=== PATIENT | female | born 1990 | race Caucasian/White ===

== ENCOUNTER 2019-09-25 16:02 | Outpatient (REF) | payer BC, SELFPAY ==
--- NOTE | 2019-09-25 15:30 | PAPFT_PTH ---
PATIENT: Lina Segura LOC: [facility]#:[id number] AGE/SX: 29/F ROOM: RE09/25/[address]: Ofelia Renner : 1990 BED: DIS: 09/25/2019 SPEC #: [id number] RECD: 09/26/19 12:54 STATUS: KATIE DOVE #: [id number] CHELSIE: 09/25/19 15:[address]: Ofelia Pierce DEPT: [facility] Cytology RECD BY: Rosalba Millan Tissues: 1 - CX/ENDOCX FOR PAP SMEARS Procedures: PAP THIN PREP/[facility] Screening Comments: [id number]
== END 2019-09-25 16:22 ==
LOC: NCHCN 16:02
PROVIDERS: PCP Nurse Practitioner Family; Visit Provider Nurse Practitioner Family
DX: Z12.4 Encounter for screening for malignant neoplasm of cervix (principal)
CPT/HCPCS: 88142

== ENCOUNTER 2021-12-29 15:25 | Outpatient (REF) | payer BC, SELFPAY ==
--- OUTSIDE RECORDS SUMMARY | 2021-12-29 15:28 | XMS_ITS | Encounter Summary ---
:1990 Author Organization [facility] Address [address] [place] [address] Care Team Providers Name Role Phone Ofelia Pierce GERM DRIER Primary Care Provider Desiree Park MD Unavailable Encounter Details Date Type Department Care Team Description 05/31/2021 Lab Requisition [facility] Outr Resulting Lab, Pathology & Laboratory Provider [facility] [address] [place] [address] Social History Tobacco Use Types Packs/Day Years Used Date Never Smoker Alcohol Use Standard Drinks/Week Comments Not Currently 0 (1 standard drink = 0.6 oz pure alcoho l) Sex Assigned at Date Recorded Female 08/28/2021 10:44 EDT documented as of this encounter Plan of Treatment Not on filedocumented as of this encounter Procedures Procedure Name Priority Date/Time Associated Diagnosis Comme nts SUSCEPTIBILITY Routine 05/29/2021 16:43 EST Resul ts for this procedure are i n the results section . documented in this encounter Results (ABNORMAL) SUSCEPTIBILITY (05/29/2021 16:43 EST) Organism ID Streptococcus [facility] agalactiae (Group B) LABORATORY SERVICES (A) Specimen Organism - Douche with rectal and vagina l fittings (physical object) Organism Antibiotic Method Susceptibility Streptococcus agalactiae (Group B) Clindamycin <=0.12 ug/mL: Susceptible Performing Organization Address City/State/[facility] Code Phon e Number [facility] [address] [place] [address] SERVICES documented in this encounter Visit Diagnoses Not on filedocumented in this encounter Care Teams Auto Polisher Relationship Specialty Start Date End Date Ofelia Pierce, GERM DRIER PCP - General 03/31/21 [address] [place] [id number] Desiree Park MD 03/23/21 [address] [place] [id number] documented as of this encounter
--- OUTSIDE RECORDS SUMMARY | 2021-12-29 15:28 | XMS_ITS | Encounter Summary ---
:1990 Author Organization [facility] Address [address] [place] [address] Care Team Providers Name Role Phone Ofelia Pierce NP Primary Care Provider Desiree Park MD Unavailable Reason for Visit Reason Comments Suture / Staple Removal s/p lap curly 08/19/21 Consult (See Order Priority) - Receiving Office to Obtain Authorization Specialty Diagnoses / Procedures Referred By Contact Refer red To Contact General Surgery Diagnoses Gallbladder polyp Irene Bowden MD Abuja[place], Wase[place], MD [address] [place] [address], [address] [place] [place] [address] Phone: Fax: Referral ID Status Reason Start Expiration Visits Visits Date Date Requested Authorized [id number] Receiving Office Specialty 1 1 to Obtain Services 2 Authorization Required Encounter Details Date Type Department Care Team Description 08/28/2021 Nurse Only [facility] Nurse, Smith Cm allbladder polyp (Primary Dx); General Surgery - Surg S/P laparo scopic cholecystectomy; Smith Removal of diaz [address] [place], [place] [id number] Social History Tobacco Use Types Packs/Day Years Used Date Never Smoker Smokeless Tobacco: Never Used Alcohol Use Standard Drinks/Week Comments Not Currently 0 (1 standard drink = 0.6 oz pure alcoho l) none since 01/2020 Alcohol Habits Answer Date Recorded How often do you have a drink containing alcohol? Not asked How many drinks containing alcohol do you have on a Not aske d typical day when you are drinking? How often do you have six or more drinks on one Not asked occasion? Comment: none since 01/202008/18/2021 Sex Assigned at Date Recorded Female 08/28/2021 10:44 EDT documented as of this encounter Functional Status Functional Status Response Date of Assessment Because of a physical, mental, or emotional condition, No 06/09/2021 does this person have difficulty doing errands alone such as visiting a doctor's office or shopping? Cognitive Status Response Date of Assessment Because of a physical, mental, or emotional condition, No 06/09/2021 does this person have serious difficulty concentrating, remembering, or making decisions? documented as of this encounter Progress Notes Zenaida Byers RN - 08/28/2021 1100 EDT Incision well approximated with diaz. No drainage. Surrounding skin C/D/I. Staple removal performed per provider instruction. Patient tolerated well. Steri strips placed. Patient Education Topic: Post op steri strip care Method: Verbal Taught to: Patient Barriers: None Outcomes: verbalized understanding Signature: Electronically signed by ZENAIDA BYERS RN I was supervised by Brannon Roman PA-C who was present and immediately available in the office suite. ZENAIDA BYERS RN 08/28/2021 11:09 documented in this encounter Plan of Treatment Not on filedocumented as of this encounter Visit Diagnoses Diagnosis Gallbladder polyp - Primary Cholesterolosis of gallbladder S/P laparoscopic cholecystectomy Other postprocedural status Removal of diaz Encounter for removal of sutures documented in this encounter Discontinued Medications Medication Sig Discontinue Reason Start Date End Date HYDROmorphone (DILAUDID) 2 Take 1 Tablet by Therapy completed 08/1908/28/2021 mg tablet mouth every 4 hours as needed for Pain. Daily Max: 12 mg documented as of this encounter Care Teams [employer] Clerk Relationship Specialty Start Date End Date Ofelia Pierce NP PCP - General 03/31/21 [address], [place] [phone] Desiree Park MD 03/23/[address] [phone] documented as of this encounter
--- OUTSIDE RECORDS SUMMARY | 2021-12-29 15:28 | XMS_ITS | Encounter Summary ---
:1990 Author Organization [facility] Address [address] [place] [address] Care Team Providers Name Role Phone Ofelia Pierce NP Primary Care Provider Desiree Park MD Unavailable Encounter Details Date Type Department Care Team Description 05/12/2021 Lab Requisition [facility] Chikis Meade N eoplasm of Pathology & PA uncertain behavior Laboratory Medicine [address] [place] [address] [address] [place] [id number] Social History Tobacco Use Types Packs/Day Years Used Date Never Smoker Alcohol Use Standard Drinks/Week Comments Not Currently 0 (1 standard drink = 0.6 oz pure alcoho l) Sex Assigned at Date Recorded Female 08/28/2021 10:44 EDT documented as of this encounter Discharge Disposition Disposition Code Departure Means Destination Home or Self Care documented in this encounter Plan of Treatment Not on filedocumented as of this encounter Procedures Procedure Name Priority Date/Time Associated Diagnosis Comme nts SURGICAL PATHOLOGY Today 05/11/2021 11:24 Neoplasm of Resul ts for this EST uncertain behavior procedure are in of skin the results section. documented in this encounter Results SURGICAL PATHOLOGY (05/11/2021 11:24 EST) Note to Patient The following [facility] pathology results CENTER have been interpreted LABORATORY by your pathologist SERVICES and may be available to you before your health provider has had the opportunity to review them. Please allow time for your provider to receive these results and explore management options, if applicable. Final Diagnosis A. SKIN OF NIPPLE, LEFT, SHAVE BIOPSY: [facility] - Fibroepithelial skin tag. CENTER LABORATORY B. SKIN OF CHEEK, RIGHT INFERIOR MEDIAL MALAR, SHAVE B IOPSY: SERVICES - Pyogenic granuloma. Attestation By the signature [facility] Electronica lly below, the attending CENTER signed by Gildardo physician certifies LABORATORY Jenifer Navarrete MD on that they have 1) SERVICES 05/12/2021 at 1612 personally conducted a gross and/or microscopic examination of the described specimen(s), and/or personally interpreted the results of laboratory testing of the described specimen(s), and 2) personally rendered or confirmed the above diagnosis. Microscopic A. There is a polypoid papul e with a papillated epidermal surface. The stratum corneum is composed of a relatively normal layer of orthokeratin. The dermis is composed of loose fibrous connective tissue and dilated vessels. [facility] Description CENTER B. There is a papule formed by a dermal proliferation of vascular channels associated with an edematous and inflamed stroma. The vessels are lined by hypertrophic endothelial cells and there is mural sw LABORAT ORY elling. The overlying epider mis is centrally ulcerated but forms a collarette at the periphery of the papule. SERVICES Clinical History A. 4 mm pedunculated papule; DDx: skin tag vs other; B. 6 mm erythematous papule; DDx: pyogenic granuloma vs hemangioma vs other; clinical diagnosis code: D48.5 [facility] LABORATORY SERVICES Gross Description A. [facility] Received in formalin sasha d with proper patient identification (initials C, A) and left nipple is a shave biopsy of a dusky rod wrinkled papule (0.7 x 0.5 x 0.5 cm). The margin is inked blue. Bisected and submitted in A1. CENTER LABORATORY B. SERVICES Received in formalin sasha d with proper patient identification (initials C, A) and right inferior medial malar insert shave biopsy of pale rod-white skin (0.7 x 0.6 by of less than 0.1 cm). There is an off center a rod-white f riable focally brown hemorrhagic area (0.3 x 0.3 cm). The margin is inked blue. Bisected and submitted in B1-B2. Les Ewing 05/12/2021 8:18 Performing Lab [facility] HOSPITAL LAB [facility] LABORATORY SERVICES Scanned Images [facility] LABORATORY SERVICES Specimen Tissue - Skin (tissue) specimen (specime n) Tissue specimen (specimen) - Skin (tissu e) specimen (specimen) Performing Organization Address City/State/ZIP Code Phon e Number [facility] [address] [place] [address] SERVICES documented in this encounter Visit Diagnoses Diagnosis Neoplasm of uncertain behavior of skin documented in this encounter Care Teams Otr Van Cdl Truck Driver Relationship Specialty Start Date End Date Ofelia Pierce NP PCP - General 03/31/21 [address] [place], [place] [phone] Desiree Park MD 03/23/[address] [place], [place] [phone] documented as of this encounter
--- OUTSIDE RECORDS SUMMARY | 2021-12-29 15:28 | XMS_ITS | Encounter Summary ---
:1990 Author Organization [facility] Address [address] [place] [address] Care Team Providers Name Role Phone Ofelia Pierce NP Primary Care Provider Desiree Park MD Unavailable Reason for Visit Auth/Cert Specialty Diagnoses / Procedures Referred By Contact Refer red To Contact Diagnoses Biliary colic Procedures MA LAP,CHOLECYSTECTOMY laparoscopic and possible open cholecystectomy and possible intraoperative cholangiography (XRY). Referral ID Status Reason Start Date Expiration Date Visits Requ ested Visits Authorized [id number] 05/01/2022 1 1 Encounter Details Date Type Department Care Team Description 08/19/2021 Anesthesia Event [facility] OR Marely Angela MD [address] [place] [id number] [place] [address] Ge Matias AA [address] [phone] [place] [address] Anesthesia Record Procedure Summary Procedure Name Responsible Anesthesia Start Anesthesia Stop Anesthesiologist Time Time laparoscopic and Marely Angela MD 08/19/21 0725 08/19/21 0915 possible open cholecystectomy and possible intraoperative cholangiography (XRY). (N/A Abdomen) Events Date Time Event Comment 08/19/2021 0725 An Start The patient was re-evaluated immediately before moderate or deep sedation use, before anesthesia induction, or be fore the anesthesia procedure. 0725 An Start Data 0737 An Induction The patient was reevaluated immediately before moderate or deep sedation use and before anesthesia induction. 0742 An Intubation 0748 Anesthesia Ready 0903 An Extubation Neuromuscular bl ockade reversed with full TOF and sustained tetanu s. Patient spontaneously breathing. Oropharynx sucti oned and patient extubated awake. Airway patent po st-extubation. To PACU with 3 L supplemental oxy gen via nasal cannula. VSS 0909 an stop data 0913 Handoff to RN I completed my h andoff to the receiving nurse during which we: 1. Jeevan ntified the patient 2. Identified the responsible provider 3. Reviewed the pertinent medical history 4. Discussed the surgical course 5. Reviewed intra-o p anesthesia management and issues during anesthesi a 6. Set expectations for post-procedure p eriod 7. Allowed opportunity for questions and ac knowledgement of understanding. 0915 An Stop Name Total dexaMETHasone (DECADRON) injection 4 mg/mL (for IV dos es up to 10mg) 8 mg fentanyl citrate (PF) injection 200 mcg glycopyrrolate pre-filled syringe 0.2 mg HYDROmorphone vial 2 mg/mL 0.8 mg ketAMINE 5 mL prefilled syringe 20 mg ondansetron (PF) (ZOFRAN) injection 4 mg lidocaine 2% (PF) injection glass vial 60 mg propOFol (DIPRIVAN) injection 150 mg propOFol injection 770,588 mcg rocuronium 10 mg/mL vial 70 mg sugammadex 100 mg/mL 2 mL vial 200 mg dexmedetomidine injection - vial 45.49 mcg ceFAZolin (ANCEF) syringe 2 g 2 g labetalol 5 mg/mL 20 mL vial 50 mg ketOROLAC injection 30 mg lactated ringers (LR) infusion 1,000 mL Agents Name O2 N2O Air Blood No blood administrations on file. Lines, Drains, and Airways Type Details Placement Removal Wound 08/19/21; 0807; Anterior; 08/19/21 0807 by Abdomen; Trocar Sites x4 Shital Palomino RN for Laparoscopic Cholecystectomy; N; Full thickness Peripheral IV 08/19/21; 0647; 20; 1.25; 08/19/21 0647 by 08/19 1116 by B Peters Introcan; Left, Amalia Terrazas RN Miner, Loretta, RN Posterior; Hand; Inserted by RN (Ross Terrazas); 1; None; 3.15% Chlorhexidine with IPA; 08/19/21; 1116; Per protocol, Therapy completed; No complications, Dressing applied Non-Surgical Airway 08/19/21; 0754 (created 08/19/21 0754 by 0903 by via procedure Ge Tucker, Ge Tucker, documentation); 08/19/21; AA AA 0903 documented in this encounter Social History Tobacco Use Types Packs/Day Years [...] making decisions? documented as of this encounter OR Notes Anesthesia Postprocedure Evaluation - Ge Tucker, CAROL - 08/19/2021 0916 EDT Patient: Lina Segura Vital signs were reviewed with the recovery nurse. Complete vitals history is available in the Epic flowsheets. Vitals Value Taken Time BP 124/76 08/19/21 0913 Temp 08/19/21 0916 Resp 16 08/19/21 0915 Pulse From Oximetry 91 BPM 08/19/21 0915 SpO2 99 % 08/19/21 0915 Vitals shown include unvalidated device data. Last Pain Score - Numeric Pain Level (Scale 1-10): 0 Type of Anesthesia - general Anesthesia Post Evaluation Post-procedure vitals reviewed and are stable. Level of consciousness: awake and alert and oriented Temperature status: normothermia Respiratory status: airway patent and nasal cannula Cardiovascular status: appropriate for condition Hydration status: adequate Nausea/Vomiting: none Pain management: adequate Post-Op Assessment: patient tolerated procedure well with no complications and patient satisfied with anesthesia care Patient participation: able to participate Disposition: outpatient/home Anesthesia Complications: No apparent anesthesia complications Comments: nesthesia Procedure Notes - Ge Tucker AA - 08/19/2021 0753 EDTAssociated Order(s): Airway Airway Date/Time: 08/19/2021 7:42 Urgency: elective Airway not difficult General Information and Staff Patient location during procedure: OR Resident/PALEOLOGY TEACHER: Ge Tucker AA Performed: resident/PALEOLOGY TEACHER/AA Indications and Patient Condition Indications for airway management: anesthesia Sedation level: GA Preoxygenated: yes Patient position: sniffing Ventilation assessment: 1 - Easy Final Airway Details Final airway type: endotracheal airway Successful airway: ETT Cuffed: yes Successful intubation technique: video laryngoscopy Choe Facilitating devices/methods: intubating stylet Endotracheal tube insertion site: oral Blade: Katherine Blade size: #3 ETT size (mm): 7.5 Cormack-Lehane Classification: grade I - full view of glottis Placement verified by: chest auscultation, capnometry and palpation of cuff Measured from: lips ETT to lips (cm): 21 Number of attempts at approach: 1 nesthesia Preprocedure Evaluation - Marely Angela MD - 08/19/2021 0652 EDT Anesthesia Preprocedure Evaluation Patient Medical History, including Anesthesia History reviewed. Chart and Nursing Notes reviewed, including NPO status and Medication History. Additional ROS/History Findings: 30 year old female scheduled for laparoscopic and possible open cholecystectomy and possible intraoperative cholangiography PMH significant for: 7 weeks s/p uncomplicated wToby TATE @ [facility]: - c/b urticaria - controlled with PPI and Claritin - denies GERD/nausea/vomiting Allergies Allergen Reactions ??? Amoxicillin Hives Shortness of Breath ??? Pcn [Penicillins] ??? 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 Activity, other involving cardiorespiratory exercise 08/18/21; has a 7 week old, walking 1 mile per day ??? Astigmatism 08/17/21 myopia ??? Capillary hemangioma of right orbital region ??? 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 Eczema, developed hives post , ? hormonal : being treated with clariten and pepcid: somewhat helpful ??? Eczema eczema hands , wrist . per pt, surgical site clear at this time from eczema ??? GERD (gastroesophageal reflux disease) 08/18/21: during , now resolved. Now on pepcid for anti histamine benefit r/t hives ??? Hemangioma 08/17/21 capillary-right orbital region ??? History of general anesthesia tolerated well, had epidural with her son, tolerated well ??? History of kidney stones 08/18/21: ? stone during , right hydronephrosis has resolved. At this time no stone visualized ??? Migraines 08/18/21: on occassion, no specific med plan Relevant Problems Anesthesia (-) PONV (postoperative nausea and vomiting) CARDIOVASCULAR (+) Port-wine stain of skin (+) Telangiectasia Past Surgical History: Procedure Laterality Date ??? OTHER SURGICAL HISTORY laser annually from age 3 to 14 for port wine stain ??? WISDOM TOOTH EXTRACTION Social History Tobacco Use ??? Smoking status: Never Smoker ??? Smokeless tobacco: Never Used Substance Use Topics ??? Alcohol use: Not Currently Comment: none since 01/2020 ??? Drug use: Never Clinical information reviewed: Physical Exam Airway Mallampati: I TM distance: >3 FB Neck ROM: full Cardiovascular - normal exam Dental Pulmonary - normal exam Abdominal Anesthesia Plan ASA 2 Anesthesia Type - general Anesthesia plan and risks discussed. Informed consent obtained from patient. Specific risks discussed were bleeding, dental injury, stroke, vomiting, nerve damage, nausea, headache, infection, ICU placement, , myocardial infarction, post-op intubation and other. Counseled re: ability to continue after GA Obstetrics patient pre-procedure anesthesia evaluation included a discussion of epidural, spinal, general, and TAP block mode(s) of anesthesia. Risks discussed included: Bleeding, infection, nerve injury, spinal headaches, high spinals, hematomas, and low blood pressures with under-perfusion. The possibilities of inadequate epidural/block, block failure, and possible block replacement were also discussed. All patient's questions were answered to their satisfaction. PAT Note Notes from 07/20/21 through 08/19/21 No notes of this type exist for this encounter. documented in this encounter Plan of Treatment Not on filedocumented as of this encounter Procedures Procedure Name Priority Date/Time Associated Comments Diagnosis ANESTHESIA Routine 08/19/2021 7:42 EDT Results for this INTUBATION procedure are i n the results section. documented in this encounter Results MA AN ELECTIVE ENDOTRACHEAL AIRWAY (08/19/2021 7:42 EDT) Narrative Ge Tucker AA - 08/19/2021 7:42 EDT Ge Tucker AA ? 08/19/2021 ??7:54 Airway Date/Time: 08/19/2021 7:42 Urgency: elective Airway not difficult General Information and Staff Patient location during procedure: OR Resident/PALEOLOGY TEACHER: Ge Tucker AA Performed: resident/PALEOLOGY TEACHER/CAROL Indications and Patient Condition Indications for airway management: anest hesia Sedation level: GA Preoxygenated: yes Patient position: sniffing Ventilation assessment: 1 - Easy Final Airway Details Final airway type: endotracheal airway Successful airway: ETT Cuffed: yes Successful intubation technique: video l aryngoscopy Choe Facilitating devices/methods: intubating stylet Endotracheal tube insertion site: oral Blade: Katherine Blade size: #3 ETT size (mm): 7.5 Cormack-Lehane Classification: grade I - full view of glottis Placement verified by: chest auscultatio n, capnometry and palpation of cuff Measured from: lips ETT to lips (cm): 21 Number of attempts at approach: 1 documented in this encounter Visit Diagnoses Not on filedocumented in this encounter Administered Medications Inactive Administered Medications - up to 3 most recent administrations Medication Order MAR Action Action Date Dose Rate Site ceFAZolin (ANCEF) syringe 2 g Given 08/19/2021 7:42 EDT 2 g 2 g, intravenous, Administer over 5 Minutes, PRE-OP ONCE, 1 dose, On Tue08/19/21 at 0630, Routine, Preprocedure dexAMETHasone (DECADRON) injection Given 08/19/2021 7:39 EDT 8 mg intravenous, PRN, Starting on Tue08/19/21 at 0739, Until Tue08/19/21 at 0915, Routine, Anesthesia Intraprocedure dexmedeTOMIDine (PRECEDEX) Rate Change 08/19/2021 8:32 0.2 mcg/kg/ hr 0.151 mL/hr injection EDT intravenous, FA IP EQF CONTINUOUS PRN FOR ONE STEP MEDS, Starting on Tue08/19/21 at 0731, Until Tue08/19/21 at 0915, Routine, Anesthesia Intraprocedure Rate Change 08/19/2021 8:13 EDT 0.4 mcg/kg/hr 0.302 mL/hr New Bag 08/19/2021 7:31 EDT 0.6 mcg/kg/hr 0.452 mL/hr fentaNYL citrate (PF) injection Given 08/19/2021 8:07 EDT 50 mcg intravenous, PRN, Starting on Tue08/19/21 at 0737, Until Tue08/19/21 at 0915, Routine, Anesthesia Intraprocedure Given 08/19/2021 8:06 EDT 50 mcg Given 08/19/2021 7:59 EDT 50 mcg glycopyrrolate (PF) (ROBINUL) 0.4 mg/2 mL (0.2 Given 022 7:57 EDT 0.2 mg mg/mL) injection intravenous, PRN, Starting on Tue08/19/21 at 0757, Until Tue08/19/21 at 0915, Routine, Anesthesia Intraprocedure HYDROmorphone (DILAUDUD) 2 mg/mL injecti on Given 08/19/2021 7:50 EDT 0.8 mg intravenous, PRN, Starting on Tue08/19/21 at 0750, Until Tue08/19/21 at 0915, Routine, Anesthesia Intraprocedure ketAMINE in NaCl, iso-osmotic (KETALAR) 50 mg/5 Given 2021 7:37 EDT 20 mg mL (10 mg/mL) IV injection intravenous, PRN, Starting on Tue08/19/21 at 0737, Until Tue08/19/21 at 0915, Routine, Anesthesia Intraprocedure ketOROLAC (TORADOL) injection Given 08/19/2021 8:49 EDT 30 mg intravenous, PRN, Starting on Tue08/19/21 at 0849, Until Tue08/19/21 at 0915, Routine, Anesthesia Intraprocedure labetalol (TRANDATE) injection Given 08/19/2021 8:21 EDT 10 mg intravenous, PRN, Starting on Tue08/19/21 at 0803, Until Tue08/19/21 at 0915, Routine, Anesthesia Intraprocedure Given 08/19/2021 8:08 EDT 20 mg Given 08/19/2021 8:05 EDT 10 mg lactated ringers (LR) infusion New Bag 08/19/2021 9:09 EDT at 25 mL/hr, intravenous, CONTINUOUS, Starting on Tue08/19/21 at 0630, Until Tue08/19/21 at 1347, Routine, Preprocedure Restarted 08/19/2021 7:25 EDT New Bag 08/19/2021 6:56 EDT 25 mL/hr lidocaine (PF) 20 mg/mL (2 %) injection Given 08/19/2021 7:37 EDT 60 mg intravenous, PRN, Starting on Tue08/19/21 at 0737, Until Tue08/19/21 at 0915, Routine, Anesthesia Intraprocedure ondansetron (PF) (ZOFRAN) injection Given 08/19/2021 8:46 EDT 4 mg intravenous, PRN, Starting on Tue08/19/21 at 0846, Until Tue08/19/21 at 0915, Routine, Anesthesia Intraprocedure propOFol (DIPRIVAN) injection Given 08/19/2021 7:38 EDT 150 mg intravenous, PRN, Starting on Tue08/19/21 at 0738, Until Tue08/19/21 at 0915, Routine, Anesthesia Intraprocedure propOFol (DIPRIVAN) injection Rate Change 08/19/2021 8:03 140 mcg/kg/min 63.336 intravenous, FA IP EQF EDT mL/hr CONTINUOUS PRN FOR ONE STEP MEDS, Starting on Tue08/19/21 at 0742, Until Tue08/19/21 at 0915, Routine, Anesthesia Intraprocedure Rate Change 08/19/2021 7:49 EDT 160 mcg/kg/min 72.384 mL/hr New Bag 08/19/2021 7:42 EDT 140 mcg/kg/min 63.336 mL/hr rocuronium (ZEMURON) injection Given 08/19/2021 7:39 EDT 70 mg intravenous, PRN, Starting on Tue08/19/21 at 0739, Until Tue08/19/21 at 0915, Routine, Anesthesia Intraprocedure sugammadex (BRIDION) injection Given 08/19/2021 8:52 EDT 200 mg intravenous, PRN, Starting on Tue08/19/21 at 0852, Until Tue08/19/21 at 0915, Routine, Anesthesia Intraprocedure documented in this encounter Care Teams Joggle Press Operator Relationship Specialty Start Date End Date Ofelia Pierce NP PCP - General 03/31/21 4 [address] [id number] Desiree Park MD 03/23/[address] [place] [id number] documented as of this encounter
--- OUTSIDE RECORDS SUMMARY | 2021-12-29 15:28 | XMS_ITS | Encounter Summary ---
:1990 Author Organization [facility] Address [address] [place] [address] Care Team Providers Name Role Phone Ofelia Pierce NP Primary Care Provider Desiree Park MD Unavailable Reason for Visit Reason Comments New Patient Visit gallbladder disease affectin g in third trimester Consult (Routine/Next Available) - Specialty Report Received Specialty Diagnoses / Procedures Referred By Contact Refer red To Contact General Surgery Diagnoses Gallbladder polyp Right upper quadrant abdominal pain affecting in third trimester Gallbladder disease affecting in third trimester Nika Holman, Mp5 Gen Surgery MD [address] [place] [address], Main Phone: [place], [address] [place] [address] Referral ID Status Reason Start Expiration Visits Visits Date Date Requested Authorized [id number] Specialty Specialty 1 1 Report Services 1 Received Required Encounter Details Date Type Department Care Team Description 08/06/2021 Office Visit [facility] Maria Eugenia Ivan, Gall bladder polyp General Surgery - Lucian CORNELL (Primary Dx) [address] [phone] Social History Tobacco Use Types Packs/Day Years Used Date Never Smoker Smokeless Tobacco: Never Used Alcohol Use Standard Drinks/Week Comments Not Currently 0 (1 standard drink = 0.6 oz pure alcoho l) Sex Assigned at Date Recorded Female 08/28/2021 10:44 EDT documented as of this encounter Last Filed Vital Signs Vital Sign Reading Time Taken Comments Blood Pressure 140/98 08/06/2021 1243 EDT Pulse 78 08/06/2021 1243 EDT Temperature - - Respiratory Rate - - Oxygen Saturation - - Inhaled Oxygen Concentration - - Weight 72.6 kg (160 lb) 08/06/2021 1243 EDT Height 165.1 cm (5' 5) 08/06/2021 1243 EDT Body Mass Index 26.63 08/06/2021 1243 EDT documented in this encounter Functional Status Functional Status Response [...] documented as of this encounter Progress Notes Maria Eugenia Ivan MD - 08/06/2021 1300 EDT [facility] General Surgery Consultation Note - Initial Visit Note Date: 08/06/2021 Patient: Lina Segura Subjective: Lina Segura is a 30 y.o. female who presents today for New Patient Visit (gallbladder diseaseaffecting in third trimester) I am seeing Lina Segura in consultation, at the request of Ofelia Pierce NP, for RUQ pain. Patient History of Present Illness: Abdominal Pain Pain location: RUQ, dull with episodes of sharp Pain radiates to: None Pain severity: Moderate 7/10 to severe Duration: 6 months during Timing: intermittent, Relieved by: Nothing Worsened by: Fatty food Associated symptoms: Nausea but no vomiting Associated symptoms: no dysuria . No fever, Jaundice or chills. No weight gain or loss and FH of GBD. The patient's problem list, allergies, immunizations, and medications were documented, reviewed, andupdated as follows: Patient Active Problem List Diagnosis ??? Telangiectasia ??? [place] stain of skin ??? Myopia ??? Astigmatism ??? Gallbladder polyp ??? Right upper quadrant abdominal pain affecting in third trimester ??? Gallbladder disease affecting in third trimester Allergies: Amoxicillin, Pcn [penicillins], and Penicillins Immunizations: Immunization History Administered Date(s) Administered ??? Covid-19 mRNA Vaccine ([employer] COVID-19) PF 0.3 ml IM (12 yrs+) 04/21/2020, 05/12/2020, 02/04/2021 Medications: Current Outpatient Medications Medication ??? acetaminophen (TYLENOL) 500 mg tablet ??? calcium carbonate (TUMS) 200 mg calcium (500 mg) tablet,chewable ??? norgestimate-ethinyl estradiol (ORTHO TRI-CYCLEN LO) 0.18/0.215/0.25 mg-25 mcg tablet ??? vit no.124/iron/folic ( VITAMIN ORAL) ??? Triamcinolone Acetonide 0.05 % ointment No current facility-administered medications for this visit. History was documented as follows: Past Medical History: Diagnosis Date ??? Capillary hemangioma of right orbital region ??? Eczema Past Surgical History: Procedure Laterality Date ??? WISDOM TOOTH EXTRACTION Social History Socioeconomic History ??? Marital status: Spouse name: Not on file ??? Number of children: Not on file ??? Years of education: Not on file ??? Highest education level: Not on file Occupational History Employer: [employer] Tobacco Use ??? Smoking status: Never Smoker ??? Smokeless tobacco: Never Used Substance and Sexual Activity ??? Alcohol use: Not Currently ??? Drug use: Never ??? Sexual activity: Not on file Other Topics Concern ??? 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 Her is a diesel engineer. Social Determinants of Health Financial Resource Strain: Not on file Food Insecurity: Not on file Transportation Needs: Not on file Physical Activity: Not on file Stress: Not on file Social Connections: Not on file Family History Problem Relation Age of Onset ??? Glaucoma Paternal Grandfather Review of Systems: A 11-point review of systems was completed. Pertinent items are noted in Subjective/HPI. Constitutional: Negative for fever. HENT: Negative for neck pain. Eyes: Negative for blurred vision. Respiratory: Negative for shortness of breath. Cardiovascular: Negative for chest pain, palpitations and orthopnea. Gastrointestinal: (+ ) for abdominal pain. Genitourinary: Negative for dysuria. Skin: Negative for rash. Neurological: Negative for dizziness. Endo/Heme/Allergies: Negative. Psychiatric/Behavioral: Normal. Objective: Physical Examination: Vitals: BP (!) 140/98 Pulse 78 Ht 165.1 cm (65) Wt 72.6 kg (160 lb) LMP 09/12/2020 BMI 26.63 kg/m?? Ms. Segura is a pleasant female who is awake, alert, oriented x3. She did not show any signs of acute distress. She is not in pain. Her vitals were stable. Nursing note and vitals reviewed. The patient was examined & the plan was discussed in the presence of our RN [place] & the medical student , Genesis Strauss MS III. Constitutional: She appears well-nourished. No distress. HENT: Normal Head: Atraumatic. Right Ear: External ear normal. Left Ear: External ear normal. Mouth/Throat: Oropharynx is clear and moist. Eyes: Conjunctivae are normal. No scleral icterus. Neck: Neck supple. Cardiovascular: Normal rate, regular rhythm and normal heart sounds. Pulmonary/Chest: Effort normal and breath sounds normal. No respiratory distress. Abdominal: No obvious abdominal scar. Abdomen soft, small divarication of recti muscles. lax, no distention, mild RUQ & epigastric tenderness. Bowel sounds are normal . Musculoskeletal: She exhibits no edema. Neurological: She is alert. Skin: Skin is warm. Psychiatric: She has a normal mood and affect. Her behavior is normal. Judgment and thought content normal. Laboratory: Office Visit on 06/09/2021 Component Date Value Ref Range Status ??? Color, UA 06/09/2021 Yellow Yellow Final ??? Clarity, UA 06/09/2021 Slightly Cloudy (A) Clear Final ??? Glucose, UA 06/09/2021 Negative Negative mg/dL Final ??? Bilirubin, UA 06/09/2021 Negative Negative Final ??? Ketones, UA 06/09/2021 Negative Negative mg/dL Final ??? Specific [place], Urine 06/09/2021 1.020 1.001 - 1.035 Final ??? Blood, UA 06/09/2021 Trace (A) Negative Final ? ? pH, UA 06/09/2021 7.0 <=8 Final ??? Protein, UA 06/09/2021 Negative Negative mg/dL Final ??? Urobilinogen, UA 06/09/2021 0.2 0.2 - 1.0 EU/dL Final ??? Nitrite, UA 06/09/2021 Negative Negative Final ??? Leuk Esterase 06/09/2021 Negative Negative Final ??? HN LAB COMMENT (CLINITEK, UR) 06/09/2021 Test performed at [facility] Final Assessment: Biliary colic / GB polyp which may or may not play a part in her upper abdominal symptoms. The above-mentioned findings were discussed with her in detail. PLAN: We discussed surgical and non-surgical options. If she does not want a cholecystectomy, she understands that she needs to get an abdominal US every6 months to assess for changes in the GB polyp. If she wants surgery, she was informed about laparoscopic, possible open cholecystectomy, possible intraoperative cholangiography, and possible ERCP. The risks, benefits and alternatives were explained. The operative procedure was discussed including the risks of the potential complications. The risksinclude but are not limited to, infection with abscess formation, bleeding due to injury of the nearby structures, liver, stomach, small, large bowel, common bile duct injury and bile leak. There couldalso be the need for re-operation. Post-operative recovery was discussed, as well as the need for post surgery follow-up.She understands very well that her GB may or may not play a part in her upper abdominal symptoms & these symptoms may persist after surgery. The patient understand the risks; any and all questions were answered to the patient's satisfaction.She was advised to come to our emergency room if symptoms worsen. She will decide if she wants surgery and if so, will be scheduled for elective procedure, and she needs a test on day of surgery. If she does not want surgery, she will proceed with abdominal US every 6 months. At this time it was determine that she is suffering from simple biliary colic from GB polyp. Until removal, she was counseled on avoidance of large, fatty meals. We also discussed the Covid virus risk and the need for test 48-72 hours prior to surgery. I would like to thank Ofelia Pierce NP for providing me the opportunity to participate in the management of this patient. Submitted by: Maria Eugenia Ivan MD documented in this encounter Plan of Treatment Not on filedocumented as of this encounter Visit Diagnoses Diagnosis Gall bladder polyp - Primary Cholesterolosis of gallbladder documented in this encounter Care Teams Taxonomy Teacher Relationship Specialty Start Date End Date Ofelia Pierce NP PCP - General 03/31/21 [address] [place] [id number] Desiree Park MD 03/23/21 [address] [place] [id number] documented as of this encounter
--- OUTSIDE RECORDS SUMMARY | 2021-12-29 15:28 | XMS_ITS | Encounter Summary ---
:1990 Author Organization [facility] Address [address] [place] [address] Care Team Providers Name Role Phone Ofelia Pierce NP Primary Care Provider Desiree Park MD Unavailable Encounter Details Date Type Department Care Team Description 08/17/2021 Hospital Encounter [facility] - [facility], [facility] Labor & Deliver y [facility] [address] [place], [place] [id number] Social History Tobacco Use Types Packs/Day Years [...] making decisions? documented as of this encounter Medications at Time of Discharge Medication Sig Dispensed Refills Start Date End Date acetaminophen (TYLENOL) Take 2 Tablets by 0 08/19 500 mg tablet mouth every 6 hours as needed for Pain. vit Take 1 Tablet by 0 no.124/iron/folic mouth daily. ( VITAMIN ORAL) Triamcinolone Acetonide Apply 0.1 % 0 0.05 % ointment topically 2 times daily. acetaminophen (TYLENOL) Take 500 mg by mouth 0 08/19/2021 500 mg tablet every 6 hours as needed for Pain. calcium carbonate (TUMS) Take 1 Tablet by 0 08/19/2021 200 mg calcium (500 mg) mouth 4 times daily tablet,chewable as needed. HYDROmorphone (DILAUDID) Take 1 Tablet by 8 Tablet 0 08/1908/28/2021 2 mg tablet mouth every 4 hours as needed for Pain. Daily Max: 12 mg norgestimate-ethinyl Take 1 Tab by mouth 0 08/18/2021 estradiol (ORTHO daily. TRI-CYCLEN LO) 0.18/0.215/0.25 mg-25 mcg tablet documented as of this encounter Discharge Disposition Disposition Code Departure Means Destination Home or Self Group Home documented in this encounter Miscellaneous Notes Note - Sridevi Boyer RN - 08/17/2021 1400 EDT Telephone visit with Lina to answer questions about pumping. Received following email from Lina dated 08/14/21 at 0639am [facility]! Thank you for being willing to answer some of my /pumping questions. I really appreciate it! I guess for starters, I feel like I was never really taught how to properly pump. So anyinformation you can give me on that would be helpful please. I???ve been pumping occasionally when my breasts still feel too full after a session, but only for 5 minutes each side. The pump I have is the OSSIANIX S1 double electric breast pump. The questions I have are listed below: 1. Is there anything I need to do before pumping to help prepare my breasts? 2. What is the difference between the let down and expression phases? I???ve been using just the expression phase when I???ve been using it, but I think that works ok, since let down has already happened prior to the session. 3. Should I only pump on the side he hasn???t eaten on? Or should I pump on both sides? He tends to only need to eat on one side with each session. 4. How often should I pump? 5. How long should I pump for (10 min. / 15 min. / etc.)? 6. You may answer this with your answer to question 4, but, how often should I pump overnight? Rightmissy, he sleeps 4-5 hours the first part of the night, we feed, then he sleeps 3-4 hours the second part of the night. Sometimes he wakes up more often than that, but not usually. But that means that when he does wake up and even throughout the night some nights, I feel incredibly full, and waiting until the next feed to have him eat on whichever side he didn???t eat on overnight, is almost painful. 7. How many oz/bag when I store my breast milk? So far I???ve only been storing 2-3oz/bag when I???mpumping and storing. 8. How do I go about cleaning my pump parts when I go back to work? I???m guessing most pumping rooms have a sink to be able to wash the pump parts? Or should I just use wipes and then wash the pump parts when I get home? The next few questions are more just general questions: 1. My left breast always feel more full than my right breast and he seems to have an easier time eating off of my left side. Is there anything I can do about that? Or is it normal for one side to be more full than the other? 2. I had a clogged milk duct the other evening that was incredibly painful and difficult to resolve.I was actually in tears trying to deal with it. Do you have any tips and tricks for how to resolve them if I get another one? 3. I???ve noticed that my breasts sometimes feel itchy. I feel like I notice it more when I???m full. Is it just related to my breasts stretching (I do have some stretch galvez on my breasts)? 4. I???m having a difficult time finding a nursing/pumping bra that I like that is comfortable and functional. Any suggestions on a brand(s)? Also, sizing of a nursing/pumping bra? Spoke with her by phone to day to answer the above questions. Answered all questions and provided opportunity for follow up questions. Discussed back to work, pumping, plugged duct etc. Encouraged Lina to call as needed for future questions or concerns. documented in this encounter Plan of Treatment Not on filedocumented as of this encounter Visit Diagnoses Not on filedocumented in this encounter Care Teams Repairer And Checker Relationship Specialty Start Date End Date Ofelia Pierce NP PCP - General 03/31/21 [address] [id number] Desiree Park MD 03/23/[address] [place] [place] [id number] documented as of this encounter
--- OUTSIDE RECORDS SUMMARY | 2021-12-29 15:28 | XMS_ITS | Encounter Summary ---
:1990 Author Organization [facility] Address [address] [place] [address] Care Team Providers Name Role Phone Ofelia Pierce NP Primary Care Provider Desiree Park MD Unavailable Encounter Details Date Type Department Care Team Description 08/18/[address] [facility] Pre-Surgical Testing [address] [place], [place] [id number] Social History Tobacco Use Types Packs/Day Years [...] Sign Reading Time Taken Comments Blood Pressure - - Pulse - - Temperature - - Respiratory Rate - - Oxygen Saturation - - Inhaled Oxygen Concentration - - Weight 72.6 kg (160 lb) 08/18/2021 0826 EDT Height 165.1 cm (5' 5) 08/18/2021 0826 EDT Body Mass Index 26.63 08/18/2021 0826 EDT documented in this encounter Functional Status [...] every 6 hours as needed for Pain. famotidine (PEPCID) 20 mg Take 20 mg by mouth 0 tablet 2 times daily. ibuprofen (MOTRIN) 400 mg Take 400 mg by mouth 0 tablet every 6 hours as needed for Pain. loratadine (CLARITIN Take 10 mg by mouth 0 ORAL) every morning. vit Take 1 Tablet by 0 no.124/iron/folic [...] 12 mg documented as of this encounter Discharge Disposition Disposition Code Departure Means Destination Home or Self Care documented in this encounter OR Notes Preprocedure Instructions - Landy Taylor RN - 08/18/2021 0030 EDT Lina Segura has been instructed as follows regarding medication administration for the day ofthe scheduled procedure. Date of Surgery: 08/19/21 Instructions for Taking Medications Day of Surgery Medication Sig Last Dose Hold DOS Take DOS acetaminophen (TYLENOL) 500 mg tablet Take 500 mg by mouth every 6 hours as needed for Pain. X prn calcium carbonate (TUMS) 200 mg calcium (500 mg) tablet,chewable Take 1 Tablet by mouth 4 times daily as needed. X famotidine (PEPCID) 20 mg tablet Take 20 mg by mouth 2 times daily. Yes ibuprofen (MOTRIN) 400 mg tablet Take 400 mg by mouth every 6 hours as needed for Pain. 08/16/21 X loratadine (CLARITIN ORAL) Take 10 mg by mouth every morning. Yes vit no.124/iron/folic ( VITAMIN ORAL) Take 1 Tablet by mouth daily. 08/17/21 X Triamcinolone Acetonide 0.05 % ointment Apply 0.1 % topically 2 times daily. X Began clariten and pepcid to treat hives that had developed post . Pepcid is taken for anti histamine. R PreOp - Landy Taylor RN - 08/18/2021 0030 EDT COVID 19 Screening Perioperative at time of PAT Please document by exception (only check those that apply). Have you had any of the following symptoms recently?no Yes Chronic ? Cough Shortness of breath or difficulty breathing Fever Chills Fatigue Muscle or body aches Severe Headache New loss of taste or smell Sore throat Congestion or runny nose Rash Nausea, vomiting, or diarrhea (rare in adults. More common in children) Please elaborate if yes: If a chronic symptom is reported use your judgement if an anesthesia review is needed. Have you been in close contact with someone who has been diagnosed with Covid 19 (within past 2 weeks)?no If yes, and is a member of your household, what was the date of their onset of symptoms/positive test? If above date is within 15 days of dos, place for anesthesia review. Have you tested positive in the last 90 days for COVID by PCR and or home test?no Vaccination Status: X _X__ Pt states fully vaccinated, ___ Verified in chart ___ Pt states unvaccinated -Do not instruct patient regarding COVID testing, let [facility] coordinate this -Communicate status on yellow form for DOS REMIND PATIENT/parents of pediatric patients: Patients with a pending COVID-19 test are expected to remain masked and socially distanced at all times while at work or school, and refrain from going inside restaurants, bars, or other public areas where people are likely to be unmasked, or crowded public places. If patient develops any of these symptoms between now and their surgery date instruct them to call us back at [phone] to report symptoms Visitor Policy: Surgical & Procedural -Adult: 2 support people -Pediatrics: 2 support people - Inpatients are now permitted 2 support people at a time. One person is permitted to remain overnight (must be masked). - Pediatric Inpatients may 2 support people at a time. - Inpatient Psychiatry patients may have 2 (vaccinated) support people at a time - Outpatient visits: 2 support people for adults and pedi. (Exception: Cancer Center and [facility] Infusion- 1 support person) As a reminder, all support people are will be required to wear a mask that covers their nose and mouth for the entire time they are in the building. Anyone who cannot or will not wear a mask will be asked to leave. documented in this encounter Plan of Treatment Not on filedocumented as of this encounter Visit Diagnoses Not on filedocumented in this encounter Discontinued Medications Medication Sig Discontinue Reason Start Date End Date norgestimate-ethinyl Take 1 Tab by mouth Therapy completed 08/18/2021 estradiol (ORTHO daily. TRI-CYCLEN LO) 0.18/0.215/0.25 mg-25 mcg tablet documented as of this encounter Historical Medications This list may reflect changes made after this encounter. Medication Sig Dispensed Refills Start Date End Date famotidine (PEPCID) 20 mg Take 20 mg by mouth 2 0 tablet times daily. loratadine (CLARITIN ORAL) Take 10 mg by mouth 0 every morning. ibuprofen (MOTRIN) 400 mg Take 400 mg by mouth 0 tablet every 6 hours as needed for Pain. added in this encounter Care Teams Roll Forger Relationship Specialty Start Date End Date Ofelia Pierce NP PCP - General 03/31/21 [address] [place] [place] [id number] Desiree Park MD 03/23/21 [address] [place] [id number] documented as of this encounter
--- OUTSIDE RECORDS SUMMARY | 2021-12-29 15:28 | XMS_ITS | Encounter Summary ---
:1990 Author Organization [facility] Address [address] [place] [address] Care Team Providers Name Role Phone Ofelia Pierce NP Primary Care Provider Desiree Park MD Unavailable Reason for Visit Auth/Cert Specialty Diagnoses / Procedures Referred By Contact Refer red To Contact Diagnoses Biliary colic Procedures SC LAP,CHOLECYSTECTOMY laparoscopic and possible open cholecystectomy and possible intraoperative cholangiography (XRY). Referral ID Status Reason Start Date Expiration Date Visits Requ ested Visits Authorized [id number] 05/01/2022 1 1 Encounter Details Date Type Department Care Team Description 08/19/2021 Surgery [facility] Main [place] OR Maria Eugenia Ivan, laparoscopic and possible [address] crowe [place] [address] [address] possible intraoperative [phone] cholangiography (XRY). [place], [place] [[id number] (CPT??) ] [id number] Surgery Details Date/Time Status Location OR Service Patient Class Case Class Case Trauma Type Case? 08/19/21 0725 Posted [facility] OR [address] - Outpatient Elective Surgery Panel 1 Procedure LRB Anes Op Region Wound Class Commen ts laparoscopic and possible N/A General Abdomen Class II/ Clean open cholecystectomy and Contaminate d possible intraoperative cholangiography (XRY). Surgeon Surgeon Role Service Panel Maria Eugenia Ivan MD Primary General 1 Irene Bowden MD Resident - Assisting General 1 Social History Tobacco Use Types Packs/Day Years [...] Sign Reading Time Taken Comments Blood Pressure 128/85 08/19/2021 0915 EDT Pulse - - Temperature 36.4 ??C (97.5 ??F) 08/19/2021 0913 EDT Respiratory Rate 17 08/19/2021 0915 EDT Oxygen Saturation 98% 08/19/2021 0915 EDT Inhaled Oxygen Concentration - - Weight 75.4 kg (166 lb 3.6 oz) 08/19/2021 0626 EDT Height 165.1 cm (5' 5) 08/19/2021 0626 EDT Body Mass Index 27.66 08/19/2021 0626 EDT documented in this encounter Functional Status [...] 0.05 % ointment topically 2 times daily. HYDROmorphone (DILAUDID) Take 1 Tablet by 8 Tablet 0 08/1908/28/2021 2 mg tablet mouth every 4 hours as needed for Pain. Daily Max: 12 mg documented as of this encounter Ordered Prescriptions Prescription Sig Dispensed Refills Start Date End Date acetaminophen (TYLENOL) Take 2 Tablets by 0 08/19 500 mg tablet mouth every 6 hours as needed for Pain. HYDROmorphone (DILAUDID) 2 Take 1 Tablet by 8 Tablet 0 08/28/2021 mg tablet mouth every 4 hours as needed for Pain. Daily Max: 12 mg documented in this encounter Discharge Disposition Disposition Code Departure Means Destination Home or Self Skilled Nursing documented in this encounter H&P Notes Irene Bowden MD - 08/19/2021 0700 EDT The preoperative history and physical which was performed within 30 days of this procedure has been reviewed and the clinically appropriate elements of the physical examination havebeen repeated. There are no changes to the documented history and physical or if so such changes aredocumented below. Irene Bowden MD 08/19/2021 7:00 Maria Eugenia Owens MD - 08/06/2021 1300 EDT [facility] General Surgery Consultation Note - Initial Visit Note Date: 08/06/2021 Patient: Lina Segura Subjective: Lina Segura is a 30 y.o. female who presents today for New Patient Visit (gallbladder diseaseaffecting in third trimester) I am seeing Lina Rae Octavianojacques in consultation, at the request of Ofelia [...] Administered Date(s) Administered ??? Covid-19 mRNA Vaccine ([employer] COVID-19) PF 0.3 ml IM (12 yrs+) [...] level: Not on file Occupational History Employer: [employer] Tobacco Use ??? Smoking status: Never Smoker ??? Smokeless tobacco: Never Used Substance and Sexual Activity ??? Alcohol use: Not Currently ??? Drug use: Never ??? Sexual activity: Not on file Other Topics Concern ??? 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 Social Determinants of Health Financial Resource Strain: [...] 06/09/2021 Negative Negative mg/dL Final ??? Specific [place], Urine 06/09/2021 1.020 1.001 - 1.035 Final [...] Eugenia Ivan MD documented in this encounter Nursing Notes Amalia Terrazas RN - 08/19/2021 0636 EDT Preop Covid DOS screening questionnaire Please document by exception (only check those that apply). Have you had any of the following symptoms recently? No Yes Chronic ? Cough Shortness of breath or difficulty breathing Fever Chills Fatigue Muscle or body aches Severe Headache New loss of taste or smell Sore throat Congestion or runny nose Rash Nausea, vomiting, or diarrhea (rare in adults. More common in children) Have you had any exposure to a COVID + person since your covid test (in the last 5 days)? no Have you tested positive in the last 90 days for COVID by PCR and or home test? No Were you covid tested? yes When: 08/15/21 Results: neg Vaccinated: YES See admission vital signs documentation for admission temperature. documented in this encounter OR Notes OR Surgeon - Maria Eugenia Ivan MD - 08/19/2021 0551 EDT OPERATIVE REPORT SERVICE DATE: 08/19/2021 SURGEON: Maria Eugenia Hernandez MD, [facility], [facility] CONSULTANT: Irene Bowden MD PREOPERATIVE DIAGNOSIS: Biliary colic with gallbladder polyp. POSTOPERATIVE DIAGNOSIS: Biliary colic with gallbladder polyp. PROCEDURE: Laparoscopic cholecystectomy. ANESTHESIA: General with endotracheal intubation. INDICATIONS: This lady was referred by her primary care physician for recurrent right upper quadrantpain. Ultrasound showed gallbladder polyp. Liver function test and white blood count within normal limits. 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 PAST SURGICAL HISTORY: [place] tooth extraction. ALLERGIES: PENICILLIN DERIVATIVES. FINDINGS: Adhesions between the gallbladder and omentum with chronic cholecystitis. NARRATIVE: The diagnosis, the planned procedure, the risks, benefits and alternatives were explainedto the patient and her father.The operative procedure was discussed including the risks of general anesthesia and medication and the potential risk of complications. The risks include but not limited to infection with abscess formation, bleeding due to injury of the nearby structures, the liver, stomach, small and large bowel, common bile duct injury and bile leak. There could be also the need for reoperation. Postoperative recovery was discussed, as well as the need for post-surgery follow up. The patient understood the risks and any and all questions were answered to the patient's satisfaction. Consent form was obtained. NARRATIVE: The patient was brought to the operating room on a stretcher, and then moved to the operating table in the supine position. She was strapped to the table. After the induction of anesthesia, one dose of antibiotic prophylaxis was given. For DVT prophylaxis, sequential compression devices were applied to both lower extremities. For hypothermia prophylaxis, upper body Freda Hugger. An orogastric tube was passed by anesthesia into the stomach and placed to suction. The patient's abdomen was prepped and draped in the usual sterile surgical fashion. WHO comprehensive safety checklist was completed with the participation of the patient.Everybody in the room introduced him/herself. Time-out was completed. The patient was identified by the name, medical record number and date of . Plan for procedure was confirmed. Consent form was checked. Instruments and equipment were checked and everything we needed was available in the room. Access to peritoneal cavity was gained through a small transverse incision off midline periumbilically on the Left side with an Optiview trocar of 11 mm diameter after the abdomen was insufflated usingVerse???s needle at the Taveras???s point. CO2 was insufflated and maintained to achieve an intraabdom inal pressure of 15 mmHg. The patient was then placed in slight reverse Trendelenburg, in left side up position to facilitate for further trocar placement and exposure. We used a 10 mm 30-degree scope. To facilitate exposure and additional trocar placement, the patientwas placed in slight reverse Trendelenburg in the right side head up and the right side up position.The trocars were bladeless and were inserted under direct vision in the epigastric 11 mm, right subcostal 5 mm and periumbilical 5 mm. Intra-abdominal exploration was performed. The gallbladder was mildly distended with no pericholecystic fluid. The fundus of the gallbladder was grasped and pushed toward the patient's right shoulder. The Radha pouch was grasped after taking down the adhesions between the omentum as well as the first part of the duodenum. Traction was applied inferolaterally. The peritoneum over the cystic duct and cystic artery was teased by using blunt dissection and suction. The 2 structures were dissected separately and after obtaining the critical view of safety, 3 clips were applied proximally and 1 distally on the cystic artery. On the cystic duct, 1 Hem-o-lock was placed proximally and 2 regular 10 mm clips were applied proximally and 2 Hem-o-locks were applied distally. These structures were divided with EndoShears. Another 2 structures coming toward the gallbladder were doubly clipped. By using the hook cautery, the gallbladder was removed from its bed and placed in the Endo Catch. Two drops of bile were spilled on the Ray-Onelia gauze that was previously placed. The area was irrigated with warm normal saline and suction. A final check was performed and the clips were in place. Two pieces of Surgicel were placed in the gallbladder fossa. The specimen was retrieved through the epigastric trocar site. Trocar sites were closed using a skinstapler. Telfa and Tegaderm were applied. A total of 10 mL of mixed local anesthesia, Marcaine 0.5% and lidocaine 1% were infiltrated in the wound.At the end of the procedure, the final count was correct. The instruments and all sponges, needles count was correct. During the whole procedure, the patient remained stable. She was extubated in the operating She was extubated in the operating and transferred to recovery room instable condition. ESTIMATED BLOOD LOSS: Nil. URINE OUTPUT: Not recorded. FLUIDS: 800. SPECIMENS: Gallbladder and contents. COMPLICATIONS: None. CULTURE: None. DRAINS: None. POSTOPERATIVE RECOMMENDATION: To keep the patient n.p.o. for 2 hours, IV fluid, then to advance dietas tolerated. Anticipate discharge this afternoon. I discussed the procedure immediately thereafter with her father and subsequently with her. We will see her next week to remove the diaz. Unless otherwise noted, there were no complications, no blood loss, no cultures obtained, no specimens removed, and no drains retained. Maria Eugenia Hernandez MD, FACS, FASMBS / Confirmation: [id number] Dictation ID: [id number] cc: documented in this encounter Miscellaneous Notes Brief Op Note - Irene Bowden MD - 08/19/2021 0857 EDT Date: 08/19/2021 Location: [facility] OR Name: Lina Segura, : 1990, Diagnosis Pre-Op Diagnosis Codes: * Biliary colic [K80.50] Post-op Diagnosis * Biliary colic [K80.50] Procedures * laparoscopic and possible open cholecystectomy and possible intraoperative cholangiography (XRY). Surgeons * Maria Eugenia Ivan MD - Primary * Irene Bowden MD - Resident - Assisting Procedure Summary Anesthesia: General ASA: ASA status not filed in the log. Estimated Blood Loss: 5ml Total IV Fluids: 900 mL LDAs: Peripheral IV 08/19/21 0647 Left;Posterior Hand (Active) Non-Surgical Airway (Active) Wound 08/19/21 Anterior Abdomen Full thickness (Active) Staff: Fish Packer: Shital Palomino RN Scrub Person: Priscilla Royal RN Patient Glass Technician: Reva Villa Indications: Lina Segura is an 30 y.o. female who is having surgery for gallbladder polyp. Findings: Dissection performed to identify critical view. Cystic duct and artery clipped and transected. Gallbladder removed from gallbladder fossa. Surgicel placed in gallbladder fossa. Hemostasis achieved. Gallbladder and contents sent for specimen. Incisions closed with diaz. Complications: None; patient tolerated the procedure well. Disposition: PACU - hemodynamically stable. Condition: stable Specimens Collected: Gallbladder and contents. Attending Attestation: Dr. Hernandez was present and scrubbed for the entire procedure. Irene Bowden MD 08/19/2021 8:59 #[id number] documented in this encounter Plan of Treatment Scheduled Referrals Name Type Priority Associated Order Schedule Diagnoses PROVIDER FOLLOW-UP Outpatient Routine/Next Ordered: INSTRUCTIONS Referral Available 08/19/2021 PROVIDER FOLLOW-UP Outpatient Routine/Next Ordered: INSTRUCTIONS Referral Available 08/19/2021 AMB CONS/FOLLOW UP Outpatient Routine/Next Gallbladder polyp Expe cted: GENERAL Referral Available 08/26/2021 SURGERY/COLORECTAL (Approxim ate), SURGERY Expires: 08/19/2022 documented as of this encounter Procedures Procedure Name Priority Date/Time Associated Comments Diagnosis SURGICAL PATHOLOGY Routine 08/19/2021 8:22 Result s for this EDT procedure are i n the results section. CHOLECYSTECTOMY, 08/19/2021 7:15 Biliary colic LAPAROSCOPIC EDT TEST, URINE STAT 08/19/2021 6:11 Res ults for this EDT procedure are i n the results section. documented in this encounter Results SURGICAL PATHOLOGY (08/19/2021 8:22 EDT) Note to Patient The following [facility] pathology results CENTER have been interpreted LABORATORY by your pathologist SERVICES and may be available to you before your health provider has had the opportunity to review them. Please allow time for your provider to receive these results and explore management options, if applicable. Final Diagnosis A. GALLBLADDER, CHOLECYSTECTOMY: UV Dang EDICAL - Cholesterol polyp. CENTER - Gallbladder with otherwise no significant diag nostic abnormalities. LABORATORY SERVICES Attestation There was significant [facility] Electr onically resident/fellow CENTER signed by keyur San in the LABORATORY Dang Lewis on diagnostic evaluation SERVICES 022 at 1344 of this case. By the signature below, the attending physician certifies that they have personally conducted a gross and/or microscopic examination of the described specimens and rendered or confirmed the above diagnosis. Clinical History Biliary colic [facility] SERVICES Gross Description A. [facility] Received fresh labelled with proper patient identification (initials C, A) and gallbladder and contents is an intact gallbladder and attached portion of cystic duct, 8.5 x 3.0 x 2.9 cm. The serosa is CENTER dull lee-brown. An attached periductal lymph node is not identified. The cystic duct lumen is patent. The gallbladder lumen contains a moderate amount of bile. Admixed calculi are not identified within LABORATORY the gallbladder lumen or sp ecimen container. The mucosa is velvety brown and shows a 0.4 cm cholesterol polyp. The wall is without areas of induration. Site Technician sections are submitted in A1 to in SERVICES clude the cystic duct margin , en face and 2 sales representative supervisor sections from the gallbladder wall to include the polyp. ANA OSMAN(ASC) 08/19/2021 13:59 Resident/Fellow: Maureen Wolf MD [facility] SERVICES Performing Lab [facility] HOSPITAL LAB [facility] SERVICES Scanned Images [facility] SERVICES Specimen Tissue - Entire gallbladder (body struct ure) Performing Organization Address City/[facility]/ZIP Code Phon e Number [facility] [address] [place] [address] SERVICES TEST, URINE (08/19/2021 6:11 EDT) Test, NegativeComment: Negative [facility] Urine False negative LABORATORY results may occur in SERVICES women who are beyond 5-8 weeks gestation. Diagnosis of should be based on a correlation of test results with typical clinical signs and symptoms. Specimen Urine - Urine (substance) Performing Organization Address [facility]/ZIP [facility] [place] Number [facility] [address] [place] [address] SERVICES documented in this encounter Visit Diagnoses Diagnosis Gallbladder polyp - Primary Cholesterolosis of gallbladder Biliary colic Calculus of gallbladder without mention of cholecystitis or obstruction documented in this encounter Administered Medications Inactive Administered Medications - up to 3 most recent administrations Medication Order MAR Action Action Date Dose Rate Site acetaminophen (TYLENOL) solution unit do se cup 995 mg 995 mg (rounded from 1,000 mg), oral, SC N, 1 dose, Starting on Tue08/19/21 at 0859, Until Tue08/19/21 at 1347, Pain, Routine, Recovery (on ly) acetaminophen (TYLENOL) tablet 1,000 mg 1,000 mg, oral, PRN, 1 dose, Starting on Tue08/19/21 at 0859, Until Tue08/19/21 at 1347, Pain, Routine, Recovery (only) atropine 0.1 mg/mL syringe 0.5 mg 0.5 mg, intravenous, PRN, Starting on Tue08/19/21 at 0 859, Until Tue08/19/21 at 1347, Symptomatic HR < 50, Routine, Recovery (only) cellulose, oxidized 2 x 14 (SURGICEL) pad pad Given 08/19/2021 8:32 EDT 2 Each PRN, Starting on Tue08/19/21 at 0832, Until Tue08/19/21 at 0908, Intraprocedure diphenhydrAMINE (BENADRYL) injection 12. 5 mg Given 08/19/2021 10:48 EDT 12.5 mg 12.5 mg, intravenous, PRN, 1 dose, Starting on Tue08/19/21 at 0859, Until Tue08/19/21 at 1048, nausea, Routine, Recovery (only) fentaNYL citrate (PF) injection 25-50 mc g 25-50 mcg, intravenous, EVERY 5 MIN PRN, Starting on Tue08/19/21 at 0859, Until Tue08/19/21 at 1347, Pain, Routine, Recovery (only) HYDROmorphone (DILAUDID) tablet 2-4 mg 2-4 mg, oral, EVERY 30 MINUTES PRN, 2 do ses, Starting on Tue08/19/21 at 0859, Until Tue08/19/21 at 1347, Pain, Routine, Recovery (only) HYDROmorphone (PF) (DILAUDID) 0.5 mg/0.5 mL syringe 0.3-0.5 mg 0.3-0.5 mg, intravenous, EVERY 10 MINUTES PRN, Startin g on Tue08/19/21 at 0859, Until Tue08/19/21 at 1347, Pain, Routine, Recovery (on ly) lactated ringers (LR) infusion at 25 mL/hr, intravenous, CONTINUOUS, St arting on Tue08/19/21 at 0630, Until Tue08/19/21 at 1347, Routine, Preprocedure lactated ringers (LR) infusion New Bag 08/19/2021 9:09 EDT at 25 mL/hr, intravenous, CONTINUOUS, Starting on Tue08/19/21 at 0630, Until Tue08/19/21 at 1347, Routine, Preprocedure Restarted 08/19/2021 7:25 EDT New Bag 08/19/2021 6:56 EDT 25 mL/hr lactated ringers (LR) infusion Rate Documented 08/19/2021 9:13 EDT 75 mL/hr at 75 mL/hr, intravenous, PACU CONTINUOUS, Starting on Tue08/19/21 at 0915, Until Tue08/19/21 at 1347, Routine, Recovery (only) lidocaine 1 % 30 mL, bupivacaine (PF) (MARCAINE) Given 08/19/2021 8:47 EDT 10 mL 0.5% 30 mL PRN, Starting on Tue08/19/21 at 0847, Until Tue08/19/21 at 0908, Routine, Intraprocedure naloxone (NARCAN) injection 0.2 mg 0.2 mg, intravenous, PRN, Starting on Tue08/19/21 at 0 859, Until Tue08/19/21 at 1347, Opioid Reversal, Routine, Recovery (only) ondansetron (PF) (ZOFRAN) injection 4 mg 4 mg, intravenous, PRN, 1 dose, Starting on Tue08/19/21 at 0859, Until Tue08/19/21 at 1347, Nausea, Vomiting, Routine, Recovery (only) sodium chloride 0.9 % irrigation Given 08/19/2021 8:11 EDT 1,000 mL PRN, Starting on Tue08/19/21 at 0811, Until Tue08/19/21 at 0908, Routine, Intraprocedure documented in this encounter Discontinued Medications Medication Sig Discontinue Reason Start Date End Date calcium carbonate (TUMS) Take 1 Tablet by 08/19/2021 200 mg calcium (500 mg) mouth 4 times tablet,chewable daily as needed. acetaminophen (TYLENOL) Take 500 mg by 500 mg tablet mouth every 6 hours as needed for Pain. documented as of this encounter Active and Recently Administered Medications Times are shown in EDT. Scheduled Medication Order 08/17/2021 08/18/2021 08/19/2021 ceFAZolin (ANCEF) syringe 2 g (COMPLETED) 0742 (Given - Provider: CAROL Duron)0913 (Anesthesia Volume Adjustment - Provider: CAROL Duron) 2 g, intravenous, Administer over 5 Pamela steph, PRE-OP ONCE, 1 dose, On Tue08/19/21 at 0630, Routine, Preprocedure Continuous Medication Order 08/17/2021 08/18/2021 08/19/2021 lactated ringers (LR) infusion 0 913 (Canceled Entry - Provider: Julia Downing RN - Comment: duplicate order) at 25 mL/hr, intravenous, CONTINUOUS, St arting on Tue08/19/21 at 0630, Until Tue08/19/21 at 1347, Routine, Preprocedure lactated ringers (LR) infusion 0 656 (New Bag - Provider: Amalia Terrazas RN)0724 (Paused - Provider: CAROL Duron - Comment: Switch to gravity)0725 (Restarted - Provider: CAROL Duron)0909 (New Bag - Provider: CAROL Duron) at 25 mL/hr, intravenous, CONTINUOUS, St arting on Tue08/19/21 at 0630, Until Tue08/19/21 at 1347, Routine, Preprocedure 0913 (Completed - Provider: CAROL Duron) lactated ringers (LR) infusion 0 913 (Rate Documented - Provider: Julia Downing RN) at 75 mL/hr, intravenous, PACU CONTINUOU S, Starting on Tue08/19/21 at 0915, Until Tue08/19/21 at 1347, Routine, Recovery (only) PRN Medication Order 08/17/2021 08/18/2021 08/19/2021 acetaminophen (TYLENOL) solution unit dose cup 995 mg(Linked Eryn up 1) 995 mg (rounded from 1,000 mg), oral, SC N, 1 dose, Starting on Tue08/19/21 at 0859, Until Tue08/19/21 at 1347, Pain, Routine, Recovery (only) acetaminophen (TYLENOL) tablet 1,000 mg(Linked Group 1) 1,000 mg, oral, PRN, 1 dose, Starting on Tue08/19/21 at 0859, Until Tue08/19/21 at 1347, Pain, Routine, Recovery (only) atropine 0.1 mg/mL syringe 0.5 mg 0.5 mg, intravenous, PRN, Starting on 08/19/21 at 0859, Until Tue08/19/21 at 1347, Symptomatic HR < 50, Routine, Recovery (only) cellulose, oxidized 2 x 14 (SURGICEL) pad pad (CANCELED) 0832 (Given - Provider: Maria Eugenia Ivan MD) PRN, Starting on Tue08/19/21 at 0832, Until Tue 2 at 0908, Intraprocedure diphenhydrAMINE (BENADRYL) injection 12.5 mg (COMPLETED) 1048 (Given - Provider: Julia Downing RN - Comment: felt nausea after taking crackers,I thought it was just hunger but I guess not per pt. Medicated.) 12.5 mg, intravenous, PRN, 1 dose, Start ing on Tue08/19/21 at 0859, Until Discontinued, nausea, Routine, Recovery (only) fentaNYL citrate (PF) injection 25-50 mcg 25-50 mcg, intravenous, EVERY 5 MIN PRN, Starting on Tue08/19/21 at 0859, Until Tue08/19/21 at 1347, Pain, Routine, Recovery (only) HYDROmorphone (DILAUDID) tablet 2-4 mg 2-4 mg, oral, EVERY 30 MINUTES PRN, 2 do ses, Starting on Tue08/19/21 at 0859, Until Tue08/19/21 at 1347, Pain, Routine, Recovery (only) HYDROmorphone (PF) (DILAUDID) 0.5 mg/0.5 mL syringe 0.3-0.5 mg 0.3-0.5 mg, intravenous, EVERY 10 MINUTE S PRN, Starting on Tue08/19/21 at 0859, Until Tue08/19/21 at 1347, Pain, Routine, Recovery (only) lidocaine 1 % 30 mL, bupivacaine (PF) (MARCAINE) 0.5% 30 mL (CAN CELED) 0847 (Given - Provider: Maria Eugenia Ivan MD) PRN, Starting on Tue08/19/21 at 0847, Un til Tue08/19/21 at 0908, Routine, Intraprocedure naloxone (NARCAN) injection 0.2 mg 0.2 mg, intravenous, PRN, Starting on 08/19/21 at 0859, Until Tue08/19/21 at 1347, Opioid Reversal, Routine, Recovery (only) ondansetron (PF) (ZOFRAN) injection 4 mg 4 mg, intravenous, PRN, 1 dose, Starting on Tue08/19/21 at 0859, Until Tue08/19/21 at 1347, Nausea, Vomiting, Routine, Recovery (only) sodium chloride 0.9 % irrigation (CANCELED) 0811 (Given - Provider: Maria Eugenia Ivan MD) PRN, Starting on Tue08/19/21 at 0811, Un til Tue08/19/21 at 0908, Routine, Intraprocedure Linked Groups Order Group 1: acetaminophen (TYLENOL) solution unit dose cup 995 mgJump to med 995 mg (rounded from 1,000 mg), oral, SC N, 1 dose, Starting on Tue08/19/21 at 0859, Until Tue08/19/21 at 1347, Pain, Routine, Recovery (only) Or acetaminophen (TYLENOL) tablet 1,000 mgJump to med 1,000 mg, oral, PRN, 1 dose, Starting on Tue08/19/21 at 0859, Until Tue08/19/21 at 1347, Pain, Routine, Recovery (only) documented in this encounter Orders Medications Ordered That Might Not Have Count Last Ord ered Date First Ordered Date Been Administered acetaminophen (TYLENOL) solution unit dose 1 08/19 cup 995 mg acetaminophen (TYLENOL) tablet 1,000 mg 1 08/20/19 atropine 0.1 mg/mL syringe 0.5 mg 08/19/2021 ceFAZolin (ANCEF) syringe 2 g 2 08/19/2021 fentaNYL citrate (PF) injection 25-50 mcg 1 2021 HYDROmorphone (DILAUDID) tablet 2-4 mg 1 HYDROmorphone (PF) (DILAUDID) 0.5 mg/0.5 1 022 mL syringe 0.3-0.5 mg lactated ringers (LR) infusion 1 08/19/2021 lidocaine (PF) 10 mg/mL (1 %) injection 2 2 2021 mg naloxone (NARCAN) injection 0.2 mg 1 08/19/2021 ondansetron (PF) (ZOFRAN) injection 4 mg 1 022 Diet Count Last Ordered Date First Ordered Date DISCHARGE DIET 1 08/19/2021 Nursing Count Last Ordered Date First Ordered Date ACTIVITY INSTRUCTIONS 1 08/19/2021 WOUND CARE INSTRUCTIONS 1 08/19/2021 Discharge Count Last Ordered Date First Ordered Date DISCHARGE PATIENT 1 08/19/2021 Legal Count Last Ordered Date First Ordered Date MISCELLANEOUS DISCHARGE INSTRUCTIONS 1 08/19/2021 documented in this encounter Care Teams Manufacturing Mechanic Relationship Specialty Start Date End Date Ofelia Pierce NP PCP - General 03/31/21 [address] [place] [id number] Desiree Park MD 03/23/21 [address] [id number] documented as of this encounter
--- OUTSIDE RECORDS SUMMARY | 2021-12-29 15:28 | XMS_ITS | Encounter Summary ---
:1990 Author Organization [facility] Address [address] [place] [address] Care Team Providers Name Role Phone Ofelia Pierce NP Primary Care Provider Desiree Park MD Unavailable Encounter Details Date Type Department Care Team Description 05/13/2021 Lab Requisition [facility] Outr Resulting Lab, Pathology & Laboratory Provider [facility] [address] [place] [address] Social History Tobacco Use Types Packs/Day Years Used Date Never Smoker Alcohol Use Standard Drinks/Week Comments Not Currently 0 (1 standard drink = 0.6 oz pure alcoho l) Sex Assigned at Date Recorded Female 08/28/2021 10:44 EDT documented as of this encounter Plan of Treatment Not on filedocumented as of this encounter Procedures Procedure Name Priority Date/Time Associated Diagnosis Comme nts COVID-19 TEST [facility] Today 05/13/2021 11:20 LAB PCR EST COVID-19 TESTING Routine 05/13/2021 11:20 Results for this EST procedure are i n the results section. documented in this encounter Results COVID-19 TEST [facility] PCR (05/13/2021 11:20 EST) Specimen Swab Performing Organization Address City/State/ZIP Code Phon e Number [facility] [address] [place] [address] SERVICES COVID-19 TESTING (05/13/2021 11:20 EST) COVID-19 rt-PCR Negative Negative [facility] Result Comment: [facility] This test has not been FDA c leared or approved. This test has been authorized by FDA under an EUA for use by authorized laboratories. This test has been authorized only for detection of nucleic acid fro SERVICES m 2019-nCoV, not for any oth er viruses or pathogens. This test is only authorized for the duration of the declaration that circumstances exist justifying the authorization of emergency use of in vitro d iagnostic tests for detectio n and/or diagnosis of 2019-nCoV under section 564(b)(1) of Act, 21 U.S.C ?? 360bbb-3(b) (1), unless the authorization is terminated or revoked sooner. Negative results do not prec lude 2019-nCoV infection and should not be used as the sole basis for treatment or other patient management decisions. Negative results must be combined with clinical observa tions, patient history, and epidemiological informatio n. This test was developed and its performance characteristics determined by [facility]. It has not been cleared or approved by the US Food and Drug Administration. FDA does not require this test to go through premarket FDA review. This t est is used for clinical purposes. It should not be regarded as investigational or for research. This laboratory is certified under the Clinical Laboratory Improvement Amendm ents (CLIA) as qualified to perform high complexity clinical laboratory testing. This test is based on the CD C COVID-19 Emergency Use Authorization (EUA) assay, with minor modification as defined by the FDA Performed on the Bubblio 7 Flex RT-PCR System. Performing Lab [facility] Lab [facility] SERVICES Specimen Swab Performing Organization Address City/State/ZIP Code Phon e Number [facility] [address] [place] [address] SERVICES documented in this encounter Visit Diagnoses Not on filedocumented in this encounter Care Teams Power Cleaner Operator Relationship Specialty Start Date End Date Ofelia Pierce NP PCP - General 03/31/21 [address] [place] [address] Desiree Park MD 03/23/21 [address] [place] [address] documented as of this encounter
--- OUTSIDE RECORDS SUMMARY | 2021-12-29 15:28 | XMS_ITS | Encounter Summary ---
:[address] [facility] Address [address] [place] [address] Care Team Providers Name Role Phone Ofelia Pierce NP Primary Care Provider Desiree Park MD Unavailable Reason for Visit Reason Onset Date Comments COVID-19 08/10/2021 Encounter Details Date Type Department Care Team Description 08/10/2021 Telephone [facility] - Maria Eugenia Cornejo MD COVID-19 [facility] [address] [phone] (Wo rk) Social History Tobacco Use Types Packs/Day Years [...] making decisions? documented as of this encounter Miscellaneous Notes Telephone Encounter - Zenaida Byers RN - 08/11/2021 1139 EDT COVID testing order placed and faxed to [facility]. elephone Encounter - Shamika Landrum - 08/10/2021 1709 EDT Patient called to advise she would like covid testing done at [facility]. There is no covid order for her surgery. Please place order and then fax the order to [facility] so they can schedule the patient for testing on 08/15/21 (they do not test on Sundays). Pt will call [facility] for appt time on 08/15/21. documented in this encounter Plan of Treatment Scheduled Orders Name Type Priority Associated Diagnoses Order S chedule COVID-19 TESTING Microbiology Routine Encounter For Expected: 08/11/2021 Preoperative Screening (Appr oximate), Laboratory Testing For Expir es: 08/11/2022 Covid-19 Virus documented as of this encounter Visit Diagnoses Diagnosis Encounter for preoperative screening lab oratory testing for COVID-19 virus - Primary documented in this encounter Care Teams Soap Drier Operator Relationship Specialty Start Date End Date Ofelia Pierce NP PCP - General 03/31/21 [address] [place], [place] [phone] Desiree Park MD 03/23/[address] [place] [id number] documented as of this encounter
--- OUTSIDE RECORDS SUMMARY | 2021-12-29 15:28 | XMS_ITS | Encounter Summary ---
:1990 Author Organization [facility] Address [address] [place] [address] Care Team Providers Name Role Phone Ofelia Pierce NP Primary Care Provider Desiree Park MD Unavailable Reason for Referral Consult (See Order Priority) - Receiving Office to Obtain Authorization Specialty Diagnoses / Procedures Referred By Contact Refer red To Contact General Surgery Diagnoses Gallbladder polyp Irene Bowden MD Abujaish, Wase[place], MD [address] [place] [address], Main [place], [address] [place] [address] Phone: Fax: Referral ID Status Reason Start Expiration Visits Visits Date Date Requested Authorized [id number] Receiving Office Specialty 1 1 to Obtain Services 2 Authorization Required Question Answer Scheduling Comments (optional ? 7-10 days describe specific scheduling needs if applicable): Reason for Request: staple removal s/p lap curly Specialty Diagnoses / Procedures Referred By Contact Refer red To Contact Irene Bowden MD [address] [place] [address] Referral ID Status Reason Start Date Expiration Date Visits Requ ested Visits Authorized Comments Please make an appointment with your paul sician in 4 week(s). Call your physician immediately if you have any fevers great er than 100, drainage from your wound that is not clear or looks infected, persistent bleeding, increasing abdominal pain, problems urinating, or persistent nausea/vomiting . You should be aware that you may have right shoulder pain after surgery and that thi s will progressively go away. This is called 'referred pain' and is from the area of the gallbladder. It can also be caused by gas that may be trapped under the diaphragm from the surgery, especially if it was performed laparoscopically through mini- incisions. This gas will progressively get reabsorbed by your body. Specialty Diagnoses / Procedures Referred By Contact Refer red To Contact Irene Bowden MD [address] [place] [address] Referral ID Status Reason Start Date Expiration Date Visits Requ ested Visits Authorized Comments We are currently collecting quality data on patients having surgery. You may receive a phone call, email, and/or letter about your surgery asking you a series of follow up questions to evaluate specifics aspec ts of your care. Thank you for your participation. Reason for Visit Auth/Cert Specialty Diagnoses / Procedures Referred By Contact Refer red To Contact Diagnoses Biliary colic Procedures CO LAP,CHOLECYSTECTOMY laparoscopic and possible open cholecystectomy and possible intraoperative cholangiography (XRY). Referral ID Status Reason Start Date Expiration Date Visits Requ ested Visits Authorized [id number] 05/01/2022 1 1 Encounter Details Date Type Department Care Team Description 08/19/2021 Hospital Encounter [facility] Main [place], Gallbladder polyp [address] MD (Primary Dx) [address] [place] [address] [address] [phone] [place] [address] Social History Tobacco Use Types Packs/Day [...] Sign Reading Time Taken Comments Blood Pressure 137/92 08/19/2021 1122 EDT Pulse - - Temperature 36.5 ??C (97.7 ??F) 08/19/2021 1122 EDT Respiratory Rate 15 08/19/2021 1122 EDT Oxygen Saturation 100% 08/19/2021 1122 EDT Inhaled Oxygen Concentration - - Weight [...] Self Group Home documented in this encounter H&P Notes Irene [...] Eugenia Owens MD - 08/06/2021 1300 EDT [facility] General Surgery Consultation Note - [...] Administered Date(s) Administered ??? Covid-19 mRNA Vaccine ([employer] COVID-19) PF 0.3 ml IM (12 yrs+) [...] level: Not on file Occupational History Employer: [employer] Tobacco Use ??? Smoking status: Never Smoker ??? Smokeless tobacco: Never Used Substance and Sexual Activity ??? Alcohol use: Not Currently ??? Drug use: Never ??? Sexual activity: Not on file Other Topics Concern ??? 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 Social Determinants of Health Financial Resource Strain: [...] 06/09/2021 Negative Negative mg/dL Final ??? Specific [place], Urine 06/09/2021 1.020 1.001 - 1.035 Final [...] DATE: 08/19/2021 SURGEON: Maria Eugenia Hernandez MD, FACS, [facility] TIPPLE OILER: Irene Bowden MD PREOPERATIVE DIAGNOSIS: Biliary colic [...] the right orbital region. PAST SURGICAL HISTORY: [place] tooth extraction. ALLERGIES: PENICILLIN DERIVATIVES. FINDINGS: Adhesions [...] no drains retained. Maria Eugenia Hernandez MD, [facility] [place] [facility] [place] Confirmation: [id number] Dictation ID: [id number] cc: documented in this encounter Miscellaneous Notes Brief Op Note - Irene Bowden MD - 08/19/2021 0857 EDT Date: 08/19/2021 Location: [facility] OR Name: Lina Segura, : 1990, Diagnosis [...] 08/19/21 Anterior Abdomen Full thickness (Active) Staff: Rickshaw Driver: Shitla Palomino RN Scrub Person: Priscilla Royal RN Patient Principal Network Architect: Reva Villa Indications: Lina Segura is an [...] 8:22 EDT) Note to Patient The following [facility] pathology results CENTER have been interpreted LABORATORY by your pathologist SERVICES and may be available to you before your health provider has had the opportunity to review them. Please allow time for your provider to receive these results and explore management options, if applicable. Final Diagnosis A. GALLBLADDER, CHOLECYSTECTOMY: [facility] EDICAL - Cholesterol polyp. CENTER - Gallbladder with otherwise no significant diag nostic abnormalities. LABORATORY SERVICES Attestation There was significant [facility] Electr onically resident/fellow CENTER signed by keyur San in the LABORATORY Dang Lewis on diagnostic evaluation SERVICES 022 at 1344 of this case. By the signature below, the attending physician certifies that they have personally conducted a gross and/or microscopic examination of the described specimens and rendered or confirmed the above diagnosis. Clinical History Biliary colic [facility] Gross Description A. [facility] Received fresh labelled with proper patient identification [...] The wall is without areas of induration. Technical Intern sections are submitted in A1 to in SERVICES clude the cystic duct margin , en face and 2 hospital sales representative sections from the gallbladder wall to include the polyp. ANA OSMAN[facility] 08/19/2021 13:59 Resident/Fellow: Maureen Wolf MD [facility] Performing Lab [facility] HOSPITAL LAB [facility] Scanned Images [facility] Specimen Tissue - Entire gallbladder (body struct ure) Performing Organization Address City/[facility]/ZIP Code Phon e Number [facility] [address] [place] [address] SERVICES TEST, URINE (08/19/2021 6:11 EDT) Test, NegativeComment: Negative [facility] Urine False negative LABORATORY results may occur in SERVICES women who are beyond 5-8 weeks gestation. Diagnosis of should be based on a correlation of test results with typical clinical signs and symptoms. Specimen Urine - Urine (substance) Performing Organization Address [facility]/ZIP Code Phon e Number [facility] [address] [place] [address] SERVICES documented in this encounter Visit Diagnoses Diagnosis Gallbladder polyp - Primary Cholesterolosis of gallbladder documented in this encounter Administered Medications Inactive Administered Medications - up to 3 most recent administrations Medication Order MAR Action Action Date Dose Rate Site acetaminophen (TYLENOL) solution unit do se cup 995 mg 995 mg (rounded from 1,000 mg), oral, CO N, 1 dose, Starting on Tue08/19/21 at [...] Symptomatic HR < 50, Routine, Recovery (only) diphenhydrAMINE (BENADRYL) injection 12. 5 mg Given [...] Until Tue08/19/21 at 1347, Routine, Recovery (only) naloxone (NARCAN) injection 0.2 mg 0.2 mg, intravenous, PRN, Starting on Tue08/19/21 at 0 859, Until Tue08/19/21 at 1347, Opioid Reversal, Routine, Recovery (only) ondansetron (PF) (ZOFRAN) injection 4 mg 4 mg, intravenous, PRN, 1 dose, Starting on Tue08/19/21 at 0859, Until Tue08/19/21 at 1347, Nausea, Vomiting, Routine, Recovery (only) documented in this encounter Discontinued Medications Medication [...] 995 mg (rounded from 1,000 mg), oral, CO N, 1 dose, Starting on Tue08/19/21 at [...] 995 mg (rounded from 1,000 mg), oral, CO N, 1 dose, Starting on Tue08/19/21 at [...] 08/20/19 atropine 0.1 mg/mL syringe 0.5 mg 1 08/19/2021 ceFAZolin (ANCEF) syringe 2 g 2 08/19/2021 cellulose, oxidized 2 x 14 (SURGICEL) 1 08/20/19 pad pad fentaNYL citrate (PF) injection 25-50 mcg 1 2021 HYDROmorphone (DILAUDID) tablet 2-4 mg 1 HYDROmorphone (PF) (DILAUDID) 0.5 mg/0.5 1 022 mL syringe 0.3-0.5 mg lactated ringers (LR) infusion 1 08/19/2021 lidocaine (PF) 10 mg/mL (1 %) injection 2 2 2021 mg lidocaine 1 % 30 mL, bupivacaine (PF) 1 08/19/2021 (MARCAINE) 0.5% 30 mL naloxone (NARCAN) injection 0.2 mg 1 08/19/2021 ondansetron (PF) (ZOFRAN) injection 4 mg 1 022 sodium chloride 0.9 % irrigation 1 08/19/2021 Diet Count Last Ordered Date First Ordered Date DISCHARGE DIET 1 08/19/2021 Nursing Count Last Ordered Date First Ordered Date ACTIVITY INSTRUCTIONS 1 08/19/2021 WOUND CARE INSTRUCTIONS 1 08/19/2021 Discharge Count Last Ordered Date First Ordered Date DISCHARGE PATIENT 1 08/19/2021 Legal Count Last Ordered Date First Ordered Date MISCELLANEOUS DISCHARGE INSTRUCTIONS 08/19/2021 documented in this encounter Care Teams Vision Therapist Relationship Specialty Start Date End Date Ofelia Pierce NP PCP - General 03/31/21 [address] [place] [address] Desiree Park MD 03/23/21 [address] [place], [place] [address] documented as of this encounter
--- OUTSIDE RECORDS SUMMARY | 2021-12-29 15:28 | XMS_ITS | Encounter Summary ---
:1990 Author Organization [facility] Address [address] [place] [address] Care Team Providers Name Role Phone Ofelia Pierce NP Primary Care Provider Desiree Park MD Unavailable Reason for Referral Radiology Services (Routine/Next Available) - Authorization Not Required Specialty Diagnoses / Procedures Referred By Contact Refer red To Contact Diagnoses Nephrolithiasis Willam Jacinto, [facility] Procedures CT RENAL STONE [address] [place] [address] 5 [place] [address] Referral ID Status Reason Start Expiration Visits Visits Date Date Requested Authorized [id number] Authorization Not 06/09/2021 1 1 Required Reason for Visit Reason Comments New Patient Visit Kidney Stone - 3 to 10 Day R efrob from pt states she has not passed stone Consult (3 - 10 Business Days) - Receiving Office to Obtain Authorization Specialty Diagnoses / Procedures Referred By Contact Refer red To Contact Urology Diagnoses Unspecified hydronephrosis Mark Teague MD [place], [place] [address] [place], [place] [address]SHAD MD 0928 [address] [place], [place] [address] [place] [address] [place] [address] [place] [address] Phone: Fax: Referral ID Status Reason Start Expiration Visits Visits Date Date Requested Authorized [id number] Receiving Office 1 1 to Obtain Authorization Encounter Details Date Type Department Care Team Description 06/09/[address] [facility] Willam Jacinto Nephr olithiasis Urology - Lucian Contreras MD (Primary Dx) [place] [address] [address], [place] [address] (Wo rk) Social History Tobacco Use Types [...] documented as of this encounter Progress Notes Willam Jacinto MD - 06/09/2021 1500 EST New patient visit on [facility]. This is a 30-year-old female who is at 38 weeks of her first pregnancywho is here for evaluation of possible nephrolithiasis. Earlier in her she had been havingright upper abdominal discomfort for which she points to beneath her rib cage. She was not having any flank pain or radiating pain to her lower abdomen. She denies any dysuria or gross hematuria. She has no other urologic history. She had an ultrasound done which showed a polyp in her gallbladder for which she has an appointment with general surgery. It also showed a possible 3 mm nonobstructing stone in the right kidney with mild right-sided hydronephrosis. Currently she is feeling well with no significant discomfort or other complaints. A comprehensive review of systems was performed, pertinent positives as per the HPI, all others are negative. Past Medical History: Diagnosis Date ??? Capillary hemangioma of right orbital region ??? Eczema Allergies Allergen Reactions ??? Amoxicillin Rash ??? Penicillins Shortness Of Breath Current Outpatient Medications Medication ??? acetaminophen (TYLENOL) 500 mg tablet ??? calcium carbonate (TUMS) 200 mg calcium (500 mg) tablet,chewable ??? vit no.124/iron/folic ( VITAMIN ORAL) ??? Triamcinolone Acetonide 0.05 % ointment No current facility-administered medications for this visit. She is a non-smoker and denies a family history of nephrolithiasis. On physical exam she is comfortable appearing, alert and oriented x3, not in acute distress. Her head is normocephalic, eyes are anicteric, normal respiratory effort. Her abdomen is gravid. She has no lower extremity edema. Urinalysis today has trace intact blood only. I reviewed the ultrasound and discussed with her that small stones are often difficult to diagnose via that modality. 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 Ultimately she is feeling well and will hopefully deliver in the near future. I did suggest some follow-up imaging for which we discussed either an ultrasound or a CT scan. We ultimately decided upon anoncontrast CT at to see if in fact she actually does have any stones in her kidneys and we will also hopefully show a resolution of her hydronephrosis. I will see her back in a couple months to review. documented in this encounter Plan of Treatment Not on filedocumented as of this encounter Procedures Procedure Name Priority Date/Time Associated Diagnosis Comme nts CT RENAL STONE Routine 08/11/2021 11:42 Nephrolithiasis Result s for this EDT procedure are i n the results section. POCT URINE Routine 06/09/2021 14:59 Nephrolithiasis Results for this DIPSTICK, CLINITEK EST procedure are in the results section. POCT CSN BARCODE Routine 06/09/2021 14:46 Nephrolithiasis URINE DIPSTICK EST POCT URINE CLINITEK Routine 06/09/2021 14:46 Nephrolithiasis R esults for this (DIPSTICK) - DOES EST procedure are in NOT REFLEX the results section. documented in this encounter Results CT RENAL STONE (08/11/2021 11:42 EDT) Anatomical Region Laterality Modality Body, Abdomen Computed Tomography Specimen Impressions [facility] [place] - 08/11/2021 13:13 EDT No urinary tract calculi or obstruction.. I have personally reviewed the images an d the above interpretation and agree with the findings. Narrative [facility] - 08/11/2021 13:[address] RENAL STONE ??08/11/2021 12:00 PM Signs and Symptoms/Comments: ?? Urinary tract stone, uncomplicated Technique: Axial CT images obtained from abdomen im mediately superior to level of kidneys through the pelvis without administration of contrast of any kind. Sagittal and coronal reformats generated. Comparison: Outside right upper quadrant ultrasound. No prior CTs. Findings: Kidneys and ureters: No hydronephrosis o r urolithiasis. No contour deforming renal lesion. No hydronephrosis. Ureters of normal caliber. No calculi along the course of ureter, small calcifications in de ep pelvis are likely phleboliths and are external to course of ureter. Bladder: Unremarkable. No stones. Uterus, adnexa: Unremarkable for age. No adnexal mass. Included lung bases: Clear. Unenhanced liver and gallbladder, as far as included: No contour deforming hepatic lesions or biliary ductal dilatation. The gallbladder is normal. Unenhanced spleen, pancreas, adrenal gla nds: No pancreatic ductal dilatation or peripancreatic fat stranding.. The spleen and adrenals are normal. Bowel: No obstruction or acute inflammat ory changes. Normal appendix. Peritoneal cavity: No free air or fluid. Abdominal wall: No bowel-containing abram ias. Lymphovascular: The aorta is nonaneurysm al. No lymphadenopathy. Musculoskeletal: No concerning osseous l esions. Floral Associate: No additional findings. Procedure Note Low Eaton MD - 08/11/2021 CT RENAL STONE 08/11/2021 12:00 PM Signs and Symptoms/Comments: Urinary tract stone, uncomplicated Technique: Axial CT images obtained from abdomen im mediately superior to level of kidneys through the pelvis without administration of contrast of any kind. Sagittal and coronal reformats generated. Comparison: Outside right upper quadrant ultrasound. No prior CTs. Findings: Kidneys and ureters: No hydronephrosis o r urolithiasis. No contour deforming renal lesion. No hydronephrosis. Ureters of normal caliber. No calculi along the course of ureter, small calcifications in deep pelvis are likely phleboliths and are external to course of ureter. Bladder: Unremarkable. No stones. Uterus, adnexa: Unremarkable for age. No adnexal mass. Included lung bases: Clear. Unenhanced liver and gallbladder, as far as included: No contour deforming hepatic lesions or biliary ductal dilatation. The gallbladder is normal. Unenhanced spleen, pancreas, adrenal gla nds: No pancreatic ductal dilatation or peripancreatic fat stranding.. The spleen and adrenals are normal. Bowel: No obstruction or acute inflammat ory changes. Normal appendix. Peritoneal cavity: No free air or fluid. Abdominal wall: No bowel-containing abram ias. Lymphovascular: The aorta is nonaneurysm al. No lymphadenopathy. Musculoskeletal: No concerning osseous l esions. Floral Associate: No additional findings. IMPRESSION No urinary tract calculi or obstruction. . I have personally reviewed the images an d the above interpretation and agree with the findings. Performing Organization Address City/State/ZIP Code Phon e Number [facility] (ABNORMAL) POCT URINE DIPSTICK, CLINITEK (06/09/2021 14:59 EST) Color, UA Yellow Yellow [facility] Clarity, UA Slightly Cloudy Clear [facility] (A) [place] Glucose, UA Negative Negative mg/dL [facility] Bilirubin, UA Negative Negative [facility] Ketones, UA Negative Negative mg/dL [facility] Specific [employer], 1.020 1.001 - 1.035 [facility] Urine [facility] Blood, UA Trace (A) Negative [facility] pH, UA 7.0 <=8 [facility] Protein, UA Negative Negative mg/dL [facility] Urobilinogen, UA 0.2 0.2 - 1.0 EU/dL [facility] Nitrite, UA Negative Negative [facility] Leuk Esterase Negative Negative [facility] HN LAB COMMENT Test performed at [facility] (CLINITEK, UR) [facility] Specimen Urine - Urine specimen collection, clean catch (procedure) Performing Organization Address City/[facility] Code Phon e Number [facility] [address] [place] [address] SERVICES POCT CSN BARCODE URINE DIPSTICK (06/09/2021 14:46 EST) Specimen Urine - Urine specimen collection, clean catch (procedure) Performing Organization Address City/[facility] Phon e Number [facility] [address] [place] [address] SERVICES documented in this encounter Visit Diagnoses Diagnosis Nephrolithiasis - Primary Calculus of kidney documented in this encounter Historical Medications This list may reflect changes made after this encounter. Medication Sig Dispensed Refills Start Date End Date Triamcinolone Acetonide Apply 0.1 % topically 0 0.05 % ointment 2 times daily. added in this encounter Care Teams Digital Librarian Relationship Specialty Start Date End Date Ofelia Pierce, CONGRESSIONAL REPRESENTATIVE PCP - General 03/31/21 [address] [place] [id number] Desiree Park MD 03/23/[address] [id number] documented as of this encounter
--- OUTSIDE RECORDS SUMMARY | 2021-12-29 15:28 | XMS_ITS | Encounter Summary ---
:1990 Author Organization [facility] Address [address] [place] [address] Care Team Providers Name Role Phone Ofelia Piecre NP Primary Care Provider Desiree Park MD Unavailable Reason for Visit Reason Onset Date Comments Other 08/18/2021 Encounter Details Date Type Department Care Team Description 08/18/2021 Telephone [facility] Maria Eugenia Espinosa MD Other Surgery - [facility] [place] [facility] [address] [place] [address] [place] [address] [phone] (Wo rk) Social History Tobacco Use [...] this encounter Miscellaneous Notes Telephone Encounter - Shantel Garcia - 08/18/2021 1148 EDT Spoke with Lina Segura at [phone] to confirm arrival time for surgery with Dr. Hernandez on Tuesday08/19/2021. Check in by 5:45 am at Level 3 Registration at the [facility] [place] [facility]. NPO after midnight. Adobe Ball Mixer required for D/C. Lina advises her father will be driving her home after D/C & her will be staying with her at their residence after surgery and duringher recovery. documented in this encounter Plan of Treatment Not on filedocumented as of this encounter Visit Diagnoses Not on filedocumented in this encounter Care Teams Basket Hand Braider Relationship Specialty Start Date End Date Ofelia Pierce NP PCP - General 03/31/21 [address] [id number] Desiree Park MD 03/23/[address] [place] [address] documented as of this encounter
--- OUTSIDE RECORDS SUMMARY | 2021-12-29 15:28 | XMS_ITS | Encounter Summary ---
:1990 Author Organization [facility] Address [address] [place] [address] Care Team Providers Name Role Phone Ofelia Pierce NP Primary Care Provider Desiree Park MD Unavailable Encounter Details Date Type Department Care Team Description 08/11/2021 Orders Only [facility] Maria Eugenia Ivan Bilia ry colic (Primary Bariatric Surgery - MD Dx) [address] [address] [place], [place] [phone] Social History Tobacco Use Types Packs/Day [...] making decisions? documented as of this encounter Plan of Treatment Scheduled Orders Name Type Priority Associated Diagnoses Order S chedule COMPLETE BLOOD COUNT Lab Routine Biliary colic Expect ed: 08/12/2021 (Approximate), Expires: 08/11/2022 documented as of this encounter Visit Diagnoses Diagnosis Biliary colic - Primary Calculus of gallbladder without mention of cholecystitis or obstruction documented in this encounter Care Teams Inside Outside Sales Representative Relationship Specialty Start Date End Date Ofelia Pierce, WASTEWATER SUPERVISOR PCP - General 03/31/21 [address] [id number] Desiree Park MD 03/23/[address] [id number] documented as of this encounter
--- OUTSIDE RECORDS SUMMARY | 2021-12-29 15:28 | XMS_ITS | Encounter Summary ---
:1990 Author Organization [facility] Address [address] [place] [address] Care Team Providers Name Role Phone Ofelia Pierce NP Primary Care Provider Desiree Park MD Unavailable Reason for Visit Reason Comments Follow-up 2 M F/U CT 4.12.22 Encounter Details Date Type Department Care Team Description 08/11/2021 Office Visit [facility] Willam Jacinto [place] nephrosis, Urology - Lucian Contreras MD unspecified [place] [address] [place] [address] hydronephrosis type 111 [facility] (Primary Dx) [address], [place] [phone] (Wo rk) Social History Tobacco Use Types [...] encounter Progress Notes Willam Jacinto MD - 08/11/2021 1400 EDT Follow-up visit on Lina. This is a 30-year-old female who I saw at 38weeks for mild right-sided hydronephrosis and a possible kidney stone seen on ultrasonography. She was having right upper quadrant discomfort at the time and overall we decided to watch her and image her with a CT after delivery. She is now 6 weeks since that time and is doing well. She is not had any recurrent abdominal or flank pain. I reviewed her CT scan with her. The kidneys are nonobstructed bilaterally. There is resolution of the right- sided hydronephrosis. There were no stones in either kidney or ureter. I explained that the stone or possible stone seen on ultrasound is not present is likely due to the limitations of identifying small stones on ultrasound. Any hydronephrosis that was present has resolved. I do not think she has any urologic concerns at this time. We will have her follow-up on an as-needed basis. documented in this encounter Plan of Treatment Not on filedocumented as of this encounter Visit Diagnoses Diagnosis Hydronephrosis, unspecified hydronephros is type - Primary documented in this encounter Care Teams Stone Setter Apprentice Relationship Specialty Start Date End Date Ofelia Pierce NP PCP - General 03/31/21 [address] [id number] Desiree Park MD 03/23/[address] [id number] documented as of this encounter
--- OUTSIDE RECORDS SUMMARY | 2021-12-29 15:28 | XMS_ITS | Clinical Summary ---
:1990 Author Organization [facility] Address [address] [place] [address] Care Team Providers Name Role Phone Ofelia Pierce NP Primary Care Provider Desiree Park MD Unavailable Allergies Active Allergy Reactions Severity Noted Date Comments Amoxicillin Hives 03/31/2021 Shortness of Br eath Penicillins 03/22/2011 Penicillins Hives, Shortness Of Breath 03/31/2021 Medications Medication Sig Dispensed Refills Start Date End Date Status ibuprofen (MOTRIN) 400 Take 400 mg by 0 Active mg tablet mouth every 6 hours as needed for Pain. vit Take 1 Tablet by 0 Active no.124/iron/folic mouth daily. ( VITAMIN ORAL) Triamcinolone Apply 0.1 % 0 Acti ve Acetonide 0.05 % topically 2 times ointment daily. loratadine (CLARITIN Take 10 mg by 0 Active ORAL) mouth every morning. famotidine (PEPCID) 20 Take 20 mg by 0 Active mg tablet mouth 2 times daily. acetaminophen Take 2 Tablets by 0 08/19/2021 Active (TYLENOL) 500 mg mouth every 6 tablet hours as needed for Pain. Active Problems Patient Care Coordination Note Formatting of this note might be differe nt from the original. 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 Myopia 03/22/2011 Astigmatism 03/22/2011 Immunizations Name Administration Dates Next Due Covid-19 mRNA Vaccine ([employer] COVID-19) 02/04/2021, 05/12/19, 04/21/2020 PF 0.3 ml IM (12 yrs+) Surgical History Surgery Date Site/Laterality Comments WISDOM TOOTH EXTRACTION OTHER SURGICAL HISTORY laser sandy isreal from age 3 to 14 for port wine stain Medical History Medical History Date Comments Capillary hemangioma of right orbital region Hemangioma 08/17/21 capillary-ri ght orbital region Astigmatism 08/17/21 myopia History of general anesthesia tolerated well, had epidural with her son, tolerated well Activity, other involving 08/18/21; has a 7 week old, walking 1 cardiorespiratory exercise mile per day History of kidney stones 08/18/21: ? ston e during , right hydronephrosis has resolved. At this time no stone v isualized GERD (gastroesophageal reflux disease) : during , now resolved. Now on pep joeslito for anti histamine benefit r/ t hives Migraines 08/18/21: on occassio n, no specific med plan Eczema 08/17/21 telangiectas ia, port-wine stain of skin. Eczem a, developed hives post , ? hormo nal : being treated with clarite n and pepcid: somewhat helpful Eczema eczema hands , wrist . per pt, surgical site clear at this time from eczema Family History Medical History Relation Name Comments Diabetes Maternal Grandfather Heart Disease Maternal Grandfather High Blood Pressure Maternal Grandfather High Blood Pressure Mother Glaucoma Paternal Grandfather Diabetes Paternal Grandmother Relation Name Status Comments Maternal Grandfather Other cabg Mother Paternal Grandfather Paternal Grandmother Social History Tobacco Use Types Packs/Day Years [...] at Date Recorded Female 08/28/2021 10:44 EDT Obstetrics History Grav Para Term Pre Abrt (TAB) (SAB) (Ect) Mult Lvng Comments 2 0 0 0 1 0 0 0 Date Outcome GA Total Labor/2nd/3rd Weight Sex Delivery Anes PTL Ana Paula A 1 A5 Name Clin Labor AB Last Filed Vital Signs Vital Sign Reading Time Taken Comments Blood Pressure 137/92 08/19/2021 1122 EDT Pulse 78 08/06/2021 1243 EDT Temperature 36.5 ??C (97.7 ??F) 08/19/2021 1122 EDT Respiratory Rate 15 08/19/2021 1122 EDT Oxygen Saturation 100% 08/19/2021 1122 EDT Inhaled Oxygen Concentration - - Weight 75.4 kg (166 lb 3.6 oz) 08/19/2021 0626 EDT Height 165.1 cm (5' 5) 08/19/2021 0626 EDT Body Mass Index 27.66 08/19/2021 0626 EDT Plan of Treatment Health Maintenance Due Date Last Done Comments Hepatitis C Screen Completed 11/14/2020 COVID-19 Vaccine Completed 02/04/2021, 05/12/2020, 020 Insurance Payer Benefit Plan / Subscriber ID Effective Phone Address T ype Group Dates [facility] [id number] 2019-Pres [phone] [address] [facility] [employer] ent [address] [place] [address] Care Teams Asp Net C Developer Relationship Specialty Start Date End Date Ofelia Pierce NP PCP - General 03/31/21 [address] [place], [place] [id number] Desiree Park MD 03/23/21 [address] [place] [address]
--- OUTSIDE RECORDS SUMMARY | 2021-12-29 15:28 | XMS_ITS | Encounter Summary ---
:[address] [facility] Address [address] [place] [address] Care Team Providers Name Role Phone Ofelia Pierce NP Primary Care Provider Desiree Park MD Unavailable Reason for Visit Radiology Services (Routine/Next Available) - Authorization Not Required Specialty Diagnoses / Procedures Referred By Contact Refer red To Contact Diagnoses Nephrolithiasis Willam Jacinto, [facility] Procedures CT RENAL STONE [address] [place] [address], [address] [place] [address] Referral ID Status Reason Start Expiration Visits Visits Date Date Requested Authorized [id number] Authorization Not 06/09/2021 1 1 Required Encounter Details Date Type Department Care Team Description 08/11/2021 Hospital Encounter [facility] Radiology CT - [place] [id number] Social History Tobacco Use Types Packs/Day Years [...] nts CT RENAL STONE Routine 08/11/2021 11:42 EDT Nephrolithiasis Re sults for this procedure are i n the results section . documented in this encounter Results CT RENAL STONE (08/11/2021 11:42 EDT) Anatomical Region Laterality Modality Body, Abdomen Computed Tomography Specimen Impressions [facility] - 08/11/2021 13:13 EDT No urinary tract calculi or obstruction.. I have personally reviewed the images an d the above interpretation and agree with the findings. Narrative [facility] - 08/11/2021 13:[address] RENAL STONE [...] lymphadenopathy. Musculoskeletal: No concerning osseous l esions. Corporation Secretary: No additional findings. Procedure Note Low Eaton [...] lymphadenopathy. Musculoskeletal: No concerning osseous l esions. Corporation Secretary: No additional findings. IMPRESSION No urinary tract calculi or obstruction. . I have personally reviewed the images an d the above interpretation and agree with the findings. Performing Organization Address City/State/ZIP Code Phon e Number [facility] documented in this encounter Visit Diagnoses Not on filedocumented in this encounter Care Teams Game Developer Relationship Specialty Start Date End Date Ofelia Pierce NP PCP - General 03/31/21 [address] [place] [id number] Desiree Park MD 03/23/21 [address] [place] [id number] documented as of this encounter
--- OUTSIDE RECORDS SUMMARY | 2021-12-29 15:28 | XMS_ITS | Encounter Summary ---
:1990 Author Organization [facility] Address [address] [place] [address] Care Team Providers Name Role Phone Ofelia Pierce NP Primary Care Provider Desiree Park MD Unavailable Reason for Visit Reason Comments Post-OP Follow Up s/p lap curly 08/19/21 Encounter Details Date Type Department Care Team Description 09/17/2021 Nurse Only [facility] Nurse, Smith munoz polyp (Primary Dx); General Surgery - Gen Surg S/P laparo scopic cholecystectomy [address] [address] Social History Tobacco Use Types Packs/Day Years [...] documented as of this encounter Progress Notes Bernardo Byers RN - 09/17/2021 0930 EDT Telephone call from RN This patient did not meet with Dr. Hernandez during the visit. PREOPERATIVE DIAGNOSIS:?? Biliary colic with gallbladder polyp. ?? POSTOPERATIVE DIAGNOSIS:?? Biliary colic with gallbladder polyp. ?? PROCEDURE:?? Laparoscopic cholecystectomy. Patient stated condition: Doing really well. Bowel movement: normal Urination: normal Other complaints: none RN advised patient to ease back into activity slowly and to listen to their body. If a movement or activity causes pain or pressure patient should stop. RN reviewed signs of infection (redness, swelling, warmth, drainage, fever) and encouraged patient to call right away with any symptoms or other concerns. Patient verbalized understanding. All questions answered. I spent a total of 3 minutes with Lina Segura today and 3 minutes of that time was spent in counseling and coordination of care as described in the progress note. documented in this encounter Plan of Treatment Not on filedocumented as of this encounter Visit Diagnoses Diagnosis Gallbladder polyp - Primary Cholesterolosis of gallbladder S/P laparoscopic cholecystectomy Other postprocedural status documented in this encounter Care Teams Tipple Operator Relationship Specialty Start Date End Date Ofelia Pierce NP PCP - General 03/31/21 [address] [id number] Desiree Park MD 03/23/[address] [place] [id number] documented as of this encounter
--- OUTSIDE RECORDS SUMMARY | 2021-12-29 15:29 | XMS_ITS | CCD ---
:1990 Author Care Team Providers Name Role Phone VIGNESH BLANKENSHIP Attending Physician Unavailable VIGNESH BLANKENSHIP Rounding (Secondary) Physician Unavailab le Vital Signs Unknown or Not Available. Allergies Unknown or Not Available. Procedures Unknown or Not Available. History of Immunizations Unknown or Not Available. Problems Problem Code Start Date Resolved Date Status Urticaria [id number] 07/14/2021 Active Gastritis [id number] 07/14/2021 Active Results Unknown or Not Available. Active Medications Medication Code Dose Units Frequency Route Modification Start Date/Time Pepcid 20MG 395805 1 TABLET TWICE A DAY ORAL 07/15/19 22 Oral Tablet 00:30 Prescription Detail TAKE 1 TABLET ORAL TWICE A D AY Claritin 10MG Oral Tablet 336521 1 TABLET DAILY ORAL 07/14/2021 00:29 Prescription Detail TAKE 1 TABLET ORAL DAILY for 1-2 weeks Medications Administered During Visit Unknown or Not Available. Encounters Encounter Diagnosis Diagnosis Code Start Date Liver and biliary tract disorders in , third [id number] 04/10/2021 trimester Social History Smoking Status Code Start Date End Date Never smoker [id number] Patient Decision Aids Unknown or Not Available. Discharge Instructions You were admitted to [facility] on 04/10/2021 10:26 with a principal diagnosis of Liver and biliary tract disorders in , third trimester You were discharged from [facility] on 04/10/2021 10:46 Should you have any questions prior to d ischarge, please contact a member of your healthcare team. If you have left the spital and have any questions, please contact your primary care physician. Chief Complaint and Reason For Visit Unknown or Not Available. Function Status Unknown or Not Available. Plan of Care Unknown or Not Available. Referral/Transition of Care Unknown or Not Available.
--- OUTSIDE RECORDS SUMMARY | 2021-12-29 15:29 | XMS_ITS | Encounter Summary ---
:1990 Author Organization [facility] Address [address] [place] [address] Care Team Providers Name Role Phone Desiree Park MD Primary Care Provider None, Provider Primary Care Provider Unavailable Ofelia Pierce NP Primary Care Provider Desiree Park MD Unavailable Encounter Details Date Type Department Care Team Description 09/14/2019 Lab Requisition [facility] Outr Resulting Lab, Pathology & Laboratory Provider [facility] [address], [place] [id number] Social History Tobacco Use Types Packs/Day Years Used Date Never Assessed Sex Assigned at Date Recorded Female 08/28/2021 10:44 EDT documented as of this encounter Plan of Treatment Not on filedocumented as of this encounter Procedures Procedure Name Priority Date/Time Associated Comments Diagnosis QUANTIFERON TB GOLD Routine 09/13/2019 14:02 Resu lts for this PLUS EDT procedure are i n the results section. documented in this encounter Results QUANTIFERON TB GOLD PLUS (09/13/2019 14:02 EDT) Quantiferon Negative Negative [facility] Interpretation Comment: [facility] No interferon-gamma response to M. tuberculosis antigens was detected. ??Infection with M. tuberculosis is unlikely. A single negative result does not exclude infection with M. tuberculosis. ??In patien SERVICES ts at high risk for M. tuber culosis infection, a second test should be considered in accordance with the 2017 ATS/IDSA/CDC Clinical Practice Guidelines for Diagnosis of Tuberculosis in Adults and Childr en. [Parish DIAZ et. al. Clin. Infect. Dis. 2017:64 ( 2) ??: 111-115]. Results were obtained with the Qiagen QuantiFERON TB G old Plus PAPI. TB1 Ag minus Nil 0.03 IU/ml [facility] TB2 Ag minus Nil 0.01 IU/mL [facility] Specimen Blood - Venous blood (substance) Narrative [facility] - 09/17/2019 13:49 EDT Results were obtained with the Qiagen Qu antiFERON-TB Gold Plus PAPI. Performing Organization Address City/State/ZIP Code Phon e Number [facility] [address] [place] [address] SERVICES documented in this encounter Visit Diagnoses Not on filedocumented in this encounter Care Teams Cane Loader Relationship Specialty Start Date End Date Desiree Park MD PCP - General 08/20/08 03/22/21 [address] [place] [id number] None, Provider PCP - General 03/23/21 03/30/21 Ofelia Pierce NP PCP - General 03/31/21 [address] [place] [place], [place] [id number] Desiree Park MD 03/23/21 [address] [place] [place] [id number] documented as of this encounter
--- OUTSIDE RECORDS SUMMARY | 2021-12-29 15:29 | XMS_ITS | Encounter Summary ---
:1990 Author Organization [facility] Address [address] [place] [address] Care Team Providers Name Role Phone Desiree Park MD Primary Care Provider Reason for Visit (Routine/Next Available) - Receiving Office to Obtain Authorization Specialty Diagnoses / Procedures Referred By Contact Refer red To Contact Procedures Unknown, ProviderMD US OUTSIDE IMAGES BODY Phone: Referral ID Status Reason Start Expiration Visits Visits Date Date Requested Authorized [id number] Receiving Office 03/10/2021 1 1 to Obtain Authorization Encounter Details Date Type Department Care Team Description 02/27/2021 Hospital Encounter [facility] Secondary Reads [place] Social History Tobacco Use Types Packs/Day Years Used Date Never Assessed Sex Assigned at Date Recorded Female 08/28/2021 10:44 EDT documented as of this encounter Medications at Time of Discharge Medication Sig Dispensed Refills Start Date End Date norgestimate-ethinyl Take 1 Tab by mouth 0 08/18/2021 estradiol (ORTHO daily. TRI-CYCLEN LO) 0.18/0.215/0.25 mg-25 mcg tablet documented as of this encounter Discharge Disposition Disposition Code Departure Means Destination Home or Self Care documented in this encounter Plan of Treatment Not on filedocumented as of this encounter Procedures Procedure Name Priority Date/Time Associated Diagnosis Comme nts US OUTSIDE IMAGES Routine 03/10/2021 15:48 Result s for this BODY EST procedure are i n the results section. documented in this encounter Results US OUTSIDE IMAGES BODY (03/10/2021 15:48 EST) Specimen Narrative 03/10/2021 15:48 EST This is a non-reportable exam. documented in this encounter Visit Diagnoses Not on filedocumented in this encounter Care Teams Department Operations Manager Relationship Specialty Start Date End Date Desiree Park MD PCP - General 08/20/08 03/22/21 [address] [place] [address] documented as of this encounter
--- OUTSIDE RECORDS SUMMARY | 2021-12-29 15:29 | XMS_ITS | Encounter Summary ---
:1990 Author Organization [facility] Address [address] [place] [address] Care Team Providers Name Role Phone Desiree Park MD Primary Care Provider Encounter Details Date Type Department Care Team Description 06/28/2011 Hospital Encounter [facility] [place] [address] [facility] [place] [address] [place] [address] [place], [place] [phone] (Wo rk) Social History Tobacco Use Types Packs/Day Years Used Date Never Smoker Smokeless Tobacco: Never Used Alcohol Use Standard Drinks/Week Comments Not Asked 0 (1 standard drink = 0.6 oz [...] Code Departure Means Destination Home or Self Detention documented in this encounter Plan of Treatment Not on filedocumented as of this encounter Procedures Procedure Name Priority Date/Time Associated Diagnosis Comme nts HAND 3 OR MORE 06/28/2011 12:05 Results f or this VIEWS EST procedure are i n the results section. documented in this encounter Results HAND 3 OR MORE VIEWS (06/28/2011 12:05 EST) Anatomical Region Laterality Modality Other Specimen Narrative [facility] - 06/28/2011 12:40 EST Left hand June 28, 2011 History: Fell on outstretched hand, pain , mainly in the thumb, rule out fracture Three views were obtained. Findings: The soft tissues and bony stru ctures are normal. Specifically, no fracture is seen. The j oint spaces are normal. Impression: Normal exam. Procedure Note 06/28/2011 Left hand June 28, 2011 History: Fell on outstretched hand, pain , mainly in the thumb, rule out fracture Three views were obtained. Findings: The soft tissues and bony stru ctures are normal. Specifically, no fracture is seen. The j oint spaces are normal. Impression: Normal exam. Performing Organization Address City/State/ZIP Code Phon e Number [facility] documented in this encounter Visit Diagnoses Not on filedocumented in this encounter Care Teams Foreclosure Specialist Relationship Specialty Start Date End Date Desiree Park MD PCP - General 08/20/08 03/22/21 [address] [place] [id number] documented as of this encounter
--- OUTSIDE RECORDS SUMMARY | 2021-12-29 15:29 | XMS_ITS | Encounter Summary ---
:1990 Author Organization [facility] Address [address] [place] [address] Care Team Providers Name Role Phone Desiree Park MD Primary Care Provider None, Provider Primary Care Provider Unavailable Ofelia Pierce NP Primary Care Provider Desiree Park MD Unavailable Encounter Details Date Type Department Care Team Description 11/14/2020 Lab Requisition [facility] Outr Resulting Lab, Pathology & Laboratory Provider [facility] [address] [place] [id number] Social History Tobacco Use Types Packs/Day Years Used Date Never Assessed Sex Assigned at Date Recorded Female 08/28/2021 10:44 EDT documented as of this encounter Plan of Treatment Not on filedocumented as of this encounter Procedures Procedure Name Priority Date/Time Associated Diagnosis Comme nts HEPATITIS C AB W Routine 11/14/2020 10:56 Results for this REFLEX TO HCV RNA EDT procedure are in BY PCR the results section. documented in this encounter Results HEPATITIS C AB W REFLEX TO HCV RNA BY PCR (11/14/2020 10:56 EDT) Pathologist Sig nature Hep C Antibody Negative Negative [facility] Specimen Blood - Venous blood (substance) Performing Organization Address City/State/ZIP Code Phon e Number [facility] [address] [place] [address] SERVICES documented in this encounter Visit Diagnoses Not on filedocumented in this encounter Care Teams Vice President Of Consulting Services Relationship Specialty Start Date End Date Desiree Park MD PCP - General 08/20/08 03/22/[address] [id number] None, Provider PCP - General 03/23/21 03/30/21 Ofelia Pierce NP PCP - General 03/31/21 [address] [place] [id number] Desiree Park MD 03/23/[address] [id number] documented as of this encounter
--- OUTSIDE RECORDS SUMMARY | 2021-12-29 15:29 | XMS_ITS | Encounter Summary ---
:1990 Author Organization [facility] Address [address] [place] [address] Care Team Providers Name Role Phone Desiree Park MD Primary Care Provider None, Provider Primary Care Provider Unavailable Ofelia Pierce NP Primary Care Provider Desiree Park MD Unavailable Encounter Details Date Type Department Care Team Description 09/13/2019 Lab Requisition [facility] Outr Resulting Lab, Pathology & Laboratory Provider [facility] [address] [place] [address] Social History Tobacco Use Types Packs/Day Years Used Date Never Assessed Sex Assigned at Date Recorded Female 08/28/2021 10:44 EDT documented as of this encounter Plan of Treatment Not on filedocumented as of this encounter Procedures Procedure Name Priority Date/Time Associated Diagnosis Comme nts HEPATITIS B SURFACE Routine 09/13/2019 14:02 Resu lts for this ANTIBODY EDT procedure are i n the results section. documented in this encounter Results HEPATITIS B SURFACE ANTIBODY (09/13/2019 14:02 EDT) Hep B Surface Ab, 918.2 See Note [facility] Quantitative Comment: mIU/mL [facility] Reference Range for Hep B Surface Ab, Quant: SERVICES Positive: >= 10.0 mIU/mL Negative: ??< 10.0 mIU/mL Patient is presumed to be immune to infection with Hep atitis B Virus. Hep B Surface Ab, Positive See Note [facility] Qualitative Comment: [facility] Reference Range for Hep B Surface Ab, Qual: Unvaccinated: ??Negative Vaccinated: ??Positive Specimen Blood - Venous blood (substance) Performing Organization Address City/State/ZIP Code Phon e Number [facility] [address] [place] [address] SERVICES documented in this encounter Visit Diagnoses Not on filedocumented in this encounter Care Teams Composition Tile Layer Relationship Specialty Start Date End Date Desiree Park MD PCP - General 08/20/08 03/22/21 [address] [place] [id number] None, Provider PCP - General 03/23/21 03/30/21 Ofelia Pierce, ZHANG PCP - General 03/31/21 [address] [id number] eDsiree Park MD 03/23/[address] [id number] documented as of this encounter
--- OUTSIDE RECORDS SUMMARY | 2021-12-29 15:29 | XMS_ITS | Encounter Summary ---
:1990 Author Organization [facility] Address [address] [place] [address] Care Team Providers Name Role Phone Ofelia Pierce NP Primary Care Provider Desiree Park MD Unavailable Reason for Referral Consult (Routine/Next Available) - Specialty Report Received Specialty Diagnoses / Procedures Referred By Contact Refer red To Contact General Surgery Diagnoses Gallbladder polyp Right upper quadrant abdominal pain affecting in third trimester Gallbladder disease affecting in third trimester Nika Holman, Mp5 Gen Surgery MD [id number] [place] [address], [facility] Phone: [place], [address] [place] [address] Referral ID Status Reason Start Expiration Visits Visits Date Date Requested Authorized [id number] Specialty Specialty 1 1 Report Services 1 Received Required Question Answer Reason for Request: Currently 28 weeks pregnanct . 2 months persistent RUQ pain, found to have gallbladder polyp on US. Reason for Visit Reason Comments Advice Only Consult Consult (Routine) - Authorization Not Required Specialty Diagnoses / Procedures Referred By Contact Refer red To Contact Obstetrics Diagnoses Abdominal pain Gallbladder polyp Mark Teague MD Ep4 Ob/[address],[facility] 111 [facility] [address] [place] [address] [place], [place] [address] 1 Referral ID Status Reason Start Expiration Visits Visits Date Date Requested Authorized [id number] Authorization Not 1 1 Required Encounter Details Date Type Department Care Team Description 03/31/2021 Initial consult [facility] Low Granger polyp (Primary Dx); Obstetrics & MD Mitzy Right upper quadrant abdominal pain affe cting in third trimester; Midwifery - [address] er disease affecting in third trimester [address] [place], [place] [facility], [id number] [place] [address] [phone] (Wo rk) Social History Tobacco Use Types Packs/Day Years Used Date Never Smoker Alcohol Use Standard Drinks/Week Comments Not Currently 0 (1 standard drink = 0.6 oz pure alcoho l) Sex Assigned at Date Recorded Female 08/28/2021 10:44 EDT documented as of this encounter Last Filed Vital Signs Vital Sign Reading Time Taken Comments Blood Pressure 130/73 03/31/2021 0818 EST Pulse - - Temperature - - Respiratory Rate - - Oxygen Saturation - - Inhaled Oxygen Concentration - - Weight 76.4 kg (168 lb 6.4 oz) 03/31/2021 0818 EST Height 165.1 cm (5' 5) 03/31/2021 0818 EST Body Mass Index 28.02 03/31/2021 0818 EST documented in this encounter Progress Notes Nika Holman MD - 03/31/2021 0830 EST Dear Mark Teague MD, Thank you for referring your patient, Lina Segura, to be seen in the [facility] clinic. As you know, she is a 30 y.o. at 28w4d. Lina is here for consultation regarding gallbladder polyp and RUQ pain. Lina reports an uncomplicated until the beginning of January. On 02/07, overnight she noticed RUQ pain just under her rib cage, which was worsened when rolling over and lying on her right side. After speaking with her CNM, she tried hydration and a low fat diet for a few days without improvement, and ultimately presented to the ED for further evaluation 02/11. During this ED visit, she had a normal EKG and normal exam documented, although no imaging was performed. Serum labs were notablefor normal LFTs and lipase, mild leukocytosis of 15. She was referred back to her PCP, and after a week for ongoing symptoms, she underwent a RUQ US on 02/27. This demonstrated a 3mm right renal calculi with mild right hydronephrosis, as well as a gallbladder polyp, described as solitary, non-mobile. There were no mobile gallstones, gallbladder wall edema, or dilation of the common hepatic duct. Since that ultrasound, she has been dealing with RUQ pain that typically at a dull ache 3-4/10, but becomes sharper and more acute after eating (although she has not been able to identify consistent patterns in dietary triggers), position changes and exertion. She tries not to take any medication per her personal preference. She is taking tylenol 500 mg once at night about 2-3 days per week. Rarely, she has taken 1000 mg of tylenol. She denies associated symptoms including nausea, vomiting, diarrhea, constipation, dysuria. She has not had fevers. She has infrequent mild heartburn, which resolves with Tums. She reports good FM and denies obstetric complaints including contractions, loss of fluids. OB History Para Term AB Living 2 0 0 0 1 0 SAB TAB Ectopic Multiple Live Births 0 0 0 0 0 # Outcome Date GA Lbr Stu/2nd Weight Sex Delivery Anes PTL Lv 2 Current 1 AB Past medical history: Lina has a past medical history of Capillary hemangioma of right orbital region and Eczema. Current medications: Current Outpatient Medications: ??? acetaminophen (TYLENOL) 500 mg tablet, Take 500 mg by mouth every 6 hours as needed for Pain., Disp: , Rfl: ??? calcium carbonate (TUMS) 200 mg calcium (500 mg) tablet,chewable, Take 1 Tablet by mouth 4 timesdaily as needed., Disp: , Rfl: ??? vit no.124/iron/folic ( VITAMIN ORAL), Take 1 Tablet by mouth daily., Disp: , Rfl: Past surgical history: Lina has a past surgical history that includes [place] tooth extraction. Family history: Neither Lina nor her partner are aware of any family history of defect, chromosomal anomalyor syndromic disorder. Lina denies family history of renal or gallbladder problems. Her maternal grandfather has diabetes and heart disease s/p quadruple bypass. Her paternal grandmother has had an ND. Several family members have hypertension. Her maternal grandmother and maternal great aunt had breast cancer later in life, per records. Social history: Lina lives with her . 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 She reports that she has never smoked. She does not have any smokeless tobacco history on file. She reports previous alcohol use. She reports that she does not use drugs. Allergies: Allergies Allergen Reactions ??? Amoxicillin Rash ??? Penicillins Shortness Of Breath Objective: Blood pressure 130/73, height 165.1 cm (65), weight 76.4 kg (168 lb 6.4 oz), last menstrual period 09/12/2020. Pregravid BMI 24.96 General: Comfortable young woman, NAD and non-toxic in appearance, no jaundice Abd: Soft, gravid, nondistended. The RUQ just inferior to the rib cage is mildly tender to palpation, and the lowest rib itself is moderately tender to palpation as well. The liver edge is not palpable. The remainder of the abdomen is entirely non-tender to palpation. FHR: 150 bpm The remainder of physical exam was deferred as primary purpose of today's visit was for discussion. Assessment & Recommendations: Lina Segura is a 30 y.o. at 28w4d with a complicated by persistent RUQ. We first discussed her ultrasound findings, which showed a 3 mm non-obstructing renal calculus without hydronephrosis. In the absence of urinary symptoms or flank pain, we agree with prior assessments that this is not likely to be the cause of her pain at this time. Additionally noted was a solitary, non-mobile polyp within the gallbladder, without evidence of cholelithiasis or cholecystitis. Serum labs performed during ED evaluation demonstrated normal LFTs and lipase, which does lower suspicion for an obstructive process such as choledocholithiasis. She has no clinical or lab findings suggestive of preeclampsia, and has been normotensive. It is quite likely that her pain, which is to some degreecolicky and post-prandial and is reproducible upon palpation, is secondary to the gallbladder polyp.It should be noted, however, that some tenderness is also elicited with palpation of the lowest rib.This may indicate an alternative or concurrent etiology such as costochondritis. While uncommon, gallbladder polyps are likely to be benign. Definitive management of persistent symptoms is generally cholecystectomy, which additionally allows for biopsy and further characterization of polyp tissue, given the exceedingly rare but present risk of malignancy. Her ultrasound imaging does not expand upon the size or morphology of the polyp, therefore it is difficult to further comment on this. We first discussed conservative medical management in , consisting of heating pads as optimization of her tylenol regimen (daily maximum 4000 mg). In , NSAIDs are typically dis couraged due to the risk of premature closure of the ductus arteriosus and subsequent sequelae; however, this is seen is with persistent and long- term use. Additionally, when ultrasound evidence of narrowing ductus arteriosus is identified, discontinuation of the trigger in question will typically resolve this back to normal. Therefore, we discussed optimizing use of tylenol, with the option toinfrequently use a single dose of Motrin 400 mg for pain that does not respond to tylenol; this use should be sparing in and should not be her first line of analgesia. We encouraged her to continue a low-fat diet to reduce colicky exacerbation of pain. Of note, a similar approach would be used for symptomatic relief of costochondritis. Evaluation by GI surgeons would provide the ultimate guidance on whether or not cholecystectomy should be performed in the short term prior to delivery. We discussed that if surgery is not indicated imminently, it may make sense to await delivery and perform postnatally. If symptoms become unmanageable and refractory to conservative measures, and cholecystectomy would be the recommended management, this is reasonable to perform in . Ideally, abdominal surgeries are performed in the second trimester due to the lower risk, lower risk of labor, and logistically more operative space for a minimally invasive approach. Third trimester surgery is reasonable when that is the recommended standard of care for the patient, but the increasingly gravid uterus may require an open approach, and there is a slightly higher risk of labor. heart monitoring pre-operatively and post-operatively is recommended, and while intermittent intraoperative heart monitoring, continuous monitoring is of limited utility. With all of this information in mind, we developed the following approach with Lina: 1. Optimization of conservative management with analgesia, heat 2. Consultation with GI surgeons regarding recommendation for further management of symptoms 3. If recommended, we would support performing cholecystectomy in 4. If surgery is performed < 37 weeks gestation, we would recommend administration of a course ofbetamethasone in the preceding days for lung maturity, given a risk for labor. 5. If additional imaging including X-Ray or CT scan is indicated for complete evaluation, this can and should be performed in ; respectively, these approaches are a low dose of radiation with minimal anticipated effect on the fetus, and no risk of teratogenicity in the third trimester. 6. This diagnosis and its management does not alter planned mode, location, or timing of delivery unless additional maternal or indications arise. 7. If pain is manageable until delivery, follow-up imaging and GI evaluation should be pursued to determine the need for definitive surgical management. I have taken the liberty of placing a referral to our GI surgeons here at [facility]; however, have also encouraged Lina to pursue this locally with your office,as well, as she might be able to have a consultation sooner. She and her partner asked appropriate questions, and voiced good understanding of and agreement with our plan. Thank you for the opportunity to participate in the care of Lina. Please let us know of any questions or concerns going forward. Ms. Segura was seen in conjunction with Dr. Granger. Sincerely, Nika Holman MD PhD MFM Fellow, PGY7 Pager #[phone] MFM Attending I have seen and examined Ms. Lina Segura. I have read and agree with Dr. Holman' notes and plan documented above. My main concerns are the potential difficulty getting her seen by GI surgery intime for them to consider a laparoscopic procedure (if removal of the gall bladder is indicated). I am fine with imaging studies, if needed, and I also offered ibuprofen for rare use (eg, no more than 1 or 2 days in a week) to help with pain if acetaminophen is insufficient. Obviously, this can be dealt with , but it would be preferable to get her comfortable as soon as possible, and surgery should pose minimal risk, particularly if done in the near future. I spent a total of 30 minutes on the date of this encounter meeting with the patient and reviewing documentation/coordinating care as described in the above note. No procedures were performed at the time of the visit. Low Granger MD 04/01/2021 9:24 documented in this encounter Plan of Treatment Scheduled Referrals Name Type Priority Associated Order Schedule Diagnoses AMB CONS/FOLLOW Outpatient Routine/Next Gallbladder poly p Expected: UP GENERAL Referral Available Right upper 04/07/2021 SURGERY/COLOREC quadrant abdominal (Appro ximate), JERRY SURGERY pain affecting Expires: in third 2 trimester Gallbladder disease affecting in third trimester documented as of this encounter Visit Diagnoses Diagnosis Gallbladder polyp - Primary Cholesterolosis of gallbladder Right upper quadrant abdominal pain affe cting in third trimester Gallbladder disease affecting in third trimester documented in this encounter Historical Medications This list may reflect changes made after this encounter. Medication Sig Dispensed Refills Start Date End Date vit Take 1 Tablet by 0 no.124/iron/folic mouth daily. ( VITAMIN ORAL) acetaminophen (TYLENOL) Take 500 mg by 0 08/19/2021 500 mg tablet mouth every 6 hours as needed for Pain. calcium carbonate (TUMS) Take 1 Tablet by 0 08/19/2021 200 mg calcium (500 mg) mouth 4 times daily tablet,chewable as needed. added in this encounter Care Teams Bid Manager Relationship Specialty Start Date End Date Ofelia Pierce NP PCP - General 03/31/21 [address] [place] [phone] Desiree Park MD 03/23/[address] [id number] documented as of this encounter
--- OUTSIDE RECORDS SUMMARY | 2021-12-29 15:29 | XMS_ITS | Encounter Summary ---
:1990 Author Organization [facility] Address [address] [place] [address] Care Team Providers Name Role Phone Desiree Park MD Primary Care Provider None, Provider Primary Care Provider Unavailable Ofelia Pierce BARREL MARKER Primary Care Provider Desiree Park MD Unavailable Encounter Details Date Type Department Care Team Description 09/27/2019 Lab Requisition [facility] Ofelia Pierce for screening for malignant neoplasm of cervix; Pathology & B, BARREL MARKER Encounter for general adult medical exam ination without abnormal findings Laboratory Medicine - [address] [place], [place] 111 [facility] [address] [place], [place] [id number] Social History Tobacco Use Types Packs/Day Years Used Date Never Assessed Sex Assigned at Date Recorded Female 08/28/2021 10:44 EDT documented as of this encounter Plan of Treatment Not on filedocumented as of this encounter Procedures Procedure Name Priority Date/Time Associated Diagnosis Comme nts PAP TEST Today 09/25/2019 15:30 EDT Encounter for Result s for this screening for procedure are in malignant neoplasm of the re sults cervix section. Encounter for general adult medical examination without abnormal findings documented in this encounter Results PAP TEST (09/25/2019 15:30 EDT) Specimens A. Cervix and/or [facility] Endocervix , Th[facility] CENTER Imaging System with LABORATORY Manual Evaluation SERVICES Specimen Adequacy Satisfactory for [facility] Evaluation - CENTER transformation zone LABORATORY component present SERVICES General Negative for [facility] intraepithelial [place] lesion or malignancy LABORATORY SERVICES Attestation . [facility] signed by Luann grossman LABORATORY JORGE Ewing(ASCP ) on SERVICES 10/03/2019 at 085 4 Clinical History NONE [facility] Scanned Images [facility] Specimen Pap Test - Cervix and/or Endocervix Performing Organization Address City/State/ZIP Code Phon e Number [facility] [address] [place] [address] SERVICES documented in this encounter Visit Diagnoses Diagnosis Encounter for screening for malignant ne oplasm of cervix Screening for malignant neoplasm of the cervix Encounter for general adult medical exam ination without abnormal findings Unspecified general medical examination documented in this encounter Care Teams Embalmer/Funeral Director Relationship Specialty Start Date End Date Desiere Park MD PCP - General 08/20/08 03/22/21 [address] [place] [phone] None, Provider PCP - General 03/23/21 03/30/21 Ofelia Pierce, BARREL MARKER PCP - General 03/31/21 [address] [place] [phone] Desiree Park MD 03/23/[address] [id number] documented as of this encounter
--- OUTSIDE RECORDS SUMMARY | 2021-12-29 15:29 | XMS_ITS | Encounter Summary ---
:1990 Author Organization [facility] Address [address] [place] [address] Care Team Providers Name Role Phone Desiree Park MD Primary Care Provider None, Provider Primary Care Provider Unavailable Ofelia Pierce NP Primary Care Provider Desiree Park MD Unavailable Encounter Details Date Type Department Care Team Description 11/14/2020 Lab Requisition [facility] Outr Resulting Lab, Pathology & Laboratory Provider [facility] [address] [place] [address] [id number] Social History Tobacco Use Types Packs/Day Years Used Date Never Assessed Sex Assigned at Date Recorded Female 08/28/2021 10:44 EDT documented as of this encounter Plan of Treatment Not on filedocumented as of this encounter Procedures Procedure Name Priority Date/Time Associated Diagnosis Comme nts SYPHILIS SEROLOGY Routine 11/14/2020 10:56 Result s for this EDT procedure are i n the results section. documented in this encounter Results SYPHILIS SEROLOGY (11/14/2020 10:56 EDT) Pathologist Sig nature Syphilis Serology Negative Negative [facility] Specimen Blood - Venous blood (substance) Performing Organization Address City/State/ZIP Code Phon e Number [facility] [address] [place] [address] SERVICES documented in this encounter Visit Diagnoses Not on filedocumented in this encounter Care Teams Buttonhole Maker Relationship Specialty Start Date End Date Desiree Park MD PCP - General 08/20/08 03/22/[address] [id number] None, Provider PCP - General 03/23/21 03/30/21 Ofelia Pierce NP PCP - General 03/31/21 [address] [id number] Desiree Park MD 03/23/[address] [phone] documented as of this encounter
--- OUTSIDE RECORDS SUMMARY | 2021-12-29 15:29 | XMS_ITS | CCD ---
:1990 Author Care Team Providers Name Role Phone VIGNESH BLANKENSHIP Attending Physician Unavailable Vital Signs Unknown or Not Available. Allergies Unknown or Not Available. Procedures Unknown or Not Available. History of Immunizations Unknown or Not Available. Problems Problem Code Start Date Resolved Date Status Urticaria 044604491 07/14/2021 Active Gastritis [id number] 07/14/2021 Active Results Unknown or Not Available. Active Medications Medication Code Dose Units Frequency Route Modification Start Date/Time Pepcid 20MG 638779 1 TABLET TWICE A DAY ORAL 07/15/19 22 Oral Tablet 00:30 Prescription Detail TAKE 1 TABLET ORAL TWICE A D AY Claritin 10MG Oral Tablet 355741 1 TABLET DAILY ORAL 07/14/2021 00:29 Prescription Detail TAKE 1 TABLET ORAL DAILY for 1-2 weeks Medications Administered During Visit Unknown or Not Available. Encounters Encounter Diagnosis Diagnosis Code Start Date Liver and biliary tract disorders in , third [id number] 04/23/2021 trimester Social History Smoking Status Code Start Date End Date Never smoker [id number] Patient Decision Aids Unknown or Not Available. Discharge Instructions You were admitted to [facility] on 04/23/2021 13:41 with a principal diagnosis of Liver and biliary tract disorders in , third trimester You were discharged from [facility] on 04/23/2021 13:41 Should you have any questions prior to d ischarge, please contact a member of your healthcare team. If you have left the ho spital and have any questions, please contact your primary care physician. Chief Complaint and Reason For Visit Chief Complaint Date of Onset 3RD TRIMESTER SUPERVISION Function Status Unknown or Not Available. Plan of Care Unknown or Not Available. Referral/Transition of Care Unknown or Not Available.
--- OUTSIDE RECORDS SUMMARY | 2021-12-29 15:29 | XMS_ITS | Encounter Summary ---
:1990 Author Organization [facility] Address [address] [place] [address] Care Team Providers Name Role Phone Desiree Park MD Primary Care Provider None, Provider Primary Care Provider Unavailable Ofelia Pierce NP Primary Care Provider Desiree Park MD Unavailable Encounter Details Date Type Department Care Team Description 11/14/2020 Lab Requisition [facility] Outr Resulting Lab, Pathology & Laboratory Provider [facility] [address], [place] [address] Social History Tobacco Use Types Packs/Day Years Used Date Never Assessed Sex Assigned at Date Recorded Female 08/28/2021 10:44 EDT documented as of this encounter Plan of Treatment Not on filedocumented as of this encounter Procedures Procedure Name Priority Date/Time Associated Diagnosis Comme nts RUBELLA IGG Routine 11/14/2020 10:56 Results for this ANTIBODY EDT procedure are i n the results section. documented in this encounter Results RUBELLA IGG ANTIBODY (11/14/2020 10:56 EDT) Rubella IgG Ab PositiveComment: See Note [facility] Positive for IgG LABORATORY SERVICES antibodies to Rubella virus. Specimen Blood - Venous blood (substance) Performing Organization Address City/State/ZIP Code Phon e Number [facility] [address] [place] [address] SERVICES documented in this encounter Visit Diagnoses Not on filedocumented in this encounter Care Teams Garment Inspector Relationship Specialty Start Date End Date Desiree Park MD PCP - General 08/20/08 03/22/[address] [id number] None, Provider PCP - General 03/23/21 03/30/21 Ofelia Pierce NP PCP - General 03/31/21 [address] [id number] Desiree Park MD 03/23/[address] [id number] documented as of this encounter
--- OUTSIDE RECORDS SUMMARY | 2021-12-29 15:29 | XMS_ITS | Encounter Summary ---
:1990 Author Organization [facility] Address [address] [place] [address] Care Team Providers Name Role Phone Desiree Park MD Primary Care Provider None, Provider Primary Care Provider Unavailable Oeflia Pierce NP Primary Care Provider Desiree Park MD Unavailable Encounter Details Date Type Department Care Team Description 11/14/2020 Lab Requisition [facility] Outr Resulting Lab, Pathology & Laboratory Provider [facility] [address] [place] [id number] Social History Tobacco Use Types Packs/Day Years Used Date Never Assessed Sex Assigned at Date Recorded Female 08/28/2021 10:44 EDT documented as of this encounter Plan of Treatment Not on filedocumented as of this encounter Procedures Procedure Name Priority Date/Time Associated Diagnosis Comme nts HEPATITIS B SURFACE Routine 11/14/2020 10:56 Resu lts for this ANTIGEN EDT procedure are i n the results section. documented in this encounter Results HEPATITIS B SURFACE ANTIGEN (11/14/2020 10:56 EDT) Pathologist Sig nature Hep B Surface Ag Negative Negative [facility] Specimen Blood - Venous blood (substance) Performing Organization Address City/State/ZIP Code Phon e Number [facility] [address] [place] [address] SERVICES documented in this encounter Visit Diagnoses Not on filedocumented in this encounter Care Teams Developmental Electronics Assembler Relationship Specialty Start Date End Date Desiree Park MD PCP - General 08/20/08 03/22/[address] [phone] None, Provider PCP - General 03/23/21 03/30/21 Ofelia Pierce NP PCP - General 03/31/21 [address] [phone] Desiree Park MD 03/23/[address] [phone] documented as of this encounter
--- OUTSIDE RECORDS SUMMARY | 2021-12-29 15:29 | XMS_ITS | Encounter Summary ---
:1990 Author Organization [facility] Address [address] [place] [address] Care Team Providers Name Role Phone Desiree Park MD Primary Care Provider None, Provider Primary Care Provider Unavailable Ofelia Pierce NP Primary Care Provider Desiree Park MD Unavailable Encounter Details Date Type Department Care Team Description 11/14/2020 Lab Requisition [facility] Outr Resulting Lab, Pathology & Laboratory Provider [facility] [address] [place], [place] [id number] Social History Tobacco Use Types Packs/Day Years Used Date Never Assessed Sex Assigned at Date Recorded Female 08/28/2021 10:44 EDT documented as of this encounter Plan of Treatment Not on filedocumented as of this encounter Procedures Procedure Name Priority Date/Time Associated Comments Diagnosis HIV 1/2 ANTIGEN AND Routine 11/14/2020 10:56 Resu lts for this ANTIBODY, 4TH EDT procedure are in GENERATION the results section. documented in this encounter Results HIV 1/2 ANTIGEN AND ANTIBODY, 4TH GENERATION (11/14/2020 10:56 EDT) HIV 1 and 2 Negative Negative [facility] Antibody/p24 Comment: LABORATORY Antigen, 4th If acute HIV-1 infection is suspected in a high risk ??patient, submit plasma specimen for HIV-1 RNA quantitation test. SERV ICES Generation Fourth Generation assay performed on the Siemens Open Wagera ur. Specimen Blood - Venous blood (substance) Performing Organization Address City/State/ZIP Code Phon e Number [facility] [address] [place] [address] SERVICES documented in this encounter Visit Diagnoses Not on filedocumented in this encounter Care Teams Environmental Health And Safety Intern Relationship Specialty Start Date End Date Desiree Park MD PCP - General 08/20/08 03/22/21 [address] [place] [phone] None, Provider PCP - General 03/23/21 03/30/21 Ofelia Pierce NP PCP - General 03/31/21 [address] [id number] Desiree Park MD 03/23/[address] [phone] documented as of this encounter
--- OUTSIDE RECORDS SUMMARY | 2021-12-29 15:29 | XMS_ITS | Encounter Summary ---
:1990 Author Organization [facility] Address [address] [place] [address] Care Team Providers Name Role Phone Desiree Park MD Primary Care Provider Encounter Details Date Type Department Care Team Description 12/04/2013 Results Only [facility] Reymundo Dixon i, NP Laboratory Services - [address] [address] [address] [facility] [place] [address] [phone] Social History Tobacco Use Types Packs/Day Years [...] Priority Date/Time Associated Diagnosis Comme nts PAP TEST- RESULT Routine 12/04/2013 0:00 EDT Resu lts for this ONLY procedure are i n the results section. documented in this encounter Results PAP TEST- RESULT ONLY (12/04/2013 0:00 EDT) Pathology Report: CYTOPATHOLOGY REPORT [facility] Reports generated via electronic interface contain arlet ginal data; however they are lacking the format of the original re port. Caution should be taken when reading/interpreting unfo rmatted reports. Name: ? CAITLIN JARAMILLO ? Accession #: ? [id number] : ? 1990 (Age: 23) ??F ?Collect Date: ? 08/2013 Location: ? [facility] ? Receive Date : ? 12/06/2013 Provider: ?ZAKIYA DIXON FOOD AND BEVERAGE ORDER CLERK Copy to: ? Specimen/Source: ? Pap Test, Cervix/Endocervix, ThinPrep Imaging System with manual evaluation Last Menstrual Period: ? 10/31/13 Hormonal/Contraceptive Status: ? Intrauterine device: Placed 10/31/13 ? SPECIMEN ADEQUACY ? Satisfactory for Evaluation - transformation zone component present GENERAL CATEGORIZATION ? Negative for Intraepithelial Lesion or Malignan cy ? Document reviewed and electronically signed by: ? JORGE Mattson(ASCP) ? Report Date: ??12/11/2013 15:28 End of Report Specimen Performing Organization Address City/State/ZIP Code Phon e Number [facility] [address] [place] [address] SERVICES [facility] [address] [place] [address] documented in this encounter Visit Diagnoses Not on filedocumented in this encounter Care Teams Candy Spreader Helper Relationship Specialty Start Date End Date Desiree Park MD PCP - General 08/20/08 03/22/21 [address] [place] [id number] documented as of this encounter
--- OUTSIDE RECORDS SUMMARY | 2021-12-29 15:29 | XMS_ITS | Encounter Summary ---
:1990 Author Organization [facility] Address [address] [place] [address] Care Team Providers Name Role Phone Desiree Park MD Primary Care Provider None, Provider Primary Care Provider Unavailable Ofelia Pierce NP Primary Care Provider Desiree Park MD Unavailable Encounter Details Date Type Department Care Team Description 11/14/2020 Lab Requisition [facility] Outr Resulting Lab, Pathology & Laboratory Provider [facility] [address] [place], [place] [phone] Social History Tobacco Use Types Packs/Day Years Used Date Never Assessed Sex Assigned at Date Recorded Female 08/28/2021 10:44 EDT documented as of this encounter Plan of Treatment Not on filedocumented as of this encounter Procedures Procedure Name Priority Date/Time Associated Comments Diagnosis CHLAMYDIA/N. Routine 11/14/2020 10:56 Results for this GONORRHOEAE AMPLIFIED EDT proced ure are in RNA the results section. documented in this encounter Results CHLAMYDIA/N. GONORRHOEAE AMPLIFIED RNA (11/14/2020 10:56 EDT) Pathologist Sig nature Gonococcus Result Negative Negative [facility] Chlamydia Result Negative Negative [facility] Specimen Urine - Urine, Initial Void Narrative [facility] - 11/17/2020 13:59 EDT A first catch urine specimen is acceptab le for detection of Gonorrhea and Chlamydia, but might detect up to 10% fewer infecti ons when compared with vaginal and endocervical swab samples. Performing Organization Address City/State/ZIP Code Phon e Number [facility] [address] [place] [address] SERVICES documented in this encounter Visit Diagnoses Not on filedocumented in this encounter Care Teams Stone Spreader Operator Relationship Specialty Start Date End Date Desiree Park MD PCP - General 08/20/08 03/22/21 [address] [place] [phone] None, Provider PCP - General 03/23/21 03/30/21 Ofelia Pierce NP PCP - General 03/31/21 [address] [place] [phone] Desiree Park MD 03/23/21 [address] [place] [id number] documented as of this encounter
--- OUTSIDE RECORDS SUMMARY | 2021-12-29 15:29 | XMS_ITS | CCD ---
:1990 Author Care Team Providers Name Role Phone VIGNESH BLANKENSHIP Attending Physician Unavailable VIGNESH BLANKENSHIP Rounding (Secondary) Physician Unavailab le Vital Signs Unknown or Not Available. Allergies Unknown or Not Available. Procedures Unknown or Not Available. History of Immunizations Unknown or Not Available. Problems Problem Code Start Date Resolved Date Status Urticaria 166776611 07/14/2021 Active Gastritis [id number] 07/14/2021 Active Results GLUCOSE - 1 HOUR AFTER 50GM GLUCOLA - Co llect Date/Time: 03/05/2021 16:59 Test Name Code Test Result Test Units Test Ref Range GLUCOSE 1 HOUR 1504-0 65 mg/dL L=0 H=135 HEMOGRAM + PLATELET WO DIFF - Collect Da te/Time: 03/05/2021 16:59 Test Name Code Test Result Test Units Test Ref Range WBC 6690-2 14.33 th/cmm L=5.00 H=10.00 NRBC % 71651-8 0.0 % L=0.0 H=0.0 NRBC abs count 49239-6 0.0 mil/cmm L=0.0 H=0.0 RBC 789-8 3.86 mil/cmm L=3.90 H=5.40 HEMOGLOBIN 718-7 11.7 gm/dL L=12.0 H=16.0 HEMATOCRIT 4544-3 36 % L=37 H=47 MCV 787-2 93 fL L=82 H=92 MCH 785-6 30.3 pg L=27.0 H=31.0 MCHC 786-4 32.5 % L=32.0 H=36.0 RDW-SD 788-0 42.2 fL L=39.0 H=49.0 PLATELET COUNT 777-3 286 th/cmm L=150 H=450 Active Medications Medication Code Dose Units Frequency Route Modification Start Date/Time Pepcid 20MG 812313 1 TABLET TWICE A DAY ORAL 07/15/19 22 Oral Tablet 00:30 Prescription Detail TAKE 1 TABLET ORAL TWICE A D AY Claritin 10MG Oral Tablet 736033 1 TABLET DAILY ORAL 07/14/2021 00:29 Prescription Detail TAKE 1 TABLET ORAL DAILY for 1-2 weeks Medications Administered During Visit Unknown or Not Available. Encounters Encounter Diagnosis Diagnosis Code Start Date Encounter for supervision of other normal , [id number] 03/05/2021 second trimester Social History Smoking Status Code Start Date End Date Never smoker [id number] Patient Decision Aids Unknown or Not Available. Discharge Instructions You were admitted to [facility] on 03/05/2021 15:36 with a principal diagnosis of Encounter for supervision of other no rmal , second trimester You had the following tests done: GLUCO SE - 1 HOUR AFTER 50GM GLUCOLA HEMOGRAM + PLATELET WO DIFF You were discharged from [facility] on 03/05/2021 15:37 Should you have any questions prior to [...]
--- OUTSIDE RECORDS SUMMARY | 2021-12-29 15:29 | XMS_ITS | CCD ---
:1990 Author Care Team Providers Name Role Phone July Attending Physician Unavailable July Rounding (Secondary) Physician Unavailab le Vital Signs Unknown or Not Available. Allergies Unknown or Not Available. Procedures Unknown or Not Available. History of Immunizations Unknown or Not Available. Problems Problem Code Start Date Resolved Date Status Urticaria 318815113 07/14/2021 Active Gastritis 2808935 07/14/2021 Active Results Unknown or Not Available. Active Medications Medication Code Dose Units Frequency Route Modification Start Date/Time Pepcid 20MG 804044 1 TABLET TWICE A DAY ORAL 07/15/19 22 Oral Tablet 00:30 Prescription Detail TAKE 1 TABLET ORAL TWICE A D AY Claritin 10MG Oral Tablet 689553 1 TABLET DAILY ORAL 07/14/2021 00:29 Prescription Detail TAKE 1 TABLET ORAL DAILY for 1-2 weeks Medications Administered During Visit Unknown or Not Available. Encounters Encounter Diagnosis Diagnosis Code Start Date Encounter for supervision of other normal , Z3483 05/07/2021 third trimester Social History Smoking Status Code Start Date End Date Never smoker [id number] Patient Decision Aids Unknown or Not Available. Discharge Instructions You were admitted to [facility] on 05/07/2021 16:28 with a principal diagnosis of Encounter for supervision of other no rmal , third trimester You were discharged from [facility] on 05/07/2021 16:28 Should you have any questions prior to [...]
--- OUTSIDE RECORDS SUMMARY | 2021-12-29 15:29 | XMS_ITS | Encounter Summary ---
:1990 Author Organization [facility] Address [address] [place] [address] Care Team Providers Name Role Phone Desiree Park MD Primary Care Provider Reason for Visit Reason Comments Annual Exam Patient has noticed on occas ion in school, when looking at the front white board, she has fuzzy v ision for a few seconds then her eyes focus to clear vision. Also she irby s noticed occasional difficulty reading road signs in the distance. Encounter Details Date Type Department Care Team Description 03/22/2011 Office Visit [facility] Vivienne Duarte MD Ophthalmology - [place] [address] [place] [address] [address] [id number] [place] [address] Social History Tobacco Use Types Packs/Day Years Used Date Never Smoker Smokeless Tobacco: Never Used Alcohol Use Standard Drinks/Week Comments Not Asked 0 (1 standard drink = 0.6 oz pure alcoho l) Sex Assigned at Date Recorded Female 08/28/2021 10:44 EDT documented as of this encounter Progress Notes Vivienne Duarte MD - 03/22/2011 1621 EST Chief Complaint Patient presents with ??? Annual Exam Patient has noticed on occasion in school, when looking at the front white board, she has fuzzy vision for a few seconds then her eyes focus to clear vision. Also she has noticed occasional difficultyreading road signs in the distance. ROS Right Eye: Blurred Vision (Occasional fuzzy vision at distance.) Left Eye: Blurred Vision Visual Fluctuations: None Visual Aid: None Current Rx Age Constitutional: NL ENT/Mouth NL Cardiovascular: NL Respiratory: NL Gastrointestinal: NL Genitourinary: NL Musculoskeletal: NL Integumentary: NL Neurologic: NL Psychiatric: NL Endocrine: NL Hematologic: NL Immunologic: NL Orthopedic Designer: NL Exposures: None Other: Attestation: The above ROS has been reviewed by the Attending Physician History reviewed. No pertinent past medical history. History reviewed. No pertinent past surgical history. History Social History ??? Marital Status: Single Spouse Name: N/A Number of Children: N/A ??? Years of Education: N/A Occupational History ??? Student Social History Main Topics ??? Smoking status: Never Smoker ??? Smokeless tobacco: Never Used ??? Alcohol Use: None ??? Drug Use: None ??? Sexually Active: None Other Topics Concern ??? None Social History Narrative ??? None HPI Location: Pain: 0 - No pain Quality: Severity: Duration: Timing: Lasts: Context: Modifying factors: Associated Signs & Symptoms: Visual Fluctuations: None Attestation: The above HPI has been reviewed by the Attending Physician Allergies Allergen Reactions ??? Penicillins Current Outpatient Prescriptions Medication Sig Dispense Refill ??? norgestimate-ethinyl estradiol (ORTHO TRI-CYCLEN LO) 0.18/0.215/0.25 mg-25 mcg tablet Take 1 Tabby mouth daily. EXAMINATION Mental Status Assessment: Oriented to person, place and time Normal Mood and Affect Eye exam is documented in the Ophthalmology Navigator Module. DIAGNOSIS & PLAN Encounter Diagnoses Name Primary? Port wine stain Yes ??? Telangiectasia ??? Myopia ??? 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 This does not require any treatment. Return in 2 years for a complete exam. Myopic astigmatism. A distance prescription was provided today. I am scribing for Vivienne Duarte MD While he is personally performing the service. 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 Method: Verbal Taught to: Patient Barriers: None Outcomes: independent and verbalized understanding Signature: VIVIENEN DUARTE MD documented in this encounter Miscellaneous Notes Scanned Note-Null - Decorating Supervisor, Scan - 03/24/2011 1115 EST documented in this encounter Plan of Treatment Not on filedocumented as of this encounter Visit Diagnoses Diagnosis Port wine stain - Primary Congenital vascular hamartomas Telangiectasia Other and unspecified capillary diseases Myopia Astigmatism Astigmatism, unspecified documented in this encounter Historical Medications This list may reflect changes made after this encounter. Medication Sig Dispensed Refills Start Date End Date norgestimate-ethinyl Take 1 Tab by mouth 0 08/18/2021 estradiol (ORTHO daily. TRI-CYCLEN LO) 0.18/0.215/0.25 mg-25 mcg tablet added in this encounter Eye Exam Visual Acuity (Snellen - Linear) Right eye Left eye Dist sc 20/25 -2 20/20 Near sc J1+ J1+ Tonometry (Applanation, 15:43) Right eye Left eye Pressure 15 14 Pupils Pupils Dark Light APD Right eye PERRL 7 5 none Left eye PERRL 7 5 none Visual Calero (Counting fingers) Right eye Left eye Full Full Dilation Both eyes: 1.0% Mydriacyl @ 15:44 External Exam Right eye Left eye External Port wine stains of the upper and lower lids Slit Lamp Exam Right eye Left eye Lids/Lashes 2+ Meibomian gland dysfunction 1+ Meibom lalitha gland dysfunction Conjunctiva/Sclera Telangiectasia of conjunctiva Trace Inje ction correlating to port wine stain of eyelids, Trace Injection Cornea Clear Clear Anterior Chamber Deep and quiet Deep and quiet Iris Normal Normal Lens Clear Clear Vitreous Normal Normal Fundus Exam Right eye Left eye Disc Sloping Sloping C/D Ratio 0.3 0.4 Macula Normal Normal Vessels Normal Normal Periphery Normal Normal Manifest Refraction #1 (Auto) Sphere Cylinder [place] Dist [place] Right eye -1.00 +0.25 070 20/20 Left eye +0.25 +0.50 100 20/20 Manifest Refraction #2 Sphere Cylinder [place] Dist [place] Right eye -1.00 +0.25 070 20/20 Left eye -0.25 +0.50 100 20/20 Care Teams Mail Carrier And Clerk Relationship Specialty Start Date End Date Desiree Park MD PCP - General 08/20/08 03/22/[address] [place] [place] [id number] documented as of this encounter
--- OUTSIDE RECORDS SUMMARY | 2021-12-29 15:29 | XMS_ITS | Encounter Summary ---
:1990 Author Organization [facility] Address [address] [place] [address] Care Team Providers Name Role Phone Desiree Park MD Primary Care Provider Encounter Details Date Type Department Care Team Description 06/06/2018 Historical Results Only [facility] - Unknown, [facility] Lab - Main [facility] Provider, MD [address] [phone] [place] [address] (Work) [phone] Social History Tobacco Use Types Packs/Day Years [...] Associated Comments Diagnosis QUANTIFERON TB GOLD Routine 06/06/2018 10:04 Resu lts for this PLUS EST procedure are i n the results section. HEPATITIS B SURFACE Routine 06/06/2018 10:04 Resu lts for this ANTIBODY EST procedure are i n the results section. documented in this encounter Results HEPATITIS B SURFACE ANTIBODY (06/06/2018 10:04 EST) Hep B Surface Ab, 399 [facility] Qualitative Comment: [facility] ? Interpretative Guidelines >=12.00 mIU/mL ??= Positive Clinical Interpretation of Immune Status: Anti-HBs det ected at >10 mIU/mL. Patient is considered to be immune to infection with HBV. ??It has not been determined what the clinical significance is for values greater than or = 12 mIU/mL, other than the individual is considered to be immune to HBV infection. The results of this assay can be falsely lowered due t o the consumption of Biotin. Specimen Narrative [facility] - 019 12:38 EST Does PT Have a Latex Allergy? NO Performing Organization Address [facility] Phon e Number [facility] [address] LAB QUANTIFERON TB GOLD PLUS (06/06/2018 10:04 EST) [facility] Signature Quantiferon Negative NEGAT [facility] Interpretation Comment: [facility] Reference Range: Negative No interferon-gamma response to M. tuberculosis antig ens was detected. Infection with M. tuberculosis is unlikely. A single negative result does not exclude infection with M. tu berculosis. In patients at high risk for M. tuberculosis infection , a second test should be considered in accordance with the 2017 ATS/ IDSA/CDC Clinical Practive Guidelines for Diagnosis of Tubercu losis in Adults and Children [Lewinsohn DM et. al. Clin. Infect. Dis. 2017:64(2):111-115]. Results were obtained with the Qiagen QuantiFERON-TB Gold Plus PAPI. TB1 Ag minus Nil 0.00 () IU/mL [facility] TB2 Ag minus Nil 0.01 () IU/mL [facility] Comment: [facility] Test performed or referred by The [address] [address] Specimen Narrative [facility] - 019 14:31 EST Does PT Have a Latex Allergy? NO Performing Organization Address [facility] Phon e Number [facility] [address] [place], [place] [id number] [place] [address] LAB documented in this encounter Visit Diagnoses Not on filedocumented in this encounter Care Teams Senior Speech Pathologist Relationship Specialty Start Date End Date Desiree Park MD PCP - General 08/20/08 03/22/21 [address] [place] [address] documented as of this encounter
--- OUTSIDE RECORDS SUMMARY | 2021-12-29 15:29 | XMS_ITS | Encounter Summary ---
:1990 Author Organization [facility] Address [address] [place] [address] Care Team Providers Name Role Phone Desiree Park MD Primary Care Provider None, Provider Primary Care Provider Unavailable Ofelia Pierce NP Primary Care Provider Desiree Park MD Unavailable Encounter Details Date Type Department Care Team Description 01/14/2021 Lab Requisition [facility] Outr Resulting Lab, Pathology & Laboratory Provider [facility] [address] [place] [address] Social History Tobacco Use Types Packs/Day Years Used Date Never Assessed Sex Assigned at Date Recorded Female 08/28/2021 10:44 EDT documented as of this encounter Plan of Treatment Not on filedocumented as of this encounter Procedures Procedure Name Priority Date/Time Associated Diagnosis Comme nts COVID-19 TEST [facility] Today 01/14/2021 9:26 EDT LAB PCR COVID-19 TESTING Routine 01/14/2021 9:26 EDT Resu lts for this procedure are i n the results section. documented in this encounter Results COVID-19 TEST [facility] PCR (01/14/2021 9:26 EDT) Specimen Swab - Entire nasopharynx (body structur e) Performing Organization Address City/State/ZIP Code Phon e Number [facility] [address] [place] [address] SERVICES COVID-19 TESTING (01/14/2021 9:26 EDT) COVID-19 rt-PCR Negative Negative [facility] Result Comment: CENTER LABORATORY This test [...] tions, patient history, and epidemiological informatio n. Performed on the Wandera Fusion instrument Performing Lab [place] [facility] SERVICES Specimen Swab Performing Organization Address City/State/ZIP Code Phon e Number [facility] [address] [place] [address] SERVICES documented in this encounter Visit Diagnoses Not on filedocumented in this encounter Care Teams Rn Endoscopy Relationship Specialty Start Date End Date Desiree Park MD PCP - General 08/20/08 03/22/[address] [place], [place] [phone] None, Provider PCP - General 03/23/21 03/30/21 Ofelia Pierce NP PCP - General 03/31/21 [address] [place] [phone] Desiree Park MD 03/23/21 [address] [place] [phone] documented as of this encounter
--- OUTSIDE RECORDS SUMMARY | 2021-12-29 15:30 | XMS_ITS | CCD ---
:1990 Author Care Team Providers Name Role VIGNESH Trevino Attending Physician Unavailable Vital Signs Unknown or Not Available. Allergies Unknown or Not Available. Procedures Unknown or Not Available. History of Immunizations Unknown or Not Available. Problems Problem Code Start Date Resolved Date Status Urticaria [id number] 07/14/2021 Active Gastritis 3448472 07/14/2021 Active Results GROUP B STREP DNA BY PCR - Collect Date/ Time: 05/28/2021 16:43 Test Name Code Test Result Test Units Test Ref Range GROUP B STREP POSITIVE N/A Normal: Negati ve OTHER SOURCE: VAG/RECTA N/A PCN ALLERGY? YES N/A Copy Sent to OB? YES N/A SUSCEPTIBILITY OF BACTERIAL ORGANISM* - Collect Date/Time: 05/29/2021 16:43 Test Name Code Test Result Test Units Test Ref Range Result STREPTOCOCCUS AGALACTIAE (GROUP B) N/A Report Status See Below N/A Active Medications Medication Code Dose Units Frequency Route Modification Start Date/Time Pepcid 20MG 538520 1 TABLET TWICE A DAY ORAL 07/15/19 22 Oral Tablet 00:30 Prescription Detail TAKE 1 TABLET ORAL TWICE A D AY Claritin 10MG Oral Tablet 799562 1 TABLET DAILY ORAL 07/14/2021 00:29 Prescription Detail TAKE 1 TABLET ORAL DAILY for 1-2 weeks Medications Administered During Visit Unknown or Not Available. Encounters Encounter Diagnosis Diagnosis Code Start Date screening [id number] 05/28/2021 Social History Smoking Status Code Start Date End Date Never smoker [id number] Patient Decision Aids Unknown or Not Available. Discharge Instructions You were admitted to [facility] on 05/28/2021 19:08 with a principal diagnosis of Encounter for screening for Streptococcus B You had the following tests done: ARSALAN PTIBILITY OF BACTERIAL ORGANISM* GROUP B STREP DNA BY PCR You were discharged from [facility] on 05/28/2021 19:08 Should you have any questions prior to [...]
--- OUTSIDE RECORDS SUMMARY | 2021-12-29 15:30 | XMS_ITS | CCD ---
:1990 Author Care Team Providers Name Role Phone July Attending Physician Unavailable July Rounding (Secondary) Physician Unavailab le Vital Signs Unknown or Not Available. Allergies Unknown or Not Available. Procedures Unknown or Not Available. History of Immunizations Unknown or Not Available. Problems Problem Code Start Date Resolved Date Status Urticaria 938360179 07/14/2021 Active Gastritis 5775529 07/14/2021 Active Results Unknown or Not Available. Active Medications Medication Code Dose Units Frequency Route Modification Start Date/Time Pepcid 20MG 300733 1 TABLET TWICE A DAY ORAL 07/15/19 22 Oral Tablet 00:30 Prescription Detail TAKE 1 TABLET ORAL TWICE A D AY Claritin 10MG Oral Tablet 553543 1 TABLET DAILY ORAL 07/14/2021 00:29 Prescription Detail TAKE 1 TABLET ORAL DAILY for 1-2 weeks Medications Administered During Visit Unknown or Not Available. Encounters Encounter Diagnosis Diagnosis Code Start Date Encounter for supervision of other normal , Z3483 06/12/2021 third trimester Social History Smoking Status Code Start Date End Date Never smoker [id number] Patient Decision Aids Unknown or Not Available. Discharge Instructions You were admitted to [facility] on 06/12/2021 14:07 with a principal diagnosis of Encounter for supervision of other no rmal , third trimester You were discharged from [facility] on 06/12/2021 14:08 Should you have any questions prior to [...]
--- OUTSIDE RECORDS SUMMARY | 2021-12-29 15:30 | XMS_ITS | CCD ---
:1990 Author Care Team Providers Name Role Phone PAVEL OROZCO Attending Physician Unavailable PAVEL OROZCO Rounding (Secondary) Physician Unavailab le Vital Signs Unknown or Not Available. Allergies Unknown or Not Available. Procedures Unknown or Not Available. History of Immunizations Unknown or Not Available. Problems Problem Code Start Date Resolved Date Status Urticaria 993136824 07/14/2021 Active Gastritis 5211955 07/14/2021 Active Results Unknown or Not Available. Active Medications Medication Code Dose Units Frequency Route Modification Start Date/Time Pepcid 20MG 532998 1 TABLET TWICE A DAY ORAL 07/15/19 22 Oral Tablet 00:30 Prescription Detail TAKE 1 TABLET ORAL TWICE A D AY Claritin 10MG Oral Tablet 833659 1 TABLET DAILY ORAL 07/14/2021 00:29 Prescription Detail TAKE 1 TABLET ORAL DAILY for 1-2 weeks Medications Administered During Visit Unknown or Not Available. Encounters Encounter Diagnosis Diagnosis Code Start Date Post-term O480 06/26/2021 Social History Smoking Status Code Start Date End Date Never smoker [id number] Patient Decision Aids Unknown or Not Available. Discharge Instructions You were admitted to [facility] on 06/26/2021 10:41 with a principal diagnosis of Post-term You were discharged from [facility] on 06/26/2021 11:35 Should you have any questions prior to [...]
--- OUTSIDE RECORDS SUMMARY | 2021-12-29 15:30 | XMS_ITS | CCD ---
:1990 Author Care Team Providers Name Role Phone July Attending Physician Unavailable Vital Signs Unknown or Not Available. Allergies Allergy Code Allergy Type Reaction Status PENICILLINS (CLASS) 0 Drug allergy Hives Active AMPICILLIN 733 Drug allergy Hives Active Procedures Unknown or Not Available. History of Immunizations Unknown or Not Available. Problems Problem Code Start Date Resolved Date Status Urticaria 281242833 07/14/2021 Active Gastritis 9710922 07/14/2021 Active Results Unknown or Not Available. Active Medications Medication Code Dose Units Frequency Route Modification Start Date/Time Pepcid 20MG 927901 1 TABLET TWICE A DAY ORAL 07/15/19 22 Oral Tablet 00:30 Prescription Detail TAKE 1 TABLET ORAL TWICE A D AY Claritin 10MG Oral Tablet 119422 1 TABLET DAILY ORAL 07/14/2021 00:29 Prescription Detail TAKE 1 TABLET ORAL DAILY for 1-2 weeks Medications Administered During Visit Unknown or Not Available. Encounters Encounter Diagnosis Diagnosis Code Start Date Post-term O480 06/30/2021 Social History Smoking Status Code Start Date End Date Never smoker [id number] Patient Decision Aids Unknown or Not Available. Discharge Instructions You were admitted to [facility] on 06/30/2021 09:29 with a principal diagnosis of Post-term You were discharged from [facility] on 07/03/2021 09:29 Should you have any questions prior to [...]
--- OUTSIDE RECORDS SUMMARY | 2021-12-29 15:30 | XMS_ITS | CCD ---
:1990 Author Care Team Providers Name Role Phone July Attending Physician Unavailable Vital Signs Vital Sign Value Unit Date/Time Recent/Initial? BMI (Body Mass Index) 31.28 kg/m^2 06/30/2021 16:42 In itial VS Weight Measured 188 lbs 06/30/2021 16:42 Initial VS Height 65 in 06/30/2021 16:42 Initial VS BSA (Body Surface Area) 1.98 m^2 06/30/2021 16:42 Initial VS BP Systolic 138 mmHg 07/01/2021 09:57 Initial VS BP Diastolic 80 mmHg 07/01/2021 09:57 Initial VS Respiratory Rate 18 bpm 07/01/2021 09:57 Initial VS Heart Rate 108 bpm 07/01/2021 09:57 Initial VS Body Temperature 36.7 degrees 07/01/2021 12:00 Initial VS O2 % BldC Oximetry 98 % 07/01/2021 14:50 Initi al VS BP Systolic 124 mmHg 07/02/2021 22:30 Most Recent VS BP Diastolic 68 mmHg 07/02/2021 22:30 Most Recent VS Respiratory Rate 16 bpm 07/03/2021 09:30 Most Re cent VS Heart Rate 88 bpm 07/03/2021 09:30 Most Recent VS O2 % BldC Oximetry 99 % 07/03/2021 09:30 Most Recent VS Body Temperature 36.7 degrees 07/03/2021 09:30 Most Re cent VS Allergies Allergy Code Allergy Type Reaction Status PENICILLINS (CLASS) 0 Drug allergy Hives Active AMPICILLIN 733 Drug allergy Hives Active Procedures Procedure Code Procedure Type Date Delivery of Products of Conception, External [id number] ICD -10 PCS 07/01/2021 Approach Repair Perineum Muscle, Open Approach [id number] ICD-10 PCS 07/01/2021 Monitoring of Products of Conception, Cardiac [id number] IC D-10 PCS 07/01/2021 Rate, External Approach History of Immunizations Unknown or Not Available. Problems Problem Code Start Date Resolved Date Status Urticaria 291509446 07/14/2021 Active Gastritis 9776828 07/14/2021 Active Results CBC W/ DIFFERENTIAL* - Collect Date/Time : 06/30/2021 08:55 Test Name Code Test Result Test Units Test Ref Range WBC 6690-2 19.30 th/cmm L=5.00 H=10.00 NEUT % 83.0 % L=40.0 H=80.0 LYMPH % 8.0 % L=10.0 H=50.0 MONO % 52793-0 7.3 % L=2.0 H=12.0 EOS % 0.2 % L=0.0 H=8.0 BASO % 0.3 % L=0.0 H=3.0 IG % 2514-8 1.2 % L=0.0 H=1.1 NRBC % 37977-1 0.0 % L=0.0 H=0.0 NEUT abs count 751-8 16.0 th/cmm L=1.6 H=8.4 LYMPH abs count 731-0 1.6 th/cmm L=1.5 H=4.0 MONO abs count 742-7 1.4 th/cmm L=0.2 H=1.0 EOS abs count 711-2 0.0 th/cmm L=0.0 H=0.5 BASO abs count 704-7 0.1 th/cmm L=0.0 H=0.2 IG abs count 15020-5 0.2 th/cmm L=0.0 H=0.1 NRBC abs count 23968-4 0.0 mil/cmm L=0.0 H=0.0 RBC 789-8 3.90 mil/cmm L=3.90 H=5.40 HEMOGLOBIN 718-7 11.2 gm/dL L=12.0 H=16.0 HEMATOCRIT 4544-3 34 % L=37 H=47 MCV 787-2 87 fL L=82 H=92 MCH 785-6 28.7 pg L=27.0 H=31.0 MCHC 786-4 32.8 % L=32.0 H=36.0 RDW-SD 788-0 42.1 fL L=39.0 H=49.0 PLATELET COUNT 777-3 321 th/cmm L=150 H=450 ZACKERY MEDELID RHEONIX* - Collect Date/Calin e: 06/30/2021 10:10 Test Name Code Test Result Test Units Test Ref Range [facility]- 62039-5 INPATIENT/ED N/A SARS COV2 RNA: 25953-2 NEGATIVE N/A REFERENCE RAN GE: NEGAT TYPE AND SCREEN* - Collect Date/Time: 08:55 Test Name Code Test Result Test Units Test Ref Range Blood Group 883-9 O N/A Rh (D) 51963-8 POSITIVE N/A Antibody Screen 1005-8 NEGATIVE N/A Active Medications Medications Administered During Visit Medication Dose Units Frequency Route Date/Time of L ast Dose SODIUM CHLORIDE 0.9% FLUSH 2 ML Q8H IVP 06/30/2021 22:00 10ML SYRINGE CLINDAMYCIN IVPB PREMIX: 900 MG Q8H 07/01/2021 03:46 900MG/50ML ACETAMINOPHEN TABLET: 975 MG PRN Q6H PO 05/2021 10:29 325MG MISOPROSTOL TABLET: 100MCG 50 MCG QID WITH FOOD PO 06/30/2021 14:50 ACETAMINOPHEN TABLET: 975 MG PRN Q6H PO 07/2021 11:24 325MG LACTATED RINGERS 1000ML 1000 ML X1 0 06/30/2021 22:00 LACTATED RINGERS 1000ML 1000 ML CONT 0 06/30/2021 23:00 FENT/ROP EPIDURAL (COMP) 100 ML PRN EPIDURAL 07/01/2021 03:47 100ML:2MCG&0.1% MORA, EPIDURAL LOCK BOX 1 MORA PRN --- 03:48 FRIDGE DOCUSATE SODIUM CAPSULE: 100 MG BID PO 07/03/2021 11:24 100MG WITCH FABRICE PADS 50% 1 PAD PRN TOP 06/2021 18:53 IBUPROFEN TABLET: 600MG 600 MG PRN Q6H PO 0 07/03/2021 13:02 Encounters Encounter Diagnosis Diagnosis Code Start Date Streptococcus B carrier state complicating childbirth O41692 06/30/2021 Social History Smoking Status Code Start Date End Date Never smoker [id number] Patient Decision Aids Unknown or Not Available. Discharge Instructions You were admitted to [facility] on 06/30/2021 08:37 with a principal diagnosis of Streptococcus B carrier state complic ating childbirth You had the following procedures done: Delivery of Products of Conception, External Approach Repair Perineum Muscle, Open Ap proach Monitoring of Products of Conception, Cardiac Rate, External Approach You had the following tests done: COPLE Y COVID RHEONIX* CBC W/ DIFFERENTIAL* TYPE AND SCREEN* You were discharged from [facility] on 07/03/2021 13:20 Should you have any questions prior to d ischarge, please contact a member of your healthcare team. If you have left the ho spital and have any questions, please contact your primary care physician. Chief Complaint and Reason For Visit Chief Complaint Date of Onset TERM LABOR 07/06/2021 Function Status Unknown or Not Available. Plan of Care Unknown or Not Available. Referral/Transition of Care Unknown or Not Available.
--- OUTSIDE RECORDS SUMMARY | 2021-12-29 15:30 | XMS_ITS | CCD ---
:1990 Author Care Team Providers Name Role Phone July Attending Physician Unavailable July Rounding (Secondary) Physician Unavailab le Vital Signs Unknown or Not Available. Allergies Unknown or Not Available. Procedures Unknown or Not Available. History of Immunizations Unknown or Not Available. Problems Problem Code Start Date Resolved Date Status Urticaria 993810893 07/14/2021 Active Gastritis 2096739 07/14/2021 Active Results Unknown or Not Available. Active Medications Medication Code Dose Units Frequency Route Modification Start Date/Time Pepcid 20MG 006342 1 TABLET TWICE A DAY ORAL 07/15/19 22 Oral Tablet 00:30 Prescription Detail TAKE 1 TABLET ORAL TWICE A D AY Claritin 10MG Oral Tablet 097071 1 TABLET DAILY ORAL 07/14/2021 00:29 Prescription Detail TAKE 1 TABLET ORAL DAILY for 1-2 weeks Medications Administered During Visit Unknown or Not Available. Encounters Encounter Diagnosis Diagnosis Code Start Date Liver and biliary tract disorders in , second O2661 2 05/28/2021 trimester Social History Smoking Status Code Start Date End Date Never smoker [id number] Patient Decision Aids Unknown or Not Available. Discharge Instructions You were admitted to [facility] on 05/28/2021 16:28 with a principal diagnosis of Liver and biliary tract disorders in , second trimester You were discharged from [facility] on 05/28/2021 16:28 Should you have any questions prior [...]
--- OUTSIDE RECORDS SUMMARY | 2021-12-29 15:30 | XMS_ITS | CCD ---
:1990 Author Care Team Providers Name Role Phone GERRY DOWD Attending Physician Unavailable GERRY DOWD Rounding (Secondary) Physician Unavailab le Vital Signs Unknown or Not Available. Allergies Unknown or Not Available. Procedures Unknown or Not Available. History of Immunizations Unknown or Not Available. Problems Problem Code Start Date Resolved Date Status Urticaria 396926492 07/14/2021 Active Gastritis 6538460 07/14/2021 Active Results Unknown or Not Available. Active Medications Medication Code Dose Units Frequency Route Modification Start Date/Time Pepcid 20MG 974009 1 TABLET TWICE A DAY ORAL 07/15/19 22 Oral Tablet 00:30 Prescription Detail TAKE 1 TABLET ORAL TWICE A D AY Claritin 10MG Oral Tablet 455158 1 TABLET DAILY ORAL 07/14/2021 00:29 Prescription Detail TAKE 1 TABLET ORAL DAILY for 1-2 weeks Medications Administered During Visit Unknown or Not Available. Encounters Encounter Diagnosis Diagnosis Code Start Date Liver and biliary tract disorders in , third Q79303 06/04/2021 trimester Social History Smoking Status Code Start Date End Date Never smoker [id number] Patient Decision Aids Unknown or Not Available. Discharge Instructions You were admitted to [facility] on 06/04/2021 09:19 with a principal diagnosis of Liver and biliary tract disorders in , third trimester You were discharged from [facility] on 06/04/2021 09:20 Should you have any questions prior to [...]
--- OUTSIDE RECORDS SUMMARY | 2021-12-29 15:31 | XMS_ITS | CCD ---
:1990 Author Care Team Providers Name Role Phone LENORE PINEDA Attending Physician Unavailable Vital Signs Unknown or Not Available. Allergies Allergy Code Allergy Type Reaction Status PENICILLINS (CLASS) 0 Drug allergy Hives Active AMOXICILLIN 723 Drug allergy Active AMPICILLIN 733 Drug allergy Hives Active Procedures Unknown or Not Available. History of Immunizations Unknown or Not Available. Problems Problem Code Start Date Resolved Date Status Urticaria 093609146 07/14/2021 Active Gastritis 1867335 07/14/2021 Active Results CBC W/ DIFFERENTIAL* - Collect Date/Time : 08/14/2021 13:32 Test Name Code Test Result Test Units Test Ref Range WBC 6690-2 7.80 th/cmm L=5.00 H=10.00 NEUT % 66.2 % L=40.0 H=80.0 LYMPH % 23.8 % L=10.0 H=50.0 MONO % 16918-1 6.4 % L=2.0 H=12.0 EOS % 2.3 % L=0.0 H=8.0 BASO % 1.2 % L=0.0 H=3.0 IG % 2514-8 0.1 % L=0.0 H=1.1 NRBC % 50761-5 0.0 % L=0.0 H=0.0 NEUT abs count 751-8 5.2 th/cmm L=1.6 H=8.4 LYMPH abs count 731-0 1.9 th/cmm L=1.5 H=4.0 MONO abs count 742-7 0.5 th/cmm L=0.2 H=1.0 EOS abs count 711-2 0.2 th/cmm L=0.0 H=0.5 BASO abs count 704-7 0.1 th/cmm L=0.0 H=0.2 IG abs count 50054-4 0.0 th/cmm L=0.0 H=0.1 NRBC abs count 16405-6 0.0 mil/cmm L=0.0 H=0.0 RBC 789-8 4.65 mil/cmm L=3.90 H=5.40 HEMOGLOBIN 718-7 12.6 gm/dL L=12.0 H=16.0 HEMATOCRIT 4544-3 40 % L=37 H=47 MCV 787-2 85 fL L=82 H=92 MCH 785-6 27.1 pg L=27.0 H=31.0 MCHC 786-4 31.9 % L=32.0 H=36.0 RDW-SD 788-0 40.8 fL L=39.0 H=49.0 PLATELET COUNT 777-3 359 th/cmm L=150 H=450 Active Medications Medication Code Dose Units Frequency Route Modification Start Date/Time Pepcid 20MG 465136 1 TABLET TWICE A DAY ORAL 07/15/19 22 Oral Tablet 00:30 Prescription Detail TAKE 1 TABLET ORAL TWICE A D AY Claritin 10MG Oral Tablet 443733 1 TABLET DAILY ORAL 07/14/2021 00:29 Prescription Detail TAKE 1 TABLET ORAL DAILY for 1-2 weeks Medications Administered During Visit Unknown or Not Available. Encounters Encounter Diagnosis Diagnosis Code Start Date Calculus of bile duct without obstruction 87466752 08/14/2021 Social History Smoking Status Code Start Date End Date Never smoker [id number] Patient Decision Aids Unknown or Not Available. Discharge Instructions You were admitted to [facility] on 08/14/2021 13:17 with a principal diagnosis of Calculus of bile duct without cholang itis or cholecystitis without obstruction You had the following tests done: CBC W / DIFFERENTIAL* You were discharged from [facility] on 08/14/2021 13:17 Should you have any questions prior to [...]
--- OUTSIDE RECORDS SUMMARY | 2021-12-29 15:31 | XMS_ITS | CCD ---
[...] Code Start Date Resolved Date Status Urticaria 329342499 07/14/2021 Active Gastritis 6402075 07/14/2021 Active Results Unknown or Not Available. Active Medications Medication Code Dose Units Frequency Route Modification Start Date/Time Pepcid 20MG 923588 1 TABLET TWICE A DAY ORAL 07/15/19 22 Oral Tablet 00:30 Prescription Detail TAKE 1 TABLET ORAL TWICE A D AY Claritin 10MG Oral Tablet 205688 1 TABLET DAILY ORAL 07/14/2021 00:29 Prescription Detail TAKE 1 TABLET ORAL DAILY for 1-2 weeks Medications Administered During Visit Unknown or Not Available. Encounters Encounter Diagnosis Diagnosis Code Start Date Encounter for insertion of intrauterine contraceptive [id number] 09/01/2021 device Social History Smoking Status Code Start Date End Date Never smoker [id number] Patient Decision Aids Unknown or Not Available. Discharge Instructions You were admitted to [facility] on 09/01/2021 16:15 with a principal diagnosis of Encounter for insertion of intrauteri ne contraceptive device You were discharged from [facility] on 09/01/2021 16:15 Should you have any questions prior to [...]
--- OUTSIDE RECORDS SUMMARY | 2021-12-29 15:31 | XMS_ITS | CCD ---
[...] Code Start Date Resolved Date Status Urticaria 533681965 07/14/2021 Active Gastritis 1317661 07/14/2021 Active Results Unknown or Not Available. Active Medications Medication Code Dose Units Frequency Route Modification Start Date/Time Pepcid 20MG 451095 1 TABLET TWICE A DAY ORAL 07/15/19 22 Oral Tablet 00:30 Prescription Detail TAKE 1 TABLET ORAL TWICE A D AY Claritin 10MG Oral Tablet 871374 1 TABLET DAILY ORAL 07/14/2021 00:29 Prescription Detail TAKE 1 TABLET ORAL DAILY for 1-2 weeks Medications Administered During Visit Unknown or Not Available. Encounters Encounter Diagnosis Diagnosis Code Start Date Encounter for routine follow-up Z392 07/16/2021 Social History Smoking Status Code Start Date End Date Never smoker [id number] Patient Decision Aids Unknown or Not Available. Discharge Instructions You were admitted to [facility] on 07/16/2021 13:19 with a principal diagnosis of Encounter for routine foll ow-up You were discharged from [facility] on 07/16/2021 13:19 Should you have any questions prior to [...]
--- OUTSIDE RECORDS SUMMARY | 2021-12-29 15:31 | XMS_ITS | CCD ---
:1990 Author Care Team Providers Name Role Phone GAUTAM MARYCRUZVIDHYA Attending Physician Unavailable Vital Signs Unknown or Not Available. Allergies Allergy Code Allergy Type Reaction Status PENICILLINS (CLASS) 0 Drug allergy Hives Active AMOXICILLIN 723 Drug allergy Active AMPICILLIN 733 Drug allergy Hives Active Procedures Unknown or Not Available. History of Immunizations Unknown or Not Available. Problems Problem Code Start Date Resolved Date Status Urticaria 517046382 07/14/2021 Active Gastritis 1060004 07/14/2021 Active Results ZACKERY COVID RHEONIX* - Collect Date/Calin e: 08/15/2021 09:44 Test Name Code Test Result Test Units Test Ref Range Tier- 20387-7 PRE-OP N/A SARS COV2 RNA: 61771-1 NEGATIVE N/A REFERENCE RAN GE: NEGAT Active Medications Medication Code Dose Units Frequency Route Modification Start Date/Time Pepcid 20MG 794779 1 TABLET TWICE A DAY ORAL 07/15/19 22 Oral Tablet 00:30 Prescription Detail TAKE 1 TABLET ORAL TWICE A D AY Claritin 10MG Oral Tablet 975167 1 TABLET DAILY ORAL 07/14/2021 00:29 Prescription Detail TAKE 1 TABLET ORAL DAILY for 1-2 weeks Medications Administered During Visit Unknown or Not Available. Encounters Encounter Diagnosis Diagnosis Code Start Date Pre-surgery testing 650473930 08/15/2021 Social History Smoking Status Code Start Date End Date Never smoker [id number] Patient Decision Aids Unknown or Not Available. Discharge Instructions You were admitted to [facility] on 08/15/2021 16:03 with a principal diagnosis of Encounter for preprocedural laborator y examination You had the following tests done: COPLE Y COVID RHEONIX* You were discharged from [facility] on 08/15/2021 16:03 Should you have any questions prior to [...]
--- OUTSIDE RECORDS SUMMARY | 2021-12-29 15:31 | XMS_ITS | CCD ---
:1990 Author Care Team Providers Name Role Phone SRINIVAS HI Attending Physician Unavailable SRINIVAS HI Er Physician 1 Unavailable MARY Judd Registered Nurse Unavailable Vital Signs Vital Sign Value Unit Date/Time Recent/Initial? BMI (Body Mass Index) 21.63 kg/m^2 07/13/2021 23:33 In itial VS Weight Measured 130 lbs 07/13/2021 23:33 Initial VS Height 65 in 07/13/2021 23:33 Initial VS BSA (Body Surface Area) 1.64 m^2 07/13/2021 23:33 Initial VS BP Systolic 146 mmHg 07/13/2021 23:33 Initial VS BP Diastolic 99 mmHg 07/13/2021 23:33 Initial VS Respiratory Rate 18 bpm 07/13/2021 23:33 Initial VS Heart Rate 65 bpm 07/13/2021 23:33 Initial VS O2 % BldC Oximetry 100 % 07/13/2021 23:33 Initi al VS Body Temperature 36.8 degrees 07/13/2021 23:33 Initial VS Allergies Allergy Code Allergy Type Reaction Status PENICILLINS (CLASS) 0 Drug allergy Hives Active AMOXICILLIN 723 Drug allergy Active AMPICILLIN 733 Drug allergy Hives Active Procedures Unknown or Not Available. History of Immunizations Unknown or Not Available. Problems Problem Code Start Date Resolved Date Status Urticaria 347930190 07/14/2021 Active Gastritis 9088468 07/14/2021 Active Results COMPREHENSIVE METABOLIC PANEL (CMP) - Co llect Date/Time: 07/13/2021 23:28 Test Name Code Test Result Test Units Test Ref Range GLUCOSE 2345-7 104 mg/dL L=70 H=116 BUN 3094-0 22 mg/dL L=6 H=25 CREATININE 2160-0 1.47 mg/dL L=0.51 H=0.95 SODIUM SERUM 2951-2 140 mmol/L L=136 H=145 POTASSIUM SERUM 2823-3 3.6 mmol/L L=3.4 H=5.2 CHLORIDE SERUM 2075-0 106 mmol/L L=96 H=110 CARBON DIOXIDE (CO2) 2028-9 26 mmol/L L=22 H= 34 ANION GAP 12693-4 8.0 mmol/L CALCIUM SERUM 76067-0 8.4 mg/dL L=8.2 H=10.2 BILIRUBIN TOTAL 1975-2 0.2 mg/dL L=0.0 H=1.3 ALK. PHOS. 6768-6 102 U/L L=46 H=116 SGOT (AST) 1920-8 15 U/L L=15 H=37 SGPT (ALT) 1742-6 24 U/L L=12 H=78 TOTAL PROTEIN 2885-2 6.9 gm/dL L=6.0 H=8.0 ALBUMIN 1751-7 3.4 gm/dL L=3.4 H=5.0 AGE 30 years eGFR (non-Afr.Amer.) 37517-8 42 mL/min eGFR (Afr-[place]) 02413-3 51 mL/min LIPASE* - Collect Date/Time: 07/13/2021 23:28 Test Name Code Test Result Test Units Test Ref Range LIPASE 146 U/L L=73 H=393 MAGNESIUM SERUM* - Collect Date/Time: 23:28 Test Name Code Test Result Test Units Test Ref Range MAGNESIUM 56871-3 2.1 mg/dL L=1.8 H=2.4 URIC ACID SERUM - Collect Date/Time: 23:28 Test Name Code Test Result Test Units Test Ref Range URIC ACID SERUM 7.0 mg/dL L=2.0 H=7.0 CBC W/ DIFFERENTIAL* - Collect Date/Time : 07/13/2021 23:28 Test Name Code Test Result Test Units Test Ref Range WBC 6690-2 13.24 th/cmm L=5.00 H=10.00 NEUT % 80.3 % L=40.0 H=80.0 LYMPH % 11.0 % L=10.0 H=50.0 MONO % 64862-0 5.5 % L=2.0 H=12.0 EOS % 2.4 % L=0.0 H=8.0 BASO % 0.6 % L=0.0 H=3.0 IG % 2514-8 0.2 % L=0.0 H=1.1 NRBC % 42653-3 0.0 % L=0.0 H=0.0 NEUT abs count 751-8 10.6 th/cmm L=1.6 H=8.4 LYMPH abs count 731-0 1.5 th/cmm L=1.5 H=4.0 MONO abs count 742-7 0.7 th/cmm L=0.2 H=1.0 EOS abs count 711-2 0.3 th/cmm L=0.0 H=0.5 BASO abs count 704-7 0.1 th/cmm L=0.0 H=0.2 IG abs count 16151-8 0.0 th/cmm L=0.0 H=0.1 NRBC abs count 94534-6 0.0 mil/cmm L=0.0 H=0.0 RBC 789-8 3.75 mil/cmm L=3.90 H=5.40 HEMOGLOBIN 718-7 10.5 gm/dL L=12.0 H=16.0 HEMATOCRIT 4544-3 33 % L=37 H=47 MCV 787-2 88 fL L=82 H=92 MCH 785-6 28.0 pg L=27.0 H=31.0 MCHC 786-4 31.8 % L=32.0 H=36.0 RDW-SD 788-0 44.5 fL L=39.0 H=49.0 PLATELET COUNT 777-3 400 th/cmm L=150 H=450 PT PROTHROMBIN TIME* - Collect Date/Time : 07/13/2021 23:28 Test Name Code Test Result Test Units Test Ref Range PROTIME 5902-2 9.8 seconds L=9.3 H=11.4 INR 57729-3 0.98 L=2.00 H=3.00 PTT PARTIAL THROMBOPLASTIN TIME* - Colle ct Date/Time: 07/13/2021 23:28 Test Name Code Test Result Test Units Test Ref Range PTT 34133-6 26 seconds L=24 H=32 URINALYSIS WITH REFLEX CULT IF POSITIVE* - Collect Date/Time: 07/13/2021 23:59 Test Name Code Test Result Test Units Test Ref Range COLLECTION MODE: CLEAN CATCH N/A Color 5778-6 STRAW N/A yellow Appearance 5767-9 CLEAR N/A clear Glucose urine 82823-5 NEGATIVE N/A negative mg/dl Bilirubin 5770-3 NEGATIVE N/A negative Ketones 2514-8 NEGATIVE N/A negative mg/dl Spec gravity 5811-5 1.010 N/A 1.003 - 1.030 pH urine 2756-5 6.0 N/A 5.0 - 7.0 Protein 18909-0 NEGATIVE N/A negative mg/dl Urobilinogen 12203-7 0.2 N/A <or= 1 EU/dl Nitrite. 5802-4 NEGATIVE N/A negative Blood 5794-3 MODERATE N/A negative Leukocytes. TRACE N/A negative MICROSCOPIC INDICATED N/A WBCs. 49079-2 0-5 N/A 0-5 / hpf RBCs 21416-7 0-5 N/A 0-5 / hpf Epith cells 30327-5 0-5 N/A 0-5 / hpf Cell types squam+trans N/A Crystals none N/A none Bacteria none N/A none Mucus 8247-9 none N/A none Casts 95460-1 none N/A none /lpf Active Medications Medications Administered During Visit Medication Dose Units Frequency Route Date/Time of L ast Dose LIDOCAINE VISCOUS 2% 15ML UD 15 ML X1 PO 07/13/2021 23:59 ALUM/MAG/SIM SUSP: 30 ML X1 PO 2021 23:59 2400/2400/240MG/30ML FAMOTIDINE TABLET: 20MG 20 MG X1 PO 0 07/14/2021 00:29 Encounters Encounter Diagnosis Diagnosis Code Start Date Urticaria, unspecified L509 07/13/2021 Social History Smoking Status Code Start Date End Date Never smoker [id number] Patient Decision Aids Patient Decision Aid Gastritis Urticaria Discharge Instructions You were admitted to [facility] on 07/13/2021 23:13 with a principal diagnosis of Urticaria, unspecified You had the following tests done: URINA LYSIS WITH REFLEX CULT IF POSITIVE* CBC W/ DIFFERENTIAL* COMPREHENSIVE METABOLIC PA MARILU (CMP) LIPASE* MAGNESIUM SERUM* PT PROTHROMBIN TIME* PTT PARTIAL THROMBOPLA STIN TIME* URIC ACID SERUM You were discharged from [facility] on 07/14/2021 00:48 Should you have any questions prior to d ischarge, please contact a member of your healthcare team. If you have left the spital and have any questions, please contact your primary care physician. Chief Complaint and Reason For Visit Chief Complaint Date of Onset HIGH BLOOD PRESSURE NAUSEA AND UPPER QUADRANT PAIN Function Status Unknown or Not Available. Plan of Care Unknown or Not Available. Referral/Transition of Care Unknown or Not Available.
--- OUTSIDE RECORDS SUMMARY | 2021-12-29 15:32 | XMS_ITS | CCD ---
:1990 Author Care Team Providers Name Role Phone PAVEL OROZCO CNM Attending Physician Unavailable Vital Signs Unknown or Not Available. Allergies Unknown or Not Available. Procedures Unknown or Not Available. History of Immunizations Unknown or Not Available. Problems Problem Code Start Date Resolved Date Status Urticaria 050907574 07/14/2021 Active Gastritis 4403657 07/14/2021 Active Results Unknown or Not Available. Active Medications Medication Code Dose Units Frequency Route Modification Start Date/Time Pepcid 20MG 498964 1 TABLET TWICE A DAY ORAL 07/15/19 22 Oral Tablet 00:30 Prescription Detail TAKE 1 TABLET ORAL TWICE A D AY Claritin 10MG Oral Tablet 821110 1 TABLET DAILY ORAL 07/14/2021 00:29 Prescription Detail TAKE 1 TABLET ORAL DAILY for 1-2 weeks Medications Administered During Visit Unknown or Not Available. Encounters Encounter Diagnosis Diagnosis Code Start Date Encounter for supervision of other normal , Z3482 01/08/2021 second trimester Social History Smoking Status Code Start Date End Date Never smoker [id number] Patient Decision Aids Unknown or Not Available. Discharge Instructions You were admitted to [facility] on 01/08/2021 09:54 with a principal diagnosis of Encounter for supervision o f other normal , second trimester You were discharged from [facility] on 01/08/2021 09:54 Should you have any questions prior to [...]
--- OUTSIDE RECORDS SUMMARY | 2021-12-29 15:32 | XMS_ITS | CCD ---
:1990 Author Care Team Providers Name Role Phone GERRY DOWD CNM Attending Physician Unavailable Vital Signs Unknown or Not Available. Allergies Unknown or Not Available. Procedures Unknown or Not Available. History of Immunizations Unknown or Not Available. Problems Problem Code Start Date Resolved Date Status Urticaria 795475963 07/14/2021 Active Gastritis 2468201 07/14/2021 Active Results AFP (OB) ALPHA FETOPROTEIN - Collect Kal e/Time: 01/07/2021 07:39 Test Name Code Test Result Test Units Test Ref Range AFP 76833-9 41.4 ng/mL AFP MoM 12052-7 1.12 MoM <2.50 Maternal Weight 65250-0 158 lbs Number of Fetuses 44650-3 1 Physician Phone Number [phone] Results Summary 34154-1 Normal risk N/A Neural tube defect 06757-9 N/A riskestimate INTERPRETATION 46980-5 Screen negative for N/A neural tube defects. RECOMMENDED FOLLOW UP 20304-2 None. N/A Specimen collection date 17144-3 01/07/21 N/[place] [address]-7 [birth year] N/A Calculated age at RODRÍGUEZ 48376-6 30 years N/A Insulin dependentdiabetes 27455-7 No N/A Patient race 26653-2 non-Black N/A Current cigarettesmoking 32969-8 non-Smoker N/A status RODRÍGUEZ by LMP 43099-4 06/19/21 N/A GA on collection by dates 49114-1 16,5 N/A GA used in risk estimate 18299-7 Dates estimate N/A Number of Chorions 69445-6 Not applicable N/A IVF 04812-8 No N/A Prev w/ NeuralTube 38677-6 No N/A Defect Patient or [place] 80140-6 No N/A a NTD Initial or repeat testing 11577-5 Initial testing N/A GENERAL TEST INFORMATION 22191-4 See Below N/A Active Medications Medication Code Dose Units Frequency Route Modification Start Date/Time Pepcid 20MG 800022 1 TABLET TWICE A DAY ORAL 07/15/19 22 Oral Tablet 00:30 Prescription Detail TAKE 1 TABLET ORAL TWICE A D AY Claritin 10MG Oral Tablet 055734 1 TABLET DAILY ORAL 07/14/2021 00:29 Prescription Detail TAKE 1 TABLET ORAL DAILY for 1-2 weeks Medications Administered During Visit Unknown or Not Available. Encounters Encounter Diagnosis Diagnosis Code Start Date care: primigravida [id number] 01/07/2021 Social History Smoking Status Code Start Date End Date Never smoker 910468186 Patient Decision Aids Unknown or Not Available. Discharge Instructions You were admitted to [facility] on 01/07/2021 07:25 with a principal diagnosis of Encounter for supervision o f normal first , second trimester You had the following tests done: AFP ( OB) ALPHA FETOPROTEIN You were discharged from [facility] on 01/07/2021 07:25 Should you have any questions prior to [...]
--- OUTSIDE RECORDS SUMMARY | 2021-12-29 15:32 | XMS_ITS | CCD ---
:1990 Author Care Team Providers Name Role Phone GERRY DOWD CNM Attending Physician Unavailable Vital Signs Unknown or Not Available. Allergies Unknown or Not Available. Procedures Unknown or Not Available. History of Immunizations Unknown or Not Available. Problems Problem Code Start Date Resolved Date Status Urticaria 192136119 07/14/2021 Active Gastritis 3145784 07/14/2021 Active Results Unknown or Not Available. Active Medications Medication Code Dose Units Frequency Route Modification Start Date/Time Pepcid 20MG 022755 1 TABLET TWICE A DAY ORAL 07/15/19 22 Oral Tablet 00:30 Prescription Detail TAKE 1 TABLET ORAL TWICE A D AY Claritin 10MG Oral Tablet 699380 1 TABLET DAILY ORAL 07/14/2021 00:29 Prescription Detail TAKE 1 TABLET ORAL DAILY for 1-2 weeks Medications Administered During Visit Unknown or Not Available. Encounters Encounter Diagnosis Diagnosis Code Start Date Encounter for supervision of other normal , Z3482 12/15/2020 second trimester Social History Smoking Status Code Start Date End Date Never smoker 620723505 Patient Decision Aids Unknown or Not Available. Discharge Instructions You were admitted to [facility] on 12/15/2020 14:24 with a principal diagnosis of Encounter for supervision o f other normal , second trimester You were discharged from [facility] on 12/15/2020 14:24 Should you have any questions prior to [...]
--- OUTSIDE RECORDS SUMMARY | 2021-12-29 15:32 | XMS_ITS | CCD ---
[...] Code Start Date Resolved Date Status Urticaria 502936815 07/14/2021 Active Gastritis 2813854 07/14/2021 Active Results Unknown or Not Available. Active Medications Medication Code Dose Units Frequency Route Modification Start Date/Time Pepcid 20MG 301377 1 TABLET TWICE A DAY ORAL 07/15/19 22 Oral Tablet 00:30 Prescription Detail TAKE 1 TABLET ORAL TWICE A D AY Claritin 10MG Oral Tablet 119337 1 TABLET DAILY ORAL 07/14/2021 00:29 Prescription Detail TAKE 1 TABLET ORAL DAILY for 1-2 weeks Medications Administered During Visit Unknown or Not Available. Encounters Encounter Diagnosis Diagnosis Code Start Date Encounter for routine follow-up Z392 08/14/2021 Social History Smoking Status Code Start Date End Date Never smoker 610292646 Patient Decision Aids Unknown or Not Available. Discharge Instructions You were admitted to [facility] on 08/14/2021 13:52 with a principal diagnosis of Encounter for routine foll ow-up You were discharged from [facility] on 08/14/2021 13:52 Should you have any questions prior to [...]
--- OUTSIDE RECORDS SUMMARY | 2021-12-29 15:32 | XMS_ITS | CCD ---
:1990 Author Care Team Providers Name Role Phone PAVEL OROZCO CNM Attending Physician Unavailable Vital Signs Unknown or Not Available. Allergies Unknown or Not Available. Procedures Unknown or Not Available. History of Immunizations Unknown or Not Available. Problems Problem Code Start Date Resolved Date Status Urticaria 814080405 07/14/2021 Active Gastritis 1595283 07/14/2021 Active Results Unknown or Not Available. Active Medications Medication Code Dose Units Frequency Route Modification Start Date/Time Pepcid 20MG 752572 1 TABLET TWICE A DAY ORAL 07/15/19 22 Oral Tablet 00:30 Prescription Detail TAKE 1 TABLET ORAL TWICE A D AY Claritin 10MG Oral Tablet 271170 1 TABLET DAILY ORAL 07/14/2021 00:29 Prescription Detail TAKE 1 TABLET ORAL DAILY for 1-2 weeks Medications Administered During Visit Unknown or Not Available. Encounters Encounter Diagnosis Diagnosis Code Start Date Routine care 005017125 11/24/2020 Social History Smoking Status Code Start Date End Date Never smoker 114277024 Patient Decision Aids Unknown or Not Available. Discharge Instructions You were admitted to [facility] on 11/24/2020 11:35 with a principal diagnosis of Encounter for supervision o f normal , unspecified, unspecified trimester You were discharged from [facility] on 11/24/2020 11:35 Should you have any questions prior [...]
--- OUTSIDE RECORDS SUMMARY | 2021-12-29 15:32 | XMS_ITS | CCD ---
:1990 Author Care Team Providers Name Role Phone PAVEL OROZCO CNM Attending Physician Unavailable Vital Signs Unknown or Not Available. Allergies Unknown or Not Available. Procedures Unknown or Not Available. History of Immunizations Unknown or Not Available. Problems Problem Code Start Date Resolved Date Status Urticaria 439560541 07/14/2021 Active Gastritis 5025753 07/14/2021 Active Results HEMATOLOGY - Collect Date/Time: 11/14/2020 10:56 Test Name Code Test Result Test Units Test Ref Range WBC 6690-2 14.76 th/cmm L=5.00 H=10.00 NEUT % 81.6 % L=40.0 H=80.0 LYMPH % 11.7 % L=10.0 H=50.0 MONO % 05362-9 5.7 % L=2.0 H=12.0 EOS % 0.1 % L=0.0 H=8.0 BASO % 0.5 % L=0.0 H=3.0 IG % 2514-8 0.4 % L=0.0 H=1.1 NRBC % 30517-2 0.0 % L=0.0 H=0.0 NEUT abs count 751-8 12.1 th/cmm L=1.6 H=8.4 LYMPH abs count 731-0 1.7 th/cmm L=1.5 H=4.0 MONO abs count 742-7 0.8 th/cmm L=0.2 H=1.0 EOS abs count 711-2 0.0 th/cmm L=0.0 H=0.5 BASO abs count 704-7 0.1 th/cmm L=0.0 H=0.2 IG abs count 22046-1 0.1 th/cmm L=0.0 H=0.1 NRBC abs count 10228-8 0.0 mil/cmm L=0.0 H=0.0 RBC 789-8 4.64 mil/cmm L=3.90 H=5.40 HEMOGLOBIN 718-7 13.7 gm/dL L=12.0 H=16.0 HEMATOCRIT 4544-3 41 % L=37 H=47 MCV 787-2 89 fL L=82 H=92 MCH 785-6 29.5 pg L=27.0 H=31.0 MCHC 786-4 33.3 % L=32.0 H=36.0 RDW-SD 788-0 39.9 fL L=39.0 H=49.0 PLATELET COUNT 777-3 305 th/cmm L=150 H=450 URINALYSIS ROUTINE - Collect Date/Time: 11/14/2020 10:56 Test Name Code Test Result Test Units Test Ref Range COLLECTION MODE: CLEAN CATCH N/A Color 5778-6 STRAW N/A yellow Appearance 5767-9 CLEAR N/A clear Glucose urine 30784-9 NEGATIVE N/A negative mg/dl Bilirubin 5770-3 NEGATIVE N/A negative Ketones 2514-8 NEGATIVE N/A negative mg/dl Spec gravity 5811-5 1.010 N/A 1.003 - 1.030 pH urine 2756-5 7.0 N/A 5.0 - 7.0 Protein 52910-6 NEGATIVE N/A negative mg/dl Urobilinogen 00685-5 0.2 N/A <or= 1 EU/dl Nitrite 5802-4 NEGATIVE N/A negative Blood 5794-3 TRACE-IN N/A negative Leukocytes 17162-9 TRACE N/A negative MICROSCOPIC* INDICATED N/A WBCs 01040-1 0-5 N/A 0-5 / hpf RBCs 77371-1 0-5 N/A 0-5 / hpf Epith cells 38946-2 0-5 N/A 0-5 / hpf Cell types squamous N/A Crystals none N/A none Bacteria none N/A none Mucus 8247-9 none N/A none Casts 76422-8 none N/A none /lpf TYPE AND ANTIBODY SCREEN - Bia ect Date/Time: 11/14/2020 10:56 Test Name Code Test Result Test Units Test Ref Range Blood Group 883-9 O N/A Rh (D) 07248-8 POSITIVE N/A Antibody Screen 1005-8 NEGATIVE N/A CHLAMYDIA/GC AMPLIFIED PROBE - Collect D ate/Time: 11/14/2020 10:56 Test Name Code Test Result Test Units Test Ref Range Chlamydia Result Negative N/A Negative GC Result Negative N/A Negative HEP B SURF ANTIGEN - Collect Date/Time: 11/14/2020 10:56 Test Name Code Test Result Test Units Test Ref Range Hep B Surface Ag Negative N/A Negative HEP C ANTIBODY WITH REFLEX PCR - Collect Date/Time: 11/14/2020 10:56 Test Name Code Test Result Test Units Test Ref Range Hep C Ab w Rfx PCR Negative N/A Negative HIV 1/2 ANTIGEN AND ANTIBODY SCREEN - Co llect Date/Time: 11/14/2020 10:56 Test Name Code Test Result Test Units Test Ref Range HIV 1/2 Antigen andAntibody Negative N/A Negative RUBELLA IGG ANTIBODY - Collect Date/Time : 11/14/2020 10:56 Test Name Code Test Result Test Units Test Ref Range Rubella IgG Ab Positive N/A See Note SYPHILIS SEROLOGY - Collect Date/Time: 0 11/14/2020 10:56 Test Name Code Test Result Test Units Test Ref Range Syphilis Serology Negative N/A Negative Active Medications Medication Code Dose Units Frequency Route Modification Start Date/Time Pepcid 20MG 042866 1 TABLET TWICE A DAY ORAL 07/15/19 22 Oral Tablet 00:30 Prescription Detail TAKE 1 TABLET ORAL TWICE A D AY Claritin 10MG Oral Tablet 044603 1 TABLET DAILY ORAL 07/14/2021 00:29 Prescription Detail TAKE 1 TABLET ORAL DAILY for 1-2 weeks Medications Administered During Visit Unknown or Not Available. Encounters Encounter Diagnosis Diagnosis Code Start Date Encounter for other specified screening Z3689 11/14/2020 Social History Smoking Status Code Start Date End Date Never smoker [id number] Patient Decision Aids Unknown or Not Available. Discharge Instructions You were admitted to [facility] on 11/14/2020 08:59 with a principal diagnosis of Encounter for other specifi ed screening You had the following tests done: CHLAM YDIA/GC AMPLIFIED PROBE HEP B SURF ANTIGEN HEP C ANTIBODY WITH REFLEX PCR HIV 1/2 A NTIGEN AND ANTIBODY SCREEN HEMATOLOGY TYPE AND ANTIBODY SC REEN RUBELLA IGG ANTIBODY SYPHILIS SEROLOGY URINALYSIS ROUTINE You were discharged from [facility] on 11/14/2020 08:59 Should you have any questions prior to [...]
[2021-12-30 11:13] LABS: COVID-19 RT-PCR UVMMC Result Negative (Negative)
== END 2021-12-29 15:26 | disposition home or self-care (01) ==
LOC: LBO 15:25
PROVIDERS: PCP Nurse Practitioner Family; Visit Provider Nurse Practitioner Family
DX: Z20.822 Contact with and (suspected) exposure to COVID-19 (principal)
CPT/HCPCS: U0003

== ENCOUNTER 2022-09-06 10:21 | Outpatient (REF) | payer BC, SELFPAY ==
--- NOTE | 2022-09-06 10:00 | PAPFT_PTH ---
PATIENT: Lina Segura LOC: [facility]#:[id number] AGE/SX: 32/F ROOM: RE09/06/[address]: Ofelia Renner : 1990 BED: DIS: 09/06/2022 SPEC #: [id number] RECD: 09/06/22 18:19 STATUS: KATIE RELeatha #: [id number] CHELSIE: 09/06/22 10:[address]: Ofelia Pierce DEPT: [facility] Cytology RECD BY: Rosalba Millan Tissues: 1 - CX/ENDOCX FOR PAP SMEARS Procedures: PAP THIN PREP/[facility] Screening HPV DNA PROBE Comments: [id number] (CHLAMYDIA/GC)
[2022-09-07 14:19] LABS: Chlamydia Result Negative (Negative); GC Result Negative (Negative)
== END 2022-09-06 10:22 | disposition home or self-care (01) ==
LOC: NCHCN 10:21
PROVIDERS: PCP Nurse Practitioner Family; Visit Provider Nurse Practitioner Family
DX: Z11.3 Encounter for screening for infections with a predominantly sexual mode of transmission (principal); Z12.4 Encounter for screening for malignant neoplasm of cervix; Z11.51 Encounter for screening for human papillomavirus (HPV)
CPT/HCPCS: 87491; 87591; 88142; 87624

== ENCOUNTER 2023-05-16 14:07 | Outpatient (REF) | payer BC, SELFPAY ==
--- OUTSIDE RECORDS SUMMARY | 2023-05-16 14:09 | XMS_ITS | CCD ---
Author Name Unknown Address [address] [place] [address] [id number] Organization Unknown Address [address] [place] [address] [phone] Care Team Providers Care Supply Chain Buyer Name Role Phone ZACH LARKIN Attending Physician [phone] ZACH LARKIN Er Physician [phone] STEVE Trinh Registered Nurse [phone] Vital Signs Vital Sign Value Unit Date/Time Recent/Initial ? BMI (Body Mass Index) 22.46 kg/m^2 12/26/2022 09: 07 Initial VS Weight Measured 135 lbs 12/26/2022 09:07 Ini tial VS Height 65 in 12/26/2022 09:07 Initial VS BSA (Body Surface Area) 1.68 m^2 12/26/2022 0 9:07 Initial VS BP Systolic 113 mmHg 12/26/2022 09:07 Initial VS BP Diastolic 86 mmHg 12/26/2022 09:07 Initia l VS Respiratory Rate 18 bpm 12/26/2022 09:07 In itial VS Heart Rate 106 bpm 12/26/2022 09:07 Initial VS O2 % BldC Oximetry 100 % 12/26/2022 09:07 Initial VS Body Temperature 35 degrees 12/26/2022 09:07 In itial VS BP Systolic 107 mmHg 12/26/2022 11:18 Most Re cent VS BP Diastolic 75 mmHg 12/26/2022 11:18 Most R ecent VS Respiratory Rate 16 bpm 12/26/2022 11:[address] Recent VS Heart Rate 78 bpm 12/26/2022 11:18 Most Rec ent VS O2 % BldC Oximetry 98 % 12/26/2022 11:18 Most Recent VS Body Temperature 35.7 degrees 12/26/2022 11:[address] Recent VS Allergies Allergy Code Allergy Type Reaction Status PENICILLINS (CLASS) 0 Drug allergy Hives Act quita AMOXICILLIN 723 Drug allergy Active AMPICILLIN 733 Drug allergy Hives Active Procedures Unknown or Not Available. History of Immunizations Unknown or Not Available. Problems Problem Code Start Date Resolved Date Status Urticaria 061054020 07/14/2021 Active Gastritis 2780555 07/14/2021 Active Results BASIC METABOLIC PANEL (BMP) - Collect Date/Time: 12/26/2022 09:15 Test Name Code Test Result Test Units Test Ref Rang e GLUCOSE 2345-7 93 mg/dL L=70 H=116 BUN 3094-0 19 mg/dL L=6 H=25 CREATININE 2160-0 1.18 mg/dL L=0.51 H=0.95 SODIUM SERUM 2951-2 136 mmol/L L=136 H=145 POTASSIUM SERUM 2823-3 3.4 mmol/L L=3.4 H=5 .2 CHLORIDE SERUM 2075-0 98 mmol/L L=96 H=110 CARBON DIOXIDE (CO2) 2028-9 21 mmol/L L=22 H=34 ANION GAP 83561-0 17.4 mmol/L CALCIUM SERUM 85894-7 9.2 mg/dL L=8.2 H=10. 2 AGE 32 years eGFR (non-Afr.Amer.) 18124-8 54 mL/min eGFR (Afr-German) 09215-4 65 mL/min CBC W/ DIFFERENTIAL* - [facility] ct Date/Time: 12/26/2022 09:15 Test Name Code Test Result Test Units Test Ref Rang e WBC 6690-2 9.00 th/cmm L=5.00 H=10.00 NEUT % 84.6 % L=40.0 H=80.0 LYMPH % 8.1 % L=10.0 H=50.0 MONO % 06071-2 6.7 % L=2.0 H=12.0 EOS % 0.0 % L=0.0 H=8.0 BASO % 0.3 % L=0.0 H=3.0 IG % 2514-8 0.3 % L=0.0 H=1.1 NRBC % 82949-8 0.0 % L=0.0 H=0.0 NEUT abs count 751-8 7.6 th/cmm L=1.6 H=8. 4 LYMPH abs count 731-0 0.7 th/cmm L=1.5 H=4 .0 MONO abs count 742-7 0.6 th/cmm L=0.2 H=1. 0 EOS abs count 711-2 0.0 th/cmm L=0.0 H=0.5 BASO abs count 704-7 0.0 th/cmm L=0.0 H=0. 2 IG abs count 61580-3 0.0 th/cmm L=0.0 H=0.1 NRBC abs count 14707-4 0.0 mil/cmm L=0.0 H=0. 0 RBC 789-8 5.59 mil/cmm L=3.90 H=5.40 HEMOGLOBIN 718-7 15.9 gm/dL L=12.0 H=16.0 HEMATOCRIT 4544-3 50 % L=37 H=47 MCV 787-2 89 fL L=82 H=92 MCH 785-6 28.4 pg L=27.0 H=31.0 MCHC 786-4 31.9 % L=32.0 H=36.0 RDW-SD 788-0 41.7 fL L=39.0 H=49.0 PLATELET COUNT 777-3 257 th/cmm L=150 H=45 0 CLOSTRIDIUM DIFFICILE BY PCR * - Collect Date/Time: 12/26/2022 09:57 Test Name Code Test Result Test Units Test Ref Rang e Consistency = 54065-8 WATERY N/A C. DIFFICILE DNA 74213-2 NEGATIVE N/A Normal: Negative LACTOFERRIN DETECTION STOOL - Collect Date/Time: 12/26/2022 09:57 Test Name Code Test Result Test Units Test Ref Rang e Consistency: WATERY N/A Lactoferrin stool POSITIVE N/A OCCULT BLOOD STOOL 1 SCR NON -NEOPLASM* - Collect Date/Time: 12/26/2022 09:57 Test Name Code Test Result Test Units Test Ref Rang e OCCULT BLD,STOOL 2335-8 POSITIVE N/A TEST QUAL (URINE) - Collect Date/Time: 12/26/2022 09:15 Test Name Code Test Result Test Units Test Ref Rang e TEST 6-3 NEGATIVE N/A URINALYSIS WITH REFLEX CULT IF POSITIVE* - Collect Date/Time: 12/26/2022 09:15 Test Name Code Test Result Test Units Test Ref Rang e COLLECTION MODE: 03431-8 CLEAN CATCH N/A Color 5778-6 YELLOW N/A yellow Appearance 5767-9 CLEAR N/A clear Glucose urine 90561-8 NEGATIVE N/A negative mg /dl Bilirubin 5770-3 MODERATE N/A negative Ketones 2514-8 >=80 N/A negative mg/dl Spec gravity 5811-5 >=1.030 N/A 1.003 - 1.03 0 pH urine 2756-5 6.0 N/A 5.0 - 7.0 Protein 49802-1 30 N/A negative mg/dl Urobilinogen 17233-0 0.2 N/A <or= 1 EU/dl Nitrite. 5802-4 NEGATIVE N/A negative Blood 5794-3 MODERATE N/A negative Leukocytes. NEGATIVE N/A negative MICROSCOPIC INDICATED N/A WBCs. 58517-7 0-5 N/A 0-5 / hpf RBCs 23330-6 5-10 N/A 0-5 / hpf Epith cells 60797-8 5-10 N/A 0-5 / hpf Cell types squamous N/A Crystals amorphous N/A none Bacteria moderate N/A none Mucus 8247-9 present N/A none Casts 87380-8 25-100 N/A none /lpf Cast types hyaline N/A FECAL BACTERIAL PATHOGENS BY PCR - Collect Date/Time: 12/26/2022 09:57 Test Name Code Test Result Test Units Test Ref Rang e Salmonella PCR Negative N/A Negative Shigella PCR Negative N/A Negative Campylobacter PCR Negative N/A Negativ e Shiga Toxin PCR Negative N/A Negative OVA AND PARASITES - COMPLETE * - Collect Date/Time: 12/26/2022 09:57 Test Name Code Test Result Test Units Test Ref Rang e Parasite Growth No ova and parasites seen. N/A GIARDIA AND CRYPTOSPORIDIUM EXAM (STOOL) - Collect Date/Time: 12/26/2022 09:57 Test Name Code Test Result Test Units Test Ref Rang e Giardia andCryptosporidium Crypt osporidium Antigen Neg and Giardia Antigen Neg N/A (See Note) Active Medications Medications Administered During Visit Medication Dose Units Frequency Route Date/Time of Last Dose SODIUM CHLORIDE 0.9% 1000ML 1000 ML X1 12/26/2022 09:55 ONDANSETRON INJ SDV: 4MG/2ML 4 MG X1 I STONE ROUGHER 12/26/2022 09:55 POTASSIUM CHL IN NS: 20mEq/1000ML 1000 ML X1 12/26/2022 10:36 Encounters Encounter Diagnosis Diagnosis Code Start Date Infectious gastroenteritis 61238060 12/26 Social History Smoking Status Code Start Date End Date Never smoker 842619651 Patient Decision Aids Unknown or Not Available. Discharge Instructions You were admitted to [facility] on 12/26/2022 08:45 with a principal diagnosis of Infectious gastroenteritis and colitis, unspecified You had the following tests done:CLOSTRIDIUM DIFFICILE BY PCR*FECAL BACTERIAL PATHOGENS BY PCRGIARDIA AND CRYPTOSPORIDIUM EXAM (STOOL)LACTOFERRIN DETECTION STOOLOCCULT BLOOD STOOL 1 SCR NON-NEOPLASM*OVA AND PARASITES - COMPLETE*BASIC METABOLIC PANEL (BMP)CBC W/ DIFFERENTIAL* TEST QUAL (URINE)URINALYSIS WITH REFLEX CULT IF POSITIVE* You were discharged from [facility] on 12/26/2022 12:51 Should you have any questions prior to discharge, please contact a member of your healthcare team. If you have left the hospital and have any questions, please contact your primary care physician. Chief Complaint and Reason For Visit Chief Complaint Date of Onset FATIGUE DIARRHEA VOMITING CHILLS 023 Function Status Unknown or Not Available. Plan of Care Unknown or Not Available. Referral/Transition of Care Unknown or Not Available.
--- OUTSIDE RECORDS SUMMARY | 2023-05-16 14:09 | XMS_ITS | CCD ---
Author Name Unknown Address [address] [place] [address] [phone] Organization Unknown Address [address] [place] [address] [phone] Care Team Providers Care Sql Tech Name Role Phone GERRY DOWD Attending Physician [phone] GERRY DOWD Rounding (Secondary) Physicia n [phone] Vital Signs Unknown or Not Available. Allergies Allergy Code Allergy Type Reaction Status PENICILLINS (CLASS) 0 Drug allergy Hives Act quita AMOXICILLIN 723 Drug allergy Active AMPICILLIN 733 Drug allergy Hives Active Procedures Unknown or Not Available. History of Immunizations Unknown or Not Available. Problems Problem Code Start Date Resolved Date Status Urticaria 470915270 07/14/2021 Active Gastritis 2740761 07/14/2021 Active Results Unknown or Not Available. Active Medications Medication Code Dose Units Frequency Route Modificatio n Start Date/Time Ondansetron 4MG Oral Tablet, Disintegrating 451427 1 TABLET NEEDED EVERY 6 HOURS ORAL 12/26/2022 12:35 Prescription Detail TAKE 1 TABLET ORAL NEEDED EVERY 6 KARIME RS FOR Nausea/Vomiting Medications Administered During Visit Unknown or Not Available. Encounters Encounter Diagnosis Diagnosis Code Start Date Miscarriage without complication 66306681 11/29/2022 Social History Smoking Status Code Start Date End Date Never smoker 576039862 Patient Decision Aids Unknown or Not Available. Discharge Instructions You were admitted to [facility] on 11/29/2022 15:41 with a principal diagnosis of Complete or unspecified spontaneous without complication You were discharged from [facility] on 11/29/2022 15:41 Should you have any questions prior to [...]
--- OUTSIDE RECORDS SUMMARY | 2023-05-16 14:10 | XMS_ITS | CCD ---
Author Name Unknown Address [address] [place] [address] [phone] Organization Unknown Address [address] [place] [address] [phone] Care Team Providers Care Staff Educator Name Role Phone GONZALOEDWARDLENORE Attending Physician [phone] Vital Signs Unknown or Not Available. Allergies Allergy Code Allergy Type Reaction Status PENICILLINS (CLASS) 0 Drug allergy Hives Act quita AMOXICILLIN 723 Drug allergy Active AMPICILLIN 733 Drug allergy Hives Active Procedures Unknown or Not Available. History of Immunizations Unknown or Not Available. Problems Problem Code Start Date Resolved Date Status Urticaria 377190314 07/14/2021 Active Gastritis 9796681 07/14/2021 Active Results CBC W/ DIFFERENTIAL* - [facility] ct Date/Time: 08/14/2021 13:32 Test Name Code Test Result Test Units Test Ref Rang e WBC 6690-2 7.80 th/cmm L=5.00 H=10.00 NEUT % 66.2 % L=40.0 H=80.0 LYMPH % 23.8 % L=10.0 H=50.0 MONO % 20902-4 6.4 % L=2.0 H=12.0 EOS % 2.3 % L=0.0 H=8.0 BASO % 1.2 % L=0.0 H=3.0 IG % 2514-8 0.1 % L=0.0 H=1.1 NRBC % 38335-2 0.0 % L=0.0 H=0.0 NEUT abs count 751-8 5.2 th/cmm L=1.6 H=8. 4 LYMPH abs count 731-0 1.9 th/cmm L=1.5 H=4 .0 MONO abs count 742-7 0.5 th/cmm L=0.2 H=1. 0 EOS abs count 711-2 0.2 th/cmm L=0.0 H=0.5 BASO abs count 704-7 0.1 th/cmm L=0.0 H=0. 2 IG abs count 25772-4 0.0 th/cmm L=0.0 H=0.1 NRBC abs count 77483-0 0.0 mil/cmm L=0.0 H=0. 0 RBC 789-8 4.65 mil/cmm L=3.90 H=5.40 HEMOGLOBIN 718-7 12.6 gm/dL L=12.0 H=16.0 HEMATOCRIT 4544-3 40 % L=37 H=47 MCV 787-2 85 fL L=82 H=92 MCH 785-6 27.1 pg L=27.0 H=31.0 MCHC 786-4 31.9 % L=32.0 H=36.0 RDW-SD 788-0 40.8 fL L=39.0 H=49.0 PLATELET COUNT 777-3 359 th/cmm L=150 H=45 0 Active Medications Medication Code Dose Units Frequency Route Modificatio n Start Date/Time Ondansetron 4MG Oral Tablet, Disintegrating 755147 1 TABLET NEEDED EVERY 6 HOURS ORAL 12/26/2022 12:35 Prescription Detail TAKE 1 TABLET ORAL NEEDED EVERY 6 KARIME RS FOR Nausea/Vomiting Medications Administered During Visit Unknown or Not Available. Encounters Encounter Diagnosis Diagnosis Code Start Date Calculus of bile duct without obstruction 565749 08/14/2021 Social History Smoking Status Code Start Date End Date Never smoker 219800731 Patient Decision Aids Unknown or Not Available. Discharge Instructions You were admitted to [facility] on 08/14/2021 13:17 with a principal diagnosis of Calculus of bile duct without cholangitis or cholecystitis without obstruction You had the following tests done:CBC W/ DIFFERENTIAL* You were discharged from [facility] on 08/14/2021 13:17 Should you have [...]
--- OUTSIDE RECORDS SUMMARY | 2023-05-16 14:10 | XMS_ITS | CCD ---
Author Name Unknown Address [address] [place] [address] [phone] Organization Unknown Address [address] [place] [address] [phone] Care Team Providers Care Carbon Blocks Press Operator Name Role Phone GERRY DOWD Attending Physician [phone] Vital Signs Unknown or Not Available. Allergies Allergy Code Allergy Type Reaction Status PENICILLINS (CLASS) 0 Drug allergy Hives Act quita AMOXICILLIN 723 Drug allergy Active AMPICILLIN 733 Drug allergy Hives Active Procedures Unknown or Not Available. History of Immunizations Unknown or Not Available. Problems Problem Code Start Date Resolved Date Status Urticaria 319734474 07/14/2021 Active Gastritis 9755546 07/14/2021 Active Results HCG QUANTITATIVE WHOLE MOLEC ULE* - Collect Date/Time: 11/12/2022 17:38 Test Name Code Test Result Test Units Test Ref Rang e HCG, total+Beta subs 87964-1 39 N/A Active Medications Medication Code Dose Units Frequency Route Modificatio n Start Date/Time Ondansetron 4MG Oral Tablet, Disintegrating 099511 1 TABLET NEEDED EVERY 6 HOURS ORAL 12/26/2022 12:35 Prescription Detail TAKE 1 TABLET ORAL NEEDED EVERY 6 KARIME RS FOR Nausea/Vomiting Medications Administered During Visit Unknown or Not Available. Encounters Encounter Diagnosis Diagnosis Code Start Date Spotting complicating , first trimester [id number] 11/12/2022 Social History Smoking Status Code Start Date End Date Never smoker 645003916 Patient Decision Aids Unknown or Not Available. Discharge Instructions You were admitted to [facility] on 11/12/2022 17:33 with a principal diagnosis of Spotting complicating , first trimester You had the following tests done:HCG QUANTITATIVE WHOLE MOLECULE* You were discharged from [facility] on 11/12/2022 17:33 Should you have any questions prior to [...]
--- OUTSIDE RECORDS SUMMARY | 2023-05-16 14:10 | XMS_ITS | CCD ---
Author Name Unknown Address [address] [place] [address] [phone] Organization Unknown Address [address] [place] [address] [phone] Care Team Providers Care Instructional Technology Specialist Name Role Phone July Attending Physician [phone] July Rounding (Secondary) Physician [phone] Vital Signs Unknown or Not Available. Allergies Allergy Code Allergy Type Reaction Status PENICILLINS (CLASS) 0 Drug allergy Hives Act quita AMOXICILLIN 723 Drug allergy Active AMPICILLIN 733 Drug allergy Hives Active Procedures Unknown or Not Available. History of Immunizations Unknown or Not Available. Problems Problem Code Start Date Resolved Date Status Urticaria 631054550 07/14/2021 Active Gastritis 8729704 07/14/2021 Active Results Unknown or Not Available. Active Medications Medication Code Dose Units Frequency Route Modificatio n Start Date/Time Ondansetron 4MG Oral Tablet, Disintegrating 955938 1 TABLET NEEDED EVERY 6 HOURS ORAL 12/26/2022 12:35 Prescription Detail TAKE 1 TABLET ORAL NEEDED EVERY 6 KARIME RS FOR Nausea/Vomiting Medications Administered During Visit Unknown or Not Available. Encounters Encounter Diagnosis Diagnosis Code Start Date Encounter for insertion of i ntrauterine contraceptive device [id number] 09/01/2021 Social History Smoking Status Code Start Date End Date Never smoker 043991293 Patient Decision Aids Unknown or Not Available. Discharge Instructions You were admitted to [facility] on 09/01/2021 16:15 with a principal diagnosis of Encounter for insertion of intrauterine contraceptive device You were discharged from [facility] on 09/01/2021 16:15 Should you have any [...]
--- OUTSIDE RECORDS SUMMARY | 2023-05-16 14:10 | XMS_ITS | CCD ---
Author Name Unknown Address [address] [place] [address] [phone] Organization Unknown Address [address] [place] [address] [phone] Care Team Providers Care Wine Merchant Name Role Phone RHONDA HARDWICK Attending Physician [phone] RHONDA HARDWICK Rounding (Secondary) Physic lalitha [phone] Vital Signs Unknown or Not Available. Allergies Allergy Code Allergy Type Reaction Status PENICILLINS (CLASS) 0 Drug allergy Hives Act quita AMOXICILLIN 723 Drug allergy Active AMPICILLIN 733 Drug allergy Hives Active Procedures Unknown or Not Available. History of Immunizations Unknown or Not Available. Problems Problem Code Start Date Resolved Date Status Urticaria 435279086 07/14/2021 Active Gastritis 7433579 07/14/2021 Active Results Unknown or Not Available. Active Medications Medication Code Dose Units Frequency Route Modificatio n Start Date/Time Ondansetron 4MG Oral Tablet, Disintegrating 299289 1 TABLET NEEDED EVERY 6 HOURS ORAL 12/26/2022 12:35 Prescription Detail TAKE 1 TABLET ORAL NEEDED EVERY 6 KARIME RS FOR Nausea/Vomiting Medications Administered During Visit Unknown or Not Available. Encounters Encounter Diagnosis Diagnosis Code Start Date Encounter for removal of intrauterine contracept quita device [id number] 07/19/2022 Social History Smoking Status Code Start Date End Date Never smoker 024282190 Patient Decision Aids Unknown or Not Available. Discharge Instructions You were admitted to [facility] on 07/19/2022 08:47 with a principal diagnosis of Encounter for removal of intrauterine contraceptive device You were discharged from [facility] on 07/19/2022 08:47 Should you have any questions prior to [...]
--- OUTSIDE RECORDS SUMMARY | 2023-05-16 14:10 | XMS_ITS | CCD ---
Author Name Unknown Address [address] [place] [address] [phone] Organization Unknown Address [address] [place] [address] [phone] Care Team Providers Care Office Engineer Name Role Phone July Attending Physician [phone] July Rounding (Secondary) Physician [phone] Vital Signs Unknown or Not Available. Allergies Allergy Code Allergy Type Reaction Status PENICILLINS (CLASS) 0 Drug allergy Hives Act quita AMOXICILLIN 723 Drug allergy Active AMPICILLIN 733 Drug allergy Hives Active Procedures Unknown or Not Available. History of Immunizations Unknown or Not Available. Problems Problem Code Start Date Resolved Date Status Urticaria 244456779 07/14/2021 Active Gastritis 7191004 07/14/2021 Active Results Unknown or Not Available. Active Medications Medication Code Dose Units Frequency Route Modificatio n Start Date/Time Ondansetron 4MG Oral Tablet, Disintegrating 534764 1 TABLET NEEDED EVERY 6 HOURS ORAL 12/26/2022 12:35 Prescription Detail TAKE 1 TABLET ORAL NEEDED EVERY 6 KARIME RS FOR Nausea/Vomiting Medications Administered During Visit Unknown or Not Available. Encounters Encounter Diagnosis Diagnosis Code Start Date Encounter for routine follow-up Z392 08/14/2021 Social History Smoking Status Code Start Date End Date Never smoker 928590631 Patient Decision Aids Unknown or Not Available. Discharge Instructions You were admitted to [facility] on 08/14/2021 13:52 with a principal diagnosis of Encounter for routine follow-up You were discharged from [facility] on 08/14/2021 13:52 Should you have any [...]
--- OUTSIDE RECORDS SUMMARY | 2023-05-16 14:11 | XMS_ITS | CCD ---
Author Name Unknown Address [address] [place] [address] [phone] Organization Unknown Address [address] [place] [address] [phone] Care Team Providers Care Windchill Administrator Name Role Phone LENORE PINEDA Attending Physician [phone] Vital Signs Unknown or Not Available. Allergies Allergy Code Allergy Type Reaction Status PENICILLINS (CLASS) 0 Drug allergy Hives Act quita AMOXICILLIN 723 Drug allergy Active AMPICILLIN 733 Drug allergy Hives Active Procedures Unknown or Not Available. History of Immunizations Unknown or Not Available. Problems Problem Code Start Date Resolved Date Status Urticaria 188165949 07/14/2021 Active Gastritis 6567625 07/14/2021 Active Results ZACKERY GODINEZ RHEJEFFX* - Bia ect Date/Time: 08/15/2021 09:44 Test Name Code Test Result Test Units Test Ref Rang e Tier- 06573-2 PRE-OP N/A SARS COV2 RNA: 71532-4 NEGATIVE N/A REFERENCE RANGE: NEGAT Active Medications Medication Code Dose Units Frequency Route Modificatio n Start Date/Time Ondansetron 4MG Oral Tablet, Disintegrating 961947 1 TABLET NEEDED EVERY 6 HOURS ORAL 12/26/2022 12:35 Prescription Detail TAKE 1 TABLET ORAL NEEDED EVERY 6 KARIME RS FOR Nausea/Vomiting Medications Administered During Visit Unknown or Not Available. Encounters Encounter Diagnosis Diagnosis Code Start Date Pre-surgery testing 287564066 08/15/2021 Social History Smoking Status Code Start Date End Date Never smoker 448702446 Patient Decision Aids Unknown or Not Available. Discharge Instructions You were admitted to [facility] on 08/15/2021 16:03 with a principal diagnosis of Encounter for preprocedural laboratory examination You had the following tests done:ZACKERY COVID RHEONIX* You were discharged from [facility] on 08/15/2021 16:03 Should you have [...]
--- OUTSIDE RECORDS SUMMARY | 2023-05-16 14:11 | XMS_ITS | CCD ---
Author Name Unknown Address [address] [place] [address] [phone] Organization Unknown Address [address] [place] [address] [phone] Care Team Providers Care House Mover Helper Name Role Phone July Attending Physician [phone] Vital Signs Unknown or Not Available. Allergies Allergy Code Allergy Type Reaction Status PENICILLINS (CLASS) 0 Drug allergy Hives Act quita AMPICILLIN 733 Drug allergy Hives Active Procedures Unknown or Not Available. History of Immunizations Unknown or Not Available. Problems Problem Code Start Date Resolved Date Status Urticaria 668357742 07/14/2021 Active Gastritis 6049238 07/14/2021 Active Results Unknown or Not Available. Active Medications Medication Code Dose Units Frequency Route Modificatio n Start Date/Time Ondansetron 4MG Oral Tablet, Disintegrating 688794 1 TABLET NEEDED EVERY 6 HOURS ORAL 12/26/2022 12:35 Prescription Detail TAKE 1 TABLET ORAL NEEDED EVERY 6 KARIME RS FOR Nausea/Vomiting Medications Administered During Visit Unknown or Not Available. Encounters Encounter Diagnosis Diagnosis Code Start Date Post-term O480 06/30/2021 Social History Smoking Status Code Start Date End Date Never smoker 731864780 Patient Decision Aids Unknown or Not Available. Discharge Instructions You were admitted to [facility] on 06/30/2021 09:29 with a principal diagnosis of Post-term You were discharged from [facility] on 07/03/2021 09:29 Should you have any [...]
--- OUTSIDE RECORDS SUMMARY | 2023-05-16 14:11 | XMS_ITS | CCD ---
Author Name Unknown Address [address] [place] [address] [id number] Organization Unknown Address [address] [place] [address] [phone] Care Team Providers Care Check Pilot Name Role Phone SRINIVAS HI Attending Physician [phone] SRINIVAS HI Er Physician 0 [phone] MARY Judd Registered Nurse [phone] Vital Signs Vital Sign Value Unit Date/Time Recent/Initial ? BMI (Body Mass Index) 21.63 kg/m^2 07/13/2021 23: 33 Initial VS Weight Measured 130 lbs 07/13/2021 23:33 Ini tial VS Height 65 in 07/13/2021 23:33 Initial VS BSA (Body Surface Area) 1.64 m^2 07/13/2021 2 3:33 Initial VS BP Systolic 146 mmHg 07/13/2021 23:33 Initial VS BP Diastolic 99 mmHg 07/13/2021 23:33 Initia l VS Respiratory Rate 18 bpm 07/13/2021 23:33 In itial VS Heart Rate 65 bpm 07/13/2021 23:33 Initial VS O2 % BldC Oximetry 100 % 07/13/2021 23:33 Initial VS Body Temperature 36.8 degrees 07/13/2021 23:33 In itial VS Allergies Allergy Code Allergy Type Reaction Status PENICILLINS (CLASS) 0 Drug allergy Hives Act quita AMOXICILLIN 723 Drug allergy Active AMPICILLIN 733 Drug allergy Hives Active Procedures Unknown or Not Available. History of Immunizations Unknown or Not Available. Problems Problem Code Start Date Resolved Date Status Urticaria 825386803 07/14/2021 Active Gastritis 1270558 07/14/2021 Active Results COMPREHENSIVE METABOLIC PANE L (CMP) - Collect Date/Time: 07/13/2021 23:28 Test Name Code Test Result Test Units Test Ref Rang e GLUCOSE 2345-7 104 mg/dL L=70 H=116 BUN 3094-0 22 mg/dL L=6 H=25 CREATININE 2160-0 1.47 mg/dL L=0.51 H=0.95 SODIUM SERUM 2951-2 140 mmol/L L=136 H=145 POTASSIUM SERUM 2823-3 3.6 mmol/L L=3.4 H=5 .2 CHLORIDE SERUM 2075-0 106 mmol/L L=96 H=110 CARBON DIOXIDE (CO2) 2028-9 26 mmol/L L=22 H=34 ANION GAP 20815-5 8.0 mmol/L CALCIUM SERUM 08342-5 8.4 mg/dL L=8.2 H=10. 2 BILIRUBIN TOTAL 1975-2 0.2 mg/dL L=0.0 H=1 .3 ALK. PHOS. 6768-6 102 U/L L=46 H=116 SGOT (AST) 1920-8 15 U/L L=15 H=37 SGPT (ALT) 1742-6 24 U/L L=12 H=78 TOTAL PROTEIN 2885-2 6.9 gm/dL L=6.0 H=8.0 ALBUMIN 1751-7 3.4 gm/dL L=3.4 H=5.0 AGE 30 years eGFR (non-Afr.Amer.) 31189-9 42 mL/min eGFR (Afr-Beninese) 17065-5 51 mL/min LIPASE* - Collect Date/Time: 07/13/2021 23:28 Test Name Code Test Result Test Units Test Ref Rang e LIPASE 146 U/L L=73 H=393 MAGNESIUM SERUM* - Collect D ate/Time: 07/13/2021 23:28 Test Name Code Test Result Test Units Test Ref Rang e MAGNESIUM 60575-8 2.1 mg/dL L=1.8 H=2.4 URIC ACID SERUM - Collect Da te/Time: 07/13/2021 23:28 Test Name Code Test Result Test Units Test Ref Rang e URIC ACID SERUM 7.0 mg/dL L=2.0 H=7 .0 CBC W/ DIFFERENTIAL* - Colle ct Date/Time: 07/13/2021 23:28 Test Name Code Test Result Test Units Test Ref Rang e WBC 6690-2 13.24 th/cmm L=5.00 H=10.00 NEUT % 80.3 % L=40.0 H=80.0 LYMPH % 11.0 % L=10.0 H=50.0 MONO % 29028-1 5.5 % L=2.0 H=12.0 EOS % 2.4 % L=0.0 H=8.0 BASO % 0.6 % L=0.0 H=3.0 IG % 2514-8 0.2 % L=0.0 H=1.1 NRBC % 86925-7 0.0 % L=0.0 H=0.0 NEUT abs count 751-8 10.6 th/cmm L=1.6 H=8. 4 LYMPH abs count 731-0 1.5 th/cmm L=1.5 H=4 .0 MONO abs count 742-7 0.7 th/cmm L=0.2 H=1. 0 EOS abs count 711-2 0.3 th/cmm L=0.0 H=0.5 BASO abs count 704-7 0.1 th/cmm L=0.0 H=0. 2 IG abs count 30585-1 0.0 th/cmm L=0.0 H=0.1 NRBC abs count 06078-7 0.0 mil/cmm L=0.0 H=0. 0 RBC 789-8 3.75 mil/cmm L=3.90 H=5.40 HEMOGLOBIN 718-7 10.5 gm/dL L=12.0 H=16.0 HEMATOCRIT 4544-3 33 % L=37 H=47 MCV 787-2 88 fL L=82 H=92 MCH 785-6 28.0 pg L=27.0 H=31.0 MCHC 786-4 31.8 % L=32.0 H=36.0 RDW-SD 788-0 44.5 fL L=39.0 H=49.0 PLATELET COUNT 777-3 400 th/cmm L=150 H=45 0 PT PROTHROMBIN TIME* - Colle ct Date/Time: 07/13/2021 23:28 Test Name Code Test Result Test Units Test Ref Rang e PROTIME 5902-2 9.8 seconds L=9.3 H=11.4 INR 06454-7 0.98 L=2.00 H=3.00 PTT PARTIAL THROMBOPLASTIN T CONSTANCE* - Collect Date/Time: 07/13/2021 23:28 Test Name Code Test Result Test Units Test Ref Rang e PTT 27334-4 26 seconds L=24 H=32 URINALYSIS WITH REFLEX CULT IF POSITIVE* - Collect Date/Time: 07/13/2021 23:59 Test Name Code Test Result Test Units Test Ref Rang e COLLECTION MODE: CLEAN CATCH N/A Color 5778-6 STRAW N/A yellow Appearance 5767-9 CLEAR N/A clear Glucose urine 79017-0 NEGATIVE N/A negative mg /dl Bilirubin 5770-3 NEGATIVE N/A negative Ketones 2514-8 NEGATIVE N/A negative mg/dl Spec gravity 5811-5 1.010 N/A 1.003 - 1.03 0 pH urine 2756-5 6.0 N/A 5.0 - 7.0 Protein 80288-5 NEGATIVE N/A negative mg/dl Urobilinogen 76149-1 0.2 N/A <or= 1 EU/dl Nitrite. 5802-4 NEGATIVE N/A negative Blood 5794-3 MODERATE N/A negative Leukocytes. TRACE N/A negative MICROSCOPIC INDICATED N/A WBCs. 33759-4 0-5 N/A 0-5 / hpf RBCs 90415-7 0-5 N/A 0-5 / hpf Epith cells 68948-5 0-5 N/A 0-5 / hpf Cell types squam+trans N/A Crystals none N/A none Bacteria none N/A none Mucus 8247-9 none N/A none Casts 10424-9 none N/A none /lpf Active Medications Medications Administered During Visit Medication Dose Units Frequency Route Date/Time of Last Dose LIDOCAINE VISCOUS 2% 15ML UD 15 ML X1 P O 07/13/2021 23:59 ALUM/MAG/SIM SUSP: 2400/2400/240MG/30ML 30 ML X1 PO 022 23:59 FAMOTIDINE TABLET: 20MG 20 MG X1 PO 07/14/2021 00:29 Encounters Encounter Diagnosis Diagnosis Code Start Date Urticaria, unspecified L509 Social History Smoking Status Code Start Date End Date Never smoker [id number] Patient Decision Aids Patient Decision Aid Gastritis Urticaria Discharge Instructions You were admitted to [facility] on 07/13/2021 23:13 with a principal diagnosis of Urticaria, unspecified You had the following tests done:URINALYSIS WITH REFLEX CULT IF POSITIVE*CBC W/ DIFFERENTIAL*COMPREHENSIVE METABOLIC PANEL (CMP)LIPASE*MAGNESIUM SERUM*PT PROTHROMBIN TIME*PTT PARTIAL THROMBOPLASTIN TIME*URIC ACID SERUM You were discharged from [facility] on 07/14/2021 00:48 Should you have any questions prior to discharge, please contact a member of your healthcare team. If you have left the hospital and have any questions, please contact your primary care physician. Chief Complaint and Reason For Visit Chief Complaint Date of Onset HIGH BLOOD PRESSURE NAUSEA AND UPPER DUSTY DRANT PAIN 07/13/2021 Function Status Unknown or Not Available. Plan of Care Unknown or Not Available. Referral/Transition of Care Unknown or Not Available.
--- OUTSIDE RECORDS SUMMARY | 2023-05-16 14:11 | XMS_ITS | CCD ---
Author Name Unknown Address [address] [place] [address] [phone] Organization Unknown Address [address] [place] [address] [phone] Care Team Providers Care Cutter Plastics Rolls Name Role Phone July Attending Physician [phone] July Rounding (Secondary) Physician [phone] Vital Signs Unknown or Not Available. Allergies Unknown or Not Available. Procedures Unknown or Not Available. History of Immunizations Unknown or Not Available. Problems Problem Code Start Date Resolved Date Status Urticaria 343914940 07/14/2021 Active Gastritis 4655023 07/14/2021 Active Results Unknown or Not Available. Active Medications Medication Code Dose Units Frequency Route Modificatio n Start Date/Time Ondansetron 4MG Oral Tablet, Disintegrating 401224 1 TABLET NEEDED EVERY 6 HOURS ORAL 12/26/2022 12:35 Prescription Detail TAKE 1 TABLET ORAL NEEDED EVERY 6 KARIME RS FOR Nausea/Vomiting Medications Administered During Visit Unknown or Not Available. Encounters Encounter Diagnosis Diagnosis Code Start Date Encounter for supervision of other normal , third trimester Z3483 06/12/2021 Social History Smoking Status Code Start Date End Date Never smoker [id number] Patient Decision Aids Unknown or Not Available. Discharge Instructions You were admitted to [facility] on 06/12/2021 14:07 with a principal diagnosis of Encounter for supervision of other normal , third trimester You were discharged from [facility] on 06/12/2021 14:08 Should you have [...]
--- OUTSIDE RECORDS SUMMARY | 2023-05-16 14:11 | XMS_ITS | CCD ---
Author Name Unknown Address [address] [place] [address] [id number] Organization Unknown Address [address] [place] [address] [phone] Care Team Providers Care Senior Mortgage Loan Processor Name Role Phone GERRY DOWD Attending Physician [phone] GERRY DOWD Rounding (Secondary) Physicia n [phone] Vital Signs Unknown or Not Available. Allergies Allergy Code Allergy Type Reaction Status PENICILLINS (CLASS) 0 Drug allergy Hives Act quita AMOXICILLIN 723 Drug allergy Active AMPICILLIN 733 Drug allergy Hives Active Procedures Unknown or Not Available. History of Immunizations Unknown or Not Available. Problems Problem Code Start Date Resolved Date Status Urticaria 603945851 07/14/2021 Active Gastritis 1382096 07/14/2021 Active Results Unknown or Not Available. Active Medications Medication Code Dose Units Frequency Route Modificatio n Start Date/Time Ondansetron 4MG Oral Tablet, Disintegrating 860952 1 TABLET NEEDED EVERY 6 HOURS ORAL 12/26/2022 12:35 Prescription Detail TAKE 1 TABLET ORAL NEEDED EVERY 6 KARIME RS FOR Nausea/Vomiting Medications Administered During Visit Unknown or Not Available. Encounters Encounter Diagnosis Diagnosis Code Start Date Encounter for routine follow-up Z392 07/16/2021 Social History Smoking Status Code Start Date End Date Never smoker [id number] Patient Decision Aids Unknown or Not Available. Discharge Instructions You were admitted to [facility] on 07/16/2021 13:19 with a principal diagnosis of Encounter for routine follow-up You were discharged from [facility] on 07/16/2021 13:19 Should you have any [...]
--- OUTSIDE RECORDS SUMMARY | 2023-05-16 14:11 | XMS_ITS | CCD ---
Author Name Unknown Address [address] [place] [address] [id number] Organization Unknown Address [address] [place] [address] [phone] Care Team Providers Care Coal Yard Supervisor Name Role Phone July Attending Physician [phone] Vital Signs Vital Sign Value Unit Date/Time Recent/Initial ? BMI (Body Mass Index) 31.28 kg/m^2 06/30/2021 16: 42 Initial VS Weight Measured 188 lbs 06/30/2021 16:42 Ini tial VS Height 65 in 06/30/2021 16:42 Initial VS BSA (Body Surface Area) 1.98 m^2 06/30/2021 1 6:42 Initial VS BP Systolic 138 mmHg 07/01/2021 09:57 Initial VS BP Diastolic 80 mmHg 07/01/2021 09:57 Initia l VS Respiratory Rate 18 bpm 07/01/2021 09:57 In itial VS Heart Rate 108 bpm 07/01/2021 09:57 Initial VS Body Temperature 36.7 degrees 07/01/2021 12:00 In itial VS O2 % BldC Oximetry 98 % 07/01/2021 14:50 Initial VS BP Systolic 124 mmHg 07/02/2021 22:30 Most Re cent VS BP Diastolic 68 mmHg 07/02/2021 22:30 Most R ecent VS Respiratory Rate 16 bpm 07/03/2021 09:[address] Recent VS Heart Rate 88 bpm 07/03/2021 09:30 Most Rec ent VS O2 % BldC Oximetry 99 % 07/03/2021 09:30 Most Recent VS Body Temperature 36.7 degrees 07/03/2021 09:[address] Recent VS Allergies Allergy Code Allergy Type Reaction Status PENICILLINS (CLASS) 0 Drug allergy Hives Act quita AMPICILLIN 733 Drug allergy Hives Active Procedures Procedure Code Procedure Type Date Delivery of Products of Conc eption, External Approach [id number] ICD-10 PCS 07/01/2021 Repair Perineum Muscle, Open Approach [id number] ICD -10 PCS 07/01/2021 Monitoring of Products of Co nception, Cardiac Rate, External Approach [id number] ICD-10 PCS 07/01/2021 History of Immunizations Unknown or Not Available. Problems Problem Code Start Date Resolved Date Status Urticaria 010719215 07/14/2021 Active Gastritis 1453628 07/14/2021 Active Results CBC W/ DIFFERENTIAL* - Colle ct Date/Time: 06/30/2021 08:55 Test Name Code Test Result Test Units Test Ref Rang e WBC 6690-2 19.30 th/cmm L=5.00 H=10.00 NEUT % 83.0 % L=40.0 H=80.0 LYMPH % 8.0 % L=10.0 H=50.0 MONO % 39152-0 7.3 % L=2.0 H=12.0 EOS % 0.2 % L=0.0 H=8.0 BASO % 0.3 % L=0.0 H=3.0 IG % 2514-8 1.2 % L=0.0 H=1.1 NRBC % 22677-6 0.0 % L=0.0 H=0.0 NEUT abs count 751-8 16.0 th/cmm L=1.6 H=8. 4 LYMPH abs count 731-0 1.6 th/cmm L=1.5 H=4 .0 MONO abs count 742-7 1.4 th/cmm L=0.2 H=1. 0 EOS abs count 711-2 0.0 th/cmm L=0.0 H=0.5 BASO abs count 704-7 0.1 th/cmm L=0.0 H=0. 2 IG abs count 41678-5 0.2 th/cmm L=0.0 H=0.1 NRBC abs count 05328-7 0.0 mil/cmm L=0.0 H=0. 0 RBC 789-8 3.90 mil/cmm L=3.90 H=5.40 HEMOGLOBIN 718-7 11.2 gm/dL L=12.0 H=16.0 HEMATOCRIT 4544-3 34 % L=37 H=47 MCV 787-2 87 fL L=82 H=92 MCH 785-6 28.7 pg L=27.0 H=31.0 MCHC 786-4 32.8 % L=32.0 H=36.0 RDW-SD 788-0 42.1 fL L=39.0 H=49.0 PLATELET COUNT 777-3 321 th/cmm L=150 H=45 0 ZACKERY COVID RHEONIX* - Bia ect Date/Time: 06/30/2021 10:10 Test Name Code Test Result Test Units Test Ref Rang e Tier- 85872-7 INPATIENT/ED N/A SARS COV2 RNA: 68387-6 NEGATIVE N/A REFERENCE RANGE: NEGAT TYPE AND SCREEN* - Collect D ate/Time: 06/30/2021 08:55 Test Name Code Test Result Test Units Test Ref Rang e Blood Group 883-9 O N/A Rh (D) 44295-4 POSITIVE N/A Antibody Screen 1005-8 NEGATIVE N/A Active Medications Medications Administered During Visit Medication Dose Units Frequency Route Date/Time of Last Dose SODIUM CHLORIDE 0.9% FLUSH 10ML SYRINGE 2 ML Q8H IVP 06/30/2021 22:0 0 CLINDAMYCIN IVPB PREMIX: 900MG/50ML 900 MG Q8H 07/01/2021 03:4 6 ACETAMINOPHEN TABLET: 325MG 975 MG PRN Q6H PO 06/30/2021 10:29 MISOPROSTOL TABLET: 100MCG 50 MCG QID WITH FOOD PO 06/30/2021 14:50 ACETAMINOPHEN TABLET: 325MG 975 MG PRN Q6H PO 07/03/2021 11:24 LACTATED RINGERS 1000ML 1000 ML X1 06/30/2021 22:00 LACTATED RINGERS 1000ML 1000 ML CONT 06/30/2021 23:00 FENT/ROP EPIDURAL (COMP) 100ML:2MCG&0.1% 100 ML PRN EPIDURAL 07/01/2021 0 3:47 MORA, EPIDURAL LOCK BOX FRIDGE 1 MORA PRN --- 07/01/2021 03:4 8 DOCUSATE SODIUM CAPSULE: 100MG 100 MG BID PO 07/03/2021 11:2 4 WITCH FABRICE PADS 50% 1 PAD PRN TOP 07/01/2021 18:53 IBUPROFEN TABLET: 600MG 600 MG PRN Q6H PO 07/03/2021 13:02 Encounters Encounter Diagnosis Diagnosis Code Start Date Streptococcus B carrier state complicating child [id number] 06/30/2021 Social History Smoking Status Code Start Date End Date Never smoker 105619504 Patient Decision Aids Unknown or Not Available. Discharge Instructions You were admitted to [facility] on 06/30/2021 08:37 with a principal diagnosis of Streptococcus B carrier state complicating childbirth You had the following procedures done:Delivery of Products of Conception, External ApproachRepair Perineum Muscle, Open ApproachMonitoring of Products of Conception, Cardiac Rate, External Approach You had the following tests done:ZACKERYRAKEL GODINEZ RHEONIX*CBC W/ DIFFERENTIAL*TYPE AND SCREEN* You were discharged from [facility] on 07/03/2021 13:20 Should you have [...]
--- OUTSIDE RECORDS SUMMARY | 2023-05-16 14:12 | XMS_ITS | CCD ---
Author Name Unknown Address [address] [place] [address] [phone] Organization Unknown Address [address] [place] [address] [phone] Care Team Providers Care Kindergartners Helper Name Role Phone VIGNESH BLANKENSHIP Attending Physician [phone] VIGNESH BLANKENSHIP Rounding (Secondary) Physician [phone] Vital Signs Unknown or Not Available. Allergies Unknown or Not Available. Procedures Unknown or Not Available. History of Immunizations Unknown or Not Available. Problems Problem Code Start Date Resolved Date Status Urticaria 629529078 07/14/2021 Active Gastritis 7700242 07/14/2021 Active Results GLUCOSE - 1 HOUR AFTER 50GM GLUCOLA - Collect Date/Time: 03/05/2021 16:59 Test Name Code Test Result Test Units Test Ref Rang e GLUCOSE 1 HOUR 1504-0 65 mg/dL L=0 H=135 HEMOGRAM + PLATELET WO DIFF - Collect Date/Time: 03/05/2021 16:59 Test Name Code Test Result Test Units Test Ref Rang e WBC 6690-2 14.33 th/cmm L=5.00 H=10.00 NRBC % 20589-7 0.0 % L=0.0 H=0.0 NRBC abs count 58952-9 0.0 mil/cmm L=0.0 H=0. 0 RBC 789-8 3.86 mil/cmm L=3.90 H=5.40 HEMOGLOBIN 718-7 11.7 gm/dL L=12.0 H=16.0 HEMATOCRIT 4544-3 36 % L=37 H=47 MCV 787-2 93 fL L=82 H=92 MCH 785-6 30.3 pg L=27.0 H=31.0 MCHC 786-4 32.5 % L=32.0 H=36.0 RDW-SD 788-0 42.2 fL L=39.0 H=49.0 PLATELET COUNT 777-3 286 th/cmm L=150 H=45 0 Active Medications Medication Code Dose Units Frequency Route Modificatio n Start Date/Time Ondansetron 4MG Oral Tablet, Disintegrating 479860 1 TABLET NEEDED EVERY 6 HOURS ORAL 12/26/2022 12:35 Prescription Detail TAKE 1 TABLET ORAL NEEDED EVERY 6 KARIME RS FOR Nausea/Vomiting Medications Administered During Visit Unknown or Not Available. Encounters Encounter Diagnosis Diagnosis Code Start Date Encounter for supervision of other normal , second trimester Z3482 03/05/2021 Social History Smoking Status Code Start Date End Date Never smoker 438207710 Patient Decision Aids Unknown or Not Available. Discharge Instructions You were admitted to [facility] on 03/05/2021 15:36 with a principal diagnosis of Encounter for supervision of other normal , second trimester You had the following tests done:GLUCOSE - 1 HOUR AFTER 50GM GLUCOLAHEMOGRAM + PLATELET WO DIFF You were discharged from [facility] on 03/05/2021 15:37 Should you have [...]
--- OUTSIDE RECORDS SUMMARY | 2023-05-16 14:12 | XMS_ITS | CCD ---
Author Name Unknown Address [address] [place] [address] [phone] Organization Unknown Address [address] [place] [address] [phone] Care Team Providers Care Trick Rodeo Rider Name Role Phone PATTIEVIGNESH Dang Attending Physician [phone] Vital Signs Unknown or Not Available. Allergies Unknown or Not Available. Procedures Unknown or Not Available. History of Immunizations Unknown or Not Available. Problems Problem Code Start Date Resolved Date Status Urticaria 184266029 07/14/2021 Active Gastritis 3737935 07/14/2021 Active Results GROUP B STREP DNA BY PCR - C ollect Date/Time: 05/28/2021 16:43 Test Name Code Test Result Test Units Test Ref Rang e GROUP B STREP POSITIVE N/A Normal: Neg ative OTHER SOURCE: VAG/RECTA N/A PCN ALLERGY? YES N/A Copy Sent to OB? YES N/A SUSCEPTIBILITY OF BACTERIAL ORGANISM* - Collect Date/Time: 05/29/2021 16:43 Test Name Code Test Result Test Units Test Ref Rang e Result STREPTOCOCCUS AG ALACTIAE (GROUP B) N/A Report Status See Below N/A Active Medications Medication Code Dose Units Frequency Route Modificatio n Start Date/Time Ondansetron 4MG Oral Tablet, Disintegrating 102351 1 TABLET NEEDED EVERY 6 HOURS ORAL 12/26/2022 12:35 Prescription Detail TAKE 1 TABLET ORAL NEEDED EVERY 6 KARIME RS FOR Nausea/Vomiting Medications Administered During Visit Unknown or Not Available. Encounters Encounter Diagnosis Diagnosis Code Start Date screening [id number] 05/28/2021 Social History Smoking Status Code Start Date End Date Never smoker 238038216 Patient Decision Aids Unknown or Not Available. Discharge Instructions You were admitted to [facility] on 05/28/2021 19:08 with a principal diagnosis of Encounter for screening for Streptococcus B You had the following tests done:SUSCEPTIBILITY OF BACTERIAL ORGANISM*GROUP B STREP DNA BY PCR You were discharged from [facility] on 05/28/2021 19:08 Should you have [...]
--- OUTSIDE RECORDS SUMMARY | 2023-05-16 14:12 | XMS_ITS | CCD ---
Author Name Unknown Address [address] [place] [address] [id number] Organization Unknown Address [address] [place] [address] [phone] Care Team Providers Care Tapeman Name Role Phone July Attending Physician [phone] HUNTERJuly Rounding (Secondary) Physician [phone] Vital Signs Unknown or Not Available. Allergies Unknown or Not Available. Procedures Unknown or Not Available. History of Immunizations Unknown or Not Available. Problems Problem Code Start Date Resolved Date Status Urticaria 010458994 07/14/2021 Active Gastritis 9927457 07/14/2021 Active Results Unknown or Not Available. Active Medications Medication Code Dose Units Frequency Route Modificatio n Start Date/Time Ondansetron 4MG Oral Tablet, Disintegrating 660438 1 TABLET NEEDED EVERY 6 HOURS ORAL 12/26/2022 12:35 Prescription Detail TAKE 1 TABLET ORAL NEEDED EVERY 6 KARIME RS FOR Nausea/Vomiting Medications Administered During Visit Unknown or Not Available. Encounters Encounter Diagnosis Diagnosis Code Start Date Liver and biliary tract diso rders in , second trimester V97772 05/28/2021 Social History Smoking Status Code Start Date End Date Never smoker 310084135 Patient Decision Aids Unknown or Not Available. Discharge Instructions You were admitted to [facility] on 05/28/2021 16:28 with a principal diagnosis of Liver and biliary tract disorders in , second trimester You were discharged from [facility] on 05/28/2021 16:28 Should you have any [...]
--- OUTSIDE RECORDS SUMMARY | 2023-05-16 14:12 | XMS_ITS | CCD ---
Author Name Unknown Address [address] [place] [address] [phone] Organization Unknown Address [address] [place] [address] [id number] Care Team Providers Care Telephone Sales Agent Name Role Phone July Attending Physician [phone] HUNTERJuly Rounding (Secondary) Physician [phone] Vital Signs Unknown or Not Available. Allergies Unknown or Not Available. Procedures Unknown or Not Available. History of Immunizations Unknown or Not Available. Problems Problem Code Start Date Resolved Date Status Urticaria 573694626 07/14/2021 Active Gastritis 8105308 07/14/2021 Active Results Unknown or Not Available. Active Medications Medication Code Dose Units Frequency Route Modificatio n Start Date/Time Ondansetron 4MG Oral Tablet, Disintegrating 077721 1 TABLET NEEDED EVERY 6 HOURS ORAL 12/26/2022 12:35 Prescription Detail TAKE 1 TABLET ORAL NEEDED EVERY 6 KARIME RS FOR Nausea/Vomiting Medications Administered During Visit Unknown or Not Available. Encounters Encounter Diagnosis Diagnosis Code Start Date Encounter for supervision of other normal , third trimester Z3483 05/07/2021 Social History Smoking Status Code Start Date End Date Never smoker 270728050 Patient Decision Aids Unknown or Not Available. Discharge Instructions You were admitted to [facility] on 05/07/2021 16:28 with a principal diagnosis of Encounter for supervision of other normal , third trimester You were discharged from [facility] on 05/07/2021 16:28 Should you have any [...]
--- OUTSIDE RECORDS SUMMARY | 2023-05-16 14:12 | XMS_ITS | CCD ---
Author Name Unknown Address [address] [place] [address] [id number] Organization Unknown Address [address] [place] [address] [phone] Care Team Providers Care Cost Accounting Manager Name Role Phone HUNTERJuly Attending Physician [phone] HUNTERJuly Rounding (Secondary) Physician [phone] Vital Signs Unknown or Not Available. Allergies Unknown or Not Available. Procedures Unknown or Not Available. History of Immunizations Unknown or Not Available. Problems Problem Code Start Date Resolved Date Status Urticaria 985107851 07/14/2021 Active Gastritis 6492028 07/14/2021 Active Results Unknown or Not Available. Active Medications Medication Code Dose Units Frequency Route Modificatio n Start Date/Time Ondansetron 4MG Oral Tablet, Disintegrating 277780 1 TABLET NEEDED EVERY 6 HOURS ORAL 12/26/2022 12:35 Prescription Detail TAKE 1 TABLET ORAL NEEDED EVERY 6 KARIME RS FOR Nausea/Vomiting Medications Administered During Visit Unknown or Not Available. Encounters Encounter Diagnosis Diagnosis Code Start Date Liver and biliary tract diso rders in , third trimester L05859 05/21/2021 Social History Smoking Status Code Start Date End Date Never smoker [id number] Patient Decision Aids Unknown or Not Available. Discharge Instructions You were admitted to [facility] on 05/21/2021 16:03 with a principal diagnosis of Liver and biliary tract disorders in , third trimester You were discharged from [facility] on 05/21/2021 16:04 Should you have any questions prior to [...]
--- OUTSIDE RECORDS SUMMARY | 2023-05-16 14:12 | XMS_ITS | CCD ---
Author Name Unknown Address [address] [place] [address] [phone] Organization Unknown Address [address] [place], [place] [phone] Care Team Providers Care Heel Slugger Name Role Phone GERRY DOWD Attending Physician [phone] GERRY DOWD Rounding (Secondary) Physicia n [phone] Vital Signs Unknown or Not Available. Allergies Unknown or Not Available. Procedures Unknown or Not Available. History of Immunizations Unknown or Not Available. Problems Problem Code Start Date Resolved Date Status Urticaria 088775378 07/14/2021 Active Gastritis 7032140 07/14/2021 Active Results Unknown or Not Available. Active Medications Medication Code Dose Units Frequency Route Modificatio n Start Date/Time Ondansetron 4MG Oral Tablet, Disintegrating 818035 1 TABLET NEEDED EVERY 6 HOURS ORAL 12/26/2022 12:35 Prescription Detail TAKE 1 TABLET ORAL NEEDED EVERY 6 KARIME RS FOR Nausea/Vomiting Medications Administered During Visit Unknown or Not Available. Encounters Encounter Diagnosis Diagnosis Code Start Date Liver and biliary tract diso rders in , second trimester [id number] 03/25/2021 Social History Smoking Status Code Start Date End Date Never smoker [id number] Patient Decision Aids Unknown or Not Available. Discharge Instructions You were admitted to [facility] on 03/25/2021 15:24 with a principal diagnosis of Liver and biliary tract disorders in , second trimester You were discharged from [facility] on 03/25/2021 15:27 Should you have any questions prior to [...]
--- OUTSIDE RECORDS SUMMARY | 2023-05-16 14:12 | XMS_ITS | CCD ---
Author Name Unknown Address [address] [place] [address] [phone] Organization Unknown Address [address] [place] [address] [phone] Care Team Providers Care Brim Pouncer Machine Operator Name Role Phone PATTIEVIGNESH Dang Attending Physician [phone] Vital Signs Unknown or Not Available. Allergies Unknown or Not Available. Procedures Unknown or Not Available. History of Immunizations Unknown or Not Available. Problems Problem Code Start Date Resolved Date Status Urticaria 658147618 07/14/2021 Active Gastritis 4998310 07/14/2021 Active Results Unknown or Not Available. Active Medications Medication Code Dose Units Frequency Route Modificatio n Start Date/Time Ondansetron 4MG Oral Tablet, Disintegrating 104672 1 TABLET NEEDED EVERY 6 HOURS ORAL 12/26/2022 12:35 Prescription Detail TAKE 1 TABLET ORAL NEEDED EVERY 6 KARIME RS FOR Nausea/Vomiting Medications Administered During Visit Unknown or Not Available. Encounters Encounter Diagnosis Diagnosis Code Start Date Liver and biliary tract diso rders in , third trimester [id number] 04/23/2021 Social History Smoking Status Code Start Date End Date Never smoker [id number] Patient Decision Aids Unknown or Not Available. Discharge Instructions You were admitted to [facility] on 04/23/2021 13:41 with a principal diagnosis of Liver and biliary tract disorders in , third trimester You were discharged from [facility] on 04/23/2021 13:41 Should you have [...]
--- OUTSIDE RECORDS SUMMARY | 2023-05-16 14:13 | XMS_ITS | CCD ---
Author Name Unknown Address [address] [place] [address] [phone] Organization Unknown Address [address] [place] [address] [phone] Care Team Providers Care Net Application Architect Name Role Phone PAVEL OROZCO CNM Attending Physician [phone] Vital Signs Unknown or Not Available. Allergies Unknown or Not Available. Procedures Unknown or Not Available. History of Immunizations Unknown or Not Available. Problems Problem Code Start Date Resolved Date Status Urticaria 555728307 07/14/2021 Active Gastritis 7578141 07/14/2021 Active Results HEMATOLOGY - [facility] t Date/Time: 11/14/2020 10:56 Test Name Code Test Result Test Units Test Ref Rang e WBC 6690-2 14.76 th/cmm L=5.00 H=10.00 NEUT % 81.6 % L=40.0 H=80.0 LYMPH % 11.7 % L=10.0 H=50.0 MONO % 82120-3 5.7 % L=2.0 H=12.0 EOS % 0.1 % L=0.0 H=8.0 BASO % 0.5 % L=0.0 H=3.0 IG % 2514-8 0.4 % L=0.0 H=1.1 NRBC % 41000-0 0.0 % L=0.0 H=0.0 NEUT abs count 751-8 12.1 th/cmm L=1.6 H=8. 4 LYMPH abs count 731-0 1.7 th/cmm L=1.5 H=4 .0 MONO abs count 742-7 0.8 th/cmm L=0.2 H=1. 0 EOS abs count 711-2 0.0 th/cmm L=0.0 H=0.5 BASO abs count 704-7 0.1 th/cmm L=0.0 H=0. 2 IG abs count 82414-3 0.1 th/cmm L=0.0 H=0.1 NRBC abs count 86718-5 0.0 mil/cmm L=0.0 H=0. 0 RBC 789-8 4.64 mil/cmm L=3.90 H=5.40 HEMOGLOBIN 718-7 13.7 gm/dL L=12.0 H=16.0 HEMATOCRIT 4544-3 41 % L=37 H=47 MCV 787-2 89 fL L=82 H=92 MCH 785-6 29.5 pg L=27.0 H=31.0 MCHC 786-4 33.3 % L=32.0 H=36.0 RDW-SD 788-0 39.9 fL L=39.0 H=49.0 PLATELET COUNT 777-3 305 th/cmm L=150 H=45 0 URINALYSIS ROUTINE - Collect Date/Time: 11/14/2020 10:56 Test Name Code Test Result Test Units Test Ref Rang e COLLECTION MODE: CLEAN CATCH N/A Color 5778-6 STRAW N/A yellow Appearance 5767-9 CLEAR N/A clear Glucose urine 50752-3 NEGATIVE N/A negative mg /dl Bilirubin 5770-3 NEGATIVE N/A negative Ketones 2514-8 NEGATIVE N/A negative mg/dl Spec gravity 5811-5 1.010 N/A 1.003 - 1.03 0 pH urine 2756-5 7.0 N/A 5.0 - 7.0 Protein 83807-5 NEGATIVE N/A negative mg/dl Urobilinogen 74706-3 0.2 N/A <or= 1 EU/dl Nitrite 5802-4 NEGATIVE N/A negative Blood 5794-3 TRACE-IN N/A negative Leukocytes 12538-5 TRACE N/A negative MICROSCOPIC* INDICATED N/A WBCs 26416-9 0-5 N/A 0-5 / hpf RBCs 68977-4 0-5 N/A 0-5 / hpf Epith cells 54385-7 0-5 N/A 0-5 / hpf Cell types squamous N/A Crystals none N/A none Bacteria none N/A none Mucus 8247-9 none N/A none Casts 45233-4 none N/A none /lpf TYPE AND ANTIBODY S CREEN - Collect Date/Time: 11/14/2020 10:56 Test Name Code Test Result Test Units Test Ref Rang e Blood Group 883-9 O N/A Rh (D) 28254-0 POSITIVE N/A Antibody Screen 1005-8 NEGATIVE N/A CHLAMYDIA/GC AMPLIFIED PROBE - Collect Date/Time: 11/14/2020 10:56 Test Name Code Test Result Test Units Test Ref Rang e Chlamydia Result Negative N/A Negative GC Result Negative N/A Negative HEP B SURF ANTIGEN - Collect Date/Time: 11/14/2020 10:56 Test Name Code Test Result Test Units Test Ref Rang e Hep B Surface Ag Negative N/A Negative HEP C ANTIBODY WITH REFLEX P CR - Collect Date/Time: 11/14/2020 10:56 Test Name Code Test Result Test Units Test Ref Rang e Hep C Ab w Rfx PCR Negative N/A Negati ve HIV 1/2 ANTIGEN AND ANTIBODY SCREEN - Collect Date/Time: 11/14/2020 10:56 Test Name Code Test Result Test Units Test Ref Rang e HIV 1/2 Antigen andAntibody Negative N/A Negative RUBELLA IGG ANTIBODY - Colle ct Date/Time: 11/14/2020 10:56 Test Name Code Test Result Test Units Test Ref Rang e Rubella IgG Ab Positive N/A See Note SYPHILIS SEROLOGY - Collect Date/Time: 11/14/2020 10:56 Test Name Code Test Result Test Units Test Ref Rang e Syphilis Serology Negative N/A Negativ e Active Medications Medication Code Dose Units Frequency Route Modificatio n Start Date/Time Ondansetron 4MG Oral Tablet, Disintegrating 810338 1 TABLET NEEDED EVERY 6 HOURS ORAL 12/26/2022 12:35 Prescription Detail TAKE 1 TABLET ORAL NEEDED EVERY 6 KARIME RS FOR Nausea/Vomiting Medications Administered During Visit Unknown or Not Available. Encounters Encounter Diagnosis Diagnosis Code Start Date Encounter for other specified screenin g Z3689 11/14/2020 Social History Smoking Status Code Start Date End Date Never smoker 115775411 Patient Decision Aids Unknown or Not Available. Discharge Instructions You were admitted to [facility] 01 on 11/14/2020 08:59 with a principal diagnosis of Encounter for other specified screening You had the following tests done:CHLAMYDIA/GC AMPLIFIED PROBEHEP B SURF ANTIGENHEP C ANTIBODY WITH REFLEX PCRHIV 1/2 ANTIGEN AND ANTIBODY SCREENPRENATAL HEMATOLOGYPRENATAL TYPE AND ANTIBODY SCREENRUBELLA IGG ANTIBODYSYPHILIS SEROLOGYURINALYSIS ROUTINE You were discharged from [facility] 01 on 11/14/2020 08:59 Should you have any [...]
--- OUTSIDE RECORDS SUMMARY | 2023-05-16 14:13 | XMS_ITS | CCD ---
Author Name Unknown Address [address] [place] [address] [phone] Organization Unknown Address [address] [place] [address] [phone] Care Team Providers Care Rn Clinical Name Role Phone GERRY DOWD PETER Attending Physician [phone] Vital Signs Unknown or Not Available. Allergies Unknown or Not Available. Procedures Unknown or Not Available. History of Immunizations Unknown or Not Available. Problems Problem Code Start Date Resolved Date Status Urticaria 850564715 07/14/2021 Active Gastritis 0828655 07/14/2021 Active Results Unknown or Not Available. Active Medications Medication Code Dose Units Frequency Route Modificatio n Start Date/Time Ondansetron 4MG Oral Tablet, Disintegrating 655478 1 TABLET NEEDED EVERY 6 HOURS ORAL 12/26/2022 12:35 Prescription Detail TAKE 1 TABLET ORAL NEEDED EVERY 6 KARIME RS FOR Nausea/Vomiting Medications Administered During Visit Unknown or Not Available. Encounters Encounter Diagnosis Diagnosis Code Start Date Encounter for supervision of other normal , second trimester Z3482 12/15/2020 Social History Smoking Status Code Start Date End Date Never smoker 136323299 Patient Decision Aids Unknown or Not Available. Discharge Instructions You were admitted to [facility] on 12/15/2020 14:24 with a principal diagnosis of Encounter for supervision of other normal , second trimester You were discharged from [facility] on 12/15/2020 14:24 Should you have any [...]
--- OUTSIDE RECORDS SUMMARY | 2023-05-16 14:13 | XMS_ITS | CCD ---
Author Name Unknown Address [address] [place] [address] [phone] Organization Unknown Address [address] [place] [address] [phone] Care Team Providers Care Template Cutter Name Role Phone PAVEL OROZCO CNM Attending Physician [phone] Vital Signs Unknown or Not Available. Allergies Unknown or Not Available. Procedures Unknown or Not Available. History of Immunizations Unknown or Not Available. Problems Problem Code Start Date Resolved Date Status Urticaria 835492265 07/14/2021 Active Gastritis 1744374 07/14/2021 Active Results Unknown or Not Available. Active Medications Medication Code Dose Units Frequency Route Modificatio n Start Date/Time Ondansetron 4MG Oral Tablet, Disintegrating 111992 1 TABLET NEEDED EVERY 6 HOURS ORAL 12/26/2022 12:35 Prescription Detail TAKE 1 TABLET ORAL NEEDED EVERY 6 KARIME RS FOR Nausea/Vomiting Medications Administered During Visit Unknown or Not Available. Encounters Encounter Diagnosis Diagnosis Code Start Date Encounter for supervision of other normal , second trimester Z3482 01/08/2021 Social History Smoking Status Code Start Date End Date Never smoker 486120023 Patient Decision Aids Unknown or Not Available. Discharge Instructions You were admitted to [facility] on 01/08/2021 09:54 with a principal diagnosis of Encounter for supervision of other normal , second trimester You were discharged from [facility] on 01/08/2021 09:54 Should you have [...]
--- OUTSIDE RECORDS SUMMARY | 2023-05-16 14:13 | XMS_ITS | CCD ---
Author Name Unknown Address [address] [place] [address] [phone] Organization Unknown Address [address] [place] [address] [phone] Care Team Providers Care Director Of Pharmacy Name Role Phone PAVEL OROZCO CNM Attending Physician [phone] Vital Signs Unknown or Not Available. Allergies Unknown or Not Available. Procedures Unknown or Not Available. History of Immunizations Unknown or Not Available. Problems Problem Code Start Date Resolved Date Status Urticaria 253853161 07/14/2021 Active Gastritis 4484804 07/14/2021 Active Results Unknown or Not Available. Active Medications Medication Code Dose Units Frequency Route Modificatio n Start Date/Time Ondansetron 4MG Oral Tablet, Disintegrating 158607 1 TABLET NEEDED EVERY 6 HOURS ORAL 12/26/2022 12:35 Prescription Detail TAKE 1 TABLET ORAL NEEDED EVERY 6 KARIME RS FOR Nausea/Vomiting Medications Administered During Visit Unknown or Not Available. Encounters Encounter Diagnosis Diagnosis Code Start Date Routine care [id number] Social History Smoking Status Code Start Date End Date Never smoker 814134244 Patient Decision Aids Unknown or Not Available. Discharge Instructions You were admitted to [facility] on 11/24/2020 11:35 with a principal diagnosis of Encounter for supervision of normal , unspecified, unspecified trimester You were discharged from [facility] on 11/24/2020 11:35 Should you have any [...]
--- OUTSIDE RECORDS SUMMARY | 2023-05-16 14:13 | XMS_ITS | CCD ---
Author Name Unknown Address [address] [place] [address] [phone] Organization Unknown Address [address] [place] [address] [phone] Care Team Providers Care Radiological Equipment Specialist Name Role Phone PAVEL OROZCO Attending Physician [phone] PAVEL OROZCO Rounding (Secondary) Physici an [phone] Vital Signs Unknown or Not Available. Allergies Allergy Code Allergy Type Reaction Status PENICILLINS (CLASS) 0 Drug allergy Hives Act quita AMOXICILLIN 723 Drug allergy Active AMPICILLIN 733 Drug allergy Hives Active Procedures Unknown or Not Available. History of Immunizations Unknown or Not Available. Problems Problem Code Start Date Resolved Date Status Urticaria 152775951 07/14/2021 Active Gastritis 4662141 07/14/2021 Active Results HCG QUANTITATIVE WHOLE MOLEC ULE* - Collect Date/Time: 04/08/2023 14:00 Test Name Code Test Result Test Units Test Ref Rang e HCG, total+Beta subs 79495-5 74428 N/A Active Medications Medication Code Dose Units Frequency Route Modificatio n Start Date/Time Ondansetron 4MG Oral Tablet, Disintegrating 325776 1 TABLET NEEDED EVERY 6 HOURS ORAL 12/26/2022 12:35 Prescription Detail TAKE 1 TABLET ORAL NEEDED EVERY 6 KARIME RS FOR Nausea/Vomiting Medications Administered During Visit Unknown or Not Available. Encounters Encounter Diagnosis Diagnosis Code Start Date Encounter for other specified screenin g Z3689 04/08/2023 Social History Smoking Status Code Start Date End Date Never smoker 161040300 Patient Decision Aids Unknown or Not Available. Discharge Instructions You were admitted to [facility] on 04/08/2023 13:29 with a principal diagnosis of Encounter for other specified screening You had the following tests done:HCG QUANTITATIVE WHOLE MOLECULE* You were discharged from [facility] on 04/08/2023 13:29 Should you have any questions prior to [...]
[2023-05-16 14:41] LABS: ESR 3 mm/hr (0-20)
[2023-05-16 15:10] LABS: ALT 34 U/L (14-59); AST 25 U/L (15-37); Albumin 4.4 g/dL (3.4-5.0); Alkaline Phosphatase 75 U/L (46-116); Anion Gap 8.6 mmol/L (3-11); BUN 15 mg/dL (7-18); Bilirubin, Total 0.5 mg/dL (0.2-1.0); CO2 27.4 mmol/L (21.0-32.0); CREATININE 0.9 mg/dL (0.55-1.02); Calcium 9.5 mg/dL (8.5-10.1); Chloride 104 mmol/L (98-107); Glucose 84 mg/dL (74-106); Potassium 4.2 mmol/L (3.5-5.1); Sodium 140 mmol/L (136-145); TSH 1.26 uIU/mL (0.36-3.74); Total Protein 7.8 g/dL (6.4-8.2)
[2023-05-16 15:13] LABS: C-Reactive Protein < 0.05 mg/dL (0.0-0.3)
[2023-05-17 13:26] LABS: ANA Interpretation Positive (Negative)
[2023-05-19 16:41] LABS: Phospholipid Ab, IgG <9.4 GPL; Phospholipid Ab, IgM <9.4 MPL
== END 2023-05-16 14:08 | disposition home or self-care (01) ==
LOC: NCHCN 14:07
PROVIDERS: PCP Nurse Practitioner Family; Visit Provider Nurse Practitioner Family
DX: R63.4 Abnormal weight loss (principal); Z87.59 Personal history of other complications of pregnancy, childbirth and the puerperium
CPT/HCPCS: 80053; 85652; 86147; 84443; 86038; 86140

== ENCOUNTER 2023-09-07 14:40 | Outpatient (CLI) | payer BC, SELFPAY ==
[2023-09-07 15:52] LABS: Hemoglobin A1C 5.4 % (<5.7)
[2023-09-07 16:03] LABS: HCG Quant, Pregnancy < 1 mIU/mL (1-3)
== END 2023-09-07 14:41 | disposition home or self-care (01) ==
LOC: LBO 14:40
PROVIDERS: PCP Nurse Practitioner Family; Visit Provider Nurse Practitioner Family
DX: N97.9 Female infertility, unspecified (principal); Z13.1 Encounter for screening for diabetes mellitus
CPT/HCPCS: 36415; 83036; 84702

== ENCOUNTER 2023-09-30 12:59 | Outpatient (CLI) | payer BC, SELFPAY ==
[2023-09-30 15:25] LABS: HCG Quant, Pregnancy 1 mIU/mL (1-3)
== END 2023-09-30 13:00 | disposition home or self-care (01) ==
LOC: LBO 13:00
PROVIDERS: PCP Nurse Practitioner Family; Visit Provider Nurse Practitioner Family
DX: N97.9 Female infertility, unspecified (principal); Z32.02 Encounter for pregnancy test, result negative
CPT/HCPCS: 36415; 84702

== ENCOUNTER 2023-12-21 03:15 | Outpatient (CLI) | payer BC, SELFPAY ==
--- OUTSIDE RECORDS SUMMARY | 2023-12-21 03:30 | XMS_ITS ---
Author Organization Unknown Address [address] [place] [address] [phone] Phone Care Team Providers Care Risk And Insurance Consultant Name Role Phone GLOSS VIGNESH Leong Attending Unavailable ZACK Walker Primary Unavailable Social History Type Status Start Date End Date Code Code Syst em Smoking History Never smoker (Never Smoked) 386410704 SNOMED CT Sex Female Medications Medication Start Date End Date Route Frequency Dose Code Code System Medication Instructions Home Meds Pepcid 20MG Oral Tablet 07/14/2021 07/14/2021 ORAL TWICE A DAY 1 TABLET 324422 RxNorm TAKE 1 TABLET ORAL TWICE A DAY Claritin 10MG Oral Tablet 07/14/2021 12/26/2022 ORAL DAILY 1 TABLET 219646 RxNorm TAKE 1 TABLET ORAL DAILY for 1-2 weeks Pepcid 20MG Oral Tablet 07/14/2021 12/26/2022 ORAL TWICE A DAY 1 TABLET 492960 RxNorm TAKE 1 TABLET ORAL TWICE A DAY Ondansetron 4MG Oral Tablet, Disintegrating 12/26/2022 Unknown ORAL NEEDED EVERY 6 HOURS 1 TABLET 401662 RxNorm TAKE 1 TABLET ORAL NEEDED EVERY 6 HOURS FOR Nausea/Vo miting Assessment You had the following problems:URTICARIAGASTRITIS Hospital Discharge Instructions Should you have any questions prior to discharge, please contact a member of your healthcare team. If you have left the hospital and have any questions, please contact your primary care physician. Reason For Referral No Data Found Problems Problem Start Date Resolved Date Status Code Code System URTICARIA active 968981589 SNOMED-CT GASTRITIS active 7097116 SNOMED-CT Allergies and Adverse Reactions Allergy Substance Reaction Severity Start Date Concern Status Code Code System PENICILLINS (CLASS) Hives (SNOMED-CT: 376886914) Active 2134537 SNOMED-CT AMPICILLIN Hives (SNOMED-CT: 087629476) Active 733 RxNorm AMOXICILLIN Active 723 RxNorm Plan of Treatment Lab Draw 01/07/2021 LAB DRAW 15MIN 12/12/2023 LAB DRAW 15MIN 10/28/2023 PRE-OP COVID-19 TESTING 08/15/2021 LAB DRAW 15MIN 08/14/2021 LAB DRAW 15MIN 08/14/2021 US OB COMPLETE 04/23/2021 US ABDOMEN LIMITED 1 ORGAN 02/27/2021 US OB COMPLETE 01/29/2021 US OB COMPLETE 01/30/2021 Encounters Encounter Diagnosis Start Date Code Code Sys tem Liver and biliary tract diso rders in , third trimester 04/10/2021 SNOMED-CT Personal Care Team Section Performer Name Performer Role Active Date Inactive Da te
--- OUTSIDE RECORDS SUMMARY | 2023-12-21 03:30 | XMS_ITS ---
Author Organization Unknown Address [address] [place] [address] [phone] Phone Care Team Providers Care Business Librarian Name Role Phone July Attending Unavailable ZACK Walker Primary Unavailable Social History Type Status Start Date End Date Code Code Syst em Smoking History Never smoker (Never Smoked) 451145096 SNOMED CT Sex Female Medications Medication Start Date End Date Route Frequency Dose Code Code System Medication Instructions Home Meds Pepcid 20MG Oral Tablet 07/14/2021 07/14/2021 ORAL TWICE A DAY 1 TABLET 433138 RxNorm TAKE 1 TABLET ORAL TWICE A DAY Claritin 10MG Oral Tablet 07/14/2021 12/26/2022 ORAL DAILY 1 TABLET 975741 RxNorm TAKE 1 TABLET ORAL DAILY for 1-2 weeks Pepcid 20MG Oral Tablet 07/14/2021 12/26/2022 ORAL TWICE A DAY 1 TABLET 102696 RxNorm TAKE 1 TABLET ORAL TWICE A DAY Ondansetron 4MG Oral Tablet, Disintegrating 12/26/2022 Unknown ORAL NEEDED EVERY 6 HOURS 1 TABLET 894127 RxNorm TAKE 1 TABLET ORAL NEEDED EVERY [...] Date Status Code Code System URTICARIA active 876584970 SNOMED-CT GASTRITIS active 8599891 SNOMED-CT Allergies and Adverse Reactions Allergy Substance Reaction Severity Start Date Concern Status Code Code System PENICILLINS (CLASS) Hives (SNOMED-CT: 312031884) Active 9359016 SNOMED-CT AMPICILLIN Hives (SNOMED-CT: 785459965) Active 733 RxNorm AMOXICILLIN Active 723 RxNorm [...] tract diso rders in , second trimester 05/28/2021 SNOMED-CT Personal Care Team Section Performer Name Performer Role Active Date Inactive Da te
--- OUTSIDE RECORDS SUMMARY | 2023-12-21 03:30 | XMS_ITS ---
Author Organization Unknown Address [address] [place] [address] [phone] Phone Care Team Providers Care Cartographic Aide Name Role Phone GLOSS VIGNESH eLong Attending Unavailable ZACK Walker Primary Unavailable Results US OB LIMITED FETUS(S) - Com pleted: 04/23/2021 17:24 LOINC: LIMITED OBSTETRICAL ULTRASOU ND: There is a single living intrauterine gestation. The fetus is in the cephalic presentation. The spine is to the left. The placenta is to the right and is Grade 1. The heart rate is 134 beats per minute. Amniotic fluid index is within normal limits. The kidneys are unremarkable. The renal pelvis measures 5.6 mm. The right renal pelvis measures 6.3 mm, which is within normal limits. IMPRESSION: Single living intrauterine gestation. Unremarkable appearance of the kidneys. No evidence of hydronephrosis. Dictated by: RIAN SMITH MD Transcribed by: RICHARD 04/23/21/16:01 [id number] Electronically Reviewed and Signed By: SRINIVAS SMITH MD 05/01/21 14:37 Copy for: [facility] HEALTH INFORMATION MGMT Social History Type Status Start Date End Date Code Code Syst em Smoking History Never smoker (Never Smoked) 544562259 SNOMED CT Sex Female Medications Medication Start Date End Date Route Frequency Dose Code Code System Medication Instructions Home Meds Pepcid 20MG Oral Tablet 07/14/2021 07/14/2021 ORAL TWICE A DAY 1 TABLET 719798 RxNorm TAKE 1 TABLET ORAL TWICE A DAY Claritin 10MG Oral Tablet 07/14/2021 12/26/2022 ORAL DAILY 1 TABLET 653095 RxNorm TAKE 1 TABLET ORAL DAILY for 1-2 weeks Pepcid 20MG Oral Tablet 07/14/2021 12/26/2022 ORAL TWICE A DAY 1 TABLET 015835 RxNorm TAKE 1 TABLET ORAL TWICE A DAY Ondansetron 4MG Oral Tablet, Disintegrating 12/26/2022 Unknown ORAL NEEDED EVERY 6 HOURS 1 TABLET 732402 RxNorm TAKE 1 TABLET ORAL NEEDED EVERY [...] Date Status Code Code System URTICARIA active 029882209 SNOMED-CT GASTRITIS active 2813980 SNOMED-CT Allergies and Adverse Reactions Allergy Substance Reaction Severity Start Date Concern Status Code Code System PENICILLINS (CLASS) Hives (SNOMED-CT: 576199690) Active 4913433 SNOMED-CT AMPICILLIN Hives (SNOMED-CT: 534829526) Active 733 RxNorm AMOXICILLIN Active 723 RxNorm [...] tract diso rders in , third trimester 04/23/2021 SNOMED-CT Personal Care Team Section Performer Name Performer Role Active Date Inactive Da te
--- OUTSIDE RECORDS SUMMARY | 2023-12-21 03:30 | XMS_ITS ---
Author Organization Unknown Address [address] [place] [address] [phone] Phone Care Team Providers Care Coding Clerk Name Role Phone July Attending Unavailable ZACK Walker Primary Unavailable Social History Type Status Start Date End Date Code Code Syst em Smoking History Never smoker (Never Smoked) 606662122 SNOMED CT Sex Female Medications Medication Start Date End Date Route Frequency Dose Code Code System Medication Instructions Home Meds Pepcid 20MG Oral Tablet 07/14/2021 07/14/2021 ORAL TWICE A DAY 1 TABLET 269695 RxNorm TAKE 1 TABLET ORAL TWICE A DAY Claritin 10MG Oral Tablet 07/14/2021 12/26/2022 ORAL DAILY 1 TABLET 586031 RxNorm TAKE 1 TABLET ORAL DAILY for 1-2 weeks Pepcid 20MG Oral Tablet 07/14/2021 12/26/2022 ORAL TWICE A DAY 1 TABLET 866261 RxNorm TAKE 1 TABLET ORAL TWICE A DAY Ondansetron 4MG Oral Tablet, Disintegrating 12/26/2022 Unknown ORAL NEEDED EVERY 6 HOURS 1 TABLET 261484 RxNorm TAKE 1 TABLET ORAL NEEDED EVERY [...] Date Status Code Code System URTICARIA active 052257899 SNOMED-CT GASTRITIS active 5099307 SNOMED-CT Allergies and Adverse Reactions Allergy Substance Reaction Severity Start Date Concern Status Code Code System PENICILLINS (CLASS) Hives (SNOMED-CT: 646217228) Active 7845114 SNOMED-CT AMPICILLIN Hives (SNOMED-CT: 508966307) Active 733 RxNorm AMOXICILLIN Active 723 RxNorm Plan of Treatment Lab Draw 01/07/2021 LAB DRAW 15MIN 12/12/2023 LAB DRAW 15MIN 10/28/2023 PRE-OP COVID-19 TESTING 08/15/2021 LAB DRAW 15MIN 08/14/2021 LAB DRAW 15MIN 08/14/2021 US OB COMPLETE 04/23/2021 US ABDOMEN LIMITED 1 ORGAN 02/27/2021 US OB COMPLETE 01/29/2021 US OB COMPLETE 01/30/2021 Encounters Encounter Diagnosis Start Date Code Code Sys tem Encounter for supervision of other normal , third trimester 06/12/2021 SNOMED-CT Personal Care Team Section Performer Name Performer Role Active Date Inactive Da mariano
--- OUTSIDE RECORDS SUMMARY | 2023-12-21 03:30 | XMS_ITS ---
Author Organization Unknown Address [address] [place] [address] [phone] Phone Care Team Providers Care Electrical Assembly Technician Name Role Phone July Attending Unavailable ZACK Walker Primary Unavailable Social History Type Status Start Date End Date Code Code Syst em Smoking History Never smoker (Never Smoked) 799617909 SNOMED CT Sex Female Medications Medication Start Date End Date Route Frequency Dose Code Code System Medication Instructions Home Meds Pepcid 20MG Oral Tablet 07/14/2021 07/14/2021 ORAL TWICE A DAY 1 TABLET 778384 RxNorm TAKE 1 TABLET ORAL TWICE A DAY Claritin 10MG Oral Tablet 07/14/2021 12/26/2022 ORAL DAILY 1 TABLET 862225 RxNorm TAKE 1 TABLET ORAL DAILY for 1-2 weeks Pepcid 20MG Oral Tablet 07/14/2021 12/26/2022 ORAL TWICE A DAY 1 TABLET 340596 RxNorm TAKE 1 TABLET ORAL TWICE A DAY Ondansetron 4MG Oral Tablet, Disintegrating 12/26/2022 Unknown ORAL NEEDED EVERY 6 HOURS 1 TABLET 842926 RxNorm TAKE 1 TABLET ORAL NEEDED EVERY [...] Date Status Code Code System URTICARIA active 392839654 SNOMED-CT GASTRITIS active 4075002 SNOMED-CT Allergies and Adverse Reactions Allergy Substance Reaction Severity Start Date Concern Status Code Code System PENICILLINS (CLASS) Hives (SNOMED-CT: 082524692) Active 8782366 SNOMED-CT AMPICILLIN Hives (SNOMED-CT: 761004025) Active 733 RxNorm AMOXICILLIN Active 723 RxNorm [...] supervision of other normal , third trimester 05/07/2021 SNOMED-CT Personal Care Team Section Performer Name Performer Role Active Date Inactive Da mariano
--- OUTSIDE RECORDS SUMMARY | 2023-12-21 03:30 | XMS_ITS ---
Author Organization Unknown Address [address] [place] [address] [phone] Phone Care Team Providers Care Greens Picker Name Role Phone NOEMÍ Amaral Attending Unavailable ZACK Walker Primary Unavailable Social History Type Status Start Date End Date Code Code Syst em Smoking History Never smoker (Never Smoked) 608315310 SNOMED CT Sex Female Medications Medication Start Date End Date Route Frequency Dose Code Code System Medication Instructions Home Meds Pepcid 20MG Oral Tablet 07/14/2021 07/14/2021 ORAL TWICE A DAY 1 TABLET 660789 RxNorm TAKE 1 TABLET ORAL TWICE A DAY Claritin 10MG Oral Tablet 07/14/2021 12/26/2022 ORAL DAILY 1 TABLET 117638 RxNorm TAKE 1 TABLET ORAL DAILY for 1-2 weeks Pepcid 20MG Oral Tablet 07/14/2021 12/26/2022 ORAL TWICE A DAY 1 TABLET 822015 RxNorm TAKE 1 TABLET ORAL TWICE A DAY Ondansetron 4MG Oral Tablet, Disintegrating 12/26/2022 Unknown ORAL NEEDED EVERY 6 HOURS 1 TABLET 068412 RxNorm TAKE 1 TABLET ORAL NEEDED EVERY [...] Date Status Code Code System URTICARIA active 246385053 SNOMED-CT GASTRITIS active 6157416 SNOMED-CT Allergies and Adverse Reactions Allergy Substance Reaction Severity Start Date Concern Status Code Code System PENICILLINS (CLASS) Hives (SNOMED-CT: 451113424) Active 2908133 SNOMED-CT AMPICILLIN Hives (SNOMED-CT: 723660587) Active 733 RxNorm AMOXICILLIN Active 723 RxNorm [...] tract diso rders in , third trimester 06/19/2021 SNOMED-CT Personal Care Team Section Performer Name Performer Role Active Date Inactive Da te
--- OUTSIDE RECORDS SUMMARY | 2023-12-21 03:30 | XMS_ITS ---
Author Organization Unknown Address [address] [place] [address] [phone] Phone Care Team Providers Care Flatware Maker Name Role Phone July Attending Unavailable ZACK Walker Primary Unavailable Social History Type Status Start Date End Date Code Code Syst em Smoking History Never smoker (Never Smoked) 975053042 SNOMED CT Sex Female Medications Medication Start Date End Date Route Frequency Dose Code Code System Medication Instructions Home Meds Pepcid 20MG Oral Tablet 07/14/2021 07/14/2021 ORAL TWICE A DAY 1 TABLET 385867 RxNorm TAKE 1 TABLET ORAL TWICE A DAY Claritin 10MG Oral Tablet 07/14/2021 12/26/2022 ORAL DAILY 1 TABLET 140199 RxNorm TAKE 1 TABLET ORAL DAILY for 1-2 weeks Pepcid 20MG Oral Tablet 07/14/2021 12/26/2022 ORAL TWICE A DAY 1 TABLET 802949 RxNorm TAKE 1 TABLET ORAL TWICE A DAY Ondansetron 4MG Oral Tablet, Disintegrating 12/26/2022 Unknown ORAL NEEDED EVERY 6 HOURS 1 TABLET 245751 RxNorm TAKE 1 TABLET ORAL NEEDED EVERY [...] Date Status Code Code System URTICARIA active 151860593 SNOMED-CT GASTRITIS active 3753036 SNOMED-CT Allergies and Adverse Reactions Allergy Substance Reaction Severity Start Date Concern Status Code Code System PENICILLINS (CLASS) Hives (SNOMED-CT: 114709768) Active 9868067 SNOMED-CT AMPICILLIN Hives (SNOMED-CT: 468878763) Active 733 RxNorm AMOXICILLIN Active 723 RxNorm Plan of Treatment Lab Draw 01/07/2021 LAB DRAW 15MIN 12/12/2023 LAB DRAW 15MIN 10/28/2023 PRE-OP COVID-19 TESTING 08/15/2021 LAB DRAW 15MIN 08/14/2021 LAB DRAW 15MIN 08/14/2021 US OB COMPLETE 04/23/2021 US ABDOMEN LIMITED 1 ORGAN 02/27/2021 US OB COMPLETE 01/29/2021 US OB COMPLETE 01/30/2021 Encounters Encounter Diagnosis Start Date Code Code Sys tem Post-term 06/30/2021 SNOMED-C T Personal Care Team Section Performer Name Performer Role Active Date Inactive Da mariano
--- OUTSIDE RECORDS SUMMARY | 2023-12-21 03:30 | XMS_ITS ---
Author Organization Unknown Address [address] [place] [address] [phone] Phone Care Team Providers Care Office Machine Installer Name Role Phone July Attending Unavailable ZACK Walker Primary Unavailable Social History Type Status Start Date End Date Code Code Syst em Smoking History Never smoker (Never Smoked) 650861673 SNOMED CT Sex Female Medications Medication Start Date End Date Route Frequency Dose Code Code System Medication Instructions Home Meds Pepcid 20MG Oral Tablet 07/14/2021 07/14/2021 ORAL TWICE A DAY 1 TABLET 182423 RxNorm TAKE 1 TABLET ORAL TWICE A DAY Claritin 10MG Oral Tablet 07/14/2021 12/26/2022 ORAL DAILY 1 TABLET 724807 RxNorm TAKE 1 TABLET ORAL DAILY for 1-2 weeks Pepcid 20MG Oral Tablet 07/14/2021 12/26/2022 ORAL TWICE A DAY 1 TABLET 923894 RxNorm TAKE 1 TABLET ORAL TWICE A DAY Ondansetron 4MG Oral Tablet, Disintegrating 12/26/2022 Unknown ORAL NEEDED EVERY 6 HOURS 1 TABLET 016975 RxNorm TAKE 1 TABLET ORAL NEEDED EVERY [...] Date Status Code Code System URTICARIA active 057163384 SNOMED-CT GASTRITIS active 3918802 SNOMED-CT Allergies and Adverse Reactions Allergy Substance Reaction Severity Start Date Concern Status Code Code System PENICILLINS (CLASS) Hives (SNOMED-CT: 634025297) Active 9943568 SNOMED-CT AMPICILLIN Hives (SNOMED-CT: 042153269) Active 733 RxNorm AMOXICILLIN Active 723 RxNorm [...] tract diso rders in , third trimester 05/21/2021 SNOMED-CT Personal Care Team Section Performer Name Performer Role Active Date Inactive Da te
--- OUTSIDE RECORDS SUMMARY | 2023-12-21 03:30 | XMS_ITS ---
Author Organization Unknown Address [address] [place] [address] [phone] Phone Care Team Providers Care Supervising Deputy Name Role Phone ERNESTO Reinoso Attending Unavailable ZACK Walker Primary Unavailable Social History Type Status Start Date End Date Code Code Syst em Smoking History Never smoker (Never Smoked) 176148201 SNOMED CT Sex Female Medications Medication Start Date End Date Route Frequency Dose Code Code System Medication Instructions Home Meds Pepcid 20MG Oral Tablet 07/14/2021 07/14/2021 ORAL TWICE A DAY 1 TABLET 577822 RxNorm TAKE 1 TABLET ORAL TWICE A DAY Claritin 10MG Oral Tablet 07/14/2021 12/26/2022 ORAL DAILY 1 TABLET 747254 RxNorm TAKE 1 TABLET ORAL DAILY for 1-2 weeks Pepcid 20MG Oral Tablet 07/14/2021 12/26/2022 ORAL TWICE A DAY 1 TABLET 381448 RxNorm TAKE 1 TABLET ORAL TWICE A DAY Ondansetron 4MG Oral Tablet, Disintegrating 12/26/2022 Unknown ORAL NEEDED EVERY 6 HOURS 1 TABLET 157094 RxNorm TAKE 1 TABLET ORAL NEEDED EVERY [...] Date Status Code Code System URTICARIA active 274340863 SNOMED-CT GASTRITIS active 9403888 SNOMED-CT Allergies and Adverse Reactions Allergy Substance Reaction Severity Start Date Concern Status Code Code System PENICILLINS (CLASS) Hives (SNOMED-CT: 124637633) Active 3038179 SNOMED-CT AMPICILLIN Hives (SNOMED-CT: 476001608) Active 733 RxNorm AMOXICILLIN Active 723 RxNorm Plan of Treatment Lab Draw 01/07/2021 LAB DRAW 15MIN 12/12/2023 LAB DRAW 15MIN 10/28/2023 PRE-OP COVID-19 TESTING 08/15/2021 LAB DRAW 15MIN 08/14/2021 LAB DRAW 15MIN 08/14/2021 US OB COMPLETE 04/23/2021 US ABDOMEN LIMITED 1 ORGAN 02/27/2021 US OB COMPLETE 01/29/2021 US OB COMPLETE 01/30/2021 Encounters Encounter Diagnosis Start Date Code Code Sys tem Post-term 06/26/2021 SNOMED-C T Personal Care Team Section Performer Name Performer Role Active Date Inactive Da mariano
--- OUTSIDE RECORDS SUMMARY | 2023-12-21 03:30 | XMS_ITS ---
Author Organization Unknown Address [address] [place] [address] [phone] Phone Care Team Providers Care Bookkeeping Clerks Supervisor Name Role Phone GLOSS VIGNESH Leong Attending Unavailable ZACK Walker Primary Unavailable Results SUSCEPTIBILITY OF BACTERIAL ORGANISM* - Collect Date/Time: 05/29/2021 16:43 [facility] ID: [id number] [address] [place] [address], [phone] LOINC: 66512-5 Test Value Unit Reference Range Code Code System Flag Result STREPTOCOCCUS AGALACTIAE (GROUP B) A Report Status See Below GROUP B STREP DNA BY PCR - C ollect Date/Time: 05/28/2021 16:43 [facility] ID: [id number] [address] [place] [address], [phone] LOINC: 53869-8 Test Value Unit Reference Range Code Code System Flag GROUP B STREP POSITIVE Normal: Negative A OTHER SOURCE: VAG/RECTA PCN ALLERGY? YES Copy Sent to OB? YES Social History Type Status Start Date End Date Code Code Syst em Smoking History Never smoker (Never Smoked) 723182602 SNOMED CT Sex Female Medications Medication Start Date End Date Route Frequency Dose Code Code System Medication Instructions Home Meds Pepcid 20MG Oral Tablet 07/14/2021 07/14/2021 ORAL TWICE A DAY 1 TABLET 441547 RxNorm TAKE 1 TABLET ORAL TWICE A DAY Claritin 10MG Oral Tablet 07/14/2021 12/26/2022 ORAL DAILY 1 TABLET 740662 RxNorm TAKE 1 TABLET ORAL DAILY for 1-2 weeks Pepcid 20MG Oral Tablet 07/14/2021 12/26/2022 ORAL TWICE A DAY 1 TABLET 966198 RxNorm TAKE 1 TABLET ORAL TWICE A DAY Ondansetron 4MG Oral Tablet, Disintegrating 12/26/2022 Unknown ORAL NEEDED EVERY 6 HOURS 1 TABLET 468616 RxNorm TAKE 1 TABLET ORAL NEEDED EVERY [...] Date Status Code Code System URTICARIA active 644940902 SNOMED-CT GASTRITIS active 9149476 SNOMED-CT Allergies and Adverse Reactions Allergy Substance Reaction Severity Start Date Concern Status Code Code System PENICILLINS (CLASS) Hives (SNOMED-CT: 045899782) Active 2352423 SNOMED-CT AMPICILLIN Hives (SNOMED-CT: 965769209) Active 733 RxNorm AMOXICILLIN Active 723 RxNorm Plan of Treatment Lab Draw 01/07/2021 LAB DRAW 15MIN 12/12/2023 LAB DRAW 15MIN 10/28/2023 PRE-OP COVID-19 TESTING 08/15/2021 LAB DRAW 15MIN 08/14/2021 LAB DRAW 15MIN 08/14/2021 US OB COMPLETE 04/23/2021 US ABDOMEN LIMITED 1 ORGAN 02/27/2021 US OB COMPLETE 01/29/2021 US OB COMPLETE 01/30/2021 Encounters Encounter Diagnosis Start Date Code Code Sys tem screening 05/28/2021 824546920 SNOMED-C T Personal Care Team Section Performer Name Performer Role Active Date Inactive Da te
--- OUTSIDE RECORDS SUMMARY | 2023-12-21 03:31 | XMS_ITS ---
Author Organization Unknown Address [address] [place] [address] [phone] Phone Care Team Providers Care Planting Material Remover Name Role Phone MRAY Morton Registered Nurse Unavailable KOLTON Gil Attending Unavailable ZACK Walker Primary Unavailable UNLISTED PROVIDER - REQUESTED Xhandoff Un available Results URINALYSIS WITH REFLEX CULT IF POSITIVE* - Collect Date/Time: 07/13/2021 23:59 [facility] ID: [id number] [address] [place], [place], [address] LOINC: 27864-8 Test Value Unit Reference Range Code Code System Flag COLLECTION MODE: CLEAN CATCH Color STRAW yellow 5778-6 LOINC Appearance CLEAR clear 5767-9 LOINC Glucose urine NEGATIVE negative mg/dl 78332-9 LOINC Bilirubin NEGATIVE negative 5770-3 LOINC Ketones NEGATIVE negative mg/dl 2514-8 LOINC Spec gravity 1.010 1.003 - 1.030 5811-5 LOINC pH urine 6.0 5.0 - 7.0 2756-5 LOINC Protein NEGATIVE negative mg/dl 99907-2 LOINC Urobilinogen 0.2 <or= 1 EU/dl 09943-1 LOINC Nitrite. NEGATIVE negative 5802-4 LOINC Blood MODERATE negative 5794-3 LOINC A Leukocytes. TRACE negative A MICROSCOPIC INDICATED WBCs. 0-5 0-5 / hpf 04148-3 LOINC RBCs 0-5 0-5 / hpf 53057-7 LOINC Epith cells 0-5 0-5 / hpf 36116-4 LOINC Cell types squam+trans Crystals none none Bacteria none none Mucus none none 8247-9 LOINC Casts none none /lpf 04815-4 LOINC Other 50385-9 LOINC PTT PARTIAL THROMBOPLASTIN T CONSTANCE* - Collect Date/Time: 07/13/2021 23:28 [facility] ID: [id number] [address] [place] [address], [phone] LOINC: 60541-8 Test Value Unit Reference Range Code Code System Flag PTT 26 seconds L=24 H=32 39485-2 LOINC PT PROTHROMBIN TIME* - Colle ct Date/Time: 07/13/2021 23:28 [facility] ID: [id number] [address] [place] [address], [address] LOINC: 5902-2 Test Value Unit Reference Range Code Code System Flag PROTIME 9.8 seconds L=9.3 H=11.4 5902-2 LOINC INR 0.98 L=2.00 H=3.00 59703-0 LOINC L MAGNESIUM SERUM* - Collect D ate/Time: 07/13/2021 23:28 [facility] ID: [id number] [address] [place] [address], [address] LOINC: 46413-7 Test Value Unit Reference Range Code Code System Flag MAGNESIUM 2.1 mg/dL L=1.8 H=2.4 41668-0 LOINC LIPASE* - Collect Date/Time: 07/13/2021 23:28 [facility] ID: [id number] [address] [place] [address], [id number] LOINC: 3040-3 Test Value Unit Reference Range Code Code System Flag LIPASE 146 U/L L=73 H=393 COMPREHENSIVE METABOLIC PANE L (CMP) - Collect Date/Time: 07/13/2021 23:28 [facility] ID: [id number] [address] [place] [address], [address] LOINC: 34968-4 Test Value Unit Reference Range Code Code System Flag GLUCOSE 104 mg/dL L=70 H=116 2345-7 LOINC BUN 22 mg/dL L=6 H=25 3094-0 LOINC CREATININE 1.47 mg/dL L=0.51 H=0.95 2160-0 LOINC H SODIUM SERUM 140 mmol/L L=136 H=145 2951-2 LOINC POTASSIUM SERUM 3.6 mmol/L L=3.4 H=5.2 2823-3 LOINC CHLORIDE SERUM 106 mmol/L L=96 H=110 2075-0 LOINC CARBON DIOXIDE (CO2) 26 mmol/L L=22 H=34 2028-9 LOINC ANION GAP 8.0 mmol/L 64284-4 LOINC CALCIUM SERUM 8.4 mg/dL L=8.2 H=10.2 65129-0 LOINC BILIRUBIN TOTAL 0.2 mg/dL L=0.0 H=1.3 1975-2 LOINC ALK. PHOS. 102 U/L L=46 H=116 6768-6 LOINC SGOT (AST) 15 U/L L=15 H=37 1920-8 LOINC SGPT (ALT) 24 U/L L=12 H=78 1742-6 LOINC TOTAL PROTEIN 6.9 gm/dL L=6.0 H=8.0 2885-2 LOINC ALBUMIN 3.4 gm/dL L=3.4 H=5.0 1751-7 LOINC AGE 30 years eGFR (non-Afr.Amer.) 42 mL/min 20933-3 LOINC eGFR (Afr-Panamanian) 51 mL/min 42702-6 [facility] - Collect Da te/Time: 07/13/2021 23:28 [facility] ID: [id number] [address] [place], [place], [address] LOINC: 3084-1 Test Value Unit Reference Range Code Code System Flag URIC ACID SERUM 7.0 mg/dL L=2.0 H=7.0 CBC W/ DIFFERENTIAL* - Colle ct Date/Time: 07/13/2021 23:28 [facility] ID: [id number] [address] [place] [address] [place], [address] LOINC: 18731-1 Test Value Unit Reference Range Code Code System Flag WBC 13.24 th/cmm L=5.00 H=10.00 6690-2 LOINC H NEUT % 80.3 % L=40.0 H=80.0 H LYMPH % 11.0 % L=10.0 H=50.0 MONO % 5.5 % L=2.0 H=12.0 11678-2 LOINC EOS % 2.4 % L=0.0 H=8.0 BASO % 0.6 % L=0.0 H=3.0 IG % 0.2 % L=0.0 H=1.1 2514-8 LOINC NRBC % 0.0 % L=0.0 H=0.0 88201-8 LOINC NEUT abs count 10.6 th/cmm L=1.6 H=8.4 751-8 LOINC H LYMPH abs count 1.5 th/cmm L=1.5 H=4.0 731-0 LOINC MONO abs count 0.7 th/cmm L=0.2 H=1.0 742-7 LOINC EOS abs count 0.3 th/cmm L=0.0 H=0.5 711-2 LOINC BASO abs count 0.1 th/cmm L=0.0 H=0.2 704-7 LOINC IG abs count 0.0 th/cmm L=0.0 H=0.1 56976-8 LOINC NRBC abs count 0.0 mil/cmm L=0.0 H=0.0 31569-2 LOINC RBC 3.75 mil/cmm L=3.90 H=5.40 789-8 LOINC L HEMOGLOBIN 10.5 gm/dL L=12.0 H=16.0 718-7 LOINC L HEMATOCRIT 33 % L=37 H=47 4544-3 LOINC L MCV 88 fL L=82 H=92 787-2 LOINC MCH 28.0 pg L=27.0 H=31.0 785-6 LOINC MCHC 31.8 % L=32.0 H=36.0 786-4 LOINC L RDW-SD 44.5 fL L=39.0 H=49.0 788-0 LOINC PLATELET COUNT 400 th/cmm L=150 H=450 777-3 LOINC Social History Type Status Start Date End Date Code Code Syst em Smoking History Never smoker (Never Smoked) 261023612 SNOMED CT Sex Female Vital Signs Vital Sign Value Unit [place] Value [place] Unit Date/Time Recent/Initial? Code Code System Body Mass Index 21.63 kg/m2 07/13/2021 23:33 Initial 74041 -5 LOINC Systolic Blood Pressure 146 mm[Hg] 07/13/2021 23:33 Initial 8480- 6 LOINC Diastolic Blood Pressure 99 mm[Hg] 07/13/2021 23:33 Initial 8462- 4 LOINC Body Surface Area 1.64 m2 07/13/2021 23:33 Initial 3140- 1 LOINC Height 165.100 0 cm 65.00 in 07/13/2021 23:33 Initial 8302- 2 LOINC O2 Saturation 100 % 2021 23:33 Initial 26495 -5 LOINC Pulse 65.0 /min 07/13/2021 23:33 Initial 8867- 4 LOINC Respiration 18 /min 07/14/19 23:33 Initial 9279- 1 LOINC Temperature 36.8 Saumya 98.2 F 07/14/19 23:33 Initial 8310- 5 LOINC Weight 58.97 kg 130.00 lbs 07/13/2021 23:33 Initial 75397 -7 [facility] Medications Medication Start Date End Date Route Frequency Dose Code Code System Medication Instructions Home Meds Pepcid 20MG Oral Tablet 07/14/2021 07/14/2021 ORAL TWICE A DAY 1 TABLET 537162 RxNorm TAKE 1 TABLET ORAL TWICE A DAY Claritin 10MG Oral Tablet 07/14/2021 12/26/2022 ORAL DAILY 1 TABLET 213319 RxNorm TAKE 1 TABLET ORAL DAILY for 1-2 weeks Pepcid 20MG Oral Tablet 07/14/2021 12/26/2022 ORAL TWICE A DAY 1 TABLET 524052 RxNorm TAKE 1 TABLET ORAL TWICE A DAY Ondansetron 4MG Oral Tablet, Disintegrating 12/26/2022 Unknown ORAL NEEDED EVERY 6 HOURS 1 TABLET 411386 RxNorm TAKE 1 TABLET ORAL NEEDED EVERY [...] Date Status Code Code System URTICARIA active 340047846 SNOMED-CT GASTRITIS active 9021634 SNOMED-CT Allergies and Adverse Reactions Allergy Substance Reaction Severity Start Date Concern Status Code Code System PENICILLINS (CLASS) Hives (SNOMED-CT: 524913026) Active 4169212 SNOMED-CT AMPICILLIN Hives (SNOMED-CT: 791685134) Active 733 RxNorm AMOXICILLIN Active 723 RxNorm Plan of Treatment Lab Draw 01/07/2021 LAB DRAW 15MIN 12/12/2023 LAB DRAW 15MIN 10/28/2023 PRE-OP COVID-19 TESTING 08/15/2021 LAB DRAW 15MIN 08/14/2021 LAB DRAW 15MIN 08/14/2021 US OB COMPLETE 04/23/2021 US ABDOMEN LIMITED 1 ORGAN 02/27/2021 US OB COMPLETE 01/29/2021 US OB COMPLETE 01/30/2021 OUTPATIENT PLAN: Discharge Medications: Discharge Medications Medication Dosage Route Frequency Prescribing MD Special Instructions Pepcid 20MG Oral Tablet 1 TABLET ORAL TWICE A DAY KOLTON Gil TAKE 1 TABLET ORAL TWICE A DAY Claritin 10MG Oral Tablet (OVER THE COUNTER) 1 TABLET ORAL DAILY KOLTON Gil TAKE 1 TABLET ORAL DAILY for 1-2 weeks Follow up: Please see your doctor in 3-5 days. Other Instructions: May also take benadryl 25-50 mg every 6 hours as needed for itching. Consider switching detergents and also use 1/2 the amount recommended. May also try to rinse clothes and sheets in a water only load. Avoid spicy, citrus, and acidic foods (tomatoes). Encounters Encounter Diagnosis Start Date Code Code Sys tem Urticaria, unspecified 07/13/2021 SNOME D-CT Personal Care Team Section Performer Name Performer Role Active Date Inactive Romeo quintana
--- OUTSIDE RECORDS SUMMARY | 2023-12-21 03:31 | XMS_ITS ---
Author Organization Unknown Address [address] [place] [address] [phone] Phone Care Team Providers Care Motion Picture Director Name Role Phone NOEMÍ Amaral Attending Unavailable ZACK Walker Primary Unavailable Social History Type Status Start Date End Date Code Code Syst em Smoking History Never smoker (Never Smoked) 617283728 SNOMED CT Sex Female Medications Medication Start Date End Date Route Frequency Dose Code Code System Medication Instructions Home Meds Claritin 10MG Oral Tablet 07/14/2021 12/26/2022 ORAL DAILY 1 TABLET 628906 RxNorm TAKE 1 TABLET ORAL DAILY for 1-2 weeks Pepcid 20MG Oral Tablet 07/14/2021 12/26/2022 ORAL TWICE A DAY 1 TABLET 299796 RxNorm TAKE 1 TABLET ORAL TWICE A DAY Ondansetron 4MG Oral Tablet, Disintegrating 12/26/2022 Unknown ORAL NEEDED EVERY 6 HOURS 1 TABLET 190800 RxNorm TAKE 1 TABLET ORAL NEEDED EVERY [...] Date Status Code Code System URTICARIA active 893303049 SNOMED-CT GASTRITIS active 9403855 SNOMED-CT Allergies and Adverse Reactions Allergy Substance Reaction Severity Start Date Concern Status Code Code System PENICILLINS (CLASS) Hives (SNOMED-CT: 264907514) Active 3243993 SNOMED-CT AMPICILLIN Hives (SNOMED-CT: 434457335) Active 733 RxNorm AMOXICILLIN Active 723 RxNorm Plan of Treatment Lab Draw 01/07/2021 LAB DRAW 15MIN 12/12/2023 LAB DRAW 15MIN 10/28/2023 PRE-OP COVID-19 TESTING 08/15/2021 LAB DRAW 15MIN 08/14/2021 LAB DRAW 15MIN 08/14/2021 US OB COMPLETE 04/23/2021 US ABDOMEN LIMITED 1 ORGAN 02/27/2021 US OB COMPLETE 01/29/2021 US OB COMPLETE 01/30/2021 Encounters Encounter Diagnosis Start Date Code Code Sys tem Encounter for routine follow-up 07/16/2021 SNOMED-CT Personal Care Team Section Performer Name Performer Role Active Date Inactive Da te
--- OUTSIDE RECORDS SUMMARY | 2023-12-21 03:31 | XMS_ITS ---
Author Organization Unknown Address [address] [place] [address] [phone] Phone Care Team Providers Care Acute Dialysis Registered Nurse Name Role Phone EDWIN GROVER Attending Unavailable ZACK Walker Primary Unavailable Results [facility] HERBERT PEREIRA* - Bia ect Date/Time: 08/15/2021 09:44 [facility] ID: [id number] [address] [place] [address], [id number] LOINC: 11101-9 Test Value Unit Reference Range Code Code System Flag Tier- PRE-OP 97399-6 LOINC SARS COV2 RNA: NEGATIVE REFERENCE RANGE: NEGAT 32696-5 L OINC Social History Type Status Start Date End Date Code Code Syst em Smoking History Never smoker (Never Smoked) 697632402 SNOMED CT Sex Female Medications Medication Start Date End Date Route Frequency Dose Code Code System Medication Instructions Home Meds Claritin 10MG Oral Tablet 07/14/2021 12/26/2022 ORAL DAILY 1 TABLET 475382 RxNorm TAKE 1 TABLET ORAL DAILY for 1-2 weeks Pepcid 20MG Oral Tablet 07/14/2021 12/26/2022 ORAL TWICE A DAY 1 TABLET 716595 RxNorm TAKE 1 TABLET ORAL TWICE A DAY Ondansetron 4MG Oral Tablet, Disintegrating 12/26/2022 Unknown ORAL NEEDED EVERY 6 HOURS 1 TABLET 384143 RxNorm TAKE 1 TABLET ORAL NEEDED EVERY [...] Date Status Code Code System URTICARIA active 240232362 SNOMED-CT GASTRITIS active 9018670 SNOMED-CT Allergies and Adverse Reactions Allergy Substance Reaction Severity Start Date Concern Status Code Code System PENICILLINS (CLASS) Hives (SNOMED-CT: 777577432) Active 3324512 SNOMED-CT AMPICILLIN Hives (SNOMED-CT: 371758812) Active 733 RxNorm AMOXICILLIN Active 723 RxNorm Plan of Treatment Lab Draw 01/07/2021 LAB DRAW 15MIN 12/12/2023 LAB DRAW 15MIN 10/28/2023 PRE-OP COVID-19 TESTING 08/15/2021 LAB DRAW 15MIN 08/14/2021 LAB DRAW 15MIN 08/14/2021 US OB COMPLETE 04/23/2021 US ABDOMEN LIMITED 1 ORGAN 02/27/2021 US OB COMPLETE 01/29/2021 US OB COMPLETE 01/30/2021 Encounters Encounter Diagnosis Start Date Code Code Sys tem Pre-surgery testing 08/15/2021 716758854 SNOMED-C T Personal Care Team Section Performer Name Performer Role Active Date Inactive Da te
--- OUTSIDE RECORDS SUMMARY | 2023-12-21 03:31 | XMS_ITS ---
Author Organization Unknown Address [address] [place] [address] [phone] Phone Care Team Providers Care Traveling Nurse Name Role Phone July Attending Unavailable ZACK Walker Primary Unavailable Results [facility] HERBERT CHERRYJEFFX* - Bia ect Date/Time: 06/30/2021 10:10 [facility] ID: [id number] [address] [place] [address], [id number] LOINC: 93002-9 Test Value Unit Reference Range Code Code System Flag Tier- INPATIENT/ED 51769-7 LOINC SARS COV2 RNA: NEGATIVE REFERENCE RAN GE: NEGAT 10030-5 LOINC CBC W/ DIFFERENTIAL* - Colle ct Date/Time: 06/30/2021 08:55 [facility] ID: [id number] [address] [place] [address], 5[address] LOINC: 99309-2 Test Value Unit Reference Range Code Code System Flag WBC 19.30 th/cmm L=5.00 H=10.00 6690-2 LOINC H NEUT % 83.0 % L=40.0 H=80.0 H LYMPH % 8.0 % L=10.0 H=50.0 L MONO % 7.3 % L=2.0 H=12.0 27584-3 LOINC EOS % 0.2 % L=0.0 H=8.0 BASO % 0.3 % L=0.0 H=3.0 IG % 1.2 % L=0.0 H=1.1 7434-8 LOINC H NRBC % 0.0 % L=0.0 H=0.0 89681-7 LOINC NEUT abs count 16.0 th/cmm L=1.6 H=8.4 751-8 LOINC H LYMPH abs count 1.6 th/cmm L=1.5 H=4.0 731-0 LOINC MONO abs count 1.4 th/cmm L=0.2 H=1.0 742-7 LOINC H EOS abs count 0.0 th/cmm L=0.0 H=0.5 711-2 LOINC BASO abs count 0.1 th/cmm L=0.0 H=0.2 704-7 LOINC IG abs count 0.2 th/cmm L=0.0 H=0.1 97170-8 LOINC H NRBC abs count 0.0 mil/cmm L=0.0 H=0.0 74951-0 LOINC RBC 3.90 mil/cmm L=3.90 H=5.40 789-8 LOINC HEMOGLOBIN 11.2 gm/dL L=12.0 H=16.0 718-7 LOINC L HEMATOCRIT 34 % L=37 H=47 4544-3 LOINC L MCV 87 fL L=82 H=92 787-2 LOINC MCH 28.7 pg L=27.0 H=31.0 785-6 LOINC MCHC 32.8 % L=32.0 H=36.0 786-4 LOINC RDW-SD 42.1 fL L=39.0 H=49.0 788-0 LOINC PLATELET COUNT 321 th/cmm L=150 H=450 777-3 LOINC TYPE AND SCREEN* - Collect D ate/Time: 06/30/2021 08:55 [facility] ID: [id number] [address] [place], [place], [id number] LOINC: Test Value Unit Reference Range Code Code System Flag Blood Group O 883-9 LOINC Rh (D) POSITIVE 11017-4 LOINC Antibody Screen NEGATIVE 1005-8 LOINC Social History Type Status Start Date End Date Code Code Syst em Smoking History Never smoker (Never Smoked) 744544738 SNOMED CT Sex Female Vital Signs Vital Sign Value Unit Mcmullen Value Mcmullen Unit Date/Time Recent/Initial? Code Code System Body Mass Index 31.28 kg/m2 06/30/2021 16:42 Initial 45498 -5 LOINC Systolic Blood Pressure 124 mm[Hg] 07/02/2021 22:30 Most Recent 8480- 6 LOINC Diastolic Blood Pressure 68 mm[Hg] 07/02/2021 22:30 Most Recent 8462- 4 LOINC Systolic Blood Pressure 138 mm[Hg] 07/01/2021 09:57 Initial 8480- 6 LOINC Diastolic Blood Pressure 80 mm[Hg] 07/01/2021 09:57 Initial 8462- 4 LOINC Body Surface Area 1.98 m2 06/30/2021 16:42 Initial 3140- 1 LOINC Height 165.100 0 cm 65.00 in 06/30/2021 16:42 Initial 8302- 2 LOINC O2 Saturation 99 % 2021 09:30 Most Recent 14018 -5 LOINC O2 Saturation 98 % 2021 14:50 Initial 90876 -5 LOINC Pulse 88.0 /min 07/03/2021 09:30 Most Recent 8867- 4 LOINC Pulse 108.0 /min 07/01/2021 09:57 Initial 8867- 4 LOINC Respiration 16 /min 07/04/19 22 09:30 Most Recent 9279- 1 LOINC Respiration 18 /min 07/02/19 22 09:57 Initial 9279- 1 LOINC Temperature 36.7 Saumya 98.1 F 07/04/19 22 09:30 Most Recent 8310- 5 LOINC Temperature 36.7 Saumya 98.1 F 07/02/19 22 12:00 Initial 8310- 5 LOINC Weight 85.28 kg 188.00 lbs 06/30/2021 16:42 Initial 91223 -7 LOINC Medications Medication Start Date End Date Route Frequency Dose Code Code System Medication Instructions Home Meds Pepcid 20MG Oral Tablet 07/14/2021 07/14/2021 ORAL TWICE A DAY 1 TABLET 844050 RxNorm TAKE 1 TABLET ORAL TWICE A DAY Claritin 10MG Oral Tablet 07/14/2021 12/26/2022 ORAL DAILY 1 TABLET 473446 RxNorm TAKE 1 TABLET ORAL DAILY for 1-2 weeks Pepcid 20MG Oral Tablet 07/14/2021 12/26/2022 ORAL TWICE A DAY 1 TABLET 267766 RxNorm TAKE 1 TABLET ORAL TWICE A DAY Ondansetron 4MG Oral Tablet, Disintegrating 12/26/2022 Unknown ORAL NEEDED EVERY 6 HOURS 1 TABLET 692091 RxNorm TAKE 1 TABLET ORAL NEEDED EVERY 6 HOURS FOR Nausea/Vo miting Assessment You had the following problems:URTICARIAGASTRITIS Hospital Discharge Instructions Should you have any questions prior to discharge, please contact a member of your healthcare team. If you have left the hospital and have any questions, please contact your primary care physician. Reason For Referral No Data Found Procedures Procedure Name Date Status Code Code Syste m Delivery of Products of Conc eption, External Approach 07/01/2021 completed [id number] Repair Perineum Muscle, Open Approach 07/01/2021 completed [id number] Monitoring of Products of Co nception, Cardiac Rate, External Approach 07/01/2021 completed [id number] Problems Problem Start Date Resolved Date Status Code Code System URTICARIA active 879625812 SNOMED-CT GASTRITIS active 6404463 SNOMED-CT Allergies and Adverse Reactions Allergy Substance Reaction Severity Start Date Concern Status Code Code System PENICILLINS (CLASS) Hives (SNOMED-CT: 568136359) Active 6338471 SNOMED-CT AMPICILLIN Hives (SNOMED-CT: 093632328) Active 733 RxNorm AMOXICILLIN Active 723 RxNorm Plan of Treatment Lab Draw 01/07/2021 LAB DRAW 15MIN 12/12/2023 LAB DRAW 15MIN 10/28/2023 PRE-OP COVID-19 TESTING 08/15/2021 LAB DRAW 15MIN 08/14/2021 LAB DRAW 15MIN 08/14/2021 US OB COMPLETE 04/23/2021 US ABDOMEN LIMITED 1 ORGAN 02/27/2021 US OB COMPLETE 01/29/2021 US OB COMPLETE 01/30/2021 Encounters Encounter Diagnosis Start Date Code Code Sys tem Streptococcus B carrier state complicating childbirth 06/30/2021 SNOMED-CT Personal Care Team Section Performer Name Performer Role Active Date Inactive Da te
--- OUTSIDE RECORDS SUMMARY | 2023-12-21 03:32 | XMS_ITS ---
Author Organization Unknown Address [address] [place] [address] [phone] Phone Care Team Providers Care Spool Worker Name Role Phone EDWIN GROVER Attending Unavailable ZACK Walker Primary Unavailable Results CBC W/ DIFFERENTIAL* - Colle ct Date/Time: 08/14/2021 13:32 [facility] ID: [id number] [address] [place] [address], [address] LOINC: 80361-7 Test Value Unit Reference Range Code Code System Flag WBC 7.80 th/cmm L=5.00 H=10.00 6690-2 LOINC NEUT % 66.2 % L=40.0 H=80.0 LYMPH % 23.8 % L=10.0 H=50.0 MONO % 6.4 % L=2.0 H=12.0 42500-2 LOINC EOS % 2.3 % L=0.0 H=8.0 BASO % 1.2 % L=0.0 H=3.0 IG % 0.1 % L=0.0 H=1.1 2514-8 LOINC NRBC % 0.0 % L=0.0 H=0.0 58894-7 LOINC NEUT abs count 5.2 th/cmm L=1.6 H=8.4 751-8 LOINC LYMPH abs count 1.9 th/cmm L=1.5 H=4.0 731-0 LOINC MONO abs count 0.5 th/cmm L=0.2 H=1.0 742-7 LOINC EOS abs count 0.2 th/cmm L=0.0 H=0.5 711-2 LOINC BASO abs count 0.1 th/cmm L=0.0 H=0.2 704-7 LOINC IG abs count 0.0 th/cmm L=0.0 H=0.1 52135-1 LOINC NRBC abs count 0.0 mil/cmm L=0.0 H=0.0 76561-8 LOINC RBC 4.65 mil/cmm L=3.90 H=5.40 789-8 LOINC HEMOGLOBIN 12.6 gm/dL L=12.0 H=16.0 718-7 LOINC HEMATOCRIT 40 % L=37 H=47 4544-3 LOINC MCV 85 fL L=82 H=92 787-2 LOINC MCH 27.1 pg L=27.0 H=31.0 785-6 LOINC MCHC 31.9 % L=32.0 H=36.0 786-4 LOINC L RDW-SD 40.8 fL L=39.0 H=49.0 788-0 LOINC PLATELET COUNT 359 th/cmm L=150 H=450 777-3 LOINC Social History Type Status Start Date End Date Code Code Syst em Smoking History Never smoker (Never Smoked) 907952541 SNOMED CT Sex Female Medications Medication Start Date End Date Route Frequency Dose Code Code System Medication Instructions Home Meds Claritin 10MG Oral Tablet 07/14/2021 12/26/2022 ORAL DAILY 1 TABLET 613485 RxNorm TAKE 1 TABLET ORAL DAILY for 1-2 weeks Pepcid 20MG Oral Tablet 07/14/2021 12/26/2022 ORAL TWICE A DAY 1 TABLET 828223 RxNorm TAKE 1 TABLET ORAL TWICE A DAY Ondansetron 4MG Oral Tablet, Disintegrating 12/26/2022 Unknown ORAL NEEDED EVERY 6 HOURS 1 TABLET 684326 RxNorm TAKE 1 TABLET ORAL NEEDED EVERY [...] Date Status Code Code System URTICARIA active 448361803 SNOMED-CT GASTRITIS active 7190579 SNOMED-CT Allergies and Adverse Reactions Allergy Substance Reaction Severity Start Date Concern Status Code Code System PENICILLINS (CLASS) Hives (SNOMED-CT: 501704708) Active 2363348 SNOMED-CT AMPICILLIN Hives (SNOMED-CT: 225273055) Active 733 RxNorm AMOXICILLIN Active 723 RxNorm Plan of Treatment Lab Draw 01/07/2021 LAB DRAW 15MIN 12/12/2023 LAB DRAW 15MIN 10/28/2023 PRE-OP COVID-19 TESTING 08/15/2021 LAB DRAW 15MIN 08/14/2021 LAB DRAW 15MIN 08/14/2021 US OB COMPLETE 04/23/2021 US ABDOMEN LIMITED 1 ORGAN 02/27/2021 US OB COMPLETE 01/29/2021 US OB COMPLETE 01/30/2021 Encounters Encounter Diagnosis Start Date Code Code Sys tem Calculus of bile duct without obstruction 08/14/2021 60390210 SNOMED-CT Personal Care Team Section Performer Name Performer Role Active Date Inactive Da te
--- OUTSIDE RECORDS SUMMARY | 2023-12-21 03:32 | XMS_ITS ---
Author Organization Unknown Address [address] [place] [address] [phone] Phone Care Team Providers Care Pattern Finisher Name Role Phone NOEMÍ Amaral Attending Unavailable ZACK Walker Primary Unavailable Results HCG QUANTITATIVE WHOLE MOLEC ULE* - Collect Date/Time: 11/12/2022 17:38 [facility] ID: [id number] [address] [place] [address], [address] LOINC: 27336-4 Test Value Unit Reference Range Code Code System Flag HCG, total+Beta subs 39 39944-5 LOINC Social History Type Status Start Date End Date Code Code Syst em Smoking History Never smoker (Never Smoked) 201003676 SNOMED CT Sex Female Medications Medication Start Date End Date Route Frequency Dose Code Code System Medication Instructions Home Meds Claritin 10MG Oral Tablet 07/14/2021 12/26/2022 ORAL DAILY 1 TABLET 890937 RxNorm TAKE 1 TABLET ORAL DAILY for 1-2 weeks Pepcid 20MG Oral Tablet 07/14/2021 12/26/2022 ORAL TWICE A DAY 1 TABLET 089176 RxNorm TAKE 1 TABLET ORAL TWICE A DAY Ondansetron 4MG Oral Tablet, Disintegrating 12/26/2022 Unknown ORAL NEEDED EVERY 6 HOURS 1 TABLET 619054 RxNorm TAKE 1 TABLET ORAL NEEDED EVERY [...] Date Status Code Code System URTICARIA active 367437489 SNOMED-CT GASTRITIS active 8592185 SNOMED-CT Allergies and Adverse Reactions Allergy Substance Reaction Severity Start Date Concern Status Code Code System PENICILLINS (CLASS) Hives (SNOMED-CT: 021078303) Active 3747652 SNOMED-CT AMPICILLIN Hives (SNOMED-CT: 434053204) Active 733 RxNorm AMOXICILLIN Active 723 RxNorm Plan of Treatment Lab Draw 01/07/2021 LAB DRAW 15MIN 12/12/2023 LAB DRAW 15MIN 10/28/2023 PRE-OP COVID-19 TESTING 08/15/2021 LAB DRAW 15MIN 08/14/2021 LAB DRAW 15MIN 08/14/2021 US OB COMPLETE 04/23/2021 US ABDOMEN LIMITED 1 ORGAN 02/27/2021 US OB COMPLETE 01/29/2021 US OB COMPLETE 01/30/2021 Encounters Encounter Diagnosis Start Date Code Code Sys tem Spotting complicating , first trimester 11/12 SNOMED-CT Personal Care Team Section Performer Name Performer Role Active Date Inactive Da te
--- OUTSIDE RECORDS SUMMARY | 2023-12-21 03:32 | XMS_ITS ---
Author Organization Unknown Address [address] [place] [address] [phone] Phone Care Team Providers Care Elevator Operator Name Role Phone July Attending Unavailable ZACK Walker Primary Unavailable Social History Type Status Start Date End Date Code Code Syst em Smoking History Never smoker (Never Smoked) 368960806 SNOMED CT Sex Female Medications Medication Start Date End Date Route Frequency Dose Code Code System Medication Instructions Home Meds Claritin 10MG Oral Tablet 07/14/2021 12/26/2022 ORAL DAILY 1 TABLET 856150 RxNorm TAKE 1 TABLET ORAL DAILY for 1-2 weeks Pepcid 20MG Oral Tablet 07/14/2021 12/26/2022 ORAL TWICE A DAY 1 TABLET 056967 RxNorm TAKE 1 TABLET ORAL TWICE A DAY Ondansetron 4MG Oral Tablet, Disintegrating 12/26/2022 Unknown ORAL NEEDED EVERY 6 HOURS 1 TABLET 281023 RxNorm TAKE 1 TABLET ORAL NEEDED EVERY [...] Date Status Code Code System URTICARIA active 093052546 SNOMED-CT GASTRITIS active 9340074 SNOMED-CT Allergies and Adverse Reactions Allergy Substance Reaction Severity Start Date Concern Status Code Code System PENICILLINS (CLASS) Hives (SNOMED-CT: 569898781) Active 3294010 SNOMED-CT AMPICILLIN Hives (SNOMED-CT: 841852790) Active 733 RxNorm AMOXICILLIN Active 723 RxNorm Plan of Treatment Lab Draw 01/07/2021 LAB DRAW 15MIN 12/12/2023 LAB DRAW 15MIN 10/28/2023 PRE-OP COVID-19 TESTING 08/15/2021 LAB DRAW 15MIN 08/14/2021 LAB DRAW 15MIN 08/14/2021 US OB COMPLETE 04/23/2021 US ABDOMEN LIMITED 1 ORGAN 02/27/2021 US OB COMPLETE 01/29/2021 US OB COMPLETE 01/30/2021 Encounters Encounter Diagnosis Start Date Code Code Sys tem Encounter for insertion of i ntrauterine contraceptive device 09/01/2021 SNOMED-CT Personal Care Team Section Performer Name Performer Role Active Date Inactive Da te
--- OUTSIDE RECORDS SUMMARY | 2023-12-21 03:32 | XMS_ITS ---
Author Organization Unknown Address [address] [place] [phone] Phone Care Team Providers Care Manager Of Application Development Name Role Phone July Attending Unavailable ZACK Walker Primary Unavailable Social History Type Status Start Date End Date Code Code Syst em Smoking History Never smoker (Never Smoked) 957365734 SNOMED CT Sex Female Medications Medication Start Date End Date Route Frequency Dose Code Code System Medication Instructions Home Meds Claritin 10MG Oral Tablet 07/14/2021 12/26/2022 ORAL DAILY 1 TABLET 573504 RxNorm TAKE 1 TABLET ORAL DAILY for 1-2 weeks Pepcid 20MG Oral Tablet 07/14/2021 12/26/2022 ORAL TWICE A DAY 1 TABLET 324913 RxNorm TAKE 1 TABLET ORAL TWICE A DAY Ondansetron 4MG Oral Tablet, Disintegrating 12/26/2022 Unknown ORAL NEEDED EVERY 6 HOURS 1 TABLET 165365 RxNorm TAKE 1 TABLET ORAL NEEDED EVERY [...] Date Status Code Code System URTICARIA active 695895371 SNOMED-CT GASTRITIS active 3086763 SNOMED-CT Allergies and Adverse Reactions Allergy Substance Reaction Severity Start Date Concern Status Code Code System PENICILLINS (CLASS) Hives (SNOMED-CT: 827130461) Active 2360790 SNOMED-CT AMPICILLIN Hives (SNOMED-CT: 909608459) Active 733 RxNorm AMOXICILLIN Active 723 RxNorm [...] Code Sys tem Encounter for routine follow-up 08/14/2021 SNOMED-CT Personal Care Team Section Performer Name Performer Role Active Date Inactive Da te
--- OUTSIDE RECORDS SUMMARY | 2023-12-21 03:32 | XMS_ITS ---
Author Organization Unknown Address [address] [place] [address] [phone] Phone Care Team Providers Care Director Paid Media Name Role Phone MULU Leong Attending Unavailable ZACK Walker Primary Unavailable Social History Type Status Start Date End Date Code Code Syst em Smoking History Never smoker (Never Smoked) 756065128 SNOMED CT Sex Female Medications Medication Start Date End Date Route Frequency Dose Code Code System Medication Instructions Home Meds Claritin 10MG Oral Tablet 07/14/2021 12/26/2022 ORAL DAILY 1 TABLET 641467 RxNorm TAKE 1 TABLET ORAL DAILY for 1-2 weeks Pepcid 20MG Oral Tablet 07/14/2021 12/26/2022 ORAL TWICE A DAY 1 TABLET 040139 RxNorm TAKE 1 TABLET ORAL TWICE A DAY Ondansetron 4MG Oral Tablet, Disintegrating 12/26/2022 Unknown ORAL NEEDED EVERY 6 HOURS 1 TABLET 618792 RxNorm TAKE 1 TABLET ORAL NEEDED EVERY [...] Date Status Code Code System URTICARIA active 884022234 SNOMED-CT GASTRITIS active 2821858 SNOMED-CT Allergies and Adverse Reactions Allergy Substance Reaction Severity Start Date Concern Status Code Code System PENICILLINS (CLASS) Hives (SNOMED-CT: 933165091) Active 8819922 SNOMED-CT AMPICILLIN Hives (SNOMED-CT: 362739391) Active 733 RxNorm AMOXICILLIN Active 723 RxNorm Plan of Treatment Lab Draw 01/07/2021 LAB DRAW 15MIN 12/12/2023 LAB DRAW 15MIN 10/28/2023 PRE-OP COVID-19 TESTING 08/15/2021 LAB DRAW 15MIN 08/14/2021 LAB DRAW 15MIN 08/14/2021 US OB COMPLETE 04/23/2021 US ABDOMEN LIMITED 1 ORGAN 02/27/2021 US OB COMPLETE 01/29/2021 US OB COMPLETE 01/30/2021 Encounters Encounter Diagnosis Start Date Code Code Sys tem Encounter for removal of int rauterine contraceptive device 07/19/2022 SNOMED-CT Personal Care Team Section Performer Name Performer Role Active Date Inactive Da te
--- OUTSIDE RECORDS SUMMARY | 2023-12-21 03:33 | XMS_ITS ---
Author Organization Unknown Address [address] [place] [address] [phone] Phone Care Team Providers Care Universal Branch Consultant Name Role Phone NOEMÍ Amaral Attending Unavailable ZACK Walker Primary Unavailable Social History Type Status Start Date End Date Code Code Syst em Smoking History Never smoker (Never Smoked) 237207950 SNOMED CT Sex Female Medications Medication Start Date End Date Route Frequency Dose Code Code System Medication Instructions Home Meds Claritin 10MG Oral Tablet 07/14/2021 12/26/2022 ORAL DAILY 1 TABLET 755946 RxNorm TAKE 1 TABLET ORAL DAILY for 1-2 weeks Pepcid 20MG Oral Tablet 07/14/2021 12/26/2022 ORAL TWICE A DAY 1 TABLET 977764 RxNorm TAKE 1 TABLET ORAL TWICE A DAY Ondansetron 4MG Oral Tablet, Disintegrating 12/26/2022 Unknown ORAL NEEDED EVERY 6 HOURS 1 TABLET 535396 RxNorm TAKE 1 TABLET ORAL NEEDED EVERY [...] Date Status Code Code System URTICARIA active 596608789 SNOMED-CT GASTRITIS active 6794487 SNOMED-CT Allergies and Adverse Reactions Allergy Substance Reaction Severity Start Date Concern Status Code Code System PENICILLINS (CLASS) Hives (SNOMED-CT: 906357678) Active 7324298 SNOMED-CT AMPICILLIN Hives (SNOMED-CT: 400238208) Active 733 RxNorm AMOXICILLIN Active 723 RxNorm Plan of Treatment Lab Draw 01/07/2021 LAB DRAW 15MIN 12/12/2023 LAB DRAW 15MIN 10/28/2023 PRE-OP COVID-19 TESTING 08/15/2021 LAB DRAW 15MIN 08/14/2021 LAB DRAW 15MIN 08/14/2021 US OB COMPLETE 04/23/2021 US ABDOMEN LIMITED 1 ORGAN 02/27/2021 US OB COMPLETE 01/29/2021 US OB COMPLETE 01/30/2021 Encounters Encounter Diagnosis Start Date Code Code Sys tem Miscarriage without complication 11/29/2022 22483416 SNOMED-CT Personal Care Team Section Performer Name Performer Role Active Date Inactive Da te
--- OUTSIDE RECORDS SUMMARY | 2023-12-21 03:33 | XMS_ITS ---
Author Organization Unknown Address [address] [place] [address] [phone] Phone Care Team Providers Care Podiatric Aide Name Role Phone STEVE GIVENS Registered Nurse Unavailable CHAYA Cm Attending Unavailable ZACK Walker Primary Unavailable UNLISTED PROVIDER - REQUESTED Xhandoff Un available Results FECAL BACTERIAL PATHOGENS BY PCR - Collect Date/Time: 12/26/2022 09:57 [facility] ID: [id number] [address] [place] [address], [phone] LOINC: Test Value Unit Reference Range Code Code System Flag Salmonella PCR Negative Negative Shigella PCR Negative Negative Campylobacter PCR Negative Negative Shiga Toxin PCR Negative Negative OVA AND PARASITES - COMPLETE * - Collect Date/Time: 12/26/2022 09:57 [facility] ID: [id number] [address] [place] [address], [phone] LOINC: 84334-5 Test Value Unit Reference Range Code Code System Flag Parasite Growth No ova and parasites seen. OCCULT BLOOD STOOL 1 SCR NON -NEOPLASM* - Collect Date/Time: 12/26/2022 09:57 [facility] ID: [id number] [address] [place] [address], [id number] LOINC: 2335-8 Test Value Unit Reference Range Code Code System Flag OCCULT BLD,STOOL POSITIVE 2335-8 LOINC LACTOFERRIN DETECTION STOOL - Collect Date/Time: 12/26/2022 09:57 [facility] ID: [id number] [address] [place] [address], [id number] LOINC: 05106-5 Test Value Unit Reference Range Code Code System Flag Consistency: WATERY Lactoferrin stool POSITIVE CLOSTRIDIUM DIFFICILE BY PCR * - Collect Date/Time: 12/26/2022 09:57 [facility] ID: [id number] [address] [place] [address], [phone] LOINC: 19216-7 Test Value Unit Reference Range Code Code System Flag Consistency = WATERY 21178-6 LOINC C. DIFFICILE DNA NEGATIVE Normal: Negative 79286-9 LOINC TEST QUAL (URINE) - Collect Date/Time: 12/26/2022 09:15 [facility] ID: [id number] [address] [place] [address], [address] LOINC: 2106-3 Test Value Unit Reference Range Code Code System Flag TEST NEGATIVE 2106-3 LOINC URINALYSIS WITH REFLEX CULT IF POSITIVE* - Collect Date/Time: 12/26/2022 09:15 [facility] ID: [id number] [address] [place] [address], 5661 LOINC: 75742-6 Test Value Unit Reference Range Code Code System Flag COLLECTION MODE: CLEAN CATCH 45096-8 LOINC Color YELLOW yellow 5778-6 LOINC Appearance CLEAR clear 5767-9 LOINC Glucose urine NEGATIVE negative mg/dl 18091-2 LOINC Bilirubin MODERATE negative 5770-3 LOINC A Ketones >=80 negative mg/dl 2514-8 LOINC A Spec gravity >=1.030 1.003 - 1.030 5811-5 LOINC pH urine 6.0 5.0 - 7.0 2756-5 LOINC Protein 30 negative mg/dl 09210-5 LOINC A Urobilinogen 0.2 <or= 1 EU/dl 29204-2 LOINC Nitrite. NEGATIVE negative 5802-4 LOINC Blood MODERATE negative 5794-3 LOINC A Leukocytes. NEGATIVE negative MICROSCOPIC INDICATED WBCs. 0-5 0-5 / hpf 66574-5 LOINC RBCs 5-10 0-5 / hpf 07761-7 LOINC Epith cells 5-10 0-5 / hpf 32195-4 LOINC Cell types squamous Crystals amorphous none Bacteria moderate none Mucus present none 8247-9 LOINC Casts 25-100 none /lpf 88197-9 LOINC Cast types hyaline Other 41373-3 LOINC CBC W/ DIFFERENTIAL* - Colle ct Date/Time: 12/26/2022 09:15 [facility] ID: [id number] [address] [place], [place], [address] LOINC: 04546-4 Test Value Unit Reference Range Code Code System Flag WBC 9.00 th/cmm L=5.00 H=10.00 6690-2 LOINC NEUT % 84.6 % L=40.0 H=80.0 H LYMPH % 8.1 % L=10.0 H=50.0 L MONO % 6.7 % L=2.0 H=12.0 14003-6 LOINC EOS % 0.0 % L=0.0 H=8.0 BASO % 0.3 % L=0.0 H=3.0 IG % 0.3 % L=0.0 H=1.1 2514-8 LOINC NRBC % 0.0 % L=0.0 H=0.0 44458-3 LOINC NEUT abs count 7.6 th/cmm L=1.6 H=8.4 751-8 LOINC LYMPH abs count 0.7 th/cmm L=1.5 H=4.0 731-0 LOINC L MONO abs count 0.6 th/cmm L=0.2 H=1.0 742-7 LOINC EOS abs count 0.0 th/cmm L=0.0 H=0.5 711-2 LOINC BASO abs count 0.0 th/cmm L=0.0 H=0.2 704-7 LOINC IG abs count 0.0 th/cmm L=0.0 H=0.1 84848-9 LOINC NRBC abs count 0.0 mil/cmm L=0.0 H=0.0 02424-4 LOINC RBC 5.59 mil/cmm L=3.90 H=5.40 789-8 LOINC H HEMOGLOBIN 15.9 gm/dL L=12.0 H=16.0 718-7 LOINC HEMATOCRIT 50 % L=37 H=47 4544-3 LOINC H MCV 89 fL L=82 H=92 787-2 LOINC MCH 28.4 pg L=27.0 H=31.0 785-6 LOINC MCHC 31.9 % L=32.0 H=36.0 786-4 LOINC L RDW-SD 41.7 fL L=39.0 H=49.0 788-0 LOINC PLATELET COUNT 257 th/cmm L=150 H=450 777-3 LOINC BASIC METABOLIC PANEL (BMP) - Collect Date/Time: 12/26/2022 09:15 [facility] ID: [id number] [address] [place], [place], [facility] LOINC: 24464-7 Test Value Unit Reference Range Code Code System Flag GLUCOSE 93 mg/dL L=70 H=116 2345-7 LOINC BUN 19 mg/dL L=6 H=25 3094-0 LOINC CREATININE 1.18 mg/dL L=0.51 H=0.95 2160-0 LOINC H SODIUM SERUM 136 mmol/L L=136 H=145 2951-2 LOINC POTASSIUM SERUM 3.4 mmol/L L=3.4 H=5.2 2823-3 LOINC CHLORIDE SERUM 98 mmol/L L=96 H=110 2075-0 LOINC CARBON DIOXIDE (CO2) 21 mmol/L L=22 H=34 2028-9 LOINC L ANION GAP 17.4 mmol/L 40455-0 LOINC CALCIUM SERUM 9.2 mg/dL L=8.2 H=10.2 26759-8 LOINC AGE 32 years eGFR (non-Afr.Amer.) 54 mL/min 04739-4 LOINC eGFR (Afr-Hungarian) 65 mL/min 38915-7 LOINC Social History Type Status Start Date End Date Code Code Syst em Smoking History Never smoker (Never Smoked) 458116371 SNOMED CT Sex Female Vital Signs Vital Sign Value Unit [place] Value [place] Unit Date/Time Recent/Initial? Code Code System Body Mass Index 22.46 kg/m2 12/26/2022 09:07 Initial 88255 -5 LOINC Systolic Blood Pressure 107 mm[Hg] 12/26/2022 11:18 Most Recent 8480- 6 LOINC Diastolic Blood Pressure 75 mm[Hg] 12/26/2022 11:18 Most Recent 8462- 4 LOINC Systolic Blood Pressure 113 mm[Hg] 12/26/2022 09:07 Initial 8480- 6 LOINC Diastolic Blood Pressure 86 mm[Hg] 12/26/2022 09:07 Initial 8462- 4 LOINC Body Surface Area 1.68 m2 12/26/2022 09:07 Initial 3140- 1 LOINC Height 165.100 0 cm 65.00 in 12/26/2022 09:07 Initial 8302- 2 LOINC O2 Saturation 98 % 2022 11:18 Most Recent 47615 -5 LOINC O2 Saturation 100 % 2022 09:07 Initial 70655 -5 LOINC Pulse 78.0 /min 12/26/2022 11:18 Most Recent 8867- 4 LOINC Pulse 106.0 /min 12/26/2022 09:07 Initial 8867- 4 LOINC Respiration 16 /min 12/27/19 11:18 Most Recent 9279- 1 LOINC Respiration 18 /min 12/27/19 09:07 Initial 9279- 1 LOINC Temperature 35.7 Saumya 96.3 F 12/27/19 11:18 Most Recent 8310- 5 LOINC Temperature 35.0 Saumya 95.0 F 12/27/19 09:07 Initial 8310- 5 LOINC Weight 61.23 kg 135.00 lbs 12/26/2022 09:07 Initial 10629 -7 LOINC Medications Medication Start Date End Date Route Frequency Dose Code Code System Medication Instructions Home Meds Claritin 10MG Oral Tablet 07/14/2021 12/26/2022 ORAL DAILY 1 TABLET 256663 RxNorm TAKE 1 TABLET ORAL DAILY for 1-2 weeks Pepcid 20MG Oral Tablet 07/14/2021 12/26/2022 ORAL TWICE A DAY 1 TABLET 350326 RxNorm TAKE 1 TABLET ORAL TWICE A DAY Ondansetron 4MG Oral Tablet, Disintegrating 12/26/2022 Unknown ORAL NEEDED EVERY 6 HOURS 1 TABLET 169212 RxNorm TAKE 1 TABLET ORAL NEEDED EVERY [...] Date Status Code Code System URTICARIA active 978653621 SNOMED-CT GASTRITIS active 7162309 SNOMED-CT Allergies and Adverse Reactions Allergy Substance Reaction Severity Start Date Concern Status Code Code System PENICILLINS (CLASS) Hives (SNOMED-CT: 657631034) Active 5138151 SNOMED-CT AMPICILLIN Hives (SNOMED-CT: 494656620) Active 733 RxNorm AMOXICILLIN Active 723 RxNorm Plan of Treatment Lab Draw 01/07/2021 LAB DRAW 15MIN 12/12/2023 LAB DRAW 15MIN 10/28/2023 PRE-OP COVID-19 TESTING 08/15/2021 LAB DRAW 15MIN 08/14/2021 LAB DRAW 15MIN 08/14/2021 US OB COMPLETE 04/23/2021 US ABDOMEN LIMITED 1 ORGAN 02/27/2021 US OB COMPLETE 01/29/2021 US OB COMPLETE 01/30/2021 Encounters Encounter Diagnosis Start Date Code Code Sys tem Infectious gastroenteritis 12/26/2022 72360169 S NOMED-CT Personal Care Team Section Performer Name Performer Role Active Date Inactive Romeo quintana
--- OUTSIDE RECORDS SUMMARY | 2023-12-21 03:34 | XMS_ITS | Encounter Summary ---
Author Organization [facility] Address [address] [place] [address] Care Team Providers Care Intelligence Group Supervisor Name Role Phone Ofelia Pierce NP Primary Care Provider [phone] Desiree Park MD Unavailable [phone] Encounter Details Date Type Department Care Team (Late st Contact Info) Description 06/02/2023 Lab Requisition [facility] Pathology & Laboratory Medicine - [address] [address] Outr Resulting Lab, Provider Social History Tobacco Use Types Packs/Day Years Used Date Smoking Tobacco: Never Smokeless Tobacco: Never Alcohol Use Standard Drinks/Week Comments Not Currently 0 (1 standard drink = 0.6 oz pur e alcohol) none since 01/2020 Sex and Gender Information Value Date Recorded Sex Assigned at Female 08/28/2021 10:44 EDT Gender Identity Female 07/30/2021 8:31 EDT Sexual Orientation Straight 08/28/2021 10 :44 EDT documented as of this encounter Functional Status Functional Status Response Date of Assess ment Because of a physical, menta l, or emotional condition, does this person have difficulty doing errands alone such as visiting a doctor's office or shopping? No 06/09/2021 Cognitive Status Response Date of Assessm ent Because of a physical, menta l, or emotional condition, does this person have serious difficulty concentrating, remembering, or making decisions? No 06/09/2021 documented as of this encounter Plan of Treatment Not on file documented as of this encounter Procedures Procedure Name Priority Date/Time Associated Diagnosis Comments HN LAB PATH REVIEW - COAG Today 06/02/2023 16:44 EST LUPUS ANTICOAGULANT CASCADE Routine 06/02/2023 16:44 EST documented in this encounter Results * HN LAB PATH REVIEW - COAG (06/02/2023 16:44 EST) Pathology Review Comment - Coagulation Desiree Araujo MD MSc 06/06/2023 13:00 EST [facility] Blood VENOUS BLOOD / Unknown 06/02/2023 16:44 EST 06/02/2023 21:56 EST Provider Outr Resulting Lab HEMATOLOGY & PF4 ORDERABLES Performing Organization Address City/State/[facility] Co de Phone Number [facility] [address] [place] [address] * LUPUS ANTICOAGULANT CASCADE (06/02/2023 16:44 EST) [place] Summary INTERPRETATION: Negative for the detection of a Lupus Anticoagulant (LA). Where clinical suspicion for antiphospholipid syndrome is high, it may be appropriate to perform alternative testing for antiphospholipid syndrome. COMMENTS Please note testing for Lupus Anticoagulant (LA) during an acute thrombotic event/acute illness may demonstrate either false positive or false negative results; retesting following the acute event should be considered, regardless of the initial results. DIAGNOSTIC CRITERIA FOR APLS: The laboratory criteria for antiphospholipid syndrome include positive testing for one of the following on 2 or more occasions, at least 12 weeks apart: ?? 1. Lupus anticoagulant (LA), 2. Cardiolipin antibodies (IgG or IgM) in medium or high titer, ?? 3. Beta2-glycoprotein 1 antibodies (IgG or IgM) in medium or high titer. Solid-phase assays for Beta2 glycoprotein 1 (B2GP1) and Cardiolipin (Phospholipid) antibodies are recommended when evaluating a patient for antiphospholipid syndrome. Correlation with those results is advised. ?? HEPARIN MONITORING: An anti-Xa activity test is the preferred test to monitor unfractionated heparin levels. The aPTT test may be unreliable in patients with antiphospholipid syndrome. ?? DIAGNOSTIC THRESHOLD FOR LA CASCADE: The [facility] applies the International Society of Thrombosis and Hemostasis (ISTH) guidelines to interpret the normalized ratio (Test Ratio (TR) Ratio) results of the dilute Tanner viper venom time (DVV) and the silica clot time (SCT); these guidelines suggest a TR Ratio greater than the 99% is positive for the detection of a Lupus Anticoagulant (LA). ??Based on locally established reference values from normal donors, the 99% for the DVV is >1.18 and the 99% is >1.21 for the SCT (this information is provided with the patient's results in the Lupus Anticoagulant Panel results, below). ?? Please note guidelines do vary, and the Clinical Laboratory Standards [place] (CLSI) recommends a TR Ratio greater than +2 standard deviation (SD) as positive for the detection a Lupus Anticoagulant (LA). ??Based on locally established reference values from normal donors, the +2SD for the DVV is > 1.14 and the +2SD for the SCT is >1.20. ? [place] Panel Results: Qualitative Anti-Xa: ??No Anti-Xa detected. Thrombin Time: ??15.3 secs (Ref Range: <=20.0 secs) Silica Clotting Time: ??46.2 secs (Ref Range: 33.9-55.0 secs) Silica Clot Confirm: ??40.8 secs (Ref Range: 28.0-50.9 secs) Silica Clot TR Ratio: ??1.02 (Ref Range: <=1.21) Dilute Viper Venom: ??32.4 secs (Ref Range: 27.2-39.8 secs) Dilute Jani Viper Venom Time Confirm: ??31.3 secs (Ref Range: 26.8-34.4 secs) DVV TR Ratio: ??0.95 (Ref Range: <=1.18) 06/06/2023 13:01 EST [facility] Blood VENOUS BLOOD / Unknown 06/02/2023 16:44 EST 06/02/2023 21:56 EST Provider Outr Resulting Lab HEMATOLOGY & PF4 ORDERABLES [facility] [address] [place] [address] documented in this encounter Visit Diagnoses Not on filedocumented in this encounter Care Teams Intelligence Group Supervisor Relationship Specialty Start Date End Date Ofelia Pierce NP [address] [place], [place] [id number] PCP - General 03/31/21 Desiree Park MD [address] [place] [phone] 03/23/21 documented as of this encounter
--- OUTSIDE RECORDS SUMMARY | 2023-12-21 03:34 | XMS_ITS | Encounter Summary ---
Author Organization [facility] Address [address] [place] [address] Care Team Providers Care Mapping Engineer Name Role Phone Ofelia Pierce NP Primary Care Provider [phone] Desiree Prak MD Unavailable [phone] Encounter Details Date Type Department Care Team (Late st Contact Info) Description 04/14/2023 Lab Requisition [facility] Pathology & Laboratory Medicine - [address] [address] Florian Durand MD [address] [place] [address] Encounter for other general examination Social History Tobacco Use Types Packs/Day Years [...] Procedure Name Priority Date/Time Associated Diagnosis Comments CHROMOSOME ANALYSIS Today 04/14/2023 1 6:02 EST documented in this encounter Results * CHROMOSOME ANALYSIS (04/14/2023 16:02 EST) CYTOGENETICS INTERPRETATION Products of conception with a normal female karyotype. 05/12/2023 7:33 [facility] Comment In 46,XX products of conception, maternal cell contamination is possible. 05/12/2023 7:33 [facility] Attestation By the signature below, the attending physician certifies that they have 1) personally conducted a gross and/or microscopic examination of the described specimen(s), and/or personally interpreted the results of laboratory testing of the described specimen(s), and 2) personally rendered or confirmed the above diagnosis. 05/12/2023 7:33 [facility] at 0732 Clinical History 8 week miscarriage. Anembryonic by V.Guido Hx of two previous miscarriages 05/12/2023 7:33 [facility] Testing Performed G-banded karyotype 05/12/2023 7:33 [facility] Report Cells counted: 30 Cells analyzed: 10 Cells karyotyped: 10 Band resolution: 400 05/12/2023 7:33 [facility] Karyotype 46,XX 05/12/2023 7:33 [facility] Scanned Images 05/12/2023 7:33 [facility] ZZUNK PRODUCTS OF CONCEPTION TISSUE SPECIMEN / Unknown 04/14/2023 16:02 EST 04/15/2023 9:38 EST Florian Durand MD PATHOLOGY ORDERABLES [facility] [address] [place] [address] documented in this encounter Visit Diagnoses Diagnosis Encounter for other general examination documented in this encounter Care Teams Mapping Engineer Relationship Specialty Start Date End Date Ofelia Pierce NP [address] [place] [address] PCP - General 03/31/21 Desiree Park MD [address] [place] [address] 03/23/21 documented as of this encounter
--- OUTSIDE RECORDS SUMMARY | 2023-12-21 03:34 | XMS_ITS | Encounter Summary ---
Author Organization [facility] Address [address] [place] [address] Care Team Providers Care Wood Furniture Assembler Name Role Phone Ofelia Pierce NP Primary Care Provider [phone] Desiree Park MD Unavailable [phone] Encounter Details Date Type Department Care Team (Late st Contact Info) Description 06/02/2023 Lab Requisition [facility] Pathology & Laboratory Medicine - [address] [address] Outr Resulting Lab, Provider Social History Tobacco [...] Procedure Name Priority Date/Time Associated Diagnosis Comments THYROPEROXIDASE ANTIBODY Routine 06/02/2023 16:44 EST documented in this encounter Results * THYROPEROXIDASE ANTIBODY (06/02/2023 16:44 EST) Thyroperoxidase Ab 30 <=60 U/mL 2023 23:06 EST [facility] Blood VENOUS BLOOD / Unknown 06/02/2023 16:44 EST 06/02/2023 22:13 EST Provider Outr Resulting Lab CHEMISTRY & BLOOD GAS ORDERABLES Performing Organization Address City/State/[facility] Co de Phone Number [facility] [address] [place] [address] documented in this encounter Visit Diagnoses Not on filedocumented in this encounter Care Teams Wood Furniture Assembler Relationship Specialty Start Date End Date Ofelia Pierce NP [address] [place] [address] PCP - General 03/31/21 Desiree Park MD [address] [place] [address] 03/23/21 documented as of this encounter
--- OUTSIDE RECORDS SUMMARY | 2023-12-21 03:34 | XMS_ITS | Encounter Summary ---
Author Organization [facility] Address [address] [place] [address] Care Team Providers Care Center Mgr Name Role Phone Ofelia Pierce NP Primary Care Provider [phone] Desiree Park MD Unavailable [phone] Reason for Visit * Reason Comments New Patient Visit gallbladder disease affecting in third trimester * Consult (Routine/Next Available) - Order Cancelled Specialty Diagnoses / Procedures Referred By Jose ventura Referred To Contact General Surgery Diagnoses Gallbladder polyp Right upper quadrant abdominal pain affecting in third trimester Gallbladder disease affecting in third trimester Nika Holman MD [address] [place] [address] Surgery [address] [place] [address] Referral ID Status Reason Start Date Expiration Date Visits Requested Visits Authorized [id number] Order Cancelled Specialty Services Required 1 1 1 Encounter Details Date Type Department Care Team (Late st Contact Info) Description 08/06/2021 13:00 EDT Office Visit [facility] General Surgery - Main [place] [address] [place], [place] [address] Maria Eugenia Ivan MD [address] [place] [phone] Gall bladder polyp (Primary Dx) Social History Tobacco Use Types Packs/Day Years Used Date Smoking Tobacco: Never Smokeless Tobacco: Never Alcohol Use Standard Drinks/Week Comments Not Currently 0 (1 standard drink = 0.6 oz pur e alcohol) Comments Yes Sex and Gender Information Value Date Recorded Sex Assigned at Female 08/28/2021 10:44 EDT Gender Identity Female 07/30/2021 8:31 EDT Sexual Orientation Straight 08/28/2021 10 :44 EDT documented as of this encounter Last [...] No 06/09/2021 documented as of this encounter Progress Notes * Maria Eugenia Ivan MD - 08/06/[address] [facility] General Surgery Consultation Note - Initial Visit Note Date: 08/06/2021 Patient: Lina Segura Subjective: Lina Segura is a 30 y.o. female who presents today for New Patient Visit (gallbladder disease affecting in third trimester) I am seeing Lina Butch Imelda in consultation, at the request of Ofelia [...] allergies, immunizations, and medications were documented, reviewed, and updated as follows: Patient Active Problem List Diagnosis ??? Telangiectasia ??? [place] stain of skin ??? Myopia ??? Astigmatism ??? Gallbladder polyp ??? Right upper quadrant abdominal pain affecting in third trimester ??? Gallbladder disease affecting in third trimester Allergies: Amoxicillin, Pcn [penicillins], and Penicillins Immunizations: Immunization History Administered Date(s) Administered ??? Covid-19 mRNA Vaccine (Poacht App COVID-19) PF 0.3 ml IM (12 yrs+) [...] level: Not on file Occupational History Employer: [employer] Tobacco Use ??? Smoking status: Never Smoker ??? Smokeless tobacco: Never Used Substance and Sexual Activity ??? Alcohol use: Not Currently ??? Drug use: Never ??? Sexual activity: Not on file Other Topics Concern ??? 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 Social Determinants of Health Financial Resource Strain: [...] Her behavior is normal. Judgment and thought contentnormal. Laboratory: Office Visit on 06/09/2021 Component Date Value Ref Range Status ??? Color, UA 06/09/2021 Yellow Yellow Final ??? Clarity, UA 06/09/2021 Slightly Cloudy (A) Clear Final ??? Glucose, UA 06/09/2021 Negative Negative mg/dL Final ??? Bilirubin, UA 06/09/2021 Negative Negative Final ??? Ketones, UA 06/09/2021 Negative Negative mg/dL Final ??? Specific [place], Urine 06/09/2021 1.020 1.001 - 1.035 Final [...] the risks of the potential complications. The risks include but are not limited to, infection with abscess formation, bleeding due to injury of the nearby structures, liver, stomach, small, large bowel, common bile duct injury and bile leak. There could also be the need for re-operation. Post-operative recovery was discussed, as well as the need for post surgery follow-up.She understands very well that her GB may or may not play a part in her upper abdominal symptoms & these symptoms may persist after surgery. The patient understand the risks; any and all questions were answered to the patient's satisfaction. She was advised to come to our emergency room if symptoms worsen. She will decide if she wants surgery and if so, will be scheduled for elective procedure, and she needs a test on day of flores rg. If she does not want surgery, she [...] on file documented as of this encounter Visit Diagnoses Diagnosis Gall bladder polyp- Primary Cholesterolosis of gallbladder documented in this encounter Care Teams Center Mgr Relationship Specialty Start Date End Date Ofelia Pierce NP [address] [address] PCP - General 03/31/21 Desiree Park MD [address] [place] [address] 03/23/21 documented as of this encounter
--- OUTSIDE RECORDS SUMMARY | 2023-12-21 03:34 | XMS_ITS | Encounter Summary ---
Author Organization [facility] Address [address] [place] [address] Care Team Providers Care Pelt Salter Name Role Phone Ofelia Pierce FOIL SPOOLER Primary Care Provider Desiree Park MD Unavailable [phone] Encounter Details Date Type Department Care Team (Late st Contact Info) Description 09/06/2022 Lab Requisition [facility] Pathology & Laboratory Medicine - [facility] [address] [place] [address] Ofelia Peirce, FOIL SPOOLER [address] [place] [id number] Encounter for other general examination Social History [...] Procedure Name Priority Date/Time Associated Diagnosis Comments PAP TEST Today 09/06/2022 10:00 EDT Encounter for other general examination CHLAMYDIA/N. GONORRHOEAE AMPLIFIED NUCLEIC ACID, THINPREP Today 09/06/2022 10:00 EDT HPV DNA DETECTION WITH GENOTYPING, PCR Today 09/06/2022 10:00 EDT Encounter for other general examination documented in this encounter Results * HUMAN PAPILLOMAVIRUS (HPV) DETECTION-HIGH RISK TYPES (09/06/2022 10:00 EDT) HPV other High Risk types, PCR Negative Negative 09/15/2022 19:12 EDT [facility] Comment:No E6 or E7 mRNA is detected from HPV types 16,18,31,33,35,39,45,51,52,56,58,59,66, and 68 by information clerk brokerage mediated amplification. Papanicolaou smear specimen (specimen) CERVIX UTERI STRUCTURE / Unknown 09/06/2022 10:00 EDT 09/15/2022 9:10 EDT Ofelia Pierce NP MICROBIOLOGY - GENER AL ORDERABLES [facility] [address] [place] [address] * PAP TEST (09/06/2022 10:00 EDT) Specimens A. Cervix and/or Endocervix , ThinPrep Imaging System with Manual Evaluation 09/15/2022 19:12 EDT [facility] Specimen Adequacy Satisfactory for Evaluation - transformation zone component present 09/15/2022 19:12 EDT [facility] General Categorization Negative for intraepithelial lesion or malignancy 09/15/2022 19:12 EDT [facility] Attestation . 09/15/2022 19:12 EDT [facility] at 1912 Clinical History See below 09/16/19 19:12 EDT [facility] HPV The result for the Human Papillomavirus (HPV) Detection-High Risk Types is Negative. No E6 or E7 mRNA is detected from HPV types 16,18,31,33,35,39 ,45,51,52,56,58,5 9,66, and 68 by information clerk brokerage mediated amplification.Vesna ting was performed on specimen [id number] and was resulted on 09/15/20221911 EDT by MATT, LAB INSTRUMENT RESULTS IN 09/15/2022 19:12 EDT [facility] Performing Lab [facility] 09/15/2022 19:12 EDT [facility] Scanned Images 09/15/2022 19:12 EDT [facility] Papanicolaou smear specimen (specimen) CERVIX UTERI STRUCTURE / Unknown 09/06/2022 10:00 EDT 09/07/2022 12:50 EDT Ofelia Pierce NP PATHOLOGY ORDERABLES Performing Organization Address City/[facility]/ZIP Co de Phone Number [facility] [address] [place] [address] * CHLAMYDIA/N. GONORRHOEAE AMPLIFIED RNA, THINPREP (09/06/2022 10:00 EDT) Neisseria gonorrhoeae Result Negative Negative 09/07/2022 14:14 EDT [facility] Chlamydia trachomatis Result Negative Negative 09/07/2022 14:14 EDT [facility] Papanicolaou smear specimen (specimen) CERVIX UTERI STRUCTURE / Unknown 09/06/2022 10:00 EDT 09/07/2022 8:57 EDT Ofelia Pierce NP MICROBIOLOGY - GENER AL ORDERABLES Performing Organization Address City/[facility]/ZIP Co de Phone Number [facility] [address] [place] [phone] documented in this encounter Visit Diagnoses Diagnosis Encounter for other general examination documented in this encounter Care Teams Pelt Salter Relationship Specialty Start Date End Date Ofelia Pierce NP [address] [place] [address] PCP - General 03/31/21 Desiree Park MD [address] [place] [address] 03/23/21 documented as of this encounter
--- OUTSIDE RECORDS SUMMARY | 2023-12-21 03:34 | XMS_ITS | Encounter Summary ---
Author Organization [facility] Address [address] [place] [address] Care Team Providers Care Public Administration Professor Name Role Phone Ofelia Pierce NP Primary Care Provider [phone] Desiree Park MD Unavailable [phone] Reason for Visit * Radiology Services (Routine/Next Available) - Authorization Not Required Specialty Diagnoses / Procedures [facility] Referred To Contact Diagnoses Nephrolithiasis Procedures CT RENAL STONE Willam Jacinto MD [address] [place] [phone] [facility] Referral ID Status Reason Start Date Expiration Date Visits Requested Visits Authorized [id number] Authorization Not Required 06/09/2021 1 1 Encounter Details Date Type Department Care Team (Latest Contact Info) Description 08/11/2021 11:22 EDT - 08/11/2021 23:59 EDT Hospital Encounter [facility] Radiology CT - Main [place] [address] [place] [address] Discharge Disposition: Home or Self Care Social History Tobacco Use Types Packs/Day Years [...] No 06/09/2021 documented as of this encounter Medications at Time of Discharge Medication Sig Dispensed Refills Start Date End Date acetaminophen (TYLENOL) 500 mg tablet Take 2 Tablets by mouth every 6 hours as needed for Pain. 08/19/2021 vit no.124/iron/folic ( VITAMIN ORAL) Take 1 Tablet by mouth daily. Triamcinolone Acetonide 0.05 % ointment Apply 0.1 % topically 2 times daily. acetaminophen (TYLENOL) 500 mg tablet Take 500 mg by mouth every 6 hours as needed for Pain. 08/19/2021 calcium carbonate (TUMS) 200 mg calcium (500 mg) tablet,chewable Take 1 Tablet by mouth 4 times daily as needed. 08/19/2021 HYDROmorphone (DILAUDID) 2 mg tablet Take 1 Tablet by mouth every 4 hours as needed for Pain. Daily Max: 12 mg 8 Tablet 08/19/2021 08/28/2021 norgestimate-ethinyl estradiol (ORTHO TRI-CYCLEN LO) 0.18/0.215/0.25 mg-25 mcg tablet Take 1 Tab by mouth daily. 08/18/2021 documented as of this encounter Discharge Disposition Disposition Code Departure Means Destination Home or Self Care documented in this encounter Plan of Treatment Not on file documented as of this encounter Procedures Procedure Name Priority Date/Time Associated Diagnosis Comments CT RENAL STONE Routine 08/11/2021 11:42 EDT Nephrolithiasis documented in this encounter Results * CT RENAL STONE (08/11/2021 11:42 EDT) Anatomical Region Laterality Modality Body, Abdomen Computed Tomogra phy 08/11/2021 13:1 3 EDT Impressions 08/11/2021 13:13 EDT No urinary tract calculi or obstruction.. I have personally reviewed the images and the above interpretation and agree with the findings. Narrative 08/11/2021 13:[address] RENAL STONE ??08/11/2021 12:00 PM Signs and Symptoms/Comments: ?? Urinary tract stone, uncomplicated Technique: Axial CT images obtained from abdomen immediately superior to level of kidneys through the pelvis without administration of contrast of any kind. Sagittal and coronal reformats generated. Comparison: Outside right upper quadrant ultrasound. No prior CTs. Findings: Kidneys and ureters: No hydronephrosis or urolithiasis. No contour deforming renal lesion. No [...] gallbladder is normal. Unenhanced spleen, pancreas, adrenal glands: No pancreatic ductal dilatation or peripancreatic fat stranding.. The spleen and adrenals are normal. Bowel: No obstruction or acute inflammatory changes. Normal appendix. Peritoneal cavity: No free air or fluid. Abdominal wall: No bowel-containing hernias. Lymphovascular: The aorta is nonaneurysmal. No lymphadenopathy. Musculoskeletal: No concerning osseous lesions. Mri Special Procedures Technologist: No additional findings. Procedure Note Low Eaton MD - 08/11/2021 CT RENAL STONE 08/11/2021 12:00 PM Signs and Symptoms/Comments: Urinary tract stone, uncomplicated Technique: Axial CT images obtained from abdomen immediately superior to level ofkidneys through the pelvis without administration of contrast of any kind.Sagittal and coronal reformats generated. Comparison: Outside right upper quadrant ultrasound. No prior CTs. Findings: Kidneys and ureters: No hydronephrosis or urolithiasis. No contourdeforming renal lesion. No hydronephrosis. Ureters of normal caliber. Nocalculi along the course of ureter, small calcifications in deep pelvisare likely phleboliths and are external to course of ureter. Bladder: Unremarkable. No stones. Uterus, adnexa: Unremarkable for age. No adnexal mass. Included lung bases: Clear. Unenhanced liver and gallbladder, as far as included: No contour deforminghepatic lesions or biliary ductal dilatation. The gallbladder is normal. Unenhanced spleen, pancreas, adrenal glands: No pancreatic ductaldilatation or peripancreatic fat stranding.. The spleen and adrenals arenormal. Bowel: No obstruction or acute inflammatory changes. Normal appendix. Peritoneal cavity: No free air or fluid. Abdominal wall: No bowel-containing hernias. Lymphovascular: The aorta is nonaneurysmal. No lymphadenopathy. Musculoskeletal: No concerning osseous lesions. Mri Special Procedures Technologist: No additional findings. IMPRESSION No urinary tract calculi or obstruction.. I have personally reviewed the images and the above interpretation andagree with the findings. Willam Jacinto MD IMG CT ORDERA BLES documented in this encounter Visit Diagnoses Not on filedocumented in this encounter Care Teams Public Administration Professor Relationship Specialty Start Date End Date Ofelia Pierce NP [address] [address] PCP - General 03/31/21 Desiree Park MD [address] [place] [address] 03/23/21 documented as of this encounter
--- OUTSIDE RECORDS SUMMARY | 2023-12-21 03:34 | XMS_ITS | Encounter Summary ---
Author Organization [facility] Address [address] [place] [address] Care Team Providers Care Sow Farm Manager Name Role Phone Ofelia Pierce NP Primary Care Provider [phone] Desiree Park MD Unavailable [phone] Reason for Visit * Auth/Cert Specialty Diagnoses / Procedures [facility] Referred To Contact Diagnoses Biliary colic Procedures TX LAP,CHOLECYSTECTOMY laparoscopic and possible open cholecystectomy and possible intraoperative cholangiography (XRY). Referral ID Status Reason Start Date Expiration Date Visits Re quested Visits Authorized [id number] 05/01/2022 1 1 Encounter Details Date Type Department Care Team (Late st Contact Info) Description 08/19/2021 7:25 EDT Anesthesia Event [facility] [place] [address] [place] [phone] Marely Angela MD [address] [place] [phone] Ge Tucker AA [address] [place] [phone] Anesthesia Record Procedure Summary Procedure Name Responsible Anesthesiologist Anesthesia Start Time Anesthesia Stop Time laparoscopic and possible open cholecystectomy and possible intraoperative cholangiography (XRY). (Abdomen) Marely Angela MD 08/19/21 0725 08/19/21 0915 Events Date Time Event Comment 08/19/2021 0725 An Start The patient was re-evaluated immediately before moderate or deep sedation use, before anesthesia induction, or before the anesthesia procedure. 0725 An Start Data 0737 An Induction The patient was reevaluated immediately before moderate or deep sedation use and before anesthesia induction. 0742 An Intubation 0748 Anesthesia Ready 0903 An Extubation Neuromuscular blockade reversed with full TOF and sustained tetanus. Patient spontaneously breathing. Oropharynx suctioned and patient extubated awake. Airway patent post-extubation. To PACU with 3 L supplemental oxygen via nasal cannula. VSS 0909 an stop data 0913 Handoff to RN I completed my handoff to the receiving nurse during which we: 1. Identified the patient 2. Identified the responsible provider 3. Reviewed the pertinent medical history 4. Discussed the surgical course 5. Reviewed intra-op anesthesia management and issues during anesthesia 6. Set expectations for post-procedure period 7. Allowed opportunity for questions and acknowledgement of understanding. 0915 An Stop Meds Name Total dexaMETHasone (DECADRON) injection 4 mg/ mL (for IV doses up to 10mg) 8 mg fentanyl citrate (PF) injection 200 mcg glycopyrrolate pre-filled syringe 0.2 mg HYDROmorphone vial 2 mg/mL 0.8 mg ketAMINE 5 mL prefilled syringe 20 mg ondansetron (PF) (ZOFRAN) injection 4 mg lidocaine 2% (PF) injection glass vial 6 0 mg propOFol (DIPRIVAN) injection 150 mg propOFol injection 770,588 mcg rocuronium 10 mg/mL vial 70 mg sugammadex 100 mg/mL 2 mL vial 200 mg dexmedetomidine injection - vial 45.49 m cg ceFAZolin (ANCEF) syringe 2 g 2 g labetalol 5 mg/mL 20 mL vial 50 mg ketOROLAC injection 30 mg lactated ringers (LR) infusion 1,000 mL * Agents Name O2 N2O Air * Blood No blood administrations on file. Lines, Drains, and Airways Type Details Placement Removal Wound 08/19/21; 0807; Ante rior; Abdomen; Trocar Sites x4 for Laparoscopic Cholecystectomy; N; Full thickness 08/19/21 0807 by Shital Palomino RN Peripheral IV 08/19/21; 0647; 20; 1.25; B Peters Introcan; Left, Posterior; Hand; Inserted by RN (Ross Terrazas); 1; None; 3.15% Chlorhexidine with IPA; 08/19/21; 1116; Per protocol, Therapy completed; No complications, Dressing applied 08/19/21 0647 by Amalia Terrazas RN 08/19/21 1116 by Julia Downing RN Non-Surgical Airway 08/19/21; 0754 (jason mix via procedure documentation); 08/19/21; 0903 08/19/21 0754 by Ge Tucker AA 08/19/21 0903 by Ge Tucker AA documented in this encounter Social History Tobacco Use Types Packs/Day Years Used Date Smoking Tobacco: Never Smokeless Tobacco: Never Alcohol Use Standard Drinks/Week Comments Not Currently 0 (1 standard drink = 0.6 oz pur e alcohol) none since 01/2020 Comments Yes Sex and Gender Information Value [...] No 06/09/2021 documented as of this encounter OR Notes * Anesthesia Postprocedure Evaluation - eG Tucker AA - 08/19/2021 0916 EDT Patient: Lina Segura Vital signs were reviewed with the recovery nurse. [facility] Value Taken Time BP 124/76 08/19/21 [...] Anesthesia Complications: No apparent anesthesia complications Comments: * Anesthesia Procedure Notes - Ge Tucker AA - 08/19/2021 0753 EDT Associated Order(s): Airway Airway Date/Time: 08/19/2021 7:42 Urgency: elective Airway not difficult General Information and Staff Patient location during procedure: OR Resident/LICENSED NUCLEAR OPERATOR: Ge Tucker AA Performed: resident/LICENSED NUCLEAR OPERATOR/CAROL Indications and Patient Condition Indications for airway [...] 21 Number of attempts at approach: 1 * Anesthesia Preprocedure Evaluation - Marely Angela MD - 08/19/2021 0652 EDT Anesthesia Preprocedure Evaluation Patient Medical History, including Anesthesia History reviewed. Chart and Nursing Notes reviewed, including NPO status and Medication History. Additional ROS/History Findings: 30 year old female scheduled for laparoscopic and possible open cholecystectomy and possible intraoperative cholangiography PMH significant for: 7 weeks s/p uncomplicated w. @ [facility]: - c/b urticaria - controlled with PPI and Claritin - denies GERD/nausea/vomiting Allergies Allergen Reactions ??? Amoxicillin Hives Shortness of Breath ??? Pcn [Penicillins] ??? Penicillins Hives and Shortness Of Breath slitter processed film Evaluation Past Medical History: Diagnosis Date ??? [...] Procedure Name Priority Date/Time Associated Diagnosis Comments ANESTHESIA INTUBATION Routine 08/19/2021 7:42 EDT documented in this encounter Results * TX AN ELECTIVE ENDOTRACHEAL AIRWAY (08/19/2021 7:42 EDT) Narrative Ge Tucker AA - 08/19/2021 7:42 EDT Ge Tucker AA ? 08/19/2021 ??7:54 Airway Date/Time: 08/19/2021 7:42 Urgency: elective Airway not difficult General Information and Staff Patient location during procedure: OR Resident/LICENSED NUCLEAR OPERATOR: Ge Tucker AA Performed: resident/LICENSED NUCLEAR OPERATOR/CAROL Indications and Patient Condition Indications for airway management: anesthesia Sedation level: GA Preoxygenated: yes Patient position: sniffing Ventilation assessment: 1 - Easy Final Airway Details Final airway type: endotracheal airway Successful airway: ETT Cuffed: yes Successful intubation technique: video laryngoscopy [place] Facilitating devices/methods: intubating stylet Endotracheal tube insertion site: oral Blade: Katherine Blade size: #3 ETT size (mm): 7.5 Cormack-Lehane Classification: grade I - full view of glottis Placement verified by: chest auscultation, capnometry and palpation of cuff Measured from: lips ETT to lips (cm): 21 Number of attempts at approach: 1 Marely Angela MD ANESTHESIA ORDERABLE S documented in this encounter Visit Diagnoses Not on filedocumented in this encounter Administered Medications Inactive Administered Medications - up to 3 most recent administrations Medication Order MAR Action Action Date Dose Rate Site ceFAZolin (ANCEF) syringe 2 g 2 g, intravenous, Administer over 5 Minutes, PRE-OP ONCE, 1 dose, On Tue08/19/21 at 0630, Routine, Preprocedure Given 08/19/2021 7:42 EDT 2 g dexAMETHasone (DECADRON) injection intravenous, PRN, Starting on Tue08/19/21 at 0739, Until Tue08/19/21 at 0915, Routine, Anesthesia Intraprocedure Given 08/19/2021 7:39 EDT 8 mg dexmedeTOMIDine (PRECEDEX) injection intravenous, FA IP EQF CONTINUOUS PRN FOR ONE STEP MEDS, Starting on Tue08/19/21 at 0731, Until Tue08/19/21 at 0915, Routine, Anesthesia Intraprocedure Rate Change 08/19/2021 8:32 EDT 0.2 mcg/kg/hr 0.151 mL/hr Rate Change 08/19/2021 8:13 EDT 0.4 mcg/kg/hr 0.302 mL/hr New Bag 08/19/2021 7:31 EDT 0.6 mcg/kg/hr 0.452 mL/hr fentaNYL citrate (PF) injection intravenous, PRN, Starting on Tue08/19/21 at 0737, Until Tue08/19/21 at 0915, Routine, Anesthesia Intraprocedure Given 08/19/2021 8:07 EDT 50 mcg Given 08/19/2021 8:06 EDT 50 mcg Given 08/19/2021 7:59 EDT 50 mcg glycopyrrolate (PF) (ROBINUL) 0.4 mg/2 mL (0.2 mg/mL) injection intravenous, PRN, Starting on Tue08/19/21 at 0757, Until Tue08/19/21 at 0915, Routine, Anesthesia Intraprocedure Given 08/19/2021 7:57 EDT 0.2 mg HYDROmorphone (DILAUDUD) 2 mg/mL injection intravenous, PRN, Starting on Tue08/19/21 at 0750, Until Tue08/19/21 at 0915, Routine, Anesthesia Intraprocedure Given 08/19/2021 7:50 EDT 0.8 mg ketAMINE in NaCl, iso-osmotic (KETALAR) 50 mg/5 mL (10 mg/mL) IV injection intravenous, PRN, Starting on Tue08/19/21 at 0737, Until Tue08/19/21 at 0915, Routine, Anesthesia Intraprocedure Given 08/19/2021 7:37 EDT 20 mg ketOROLAC (TORADOL) injection intravenous, PRN, Starting on Tue08/19/21 at 0849, Until Tue08/19/21 at 0915, Routine, Anesthesia Intraprocedure Given 08/19/2021 8:49 EDT 30 mg labetalol (TRANDATE) injection intravenous, PRN, Starting on Tue08/19/21 at 0803, Until Tue08/19/21 at 0915, Routine, Anesthesia Intraprocedure Given 08/19/2021 8:21 EDT 10 mg Given 08/19/2021 8:08 EDT 20 mg Given 08/19/2021 8:05 EDT 10 mg lactated ringers (LR) infusion at 25 mL/hr, intravenous, CONTINUOUS, Starting on Tue08/19/21 at 0630, Until Tue08/19/21 at 1347, Routine, Preprocedure New Bag 08/19/2021 9:09 EDT Restarted 08/19/2021 7:25 EDT New Bag 08/19/2021 6:56 EDT 25 mL/hr lidocaine (PF) 20 mg/mL (2 %) injection intravenous, PRN, Starting on Tue08/19/21 at 0737, Until Tue08/19/21 at 0915, Routine, Anesthesia Intraprocedure Given 08/19/2021 7:37 EDT 60 mg ondansetron (PF) (ZOFRAN) injection intravenous, PRN, Starting on Tue08/19/21 at 0846, Until Tue08/19/21 at 0915, Routine, Anesthesia Intraprocedure Given 08/19/2021 8:46 EDT 4 mg propOFol (DIPRIVAN) injection intravenous, PRN, Starting on Tue08/19/21 at 0738, Until Tue08/19/21 at 0915, Routine, Anesthesia Intraprocedure Given 08/19/2021 7:38 EDT 150 mg propOFol (DIPRIVAN) injection intravenous, FA IP EQF CONTINUOUS PRN FOR ONE STEP MEDS, Starting on Tue08/19/21 at 0742, Until Tue08/19/21 at 0915, Routine, Anesthesia Intraprocedure Rate Change 08/19/2021 8:03 EDT 140 mcg/kg/min 63.336 mL/hr Rate Change 08/19/2021 7:49 EDT 160 mcg/kg/min 72.384 mL/h r New Bag 08/19/2021 7:42 EDT 140 mcg/kg/min 63.336 mL/hr rocuronium (ZEMURON) injection intravenous, PRN, Starting on Tue08/19/21 at 0739, Until Tue08/19/21 at 0915, Routine, Anesthesia Intraprocedure Given 08/19/2021 7:39 EDT 70 mg sugammadex (BRIDION) injection intravenous, PRN, Starting on Tue08/19/21 at 0852, Until Tue08/19/21 at 0915, Routine, Anesthesia Intraprocedure Given 08/19/2021 8:52 EDT 200 mg documented in this encounter Care Teams Sow Farm Manager Relationship Specialty Start Date End Date Ofelia Pierce NP [address] [address] PCP - General 03/31/21 Desiree Park MD [address] [place] [address] 03/23/21 documented as of this encounter
--- OUTSIDE RECORDS SUMMARY | 2023-12-21 03:34 | XMS_ITS ---
Author Organization Unknown Address [address] [place] [phone] Phone Care Team Providers Care Unattended Ground Sensor Specialist Name Role Phone ERNESTO Reinoso Attending Unavailable ZACK Walker Primary Unavailable Results HCG QUANTITATIVE WHOLE MOLEC ULE* - Collect Date/Time: 04/08/2023 14:00 [facility] ID: [id number] [address] [place] [address], 5661 LOINC: 39743-4 Test Value Unit Reference Range Code Code System Flag HCG, total+Beta subs 54420 15379-2 LOINC Social History Type Status Start Date End Date Code Code Syst em Smoking History Never smoker (Never Smoked) 654912138 SNOMED CT Sex Female Medications Medication Start Date End Date Route Frequency Dose Code Code System Medication Instructions Home Meds Ondansetron 4MG Oral Tablet, Disintegrating 12/26/2022 Unknown ORAL NEEDED EVERY 6 HOURS 1 TABLET 215392 RxNorm TAKE 1 TABLET ORAL NEEDED EVERY 6 HOURS FOR Nausea/Vomiting Assessment You had the following problems:URTICARIAGASTRITIS Hospital Discharge Instructions Should you have any questions prior to discharge, please contact a member of your healthcare team. If you have left the hospital and have any questions, please contact your primary care physician. Reason For Referral No Data Found Problems Problem Start Date Resolved Date Status Code Code System URTICARIA active 707427629 SNOMED-CT GASTRITIS active 1576521 SNOMED-CT Allergies and Adverse Reactions Allergy Substance Reaction Severity Start Date Concern Status Code Code System PENICILLINS (CLASS) Hives (SNOMED-CT: 366649256) Active 7229135 SNOMED-CT AMPICILLIN Hives (SNOMED-CT: 143512394) Active 733 RxNorm AMOXICILLIN Active 723 RxNorm Plan of Treatment Lab Draw 01/07/2021 LAB DRAW 15MIN 12/12/2023 LAB DRAW 15MIN 10/28/2023 PRE-OP COVID-19 TESTING 08/15/2021 LAB DRAW 15MIN 08/14/2021 LAB DRAW 15MIN 08/14/2021 US OB COMPLETE 04/23/2021 US ABDOMEN LIMITED 1 ORGAN 02/27/2021 US OB COMPLETE 01/29/2021 US OB COMPLETE 01/30/2021 Encounters Encounter Diagnosis Start Date Code Code Sys tem Encounter for other specified screening 11/2022 SNOMED-CT Personal Care Team Section Performer Name Performer Role Active Date Inactive Da mariano
--- OUTSIDE RECORDS SUMMARY | 2023-12-21 03:34 | XMS_ITS | Encounter Summary ---
Author Organization [facility] Address [address] [place] [address] Care Team Providers Care Beauty Counselor Name Role Phone Ofelia Pierce NP Primary Care Provider [phone] Desiree Park MD Unavailable [phone] Reason for Visit * Reason Comments Post-OP Follow Up s/p lap curly 2 Encounter Details Date Type Department Care Team (Late st Contact Info) Description 09/17/2021 9:30 EDT Nurse Only [facility] General Surgery [address] [address] Nurse, [place] Gen Surg Gallbladder polyp (Primary Dx); S/P laparoscopic cholecystectomy Social History Tobacco Use Types Packs/Day Years [...] as of this encounter Progress Notes * Bernardo Byers RN - 09/17/2021 0930 EDT [...] of this encounter Visit Diagnoses Diagnosis Gallbladder polyp- Primary Cholesterolosis of gallbladder S/P laparoscopic cholecystectomy Other postprocedural status documented in this encounter Care Teams Beauty Counselor Relationship Specialty Start Date End Date Ofelia Pierce NP [address] [address] PCP - General 03/31/21 Desiree Park MD [address] [place] [id number] 03/23/21 documented as of this encounter
--- OUTSIDE RECORDS SUMMARY | 2023-12-21 03:34 | XMS_ITS | Encounter Summary ---
Author Organization [facility] Address [address] [place] [address] Care Team Providers Care Inspector Plug Seam Name Role Phone Ofelia Pierce NP Primary Care Provider [phone] Desiree Park MD Unavailable [phone] Encounter Details Date Type Department Care Team (Late st Contact Info) Description 12/29/2021 Lab Requisition [facility] Pathology & Laboratory Medicine - [address] [address] Outr Resulting Lab, Provider Social History Tobacco [...] Procedure Name Priority Date/Time Associated Diagnosis Comments ZZCOVID-19 TEST [facility] PCR Today 12/29/2021 10:15 EDT COVID-19 TESTING Routine 12/29/2021 10:1 5 EDT documented in this encounter Results * COVID-19 TEST [facility] PCR (12/29/2021 10:15 EDT) Swab 12/29/2021 10:1 5 EDT 12/29/2021 21:26 EDT Provider Outr Resulting Lab MICROBIOLOGY - GENERAL ORDERABLES [facility] [address] [place] [id number] * COVID-19 TESTING (12/29/2021 10:15 EDT) COVID-19 rt-PCR Result Negative Negative 12/30/2021 11:07 EDT [facility] Comment: This test has not been FDA cleared or approved. This test has been authorized by FDA under an EUA for use by authorized laboratories. This test has been authorized only for detection of nucleic acid from 2019-nCoV, not for any other viruses or pathogens. This test is only authorized for the duration of the declaration that circumstances exist justifying the authorization of emergency use of in vitro diagnostic tests for detection and/or diagnosis of 2019-nCoV under section 564(b)(1) of Act, 21 U.S.C ?? 360bbb-3(b) (1), unless the authorization is terminated or revoked sooner. Negative results do not preclude 2019-nCoV infection and should not be used as the sole basis for treatment or other patient management decisions. Negative results must be combined with clinical observations, patient history, and epidemiological information. Testing was performed using the arabella SARS-CoV-2 assay ([employer] on the Arabella 6800 System Performing Lab Arabella 6800 [facility] 12/30/2021 11:07 EDT [facility] Swab 12/29/2021 10:1 5 EDT 12/29/2021 21:26 EDT Provider Outr Resulting Lab MICROBIOLOGY - GENERAL ORDERABLES [facility] [address] [place] [address] documented in this encounter Visit Diagnoses Not on filedocumented in this encounter Care Teams Inspector Plug Seam Relationship Specialty Start Date End Date Ofelia Pierce NP [address] [place] [address] PCP - General 03/31/21 Desiree Park MD [address] [place] [address] 03/23/21 documented as of this encounter
--- OUTSIDE RECORDS SUMMARY | 2023-12-21 03:34 | XMS_ITS | Encounter Summary ---
Author Organization [facility] Address [address] [place] [address] Care Team Providers Care Protozoologist Name Role Phone Ofelia Pierce NP Primary Care Provider [phone] Desiree Park MD Unavailable [phone] Encounter Details Date Type Department Care Team (Latest Contact Info) Description 08/18/2021 0:30 EDT - 08/18/2021 23:59 EDT Hospital Encounter [facility] Pre-Surgical Testing [address], [place] [id number] Discharge Disposition: Home or Self Care Social [...] 6 hours as needed for Pain. 08/19/2021 famotidine (PEPCID) 20 mg tablet Take 20 mg by mouth 2 times daily. ibuprofen (MOTRIN) 400 mg tablet Take 400 mg by mouth every 6 hours as needed for Pain. loratadine (CLARITIN ORAL) Take 10 mg by mouth every morning. vit no.124/iron/folic ( VITAMIN ORAL) Take 1 [...] Max: 12 mg 8 Tablet 08/19/2021 08/28/2021 documented as of this encounter Discharge Disposition Disposition Code Departure Means Destination Home or Self Care documented in this encounter OR Notes * Preprocedure Instructions - Landy Taylor RN - 08/18/2021 0030 EDT Lina Segura has been instructed as follows regarding medication administration for the day of the scheduled procedure. Date of Surgery: 08/19/21 Instructions [...] . Pepcid is taken for anti histamine. * OR PreOp - Landy Taylor RN - 08/18/2021 [...] not instruct patient regarding COVID testing, let [employer] coordinate this -Communicate status on yellow form for DOS REMIND PATIENT/parents of pediatric patients: Patients with a pending COVID-19 test are expected toremain masked and socially distanced at all times while at work or school, and refrain from going inside restaurants, bars, or other public areas where people are likely to be unmasked, or crowded public places. If patient develops any of these symptoms between now and their surgery date instruct them to call us back at [phone] to report symptoms Visitor Policy: Surgical & [...] adults and pedi. (Exception: Cancer Center and [facility] 4 Infusion- 1 support person) As a [...] documented as of this encounter Visit Diagnoses Not on filedocumented in this encounter Discontinued Medications Medication Sig Discontinue Reason Start Date End Da te norgestimate-ethinyl estradiol (ORTHO TRI-CYCLEN LO) 0.18/0.215/0.25 mg-25 mcg tablet Take 1 Tab by mouth daily. Therapy completed 08/18/2021 documented as of this encounter Historical Medications * This list may reflect changes made after this encounter. Medication Sig Dispensed Refills Start Date End Date famotidine (PEPCID) 20 mg tablet Take 20 mg by mouth 2 times daily. loratadine (CLARITIN ORAL) Take 10 mg by mouth every morning. ibuprofen (MOTRIN) 400 mg tablet Take 400 mg by mouth every 6 hours as needed for Pain. added in this encounter Care Teams Protozoologist Relationship Specialty Start Date End Date Ofelia Pierce NP [address] [place] [address] PCP - General 03/31/21 Desiree Park MD [address] [place] [address] 03/23/21 documented as of this encounter
--- OUTSIDE RECORDS SUMMARY | 2023-12-21 03:34 | XMS_ITS | Encounter Summary ---
Author Organization [facility] Address [address] [place] [address] Care Team Providers Care Classified Advertising Clerk Name Role Phone Ofelia Pierce NP Primary Care Provider [phone] Desiree Park MD Unavailable [phone] Reason for Visit * Reason Comments Suture / Staple Removal s/p lap curly * Consult (See Order Priority) - Order Cancelled Specialty Diagnoses / Procedures Referred By Jose ventura Referred To Contact General Surgery Diagnoses Gallbladder polyp Irene Bowden MD [address] [place] [address] Maria Eugenia Ivan MD [address] [place] [id number] Referral ID Status Reason Start Date Expiration Date Visits Requested Visits Authorized [id number] Order Cancelled Specialty Services Required 08/19/2021 1 1 Encounter Details Date Type Department Care Team (Late st Contact Info) Description 08/28/2021 11:00 EDT Nurse Only [facility] General Surgery - [place] [address] [place] [address] Nurse, [place] Gen Surg Gallbladder polyp (Primary Dx); S/P laparoscopic cholecystectomy; Removal of diaz Social History Tobacco Use Types Packs/Day Years [...] Progress Notes * Bernardo Byers RN - 08/28/2021 1100 EDT Incision well approximated with diaz. No drainage. Surrounding skin C/D/I. Staple removal performed per provider instruction. Patient tolerated well. Steri strips placed. Patient Education Topic: Post op steri strip care Method: Verbal Taught to: Patient Barriers: None Outcomes: verbalized understanding Signature: Electronically signed by BERNARDO BYERS RN I was supervised by Brannon Roman PA-C who was present and immediately available in the office suite. BERNARDO BYERS RN 08/28/2021 11:09 documented in this encounter Plan of Treatment Not on file documented as of this encounter Visit Diagnoses Diagnosis Gallbladder polyp- Primary Cholesterolosis of gallbladder S/P laparoscopic cholecystectomy Other postprocedural status Removal of diaz Encounter for removal of sutures documented in this encounter Discontinued Medications Medication Sig Discontinue Reason Start Date End Da te HYDROmorphone (DILAUDID) 2 mg tablet Take 1 Tablet by mouth every 4 hours as needed for Pain. Daily Max: 12 mg Therapy completed 08/19/2021 08/28/2021 documented as of this encounter Care Teams Classified Advertising Clerk Relationship Specialty Start Date End Date Ofelia Pierce NP [address] [address] PCP - General 03/31/21 Desiree Park MD [address] [place] [phone] 03/23/21 documented as of this encounter
--- OUTSIDE RECORDS SUMMARY | 2023-12-21 03:34 | XMS_ITS | Encounter Summary ---
Author Organization [facility] Address [address] [place] [address] Care Team Providers Care Manager Casino Name Role Phone Ofelia Pierce NP Primary Care Provider [phone] Desiree Park MD Unavailable [phone] Encounter Details Date Type Department Care Team (Late st Contact Info) Description 06/02/2023 Lab Requisition [facility] Pathology & Laboratory Medicine - [address] [address] Outr Resulting Lab, Provider Social History Tobacco [...] Procedure Name Priority Date/Time Associated Diagnosis Comments HEPATITIS B CORE ANTIBODY (TOTAL) Routine 06/02/2023 16:44 EST documented in this encounter Results * HEPATITIS B CORE ANTIBODY (TOTAL) (06/02/2023 16:44 EST) Hepatitis B Core Ab, Total Negative Negative 06/03/2023 10:03 EST [facility] Blood VENOUS BLOOD / Unknown 06/02/2023 16:44 EST 06/02/2023 22:14 EST Provider Outr Resulting Lab CHEMISTRY & BLOOD GAS ORDERABLES Performing Organization Address City/State/[facility] Co de Phone Number [facility] [address] [place] [address] documented in this encounter Visit Diagnoses Not on filedocumented in this encounter Care Teams Manager Casino Relationship Specialty Start Date End Date Ofelia Pierce NP [address] [place] [address] PCP - General 03/31/21 Desiree Park MD [address] [place] [address] 03/23/21 documented as of this encounter
--- OUTSIDE RECORDS SUMMARY | 2023-12-21 03:34 | XMS_ITS | Encounter Summary ---
Author Organization [facility] Address [address] [place] [address] Care Team Providers Care Button Puncher Name Role Phone Ofelia Pierce CATHETER FINISHER AND INSPECTOR Primary Care Provider [phone] Desiree Park MD Unavailable [phone] Encounter Details Date Type Department Care Team (Late st Contact Info) Description 05/31/2021 Lab Requisition [facility] Pathology & Laboratory Medicine - [facility] [address] [place] [address] Outr Resulting Lab, Provider Social History Tobacco Use Types Packs/Day Years Used Date Smoking Tobacco: Never Alcohol Use Standard Drinks/Week Comments Not Currently 0 (1 standard drink = 0.6 oz pur e alcohol) Comments Yes Sex and Gender Information Value Date Recorded Sex Assigned at Female 08/28/2021 10:44 EDT Gender Identity Female 07/30/2021 8:31 EDT Sexual Orientation Straight 08/28/2021 10 :44 EDT documented as of this encounter Plan of Treatment Not on file documented as of this encounter Procedures Procedure Name Priority Date/Time Associated Diagnosis Comments SUSCEPTIBILITY Routine 05/29/2021 16:43 EST documented in this encounter Results * (ABNORMAL) SUSCEPTIBILITY (05/29/2021 16:43 EST) Organism ID Streptococcus agalactiae (Group B)(A) VITEK SUSCEPTIBILITY 06/02/2021 9:[address] [facility] Organism (organism) DOUCHE WITH RECTAL AND VAGINAL FITTINGS / Unknown 05/29/2021 16:43 EST 05/31/2021 16:17 EST Narrative Organism Antibiotic Method Susceptibility Streptococcus agalactiae (Group B) Clindamycin <=0.12 ug/mL: Susceptible Provider Outr Resulting Lab MICROBIOLOGY - GENERAL ORDERABLES Performing Organization Address City/State/[facility] Co de Phone Number [facility] [address] [place] [address] documented in this encounter Visit Diagnoses Not on filedocumented in this encounter Care Teams Button Puncher Relationship Specialty Start Date End Date Ofelia Pierce NP [address] [place] [address] PCP - General 03/31/21 Desiree Park MD [address] [place] [address] 03/23/21 documented as of this encounter
--- OUTSIDE RECORDS SUMMARY | 2023-12-21 03:34 | XMS_ITS | Encounter Summary ---
Author Organization [facility] Address [address] [place] [address] Care Team Providers Care Cognos Bi Developer Name Role Phone Ofelia Pierce NP Primary Care Provider [phone] Desiree Park MD Unavailable [phone] Reason for Visit * Auth/Cert Specialty Diagnoses / Procedures Referred By Jose ventura Referred To Contact Diagnoses Biliary colic Procedures [place] LAP,CHOLECYSTECTOMY laparoscopic and possible open cholecystectomy and possible intraoperative cholangiography (XRY). Referral ID Status Reason Start Date Expiration Date Visits Re quested Visits Authorized [id number] 05/01/2022 1 1 Encounter Details Date Type Department Care Team (Late st Contact Info) Description 08/19/2021 7:25 EDT - 08/19/2021 9:25 EDT Surgery [facility] [place] [address] [place] [phone] Maria Eugenia Ivan MD [address] [place] [phone] laparoscopic and possible open cholecystectomy and possible intraoperative cholangiography (XRY). [19741 (CPT??)] Surgery Details Date/Time Status Location OR Service Patient Class Case Cl ass Case Type Trauma Case? 08/19/21 0725 Posted [facility] OR [facility] H - Elective Panel 1 Procedure LRB Anes Op Region Wound Class Comments laparoscopic and possible open cholecystectomy and possible intraoperative cholangiography (XRY). N/A General Abdomen Class II/ Clean Contaminated Surgeon Surgeon Role Service Panel Maria Eugenia Ivan MD Primary General 1 Irene Bowden MD Resident - Assisting General 1 documented in this encounter Social History Tobacco [...] kg (166 lb 3.6 oz) 08/19/2021 0626 E DT Height 165.1 cm (5' 5) 08/19/2021 0626 [...] Apply 0.1 % topically 2 times daily. HYDROmorphone (DILAUDID) 2 mg tablet Take 1 Tablet by mouth every 4 hours as needed for Pain. Daily Max: 12 mg 8 Tablet 08/19/2021 08/28/2021 documented as of this encounter Ordered Prescriptions Prescription Sig Dispensed Refills Start Date End Da te acetaminophen (TYLENOL) 500 mg tablet Take 2 Tablets by mouth every 6 hours as needed for Pain. 08/19/2021 HYDROmorphone (DILAUDID) 2 mg tablet Take 1 Tablet by mouth every 4 hours as needed for Pain. Daily Max: 12 mg 8 Tablet 08/19/2021 08/28/2021 documented in this encounter Discharge Disposition Disposition Code Departure Means Destination Home or Self Longterm documented in this encounter H&P Notes * Irene Bowden MD - 08/19/2021 0700 EDT The preoperative history and physical which was performed within 30 days of this procedure has been reviewed and the clinically appropriate elements of the physical examination have been repeated. There are no changes to the documented history and physical or if so such changes are documented below. Irene Bowden MD 08/19/2021 7:00 Source Note - Maria Eugenia Ivan MD - 08/06/2021 13:00 EDT [facility] General Surgery Consultation Note - [...] Administered Date(s) Administered ??? Covid-19 mRNA Vaccine (Quat-E COVID-19) PF 0.3 ml IM (12 yrs+) [...] Not on file Occupational History Employer: [employer] Tobacco Use ??? Smoking status: Never Smoker ??? Smokeless tobacco: Never Used Substance and Sexual Activity ??? Alcohol use: Not Currently ??? Drug use: Never ??? Sexual activity: Not on file Other Topics Concern ??? 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 Social Determinants of Health Financial Resource Strain: [...] 06/09/2021 Negative Negative mg/dL Final ??? Specific [place], Urine 06/09/2021 1.020 1.001 - 1.035 Final [...] MD documented in this encounter Nursing Notes * Amalia Terrazas RN - 08/19/2021 0636 EDT [...] temperature. documented in this encounter OR Notes * OR Surgeon - Maria Eugenia Ivan MD - 08/19/2021 0551 EDT OPERATIVE REPORT SERVICE DATE: 08/19/2021 SURGEON: Maria Eugenia Hernandez MD, [facility] [employer] PRINCIPAL: Irene Bowden MD PREOPERATIVE DIAGNOSIS: Biliary colic with gallbladder polyp. POSTOPERATIVE DIAGNOSIS: Biliary colic with gallbladder polyp. PROCEDURE: Laparoscopic cholecystectomy. ANESTHESIA: General with endotracheal intubation. INDICATIONS: This lady was referred by her primary care physician for recurrent right upper quadrant pain. Ultrasound showed gallbladder polyp. Liver function test and white blood count within normallimits. 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 PAST SURGICAL HISTORY: [place]kinson tooth extraction. ALLERGIES: PENICILLIN DERIVATIVES. FINDINGS: Adhesions between the gallbladder and omentum with chronic cholecystitis. NARRATIVE: The diagnosis, the planned procedure, the risks, benefits and alternatives were explained to the patient and her father.The operative procedure was discussed including the risks of generalanesthesia and medication and the potential risk of [...] completed with the participation of the patient.Everybody inthe room introduced him/herself. Time-out was completed. The [...] mm diameter after the abdomen was insufflated using Verse???s needle at the Taveras???s point. CO2 was insufflated and maintained to achieve an intraab dominal pressure of 15 mmHg. The patient was then placed in slight reverse Trendelenburg, in left side up position to facilitate for further trocar placement and exposure. We used a 10 mm 30-degree scope. To facilitate exposure and additional trocar placement, the patient was placed in slight reverse Trendelenburg in the right side head up and the right side up position. The trocars were bladeless and were inserted under [...] site. Trocar sites were closed using a skin stapler. Telfa and Tegaderm were applied. A total [...] 2 hours, IV fluid, then to advance diet as tolerated. Anticipate discharge this afternoon. I discussed the procedure immediately thereafter with her father and subsequently with her. We will see her next week to remove the diaz. Unless otherwise noted, there were no complications, no blood loss, no cultures obtained, no specimens removed, and no drains retained. Maria Eugenia Hernandez MD, [facility], [facility] / Confirmation: [id number] Dictation ID: [id number] cc: documented in this encounter Miscellaneous Notes * Brief Op Note - Irene Bowden MD - 08/19/2021 0857 EDT Date: 08/19/2021 Location: [facility] OR Name: Lina Segura, : 1990, Diagnosis [...] 08/19/21 Anterior Abdomen Full thickness (Active) Staff: Construction Skills Teacher: Shital Palomino RN Scrub Person: Priscilla Royal RN Patient Harness Inspector: Reva Villa Indications: Lina Segura is an [...] Treatment Scheduled Referrals Name Type Priority Associated Diagnoses Order Schedule PROVIDER FOLLOW-UP INSTRUCTIONS Outpatient Referral Routine/Next Available Ordered: 08/19/2021 PROVIDER FOLLOW-UP INSTRUCTIONS Outpatient Referral Routine/Next Available Ordered: 08/19/2021 documented as of this encounter Procedures Procedure Name Priority Date/Time Associated Diagnosis Comments SURGICAL PATHOLOGY Routine 08/19/2021 8: 22 EDT CHOLECYSTECTOMY, LAPAROSCOPIC 08/19/2021 7:15 EDT Biliary colic TEST, URINE STAT 08/19/2021 6:11 EDT documented in this encounter Results * SURGICAL PATHOLOGY (08/19/2021 8:22 EDT) Note to Patient The following pathology results have been interpreted by your pathologist and may be available to you before your health provider has had the opportunity to review them. Please allow time for your provider to receive these results and explore management options, if applicable. 08/24/2021 13:44 [facility] Final Diagnosis A. GALLBLADDER, CHOLECYSTECTOMY: - Cholesterol polyp. - Gallbladder with otherwise no significant diagnostic abnormalities. 08/24/2021 13:44 [facility] Attestation There was significant resident/fellow involvement in the diagnostic evaluation of this case. By the signature below, the attending physician certifies that they have personally conducted a gross and/or microscopic examination of the described specimens and rendered or confirmed the above diagnosis. 08/24/2021 13:44 [facility] at 1344 Clinical History Biliary colic 08/24/2021 13:44 [facility] Gross Description A. Received fresh labelled with proper patient identification (initials C, A) and gallbladder and contents is an intact gallbladder and attached portion of cystic duct, 8.5 x 3.0 x 2.9 cm. The serosa is dull lee-brown. An attached periductal lymph node is not identified. The cystic duct lumen is patent. The gallbladder lumen contains a moderate amount of bile. Admixed calculi are not identified within the gallbladder lumen or specimen container. The mucosa is velvety brown and shows a 0.4 cm cholesterol polyp. The wall is without areas of induration. Olive Knocker sections are submitted in A1 to include the cystic duct margin, en face and 2 delivery representative sections from the gallbladder wall to include the polyp. ANA OSMAN(ASCP) 08/19/2021 13:59 08/24/2021 13:44 EDT [facility] Resident/Jenaro w: Maureen Wolf MD 08/24/2021 13:44 EDT [facility] Performing Lab [facility] 08/24/2021 13:44 EDT [facility] Scanned Images 08/24/2021 13:44 EDT [facility] Tissue ENTIRE GALLBLADDER / Unknown 08/19/2021 8:22 EDT 08/19/2021 11:10 EDT Maria Eugenia Ivan MD PATHOLOGY ORDERABLES Performing Organization Address City/[facility] Co de Phone Number [facility] [address] [place] [address] * TEST, URINE (08/19/2021 6:11 EDT) Test, Urine Negative Negative 08/19/2021 6:25 EDT [facility] Comment:False negative resul ts may occur in women who are beyond 5-8 weeks gestation. Diagnosis of should be based on a correlation of test results with typical clinical signs and symptoms. Urine URINE / Unknown Urine Collect / Unknown 08/19/2021 6:11 EDT 08/19/2021 6:15 EDT Maria Eugenia Ivan MD URINALYSIS ORDERABLE S [facility] [address] [place] [address] documented in this encounter Visit Diagnoses Diagnosis Gallbladder polyp- Primary Cholesterolosis of gallbladder Gallbladder polyp Cholesterolosis of gallbladder Biliary colic Calculus of gallbladder without mention of cholecystitis or obstruction documented in this encounter Administered Medications Inactive Administered Medications - up to 3 most recent administrations Medication Order MAR Action Action Date Dose Rate Site acetaminophen (TYLENOL) solution unit dose cup 995 mg 995 mg (rounded from 1,000 mg), oral, PRN, 1 dose, Starting on Tue08/19/21 at 0859, Until Tue08/19/21 at 1347, Pain, Routine, Recovery (only) acetaminophen (TYLENOL) tablet 1,000 mg 1,000 mg, oral, PRN, 1 dose, Starting on Tue08/19/21 at 0859, Until Tue08/19/21 at 1347, Pain, Routine, Recovery (only) atropine 0.1 mg/mL syringe 0.5 mg 0.5 mg, intravenous, PRN, Starting on Tue08/19/21 at 0859, Until Tue08/19/21 at 1347, Symptomatic HR < 50, Routine, Recovery (only) cellulose, oxidized 2 x 14 (SURGICEL) pad pad PRN, Starting on Tue08/19/21 at 0832, Until Tue08/19/21 at 0908, Intraprocedure Given 08/19/2021 8:32 EDT 2 Each diphenhydrAMINE (BENADRYL) injection 12.5 mg 12.5 mg, intravenous, PRN, 1 dose, Starting on Tue08/19/21 at 0859, Until Tue08/19/21 at 1048, nausea, Routine, Recovery (only) Given 08/19/2021 10:48 EDT 12.5 mg fentaNYL citrate (PF) injection 25-50 mcg 25-50 mcg, intravenous, EVERY 5 MIN PRN, Starting on Tue08/19/21 at 0859, Until Tue08/19/21 at 1347, Pain, Routine, Recovery (only) HYDROmorphone (DILAUDID) tablet 2-4 mg 2-4 mg, oral, EVERY 30 MINUTES PRN, 2 doses, Starting on Tue08/19/21 at 0859, Until Tue08/19/21 at 1347, Pain, Routine, Recovery (only) HYDROmorphone (PF) (DILAUDID) 0.5 mg/0.5 mL syringe 0.3-0.5 mg 0.3-0.5 mg, intravenous, EVERY 10 MINUTES PRN, Starting on Tue08/19/21 at 0859, Until Tue08/19/21 at 1347, Pain, Routine, Recovery (only) lactated ringers (LR) infusion at 25 mL/hr, intravenous, CONTINUOUS, Starting on Tue08/19/21 at 0630, Until Tue08/19/21 at 1347, Routine, Preprocedure lactated ringers (LR) infusion at 25 mL/hr, intravenous, CONTINUOUS, Starting on Tue08/19/21 at 0630, Until Tue08/19/21 at 1347, Routine, Preprocedure New Bag 08/19/2021 9:09 EDT Restarted 08/19/2021 7:25 EDT New Bag 08/19/2021 6:56 EDT 25 mL/hr lactated ringers (LR) infusion at 75 mL/hr, intravenous, PACU CONTINUOUS, Starting on Tue08/19/21 at 0915, Until Tue08/19/21 at 1347, Routine, Recovery (only) Rate Documented 08/19/2021 9:13 EDT 75 mL/hr lidocaine 1 % 30 mL, bupivacaine (PF) (MARCAINE) 0.5% 30 mL PRN, Starting on Tue08/19/21 at 0847, Until Tue08/19/21 at 0908, Routine, Intraprocedure Given 08/19/2021 8:47 EDT 10 mL naloxone (NARCAN) injection 0.2 mg 0.2 mg, intravenous, PRN, Starting on Tue08/19/21 at 0859, Until Tue08/19/21 at 1347, Opioid Reversal, Routine, Recovery (only) ondansetron (PF) (ZOFRAN) injection 4 mg 4 mg, intravenous, PRN, 1 dose, Starting on Tue08/19/21 at 0859, Until Tue08/19/21 at 1347, Nausea, Vomiting, Routine, Recovery (only) sodium chloride 0.9 % irrigation PRN, Starting on Tue08/19/21 at 0811, Until Tue08/19/21 at 0908, Routine, Intraprocedure Given 08/19/2021 8:11 EDT 1,000 mL documented in this encounter Discontinued Medications Medication Sig Discontinue Reason Start Date End Da te calcium carbonate (TUMS) 200 mg calcium (500 mg) tablet,chewable Take 1 Tablet by mouth 4 times daily as needed. 08/19/2021 acetaminophen (TYLENOL) 500 mg tablet Take 500 mg by mouth every 6 hours as needed for Pain. 08/19/2021 documented as of this encounter Active and Recently Administered Medications Times are shown in EDT. Scheduled Medication Order 08/17/2021 08/18/2021 08/19/2021 ceFAZolin (ANCEF) syringe 2 g (COMPLETED) 2 g, intravenous, Administer over 5 Minutes, PRE-OP ONCE, 1 dose, On Tue08/19/21 at 0630, Routine, Preprocedure 0742 (Given - Provid er: CAROL Duron)0913 (Anesthesia Volume Adjustment - Provider: CAROL Duron) Continuous Medication Order 08/17/2021 08/18/2021 08/19/2021 lactated ringers (LR) infusion at 25 mL/hr, intravenous, CONTINUOUS, Starting on Tue08/19/21 at 0630, Until Tue08/19/21 at 1347, Routine, Preprocedure 0913 (Canceled Entry - Provider: Julia Downing RN - Comment: duplicate order) lactated ringers (LR) infusion at 25 mL/hr, intravenous, CONTINUOUS, Starting on Tue08/19/21 at 0630, Until Tue08/19/21 at 1347, Routine, Preprocedure 0656 (New Bag - Prov ider: Amalia Terrazas RN)0724 (Paused - Provider: CAROL Duron - Comment: Switch to gravity)0725 (Restarted - Provider: CAROL Duron)0909 (New Bag - Provider: CAROL Duron)0913 (Completed - Provider: CAROL Duron) lactated ringers (LR) infusion at 75 mL/hr, intravenous, PACU CONTINUOUS, Starting on Tue08/19/21 at 0915, Until Tue08/19/21 at 1347, Routine, Recovery (only) 0913 (Rate Documente d - Provider: Julia Downing RN) PRN Medication Order 08/17/2021 08/18/2021 08/19/2021 acetaminophen (TYLENOL) solution unit dose cup 995 mg(Linked Group 1) 995 mg (rounded from 1,000 mg), oral, PRN, 1 dose, Starting on Tue08/19/21 at 0859, Until Tue08/19/21 at 1347, Pain, Routine, Recovery (only) acetaminophen (TYLENOL) tablet 1,000 mg(Linked Group 1) 1,000 mg, oral, PRN, 1 dose, Starting on Tue08/19/21 at 0859, Until Tue08/19/21 at 1347, Pain, Routine, Recovery (only) atropine 0.1 mg/mL syringe 0.5 mg 0.5 mg, intravenous, PRN, Starting on Tue08/19/21 at 0859, Until Tue08/19/21 at 1347, Symptomatic HR < 50, Routine, Recovery (only) cellulose, oxidized 2 x 14 (SURGICEL) pad pad (CANCELED) PRN, Starting on Tue08/19/21 at 0832, Until Tue08/19/21 at 0908, Intraprocedure 0832 (Given - Provid er: Maria Eugenia Ivan MD) diphenhydrAMINE (BENADRYL) injection 12.5 mg (COMPLETED) 12.5 mg, intravenous, PRN, 1 dose, Starting on Tue08/19/21 at 0859, Until Tue08/19/21 at 1048, nausea, Routine, Recovery (only) 1048 (Given - Provid er: Julia Downing RN - Comment: felt nausea after taking crackers,I thought it was just hunger but I guess not per pt. Medicated.) fentaNYL citrate (PF) injection 25-50 mcg 25-50 mcg, intravenous, EVERY 5 MIN PRN, Starting on Tue08/19/21 at 0859, Until Tue08/19/21 at 1347, Pain, Routine, Recovery (only) HYDROmorphone (DILAUDID) tablet 2-4 mg 2-4 mg, oral, EVERY 30 MINUTES PRN, 2 doses, Starting on Tue08/19/21 at 0859, Until Tue08/19/21 at 1347, Pain, Routine, Recovery (only) HYDROmorphone (PF) (DILAUDID) 0.5 mg/0.5 mL syringe 0.3-0.5 mg 0.3-0.5 mg, intravenous, EVERY 10 MINUTES PRN, Starting on Tue08/19/21 at 0859, Until Tue08/19/21 at 1347, Pain, Routine, Recovery (only) lidocaine 1 % 30 mL, bupivacaine (PF) (MARCAINE) 0.5% 30 mL (CANCELED) PRN, Starting on Tue08/19/21 at 0847, Until Tue08/19/21 at 0908, Routine, Intraprocedure 0847 (Given - Provid er: Maria Eugenia Ivan MD) naloxone (NARCAN) injection 0.2 mg 0.2 mg, intravenous, PRN, Starting on Tue08/19/21 at 0859, Until Tue08/19/21 at 1347, Opioid Reversal, Routine, Recovery (only) ondansetron (PF) (ZOFRAN) injection 4 mg 4 mg, intravenous, PRN, 1 dose, Starting on Tue08/19/21 at 0859, Until Tue08/19/21 at 1347, Nausea, Vomiting, Routine, Recovery (only) sodium chloride 0.9 % irrigation (CANCELED) PRN, Starting on Tue08/19/21 at 0811, Until Tue08/19/21 at 0908, Routine, Intraprocedure 0811 (Given - Provid er: Maria Eugenia Ivan MD) Linked Groups Order Group 1: acetaminophen (TYLENOL) solution unit dose cup 995 mgJump to med 995 mg (rounded from 1,000 mg), oral, PRN, 1 dose, Starting on Tue08/19/21 at 0859, Until Tue08/19/21 at 1347, Pain, Routine, Recovery (only) Or acetaminophen (TYLENOL) tablet 1,000 mgJump to med 1,000 mg, oral, PRN, 1 dose, Starting on Tue08/19/21 at 0859, Until Tue08/19/21 at 1347, Pain, Routine, Recovery (only) documented in this encounter Orders Medications Ordered That Jai ht Not Have Been Administered Count Last Ordered Date First Ordered Date acetaminophen (TYLENOL) solu tion unit dose cup 995 mg 1 08/19/2021 acetaminophen (TYLENOL) tablet 1,000 mg 1 0 08/19/2021 atropine 0.1 mg/mL syringe 0.5 mg 1 022 ceFAZolin (ANCEF) syringe 2 g 2 08/19/2021 fentaNYL citrate (PF) injection 25-50 mcg 1 08/19/2021 HYDROmorphone (DILAUDID) tablet 2-4 mg 1 HYDROmorphone (PF) (DILAUDID ) 0.5 mg/0.5 mL syringe 0.3-0.5 mg 1 08/19/2021 lactated ringers (LR) infusion 1 08/19/2021 lidocaine (PF) 10 mg/mL (1 % ) injection 2 mg 2 08/19/2021 naloxone (NARCAN) injection 0.2 mg 1 2021 ondansetron (PF) (ZOFRAN) injection 4 mg 1 08/19/2021 Diet Count Last Ordered Date First Orde red Date DISCHARGE DIET 1 08/19/2021 Nursing Count Last Ordered Date First Orde red Date ACTIVITY INSTRUCTIONS 1 08/19/2021 WOUND CARE INSTRUCTIONS 1 08/19/2021 Discharge Count Last Ordered Date First Orde red Date DISCHARGE PATIENT 1 08/19/2021 Legal Count Last Ordered Date First Orde red Date MISCELLANEOUS DISCHARGE INSTRUCTIONS 1 08/01 documented in this encounter Care Teams [employer] Bi Developer Relationship Specialty Start Date End Date Ofelia Pierce NP [address] [place] [address] PCP - General 03/31/21 Desiree Park MD [address] [place] [address] 03/23/21 documented as of this encounter
--- OUTSIDE RECORDS SUMMARY | 2023-12-21 03:34 | XMS_ITS | Encounter Summary ---
Author Organization [facility] Address [address] [place] [address] Care Team Providers Care Sandstone Splitter Name Role Phone Ofelia Pierce NP Primary Care Provider [phone] Desiree Park MD Unavailable [phone] Encounter Details Date Type Department Care Team (Late st Contact Info) Description 06/02/2023 Lab Requisition [facility] Pathology & Laboratory Medicine - [address] [address] Outr Resulting Lab, Provider Social History Tobacco [...] Procedure Name Priority Date/Time Associated Diagnosis Comments SYPHILIS SEROLOGY Routine 06/02/2023 16: 44 EST documented in this encounter Results * SYPHILIS SEROLOGY (06/02/2023 16:44 EST) Syphilis Serology Negative Negative 06/03/2023 10:37 EST [facility] Blood VENOUS BLOOD / Unknown 06/02/2023 16:44 EST 06/02/2023 22:14 EST Provider Outr Resulting Lab IMMUNOLOGY A ND SEROLOGY ORDERABLES Performing Organization Address City/State/[facility] Co de Phone Number [facility] [address] [place] [address] documented in this encounter Visit Diagnoses Not on filedocumented in this encounter Care Teams Sandstone Splitter Relationship Specialty Start Date End Date Ofelia Pierce NP [address] [place] [address] PCP - General 03/31/21 Desiree Park MD [address] [place] [address] 03/23/21 documented as of this encounter
--- OUTSIDE RECORDS SUMMARY | 2023-12-21 03:34 | XMS_ITS | Encounter Summary ---
Author Organization [facility] Address [address] [place] [address] Care Team Providers Care [employer] Professor Name Role Phone Ofelia Pierce PIPE PULLER Primary Care Provider [phone] Desiree Park MD Unavailable Encounter Details Date Type Department Care Team (Late st Contact Info) Description 05/13/2021 Lab Requisition [facility] Pathology & Laboratory Medicine - [address] [address] Outr Resulting Lab, Provider Social History Tobacco [...] Priority Date/Time Associated Diagnosis Comments ZZCOVID-19 TEST [facility] PCR Today 05/13/2021 11:20 EST COVID-19 TESTING Routine 05/13/2021 11:2 0 EST documented in this encounter Results * COVID-19 TEST [facility] PCR (05/13/2021 11:20 EST) Swab 05/13/2021 11:2 0 EST 05/13/2021 22:47 EST Provider Outr Resulting Lab MICROBIOLOGY - GENERAL ORDERABLES [facility] [address] [place] [address] * COVID-19 TESTING (05/13/2021 11:20 EST) COVID-19 rt-PCR Result Negative Negative 05/14/2021 16:51 EST [facility] Comment: This test has [...] clinical observations, patient history, and epidemiological information. This test was developed and its performance characteristics determined by [facility]. It has not been cleared or approved by the US Food and Drug Administration. FDA does not require this test to go through premarket FDA review. This test is used for clinical purposes. It should not be regarded as investigational or for research. This laboratory is certified under the Clinical Laboratory Improvement Amendments (CLIA) as qualified to perform high complexity clinical laboratory testing. This test is based on the [facility] COVID-19 Emergency Use Authorization (EUA) assay, with minor modification as defined by the FDA Performed on the [employer] 7 Flex RT-PCR System. Performing Lab [facility] 05/14/2021 16:51 EST [facility] Swab 05/13/2021 11:2 0 EST 05/13/2021 22:47 EST Provider Outr Resulting Lab MICROBIOLOGY - GENERAL ORDERABLES [facility] [address] [place] [address] documented in this encounter Visit Diagnoses Not on filedocumented in this encounter Care Teams [employer] Professor Relationship Specialty Start Date End Date Ofelia Pierce NP [address] [place] [address] PCP - General 03/31/21 Desiree Park MD [address] [place] [address] 03/23/21 documented as of this encounter
--- OUTSIDE RECORDS SUMMARY | 2023-12-21 03:34 | XMS_ITS | Encounter Summary ---
Author Organization [facility] Address [address] [place] [address] Care Team Providers Care Hot Pond Operator Name Role Phone Ofelia Pierce NP Primary Care Provider [phone] Desiree Park MD Unavailable [phone] Encounter Details Date Type Department Care Team (Late st Contact Info) Description 06/02/[address] [facility] Pathology & Laboratory Medicine - [address] [address] Outr Resulting Lab, Provider Social History Tobacco [...] Procedure Name Priority Date/Time Associated Diagnosis Comments CHLAMYDIA/N. GONORRHOEAE AMPLIFIED NUCLEIC ACID Routine 06/02/2023 16:44 EST documented in this encounter Results * CHLAMYDIA/N. GONORRHOEAE AMPLIFIED RNA (06/02/2023 16:44 EST) Neisseria gonorrhoeae Result Negative Negative 06/03/2023 14:24 EST [facility] Chlamydia trachomatis Result Negative Negative 06/03/2023 14:24 EST [facility] Urine URINE / Unknown 06/02/2023 1 6:44 EST 06/02/2023 21:59 EST Narrative [facility] - 06/03/2023 14:24 EST A first catch urine specimen is acceptable for detection of Gonorrhea and Chlamydia, but might detect up to 10% fewer infections when compared with vaginal and endocervical swab samples. Provider Outr Resulting Lab MICROBIOLOGY - GENERAL ORDERABLES [facility] [address] [place] [address] documented in this encounter Visit Diagnoses Not on filedocumented in this encounter Care Teams Hot Pond Operator Relationship Specialty Start Date End Date Ofelia Pierce NP [address] [place] [address] PCP - General 03/31/21 Desiree Park MD [address] [place] [phone] 03/23/21 documented as of this encounter
--- OUTSIDE RECORDS SUMMARY | 2023-12-21 03:34 | XMS_ITS | Encounter Summary ---
Author Organization [facility] Address [address] [place] [address] Care Team Providers Care Building Maintenance Mechanic Name Role Phone Stan Ofelia Walker NP Primary Care Provider [phone] Desiree Park MD Unavailable [phone] Reason for Visit * Reason Comments Follow-up 2 M F/U CT 4.12.22 Encounter Details Date Type Department Care Team (Latest Contact Info) Description 08/11/2021 14:00 EDT Office Visit [facility] [address] [place], [place] [id number] Willam Jacinto MD [address] [place] [id number] Hydronephrosis, unspecified hydronephrosis type (Primary Dx) Social History Tobacco Use Types [...] as of this encounter Progress Notes * OpheliaWillam - 08/11/2021 1400 EDT Follow-up visit on [facility]. This is a 30-year-old female who I [...] is not present is likely due to thelimitations of identifying small stones on ultrasound. Any hydronephrosis that was present has resolved. I do not think she has any urologic concerns at this time. We will have her follow-up on an as-needed basis. documented in this encounter Plan of Treatment Not on file documented as of this encounter Visit Diagnoses Diagnosis Hydronephrosis, unspecified hydronephrosis type- Primary documented in this encounter Care Teams Building Maintenance Mechanic Relationship Specialty Start Date End Date Ofelia Pierce NP [address] [address] PCP - General 03/31/21 Desiree aPrk MD [address] [place] [address] 03/23/21 documented as of this encounter
--- OUTSIDE RECORDS SUMMARY | 2023-12-21 03:34 | XMS_ITS | Referral Summary ---
Author Organization [facility] Address [address] [place] [address] Care Team Providers Care Dining Chair Seat Cushion Trimmer Name Role Phone Ofelia Pierce NP Primary Care Provider [phone] Desiree Park MD Unavailable Encounters Date Type Department Care Team Description 12/19/2023 Lab Requisition [facility] Pathology & Laboratory Medicine - [facility] [address] [place] [address] Outr Resulting Lab, Provider from Last 3 Months Allergies Active Allergy Reactions Criticality Noted Date Comments Amoxicillin Hives 03/31/2021 Shortness of Breath Penicillins 03/22/2011 Penicillins Hives,Shortness Of Breath Medications Medication Sig Dispensed Refills Start Date End Date Status ibuprofen (MOTRIN) 400 mg tablet Take 400 mg by mouth every 6 hours as needed for Pain. Active vit no.124/iron/folic ( VITAMIN ORAL) Take 1 Tablet by mouth daily. Active Triamcinolone Acetonide 0.05 % ointment Apply 0.1 % topically 2 times daily. Active loratadine (CLARITIN ORAL) Take 10 mg by mouth every morning. Active famotidine (PEPCID) 20 mg tablet Take 20 mg by mouth 2 times daily. Active acetaminophen (TYLENOL) 500 mg tablet Take 2 Tablets by mouth every 6 hours as needed for Pain. 08/19/2021 Active Active Problems Patient Care Coordination No te Formatting of this note migh t be different from the original. 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 Myopia 03/22/2011 Astigmatism 03/22/2011 Immunizations Name Administration Dates Next Due Covid-19 mRNA Vaccine (PFIZE R COVID-19) PF 0.3 ml IM (12 yrs+) 02/04/2021,05/12/2020,04/21/2020 Social History Tobacco Use Types Packs/Day Years Used Date Smoking Tobacco: Never Smokeless Tobacco: Never Alcohol Use Standard Drinks/Week Comments Not Currently 0 (1 standard drink = 0.6 oz pur e alcohol) none since 01/2020 Sex and Gender Information Value Date Recorded Sex Assigned at Female 08/28/2021 10:44 EDT Gender Identity Female 07/30/2021 8:31 EDT Sexual Orientation Straight 08/28/2021 10 :44 EDT Last Filed Vital Signs Vital Sign Reading [...] Body Mass Index 27.66 08/19/2021 0626 EDT Functional Status Functional Status Response Date of [...] concentrating, remembering, or making decisions? No 06/09/2021 Plan of Treatment Not on file Procedures Procedure Name Priority Date/Time Associated Diagnosis Comments PROGESTERONE Routine 12/19/2023 8:23 EDT HEPATITIS C AB W REFLEX TO HCV RNA BY PCR Routine 06/02/2023 16:44 EST from Last 3 Months or Most Recently Relevant to Health Maintenance Results * PROGESTERONE (12/19/2023 8:23 EDT) Progesterone 9.9 See Table ng/mL 12/19/2023 18:02 EDT [facility] Comment: Female Reference Ranges: PHYSIOLOGICAL STATUS ?REFERENCE RANGE ? Pre-Pubertal: ? <= 0.2 ng/mL Menstruating: (Non-) Follicular Phase: ? <= 1.4 ng/mL Luteal Phase: ? 3.3 - 25.6 ng/mL Mid-luteal Phase: ? 4.4 - 28.0 ng/mL Postmenopausal: ? <= 0.7 ng/mL : -------- First Trimester: ?11.2 - 90.0 ng/mL Second Trimester: ? 25.6 - 89.4 ng/mL Third Trimester: ?48.4 - 422.5ng/mL For ectopic , consult a pathologist. Blood VENOUS BLOOD / Unknown 12/19/2023 8:23 EDT 12/19/2023 17:16 EDT Provider Outr Resulting Lab CHEMISTRY & BLOOD GAS ORDERABLES Performing Organization Address City/[facility]/ZIP Co de Phone Number [facility] [address] [place] [address] * HEPATITIS C AB W REFLEX TO HCV RNA BY PCR (06/02/2023 16:44 EST) Hep C Antibody Negative Negative 06/03/2023 9:41 EST [facility] Blood VENOUS BLOOD / Unknown 06/02/2023 16:44 EST 06/02/2023 22:14 EST Provider Outr Resulting Lab CHEMISTRY & BLOOD GAS ORDERABLES Performing Organization Address City/[facility]/ZIP Co de Phone Number [facility] [address] [place] [address] from Last 3 Months or Most Recently Relevant to Health Maintenance Care Teams Dining Chair Seat Cushion Trimmer Relationship Specialty Start Date End Date Ofelia Pierce NP [address] [place], [place] [phone] PCP - General 03/31/21 Desiree Park MD [address] [place] [phone] 03/23/21
--- OUTSIDE RECORDS SUMMARY | 2023-12-21 03:34 | XMS_ITS | Encounter Summary ---
Author Organization [facility] Address [address] [place] [address] Care Team Providers Care Mcat Instructor Name Role Phone Ofelia Pierce NP Primary Care Provider [phone] Desiree Park MD Unavailable [phone] Encounter Details Date Type Department Care Team (Late st Contact Info) Description 05/16/2023 Lab Requisition [facility] Pathology & Laboratory Medicine - [address] [address] Outr Resulting Lab, Provider Social History Tobacco [...] Procedure Name Priority Date/Time Associated Diagnosis Comments ANTI NUCLEAR AB (JOSEFA), IFA Routine 05/16/2023 9:20 EST documented in this encounter Results * (ABNORMAL) ANTI NUCLEAR AB (JOSEFA), IFA (05/16/2023 9:20 EST) JOSEFA Interpretation Positive(A) Negative 05/17/2023 13:21 EST [facility] Comment: For titers greater than or equal to 1:160 (except the centromere and nucleolar patterns) it is recommended that specific follow-up autoantibody testing ??(such as for dsDNA and Extractable Nuclear Antigens) be performed on all diffuse and/or speckled patterns NOTE: For add-on testing dsDNA is stable for 7 days refrigerated while Extractable Nuclear Antigens are only stable for 48 hours refrigerated. JOSEFA Titer and Pattern 1 1:320 Dense Fine Speckled 05/17/2023 13:21 EST [facility] Blood VENOUS BLOOD / Unknown 05/16/2023 9:20 EST 05/16/2023 21:40 EST Narrative [facility] - 05/17/2023 13:21 EST Results were obtained with the INOVA NOVA Lite HEp-2 JOSEFA Kit by indirect immunofluorescence. Provider Outr Resulting Lab IMMUNOLOGY A ND SEROLOGY ORDERABLES Performing Organization Address City/State/[facility] Co de Phone Number [facility] [address] [place] [address] documented in this encounter Visit Diagnoses Not on filedocumented in this encounter Care Teams Mcat Instructor Relationship Specialty Start Date End Date Ofelia Pierce NP [address] [facility] [place] [id number] PCP - General 03/31/21 Desiree Park MD [address] [place] [phone] 03/23/21 documented as of this encounter
--- OUTSIDE RECORDS SUMMARY | 2023-12-21 03:34 | XMS_ITS | Encounter Summary ---
Author Organization [facility] Address [address] [place] [address] Care Team Providers Care Packing Machine Can Feeder Name Role Phone Ofelia Pierce NP Primary Care Provider [phone] Desiree Park MD Unavailable [phone] Encounter Details Date Type Department Care Team (Late st Contact Info) Description 06/02/2023 Lab Requisition [facility] Pathology & Laboratory Medicine - [address] [address] Outr Resulting Lab, Provider Social History Tobacco [...] Procedure Name Priority Date/Time Associated Diagnosis Comments HIV 1/2 ANTIGEN AND ANTIBODY, 4TH GENERATION Routine 06/02/2023 16:44 EST documented in this encounter Results * HIV 1/2 ANTIGEN AND ANTIBODY, 4TH GENERATION (06/02/2023 16:44 EST) HIV 1 and 2 Antibody/p24 Antigen, 4th Generation Negative Negative 06/03/2023 9:38 EST [facility] Comment:If acute HIV-1 infec tion is suspected in a high risk patient, submit plasma specimen for HIV-1 RNA quantitation test. Blood VENOUS BLOOD / Unknown 06/02/2023 16:44 EST 06/02/2023 22:14 EST Narrative [facility] - 06/03/2023 9:38 EST Fourth Generation assay performed on the Siemens oLyfeaur XPT. Provider Outr Resulting Lab IMMUNOLOGY A ND SEROLOGY ORDERABLES Performing Organization Address City/State/[facility] Co de Phone Number [facility] [address] [place] [address] documented in this encounter Visit Diagnoses Not on filedocumented in this encounter Care Teams Packing Machine Can Feeder Relationship Specialty Start Date End Date Ofelia Pierce NP [address] [place] [address] PCP - General 03/31/21 Desiree Park MD [address] [place] [address] 03/23/21 documented as of this encounter
--- OUTSIDE RECORDS SUMMARY | 2023-12-21 03:34 | XMS_ITS | Encounter Summary ---
Author Organization [facility] Address [address] [place] [address] Care Team Providers Care Casino Cage Manager Name Role Phone Ofelia Pierce NP Primary Care Provider [phone] Desiree Park MD Unavailable [phone] Encounter Details Date Type Department Care Team (Late st Contact Info) Description 06/02/2023 Lab Requisition [facility] Pathology & Laboratory Medicine - [address] [address] Outr Resulting Lab, Provider Social History Tobacco [...] Procedure Name Priority Date/Time Associated Diagnosis Comments PROLACTIN Routine 06/02/2023 16:44 EST documented in this encounter Results * PROLACTIN (06/02/2023 16:44 EST) Prolactin 10.3 See Note ng/mL 06/02/2023 23:05 EST [facility] Comment: NOTE: Female Reference Ranges: PHYSIOLOGICAL STATUS ?REFERENCE RANGE ? Postmenopausal ?1.8 - 20.3 ng/mL ?9.7 - 208.5 ng/mL Non- ?2.8 - 29.2 ng/mL Blood VENOUS BLOOD / Unknown 06/02/2023 16:44 EST 06/02/2023 22:13 EST Provider Outr Resulting Lab CHEMISTRY & BLOOD GAS ORDERABLES [facility] [address] [place] [address] documented in this encounter Visit Diagnoses Not on filedocumented in this encounter Care Teams Casino Cage Manager Relationship Specialty Start Date End Date Ofelia Pierce NP [address] [phone] PCP - General 03/31/21 Desiree Park MD [address] [place] [address] 03/23/21 documented as of this encounter
--- OUTSIDE RECORDS SUMMARY | 2023-12-21 03:34 | XMS_ITS | Encounter Summary ---
Author Organization [facility] Address [address] [place] [address] Care Team Providers Care Crew Member Name Role Phone Ofelia Pierce NP Primary Care Provider [phone] Desiree Park MD Unavailable [phone] Reason for Visit * Reason Onset Date Comments Other 08/18/2021 Encounter Details Date Type Department Care Team (Late st Contact Info) Description 08/18/2021 Telephone [facility] General Surgery - [address] [address] Maria Eugenia Ivan MD [address] [place] [phone] Other Social History Tobacco Use Types Packs/Day Years [...] No 06/09/2021 Cognitive Status Response Date of [facility] ent Because of a physical, menta l, or emotional condition, does this person have serious difficulty concentrating, remembering, or making decisions? No 06/09/2021 documented as of this encounter Miscellaneous Notes * Telephone Encounter - WilbertCherelle boswelly - 08/18/2021 1148 EDT Spoke with Lina Segura at [phone] to confirm arrival time for surgery with Dr. Hernandez on Tuesday08/19/2021. Check in by 5:45 am at Level 3 Registration at the Main [place] [facility]. NPO after midnight. Mirror Silverer required for D/C. Lian advises her father will be driving her home after D/C & her will be staying with her at their residence after surgery and during her recovery. documented in this encounter Plan of Treatment Not on file documented as of this encounter Visit Diagnoses Not on filedocumented in this encounter Care Teams Crew Member Relationship Specialty Start Date End Date Ofelia Pierce NP [address] [address] PCP - General 03/31/21 Desiree Park MD [address] [place] [phone] 03/23/21 documented as of this encounter
--- OUTSIDE RECORDS SUMMARY | 2023-12-21 03:34 | XMS_ITS | Encounter Summary ---
Author Organization [facility] Address [address] [place] [address] Care Team Providers Care Shop And Alteration Tailor Name Role Phone Ofelia Pierce NP Primary Care Provider Desiree Park MD Unavailable [phone] Encounter Details Date Type Department Care Team (Late st Contact Info) Description 12/26/2022 Lab Requisition [facility] Pathology & Laboratory Medicine - [address] [address] Outr Resulting Lab, Provider Social History Tobacco [...] Procedure Name Priority Date/Time Associated Diagnosis Comments FECAL BACTERIAL PATHOGENS BY PCR Routine 12/26/2022 9:57 EDT documented in this encounter Results * FECAL BACTERIAL PATHOGENS BY PCR (12/26/2022 9:57 EDT) Salmonella PCR Negative Negative 12/26/2022 20:33 EDT [facility] Shigella/Enteroin vasive E. coli Negative Negative 12/26/2022 20:33 EDT [facility] HN LAB CAMPYLOBACTER PCR Negative Negative 12/26/2022 20:33 EDT [facility] Shiga Toxin PCR Negative Negative 20:33 EDT [facility] Feces SPECIMEN FROM RECTUM / Unknown 12/26/2022 9:57 EDT 12/26/2022 15:56 EDT Provider Outr Resulting Lab MICROBIOLOGY - GENERAL ORDERABLES Performing Organization Address City/State/[facility] Co de Phone Number [facility] [address] [place] [address] documented in this encounter Visit Diagnoses Not on filedocumented in this encounter Care Teams Shop And Alteration Tailor Relationship Specialty Start Date End Date Ofelia Pierce NP [address] [place] [address] PCP - General 03/31/21 Desiree Park MD [address] [place] [address] 03/23/21 documented as of this encounter
--- OUTSIDE RECORDS SUMMARY | 2023-12-21 03:34 | XMS_ITS | Encounter Summary ---
Author Organization [facility] Address [address] [place] [address] Care Team Providers Care Supervisor Roving Department Name Role Phone Ofelia Pierce NP Primary Care Provider [phone] Desiree Park MD Unavailable [phone] Reason for Referral * Specialty Diagnoses / Procedures Referred By Contac t Referred To Contact Irene Bowden MD [address] [place] [address] Referral ID Status Reason Start Date Expiration Date Visits Re quested Visits Authorized Comments Please make an appointment with your physician in 4 week(s). Call your physician immediately if you have any fevers greater than 100, drainage from your wound that is not clear or looks infected, persistent bleeding, increasing abdominal pain, problems urinating, or persistent nausea/vomiting. You should be aware that you may have right shoulder pain after surgery and that this will progressively go away. This is called 'referred pain' and is from the area of the gallbladder. It can also be caused by gas that may be trapped under the diaphragm from the surgery, especially if it was performed laparoscopically through mini-incisions. This gas will progressively get reabsorbed by your body. * Specialty Diagnoses / Procedures Referred By Contac t Referred To Contact Irene Bowden MD [address] [place] [address] Referral ID Status Reason Start Date Expiration Date Visits Re quested Visits Authorized Comments We are currently collecting quality data on patients having surgery. You may receive a phone call, email, and/or letter about your surgery asking you a series of follow up questions to evaluate specifics aspects of your care. Thank you for your participation. Reason for Visit * Auth/Cert Specialty Diagnoses / Procedures Referred By Jose t Referred To Contact Diagnoses Biliary colic Procedures RI LAP,CHOLECYSTECTOMY laparoscopic and possible open cholecystectomy and possible intraoperative cholangiography (XRY). Referral ID Status Reason Start Date Expiration Date Visits Re quested Visits Authorized [id number] 05/01/2022 1 1 Encounter Details Date Type Department Care Team (Latest Contact Info) Description 08/19/2021 5:51 EDT - 08/19/2021 11:40 EDT Hospital Encounter [facility] [place] [address] [place] [address] [id number] Maria Eugenia Ivan MD [address] [place] [phone] Gallbladder polyp (Primary Dx) Discharge Disposition: Home or Self Care Social [...] Code Departure Means Destination Home or Self Correction documented in this encounter H&P Notes * [...] Eugenia Ivan MD - 08/06/2021 13:00 EDT [facility] General Surgery Consultation Note - Initial [...] Administered Date(s) Administered ??? Covid-19 mRNA Vaccine (Space Monkey COVID-19) PF 0.3 ml IM (12 yrs+) [...] level: Not on file Occupational History Employer: [employer] Tobacco Use ??? Smoking status: Never Smoker ??? Smokeless tobacco: Never Used Substance and Sexual Activity ??? Alcohol use: Not Currently ??? Drug use: Never ??? Sexual activity: Not on file Other Topics Concern ??? 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 Social Determinants of Health Financial Resource Strain: [...] 06/09/2021 Negative Negative mg/dL Final ??? Specific [place], Urine 06/09/2021 1.020 1.001 - 1.035 Final [...] in this encounter Nursing Notes * Amalia Terrazas, DANG - 08/19/2021 0636 EDT Preop Covid DOS [...] DATE: 08/19/2021 SURGEON: Maria Eugenia Hernandez MD, [facility] AIRCRAFT STRUCTURAL DESIGN ENGINEER: Irene Bowden MD PREOPERATIVE DIAGNOSIS: Biliary colic [...] the right orbital region. PAST SURGICAL HISTORY: [place] tooth extraction. ALLERGIES: PENICILLIN DERIVATIVES. FINDINGS: Adhesions [...] no drains retained. Maria Eugenia Hernandez MD, [facility] / [place] Confirmation: [id number] Dictation ID: [id number] cc: documented in this encounter Miscellaneous Notes * Brief Op Note - Irene Bowden MD - 08/19/2021 0857 EDT Date: 08/19/2021 Location: [facility] OR Name: Lina Brumfieldjacques, : 1990, Diagnosis Pre-Op Diagnosis Codes: * [...] 08/19/21 Anterior Abdomen Full thickness (Active) Staff: Database Security Administrator: Shital Palomino RN Scrub Person: Priscilla Royal RN Patient Cupola Operator: Reva Villa Indications: Lina Segura is an [...] explore management options, if applicable. 08/24/2021 13:44 [facility] Final Diagnosis A. GALLBLADDER, CHOLECYSTECTOMY: - Cholesterol polyp. - Gallbladder with otherwise no significant diagnostic abnormalities. 08/24/2021 13:44 [facility] Attestation There was significant resident/fellow involvement in the diagnostic evaluation of this case. By the signature below, the attending physician certifies that they have personally conducted a gross and/or microscopic examination of the described specimens and rendered or confirmed the above diagnosis. 08/24/2021 13:44 [facility] at 1344 Clinical History Biliary colic 08/24/2021 13:44 [facility] Gross Description A. Received fresh [...] The wall is without areas of induration. Mixer Lever Operator sections are submitted in A1 to include the cystic duct margin, en face and 2 patient relations representative sections from the gallbladder wall to include the polyp. ANA OSMAN(ASCP) 08/19/2021 13:59 08/24/2021 13:44 [facility] Resident/Jenaro w: Maureen Wolf MD 08/24/2021 13:44 [facility] Performing Lab [facility] 08/24/2021 13:44 [facility] Scanned Images 08/24/2021 13:44 [facility] Tissue ENTIRE GALLBLADDER / Unknown 08/19/2021 8:22 EDT 08/19/2021 11:10 EDT Maria Eugenia Ivan MD PATHOLOGY ORDERABLES Performing Organization Address City/[facility]/ZIP Co de Phone Number [facility] [address] [place] [address] * TEST, URINE (08/19/2021 6:11 EDT) Test, Urine Negative Negative 08/19/2021 6:25 EDT [facility] Comment:False negative resul ts may occur in women who are beyond 5-8 weeks gestation. Diagnosis of should be based on a correlation of test results with typical clinical signs and symptoms. Urine URINE / Unknown Urine Collect / Unknown 08/19/2021 6:11 EDT 08/19/2021 6:15 EDT Maira Eugenia Ivan MD URINALYSIS ORDERABLE S Performing Organization Address City/[facility] Co de Phone Number [facility] [address] [place] [address] documented in this encounter Visit Diagnoses Diagnosis Gallbladder polyp- Primary Cholesterolosis of gallbladder Gallbladder polyp Cholesterolosis of gallbladder documented in this encounter [...] 50, Routine, Recovery (only) diphenhydrAMINE (BENADRYL) injection 12.5 mg 12.5 mg, [...] (only) Rate Documented 08/19/2021 9:13 EDT 75 mL/ hr naloxone (NARCAN) injection 0.2 mg 0.2 mg, [...] 08/19/2021 cellulose, oxidized 2 x 14 (SURGICEL) pad pad 1 08/19/2021 fentaNYL citrate (PF) injection 25-50 mcg 1 08/19/2021 HYDROmorphone (DILAUDID) tablet 2-4 mg 1 HYDROmorphone (PF) (DILAUDID ) 0.5 mg/0.5 mL syringe 0.3-0.5 mg 1 08/19/2021 lactated ringers (LR) infusion 1 08/19/2021 lidocaine (PF) 10 mg/mL (1 % ) injection 2 mg 2 08/19/2021 lidocaine 1 % 30 mL, bupivac meredith (PF) (MARCAINE) 0.5% 30 mL 1 08/19/2021 naloxone (NARCAN) injection 0.2 mg 1 2021 ondansetron (PF) (ZOFRAN) injection 4 mg 1 08/19/2021 sodium chloride 0.9 % irrigation 1 08/20/19 Diet Count Last Ordered Date First Orde [...] 08/01 documented in this encounter Care Teams Supervisor Roving Department Relationship Specialty Start Date End Date Ofelia Pierce NP [address] [place] [id number] PCP - General 03/31/21 Desiree Park MD [address] [facility] [place] [address] 03/23/21 documented as of this encounter
--- OUTSIDE RECORDS SUMMARY | 2023-12-21 03:34 | XMS_ITS | Encounter Summary ---
Author Organization [facility] Address [address] [place] [address] Care Team Providers Care Adult Educator Name Role Phone Stan Ofelia Walker NP Primary Care Provider [phone] Desiree Park MD Unavailable [phone] Reason for Visit * Reason Onset Date Comments COVID-19 08/10/2021 Encounter Details Date Type Department Care Team (Late st Contact Info) Description 08/10/2021 Telephone [facility] - [employer] [address] [place] [address] Maria Eugenia Ivan MD [address] [place] [phone] COVID-19 Social History Tobacco Use Types Packs/Day Years [...] encounter Miscellaneous Notes * Telephone Encounter - Zenaida Nieves RN - 08/11/2021 1139 EDT COVID testing order placed and faxed to [facility]. * Telephone Encounter - Shamika Landrum - 08/10/2021 1709 EDT Patient called to advise she would like covid testing done at [facility]. There is no covid order for her surgery. Please place order and then fax the order to [facility] so they can schedule the patient for testing on 08/15/21 (they do not test on Sundays). Pt will call [facility] for appt time on 08/15/21. documented in this encounter Plan of Treatment Not on file documented as of this encounter Visit Diagnoses Diagnosis Encounter for preoperative screening laboratory testing for COVID-19 virus- Primary documented in this encounter Care Teams Adult Educator Relationship Specialty Start Date End Date Ofelia Pierce NP [address] [address] PCP - General 03/31/21 Desiree Park MD [address] [place] [address] 03/23/21 documented as of this encounter
--- OUTSIDE RECORDS SUMMARY | 2023-12-21 03:34 | XMS_ITS | Clinical Summary ---
Author Organization [facility] Address [address] [place] [address] Care Team Providers Care Shank Stitcher Name Role Phone Ofelia Pierce MAPLE PRODUCTS SUPERVISOR Primary Care Provider [phone] Desiree Park MD Unavailable [phone] Allergies Active Allergy Reactions Criticality Noted Date [...] t be different from the original. 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 Myopia 03/22/2011 Astigmatism 03/22/2011 Encounters Date Type Department Care Team Description 12/19/2023 Lab Requisition [facility] Pathology & Laboratory Medicine - [address] [address] Outr Resulting Lab, Provider from Last 3 Months Immunizations Name Administration Dates Next Due Covid-19 mRNA Vaccine (PFIZE R COVID-19) PF 0.3 ml IM (12 yrs+) 02/04/2021,05/12/2020,04/21/2020 Surgical History Surgery Date Site/Laterality Comments WISDOM TOOTH EXTRACTION OTHER SURGICAL HISTORY laser annually from age 3 to 14 for port wine stain Medical History Medical History Date Comments 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 stone during , right hydronephrosis has resolved. At this time no stone visualized GERD (gastroesophageal reflux disease) 08/18/21: during , now resolved. Now on pepcid for anti histamine benefit r/t hives Migraines 08/18/21: on occa ssion, no specific med plan Eczema 08/17/21 telangie ctasia, port-wine stain of skin. Eczema, developed hives post , ? hormonal : being treated with clariten and pepcid: somewhat helpful Eczema eczema hands , w rist . per pt, surgical site clear at this time from eczema Family History Medical History Relation Comments Diabetes Maternal Grandfather Heart Disease Maternal Grandfather High Blood Pressure Maternal Grandfather High Blood Pressure Mother Glaucoma Paternal Grandfather Diabetes Paternal Grandmother Relation Status Comments Maternal Grandfather Other cabg Mother [...] Sexual Orientation Straight 08/28/2021 10 :44 EDT Obstetrics History Para Term AB IAB SAB Ectopic Multiple Livin g Live Births 2 0 0 0 1 0 0 0 Date Outcome GA Total Labor Labor/2nd/3rd Weight Sex Type Anes PTL Ana Paula A1 A5 Name Clin AB Last Filed Vital Signs Vital Sign [...] Maintenance Due Date Last Done Comments Hepatitis B Vaccine (1 of 3 - 19+ 3-dose series) 08/24/2011 COVID-19 Vaccine (2022-2 4 season) 2022 02/04/2021, 05/12/2020, 04/21/2020 Hepatitis C Screen Completed 06/02/2023, 11/14/2020 Procedures Procedure Name Priority Date/Time Associated Diagnosis Comments PROGESTERONE Routine 12/19/2023 8:23 EDT HEPATITIS C AB W REFLEX TO HCV RNA BY PCR Routine 06/02/2023 16:44 EST from Last 3 Months or Most Recently Relevant to Health Maintenance Results * PROGESTERONE (12/19/2023 8:23 EDT) Progesterone 9.9 See Table ng/mL 12/19/2023 18:02 EDT [facility] Comment: Female Reference Ranges: [...] Resulting Lab CHEMISTRY & BLOOD GAS ORDERABLES [facility] [address] [place] [address] * HEPATITIS C AB W REFLEX TO HCV RNA BY PCR (06/02/2023 16:44 EST) Hep C Antibody Negative Negative 06/03/2023 9:41 EST [facility] Blood VENOUS BLOOD / Unknown 06/02/2023 16:44 EST 06/02/2023 22:14 EST Provider Outr Resulting Lab CHEMISTRY & BLOOD GAS ORDERABLES [facility] [address] [place] [address] from Last 3 Months or Most Recently Relevant to Health Maintenance Care Teams Shank Stitcher Relationship Specialty Start Date End Date Ofelia Pierce NP [address] [place] [address] PCP - General 03/31/21 Desiree Park MD [address] [place] [phone] 03/23/21
--- OUTSIDE RECORDS SUMMARY | 2023-12-21 03:34 | XMS_ITS | Encounter Summary ---
Author Organization [facility] Address [address] [place] [address] Care Team Providers Care Garment Alteration Examiner Name Role Phone Ofelia Pierce NP Primary Care Provider [phone] Desiree Park MD Unavailable [phone] Encounter Details Date Type Department Care Team (Late st Contact Info) Description 12/26/2022 Lab Requisition [facility] Pathology & Laboratory Medicine - [address] [address] Outr Resulting Lab, Provider Social History Tobacco [...] Procedure Name Priority Date/Time Associated Diagnosis Comments GIARDIA AND CRYPTOSPORIDIUM ANTIGENS Routine 12/26/2022 9:57 EDT documented in this encounter Results * GIARDIA AND CRYPTOSPORIDIUM ANTIGENS (12/26/2022 9:57 EDT) Giardia and Cryptosporidium Cryptosporidium Antigen Neg and Giardia Antigen Neg Cryptosporidium Antigen Neg and Giardia Antigen Neg 12:39 EDT [facility] Feces SPECIMEN FROM RECTUM / Unknown 12/26/2022 9:57 EDT 12/26/2022 15:56 EDT Provider Outr Resulting Lab MICROBIOLOGY - GENERAL ORDERABLES Performing Organization Address City/State/[facility] Co de Phone Number [facility] [address] [place] [phone] documented in this encounter Visit Diagnoses Not on filedocumented in this encounter Care Teams Garment Alteration Examiner Relationship Specialty Start Date End Date Ofelia Pierce NP 4 [facility] [place] [address] PCP - General 03/31/21 Desiree Park MD 4 [facility] [place] [address] 03/23/21 documented as of this encounter
--- OUTSIDE RECORDS SUMMARY | 2023-12-21 03:34 | XMS_ITS | Encounter Summary ---
Author Organization [facility] Address [address] [place] [address] Care Team Providers Care Software Maintenance Engineer Name Role Phone Stan Ofelia Walker SEATING CAPTAIN Primary Care Provider [phone] Desiree Park MD Unavailable [phone] Encounter Details Date Type Department Care Team (Late st Contact Info) Description 05/12/2021 Lab Requisition [facility] Pathology & Laboratory Medicine - [facility] [address] [place] [address] Chikis Meade PA [address] [place] [address] [place] [address] Neoplasm of uncertain behavior of skin Social History Tobacco Use Types Packs/Day Years [...] Priority Date/Time Associated Diagnosis Comments SURGICAL PATHOLOGY Today 05/11/2021 11 :24 EST Neoplasm of uncertain behavior of skin documented in this encounter Results * SURGICAL PATHOLOGY (05/11/2021 11:24 [facility]) Note to Patient The following pathology results have been interpreted by your pathologist and may be available to you before your health provider has had the opportunity to review them. Please allow time for your provider to receive these results and explore management options, if applicable. 05/12/2021 16:12 [facility] Final Diagnosis A. SKIN OF NIPPLE, LEFT, SHAVE BIOPSY: - Fibroepithelial skin tag. B. SKIN OF CHEEK, RIGHT INFERIOR MEDIAL MALAR, SHAVE BIOPSY: - Pyogenic granuloma. 05/12/2021 16:12 [facility] Attestation By the signature below, the attending physician certifies that they have 1) personally conducted a gross and/or microscopic examination of the described specimen(s), and/or personally interpreted the results of laboratory testing of the described specimen(s), and 2) personally rendered or confirmed the above diagnosis. 05/12/2021 16:12 [facility] at 1612 Microscopic Description A. There is a polypoid papule with a papillated epidermal surface. The stratum corneum is composed of a relatively normal layer of orthokeratin. The dermis is composed of loose fibrous connective tissue and dilated vessels. B. There is a papule formed by a dermal proliferation of vascular channels associated with an edematous and inflamed stroma. The vessels are lined by hypertrophic endothelial cells and there is mural swelling. The overlying epidermis is centrally ulcerated but forms a collarette at the periphery of the papule. 05/12/2021 16:12 [facility] Clinical History A. 4 mm pedunculated papule; DDx: skin tag vs other; B. 6 mm erythematous papule; DDx: pyogenic granuloma vs hemangioma vs other; clinical diagnosis code: D48.5 05/12/2021 16:12 [facility] Gross Description A. Received in formalin labelled with proper patient identification (initials C, A) and left nipple is a shave biopsy of a dusky rod wrinkled papule (0.7 x 0.5 x 0.5 cm). The margin is inked blue. Bisected and submitted in A1. B. Received in formalin labelled with proper patient identification (initials C, A) and right inferior medial malar insert shave biopsy of pale rod-white skin (0.7 x 0.6 by of less than 0.1 cm). There is an off center a rod-white friable focally brown hemorrhagic area (0.3 x 0.3 cm). The margin is inked blue. Bisected and submitted in B1-B2. Les Ewing 05/12/2021 8:18 05/12/2021 16:12 EST [facility] Performing Lab [facility] 16:12 EST [facility] Scanned Images 05/12/2021 16:12 EST [facility] Tissue TISSUE SPECIMEN FROM SKIN / Unknown 05/11/2021 11:24 EST 05/12/2021 7:23 EST Tissue specimen (specimen) SPECIMEN FROM SKIN / Unknown 05/11/2021 11:24 EST 05/12/2021 7:23 EST Chikis PEREZ PATHOLOGY ORDERABLES [facility] [address] [place] [address] documented in this encounter Visit Diagnoses Diagnosis Neoplasm of uncertain behavior of skin documented in this encounter Care Teams Software Maintenance Engineer Relationship Specialty Start Date End Date Ofelia Pierce NP [address] [place] [address] PCP - General 03/31/21 Desiree Park MD [address] [place] [phone] 03/23/21 documented as of this encounter
--- OUTSIDE RECORDS SUMMARY | 2023-12-21 03:34 | XMS_ITS | Encounter Summary ---
Author Organization [facility] Address [address] [place] [address] Care Team Providers Care Laboratory Sample Carrier Name Role Phone Ofelia Pierce NP Primary Care Provider [phone] Desiree Park MD Unavailable [phone] Encounter Details Date Type Department Care Team (Late st Contact Info) Description 12/26/2022 Lab Requisition [facility] Pathology & Laboratory Medicine - [address] [address] Outr Resulting Lab, Provider Social History Tobacco [...] Procedure Name Priority Date/Time Associated Diagnosis Comments OVA/PARASITE EXAM Routine 12/26/2022 9:57 EDT documented in this encounter Results * OVA/PARASITE EXAM (12/26/2022 9:57 EDT) Parasite No ova and parasites seen. 12/27/2022 13:35 EDT [facility] Feces SPECIMEN FROM RECTUM / Unknown 12/26/2022 9:57 EDT 12/26/2022 15:56 EDT Narrative [facility] - 12/27/2022 13:35 EDT (If Cryptosporidium, Cyclospora, or Microsporidium are suspected, specific tests must be requested.) Single negative specimen does not rule out the possibility of a parasitic infection. Provider Outr Resulting Lab MICROBIOLOGY - GENERAL ORDERABLES Performing Organization Address City/State/[facility] Co de Phone Number [facility] [address] [place] [address] documented in this encounter Visit Diagnoses Not on filedocumented in this encounter Care Teams Laboratory Sample Carrier Relationship Specialty Start Date End Date Ofelia Pierce NP [address] [place] [address] PCP - General 03/31/21 Desiree Park MD [address] [place] [phone] 03/23/21 documented as of this encounter
--- OUTSIDE RECORDS SUMMARY | 2023-12-21 03:34 | XMS_ITS | Encounter Summary ---
Author Organization [facility] Address [address] [place] [address] Care Team Providers Care Coil Connector Repairer Name Role Phone Ofelia Pierce NP Primary Care Provider Desiree Park MD Unavailable [phone] Encounter Details Date Type Department Care Team (Late st Contact Info) Description 12/19/2023 Lab Requisition [facility] Pathology & Laboratory Medicine - [address] [address] Outr Resulting Lab, Provider Social History Tobacco [...] Diagnosis Comments PROGESTERONE Routine 12/19/2023 8:23 EDT documented in this encounter Results * PROGESTERONE (12/19/2023 8:23 EDT) Progesterone 9.9 See Table ng/mL 12/19/2023 18:02 EDT [facility] Comment: Female Reference Ranges: [...] Resulting Lab CHEMISTRY & BLOOD GAS ORDERABLES [facility] [address] [place] [address] documented in this encounter Visit Diagnoses Not on filedocumented in this encounter Care Teams Coil Connector Repairer Relationship Specialty Start Date End Date Ofelia Pierce NP [address] [place] [place] [address] PCP - General 03/31/21 Desiree Park MD [address] [place] [phone] 03/23/21 documented as of this encounter
--- OUTSIDE RECORDS SUMMARY | 2023-12-21 03:34 | XMS_ITS | Encounter Summary ---
Author Organization [facility] Address [address] [place] [address] Care Team Providers Care Delivery Driver Name Role Phone Ofelia Pierce NP Primary Care Provider [phone] Desiree Park MD Unavailable [phone] Encounter Details Date Type Department Care Team (Latest Contact Info) Description 08/17/2021 14:00 EDT - 08/17/2021 23:59 EDT Hospital Encounter [facility] [address] [place] [address] [place] [facility] [place] Op Discharge Disposition: Home or Self Care Social [...] Code Departure Means Destination Home or Self Usp documented in this encounter Miscellaneous Notes * Note - Sridevi Boyer RN - 08/17/2021 1400 EDT Telephone visit with Lina to answer questions about pumping. Received following email from Lina dated 08/14/21 at 0639am [facility]! Thank you for being willing to answer some of my /pumping questions. I really appreciate it! I guess for starters, I feel like I was never really taught how to properly pump. So any information you can give me on that would be helpful please. I???ve been pumping occasionally when my breasts still feel too full after a session, but only for 5 minutes each side. The pump I have is the Serveron S1 double electric breast pump. The questions [...] I pump on both sides? He tends toonly need to eat on one side with each session. 4. How often should I pump? 5. How long should I pump for (10 min. / 15 min. / etc.)? 6. You may answer this with your answer to question 4, but, how often should I pump overnight? Right now, he sleeps 4-5 hours the first part of the night, we feed, then he sleeps 3-4 hours the secondpart of the night. Sometimes he wakes up more often than that, but not usually. But that means thatwhen he does wake up and even throughout the night some nights, I feel incredibly full, and waitinguntil the next feed to have him eat on whichever side he didn???t eat on overnight, is almost painful. 7. How many oz/bag when I store my breast milk? So far I???ve only been storing 2-3oz/bag when I???m pumping and storing. 8. How do I go [...] that was incredibly painful and difficult to resolve. I was actually in tears trying to deal with it. Do you have any tips and tricks for how to resolvethem if I get another one? 3. I???ve [...] on filedocumented in this encounter Care Teams Delivery Driver Relationship Specialty Start Date End Date Ofelia Pierce NP [address] [address] PCP - General 03/31/21 Desiree Park MD [address] [place] [address] 03/23/21 documented as of this encounter
--- OUTSIDE RECORDS SUMMARY | 2023-12-21 03:34 | XMS_ITS | Encounter Summary ---
Author Organization [facility] Address [address] [place] [address] Care Team Providers Care Information And Referral Director Name Role Phone Ofelia Pierce NP Primary Care Provider [phone] Desiree Park MD Unavailable [phone] Encounter Details Date Type Department Care Team (Late st Contact Info) Description 06/02/[address] [facility] Pathology & Laboratory Medicine - [address] [address] Outr Resulting Lab, Provider Social History Tobacco [...] Priority Date/Time Associated Diagnosis Comments HEPATITIS B SURFACE ANTIGEN Routine 06/02/2023 16:44 EST documented in this encounter Results * HEPATITIS B SURFACE ANTIGEN (06/02/2023 16:44 EST) Hep B Surface Ag Negative Negative 06/03/2023 9:22 EST [facility] Blood VENOUS BLOOD / Unknown 06/02/2023 16:44 EST 06/02/2023 22:14 EST Provider Outr Resulting Lab CHEMISTRY & BLOOD GAS ORDERABLES Performing Organization Address City/State/[facility] Co de Phone Number [facility] [address] [place] [address] documented in this encounter Visit Diagnoses Not on filedocumented in this encounter Care Teams Information And Referral Director Relationship Specialty Start Date End Date Ofelia Pierce NP [address] [place] [address] PCP - General 03/31/21 Desiree Park MD [address] [place] [address] 03/23/21 documented as of this encounter
--- OUTSIDE RECORDS SUMMARY | 2023-12-21 03:34 | XMS_ITS | Encounter Summary ---
Author Organization [facility] Address [address] [place] [address] Care Team Providers Care Partner Alliance Manager Name Role Phone Ofelia Pierce NP Primary Care Provider [phone] Desiree Park MD Unavailable [phone] Encounter Details Date Type Department Care Team (Late st Contact Info) Description 08/11/2021 Orders Only [facility] Bariatric Surgery - [place] [address] [place], [place] [phone] Maria Eugenia Ivan MD [address] [place] [phone] Biliary colic (Primary Dx) Social History Tobacco Use Types [...] of this encounter Visit Diagnoses Diagnosis Biliary colic- Primary Calculus of gallbladder without mention of cholecystitis or obstruction documented in this encounter Care Teams Partner Alliance Manager Relationship Specialty Start Date End Date Ofelia Pierce NP [address] [address] PCP - General 03/31/21 Desiree Park MD [address] [place] [address] 03/23/21 documented as of this encounter
--- OUTSIDE RECORDS SUMMARY | 2023-12-21 03:34 | XMS_ITS | Encounter Summary ---
Author Organization [facility] Address [address] [place] [address] Care Team Providers Care Electrical Lineworker Name Role Phone Ofelia Pierce NP Primary Care Provider [phone] Desiree Park MD Unavailable [phone] Reason for Referral * Radiology Services (Routine/Next Available) - Authorization Not Required Specialty Diagnoses / Procedures Referred By Jose ventura Referred To Contact Diagnoses Nephrolithiasis Procedures CT RENAL STONE Willam Jacinto MD [address] [place] [address] [facility] Referral ID Status Reason Start Date Expiration Date Visits Requested Visits Authorized [id number] Authorization Not Required 06/09/2021 1 1 Reason for Visit * Reason Comments New Patient Visit Kidney Stone - 3 to 10 Day Referral from Mar. pt states she has not passed stone * Consult (3 - 10 Business Days) - Receiving Office to Obtain Authorization Specialty Diagnoses / Procedures Referred By Jose ventura Referred To Contact Urology Diagnoses Unspecified hydronephrosis Mark Teague MD [address] [place] [address] [place] [address] Willam Jacinto MD [address] [place] [address] Referral ID Status Reason Start Date Expiration Date Visits Requested Visits Authorized [id number] Receiving Office to Obtain Authorization 1 1 Encounter Details Date Type Department Care Team (Latest Contact Info) Description 06/09/2021 15:00 EST Office Visit [facility] Urology - [address] [address] Willam Jacinto MD [address] [place] [phone] Nephrolithiasis (Primary Dx) Social History Tobacco Use Types [...] as of this encounter Progress Notes * Willam Jacinto - 06/09/2021 1500 EST New patient visit on [facility]. This is a 30-year-old female who is at 38 weeks of her first who is here for evaluation of possible nephrolithiasis. Earlier in her she had been having right upper abdominal discomfort for which she points to beneath her rib cage. She was not havingany flank pain or radiating pain to her lower abdomen. She denies any dysuria or gross hematuria. She has no other urologic history. She had an ultrasound done which showed a polyp in her gallbladder for which she has an appointmentwith general surgery. It also showed a possible [...] reviewed the ultrasound and discussed with her thatsmall stones are often difficult to diagnose via that modality. 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 Ultimately she is feeling well and will hopefully deliver in the near future. I did suggest some follow-up imaging for which we discussed either an ultrasound or a CT scan. We ultimately decided upona noncontrast CT at to see if in fact [...] RENAL STONE Routine 08/11/2021 11:42 EDT Nephrolithiasis POCT URINE DIPSTICK, CLINITEK Routine 06/09/2021 14:59 EST Nephrolithiasis POCT CSN BARCODE URINE DIPSTICK Routine 06/09/2021 14:46 EST Nephrolithiasis POCT URINE CLINITEK (DIPSTICK) - DOES NOT REFLEX Routine 06/09/2021 14:46 EST Nephrolithiasis documented in this encounter Results * [...] No lymphadenopathy. Musculoskeletal: No concerning osseous lesions. Professor Of Finance: No additional findings. Procedure Note [place] [...] No lymphadenopathy. Musculoskeletal: No concerning osseous lesions. Professor Of Finance: No additional findings. IMPRESSION No urinary tract calculi or obstruction.. I have personally reviewed the images and the above interpretation andagree with the findings. Willam Jacinto MD [facility] ORDERA BLES * (ABNORMAL) POCT URINE DIPSTICK, CLINITEK (06/09/2021 14:59 EST) Color, UA Yellow Yellow 06/09/2021 15:00 [facility] Clarity, UA Slightly Cloudy(A) Clear 06/09/2021 15:00 [facility] Glucose, UA Negative Negative mg/dL 06/09/2021 15:00 [facility] Bilirubin, UA Negative Negative 06/09/2021 15:00 [facility] Ketones, UA Negative Negative mg/dL 06/09/2021 15:00 [facility] Specific [place], Urine 1.020 1.001 - 1.035 06/09/2021 15:00 [facility] Blood, UA Trace(A) Negative 06/09/2021 15:00 [facility] pH, UA 7.0 <=8 06/09/2021 15:00 [facility] Protein, UA Negative Negative mg/dL 06/09/2021 15:00 [facility] Urobilinogen, UA 0.2 0.2 - 1.0 EU/dL 06/09/2021 15:00 [facility] Nitrite, UA Negative Negative 06/09/2021 15:00 [facility] Leuk Esterase Negative Negative 06/09/2021 15:00 [facility] HN LAB COMMENT (CLINITEK, UR) Test performed at [facility] 06/09/2021 15:00 [facility] Urine URINE SPECIMEN COLLECTION, CLEAN CATCH / Unknown 06/09/2021 14:59 EST 06/09/2021 15:00 EST Willam Jacinto MD POINT OF CARE TEST ORDERABLES Performing Organization Address [facility] de Phone Number [facility] [address] [place] [address] * POCT CSN BARCODE URINE DIPSTICK (06/09/2021 14:46 EST) Urine URINE SPECIMEN COLLECTION, CLEAN CATCH / Unknown 06/09/2021 14:46 EST 06/09/2021 14:46 EST Willam Jacinto MD LAB INFO SERV ICE AND SUPPORT & PHONE RESULT Performing Organization Address [facility] Co de Phone Number [facility] [address] [place] [address] documented in this encounter Visit Diagnoses Diagnosis Nephrolithiasis- Primary Calculus of kidney documented in this encounter Historical Medications * This list may reflect changes made after this encounter. Medication Sig Dispensed Refills Start Date End Date Triamcinolone Acetonide 0.05 % ointment Apply 0.1 % topically 2 times daily. added in this encounter Care Teams Electrical Lineworker Relationship Specialty Start Date End Date Ofelia Pierce NP [address] [place] [id number] PCP - General 03/31/21 Desiree Park MD [address] [place] [phone] 03/23/21 documented as of this encounter
--- OUTSIDE RECORDS SUMMARY | 2023-12-21 03:34 | XMS_ITS | Encounter Summary ---
Author Organization [facility] Address [address] [place] [address] Care Team Providers Care Letter Carrier Name Role Phone Ofelia Pierce NP Primary Care Provider [phone] Desiree Park MD Unavailable Encounter Details Date Type Department Care Team (Late st Contact Info) Description 06/02/2023 Lab Requisition [facility] Pathology & Laboratory Medicine - [address] [address] Outr Resulting Lab, Provider Social History Tobacco [...] Procedure Name Priority Date/Time Associated Diagnosis Comments RUBELLA IGG ANTIBODY Routine 06/02/2023 16:44 EST documented in this encounter Results * RUBELLA IGG ANTIBODY (06/02/2023 16:44 EST) Rubella IgG Ab Positive See Note 06/03/2023 9:50 EST [facility] Comment:Positive for IgG ant ibodies to Rubella virus. Blood VENOUS BLOOD / Unknown 06/02/2023 16:44 EST 06/02/2023 22:13 EST Provider Outr Resulting Lab CHEMISTRY & BLOOD GAS ORDERABLES Performing Organization Address City/State/[facility] Co de Phone Number [facility] [address] [place] [address] documented in this encounter Visit Diagnoses Not on filedocumented in this encounter Care Teams Letter Carrier Relationship Specialty Start Date End Date Ofelia Pierce NP [address] [place] [address] PCP - General 03/31/21 Desiree Park MD [address] [place] [address] 03/23/21 documented as of this encounter
--- OUTSIDE RECORDS SUMMARY | 2023-12-21 03:34 | XMS_ITS | Encounter Summary ---
Author Organization [facility] Address [address] [place] [address] Care Team Providers Care Hose Sprayer Name Role Phone Ofelia Pierce NP Primary Care Provider [phone] Desiree Park MD Unavailable [phone] Encounter Details Date Type Department Care Team (Late st Contact Info) Description 06/02/2023 Lab Requisition [facility] Pathology & Laboratory Medicine - [address] [address] Outr Resulting Lab, Provider Social History Tobacco [...] Name Priority Date/Time Associated Diagnosis Comments HEPATITIS C AB W REFLEX TO HCV RNA BY PCR Routine 06/02/2023 16:44 EST documented in this encounter Results * HEPATITIS C AB W REFLEX TO HCV RNA BY PCR (06/02/2023 16:44 EST) Hep C Antibody Negative Negative 06/03/2023 9:41 EST [facility] Blood VENOUS BLOOD / Unknown 06/02/2023 16:44 EST 06/02/2023 22:14 EST Provider Outr Resulting Lab CHEMISTRY & BLOOD GAS ORDERABLES Performing Organization Address City/State/[facility] Co de Phone Number [facility] [address] [place] [address] documented in this encounter Visit Diagnoses Not on filedocumented in this encounter Care Teams Hose Sprayer Relationship Specialty Start Date End Date Ofelia Pierce NP [address] [place] [address] PCP - General 03/31/21 Desiree Park MD [address] [place] [address] 03/23/21 documented as of this encounter
--- OUTSIDE RECORDS SUMMARY | 2023-12-21 03:34 | XMS_ITS | Encounter Summary ---
Author Organization [facility] Address [address] [place] [address] Care Team Providers Care Car Builder Name Role Phone Ofelia Pierce NP Primary Care Provider [phone] Desiree Park MD Unavailable [phone] Encounter Details Date Type Department Care Team (Late st Contact Info) Description 06/02/2023 Lab Requisition [facility] Pathology & Laboratory Medicine - [address] [address] Outr Resulting Lab, Provider Social History Tobacco [...] Procedure Name Priority Date/Time Associated Diagnosis Comments VARICELLA IGG ANTIBODY Routine 06/02/2023 16:44 EST documented in this encounter Results * VARICELLA IGG ANTIBODY (06/02/2023 16:44 EST) Varicella IgG Ab Positive See Note 06/03/2023 10:24 EST [facility] Comment:Presence of detectab le Varicella Zoster virus IgG antibodies. Blood VENOUS BLOOD / Unknown 06/02/2023 16:44 EST 06/02/2023 22:13 EST Provider Outr Resulting Lab IMMUNOLOGY A ND SEROLOGY ORDERABLES Performing Organization Address City/State/[facility] Co de Phone Number [facility] [address] [place] [address] documented in this encounter Visit Diagnoses Not on filedocumented in this encounter Care Teams Car Builder Relationship Specialty Start Date End Date Ofelia Pierce NP [address] [place] [address] PCP - General 03/31/21 Desiree Park MD [address] [place] [address] 03/23/21 documented as of this encounter
--- OUTSIDE RECORDS SUMMARY | 2023-12-21 03:35 | XMS_ITS ---
Author Organization Unknown Address [address] [place] [phone] Phone Care Team Providers Care Corporation Officer Name Role Phone NOEMÍ GARRETT CNM Attending Unavailable ZACK SIGALA Primary Unavailable Social History Type Status Start Date End Date Code Code Syst em Smoking History Never smoker (Never Smoked) 485210670 SNOMED CT Sex Female Medications Medication Start Date End Date Route Frequency Dose Code Code System Medication Instructions Home Meds Pepcid 20MG Oral Tablet 07/14/2021 07/14/2021 ORAL TWICE A DAY 1 TABLET 827151 RxNorm TAKE 1 TABLET ORAL TWICE A DAY Claritin 10MG Oral Tablet 07/14/2021 12/26/2022 ORAL DAILY 1 TABLET 212884 RxNorm TAKE 1 TABLET ORAL DAILY for 1-2 weeks Pepcid 20MG Oral Tablet 07/14/2021 12/26/2022 ORAL TWICE A DAY 1 TABLET 965929 RxNorm TAKE 1 TABLET ORAL TWICE A DAY Ondansetron 4MG Oral Tablet, Disintegrating 12/26/2022 Unknown ORAL NEEDED EVERY 6 HOURS 1 TABLET 541275 RxNorm TAKE 1 TABLET ORAL NEEDED EVERY [...] Date Status Code Code System URTICARIA active 027447966 SNOMED-CT GASTRITIS active 3640927 SNOMED-CT Allergies and Adverse Reactions Allergy Substance Reaction Severity Start Date Concern Status Code Code System PENICILLINS (CLASS) Hives (SNOMED-CT: 787319133) Active 9267781 SNOMED-CT AMPICILLIN Hives (SNOMED-CT: 566038756) Active 733 RxNorm AMOXICILLIN Active 723 RxNorm [...] supervision of other normal , second trimester 12/15/2020 SNOMED-CT Personal Care Team Section Performer Name Performer Role Active Date Inactive Da te
--- OUTSIDE RECORDS SUMMARY | 2023-12-21 03:35 | XMS_ITS | Encounter Summary ---
Author Organization [facility] Address [address] [place] [address] Care Team Providers Care Teaching Specialists Name Role Phone Desiree Park MD Primary Care Provider [phone] None, Provider Primary Care Provider UnavailOfelia Combs NP Primary Care Provider Desiree Park MD Unavailable [phone] Encounter Details Date Type Department Care Team (Late st Contact Info) Description 11/14/2020 Lab Requisition [facility] Pathology & Laboratory Medicine - [facility] [address] [place] [address] Outr Resulting Lab, Provider Social History Tobacco Use Types Packs/Day Years Used Date Smoking Tobacco: Never Assessed Sex and Gender Information Value Date Recorded Sex Assigned at Female 08/28/2021 10:44 EDT Gender Identity Female 07/30/2021 8:31 EDT Sexual Orientation Straight 08/28/2021 10 :44 EDT documented as of this encounter Plan of Treatment Not on file documented as of this encounter Procedures Procedure Name Priority Date/Time Associated Diagnosis Comments RUBELLA IGG ANTIBODY Routine 11/14/2020 10:56 EDT documented in this encounter Results * RUBELLA IGG ANTIBODY (11/14/2020 10:56 EDT) Rubella IgG Ab Positive See Note 11/17/2020 12:23 EDT [facility] Comment:Positive for IgG ant ibodies to Rubella virus. Blood VENOUS BLOOD / Unknown 11/14/2020 10:56 EDT 11/14/2020 21:04 EDT Provider Outr Resulting Lab CHEMISTRY & BLOOD GAS ORDERABLES Performing Organization Address City/State/[facility] Co de Phone Number [facility] [address] [place] [address] documented in this encounter Visit Diagnoses Not on filedocumented in this encounter Care Teams Teaching Specialists Relationship Specialty Start Date End Date Desiree Park MD [address] [place] [phone] PCP - General 08/20/08 03/22/21 None, Provider PCP - General 03/23/21 03/30/21 Ofelia Pierce NP [address] [place], [place] [phone] PCP - General 03/31/21 Desiree Pakr MD [address] [place] [phone] 03/23/21 documented as of this encounter
--- OUTSIDE RECORDS SUMMARY | 2023-12-21 03:35 | XMS_ITS | Encounter Summary ---
Author Organization [facility] Address [address] [place] [address] Care Team Providers Care Cardiovascular Tech Name Role Phone Desiree Park MD Primary Care Provider [phone] Encounter Details Date Type Department Care Team (Late st Contact Info) Description 12/04/2013 Results Only [facility] Services - [facility] ([facility] [address] [place] [address] Ofelia Dixon, SPRAY GUN REPAIRER [address] [place] [id number] Social History Tobacco Use Types Packs/Day Years Used Date Smoking Tobacco: Never Smokeless Tobacco: Never Alcohol Use Standard Drinks/Week Comments Not Asked 0 (1 standard drink = 0.6 oz pur e alcohol) Sex and Gender Information Value Date Recorded Sex Assigned at Female 08/28/2021 10:44 EDT Gender Identity Female 07/30/2021 8:31 EDT Sexual Orientation Straight 08/28/2021 10 :44 EDT documented as of this encounter Plan of Treatment Not on file documented as of this encounter Procedures Procedure Name Priority Date/Time Associated Diagnosis Comments PAP TEST- RESULT ONLY Routine 12/04/2013 0:00 EDT documented in this encounter Results * PAP TEST- RESULT ONLY (12/04/2013 0:00 EDT) Pathology Report: CYTOPATHOLOGY REPORT Reports generated via electronic interface contain original data; however they are lacking the format of the original report. Caution should be taken when reading/interpreti ng unformatted reports. Name: ? CAITLIN JARAMILLO ? Accession #: ? [id number] : ? 1990 (Age: 23) ??F ?Collect Date: ? 12/04/2013 Location: ? [facility] ? Receive Date: ? 12/06/2013 Provider: ?OFELIA DIXON NP Copy to: ? Specimen/Source: ?Pap Test, Cervix/Endocervix, ThinPrep Imaging System with manual evaluation Last Menstrual Period: ? 10/31/13 Hormonal/Contracep tive Status: ? Intrauterine device: Placed 10/31/13 ? SPECIMEN ADEQUACY ? Satisfactory for Evaluation - transformation zone component present GENERAL CATEGORIZATION ? Negative for Intraepithelial Lesion or Malignancy ? Document reviewed and electronically signed by: ? JORGE Mattson(ASCP) ? Report Date: ??12/11/2013 15:28 End of Report CILFTON AQUINO 12/04/2013 12/06/2013 Ofelia Dioxn NP PATHOLOGY ORDERABLES [facility] [address] [place] [address] documented in this encounter Visit Diagnoses Not on filedocumented in this encounter Care Teams Cardiovascular Tech Relationship Specialty Start Date End Date Desiree Park MD [address] [place] [phone] PCP - General 08/20/08 03/22/21 documented as of this encounter
--- OUTSIDE RECORDS SUMMARY | 2023-12-21 03:35 | XMS_ITS | Encounter Summary ---
Author Organization [facility] Address [address] [place] [address] Care Team Providers Care Athlete Manager Name Role Phone Desiree Park MD Primary Care Provider None, Provider Primary Care Provider UnavailOfelia Combs NP Primary Care Provider Desiree Park MD Unavailable [phone] Encounter Details Date Type Department Care Team (Late st Contact Info) Description 09/27/2019 Lab Requisition [facility] Pathology & Laboratory Medicine - [facility] [address] [place] [address] Ofelia Pierce, TEAM COORDINATOR [address] [place] [address] [phone] Encounter for screening for malignant neoplasm of cervix; Encounter for general adult medical examination without abnormal findings Social History Tobacco Use Types Packs/Day Years [...] Date/Time Associated Diagnosis Comments PAP TEST Today 09/25/2019 15:30 EDT Encounter for screening for malignant neoplasm of cervix Encounter for general adult medical examination without abnormal findings documented in this encounter Results * PAP TEST (09/25/2019 15:30 EDT) Specimens A. Cervix and/or Endocervix , ThinPrep Imaging System with Manual Evaluation 10/03/2019 8:[address] [facility] Specimen Adequacy Satisfactory for Evaluation - transformation zone component present 10/03/2019 8:[address] [facility] General Categorization Negative for intraepithelial lesion or malignancy 10/03/2019 8:[address] [facility] Attestation . 10/03/2019 8:[address] [facility] at 0854 Clinical History NONE 10/03/19 8:[address] [facility] Scanned Images 10/03/2019 8:[address] [facility] Papanicolaou smear specimen (specimen) CERVIX UTERI STRUCTURE / Unknown 09/25/2019 15:30 EDT 09/27/2019 8:42 EDT Ofelia Pierce NP PATHOLOGY ORDERABLES Performing Organization Address City/State/[facility] Co de Phone Number [facility] [address] [place] [address] documented in this encounter Visit Diagnoses Diagnosis Encounter for screening for malignant neoplasm of cervix Screening for malignant neoplasm of the cervix Encounter for general adult medical examination without abnormal findings Unspecified general medical examination documented in this encounter Care Teams Athlete Manager Relationship Specialty Start Date End Date Desiree Park MD [address] [place] [phone] PCP - General 08/20/08 03/22/21 None, Provider PCP - General 03/23/21 03/30/21 Ofelia Pierce NP [address] [place] [address] PCP - General 03/31/21 Desiree Park MD [address] [place] [address] 03/23/21 documented as of this encounter
--- OUTSIDE RECORDS SUMMARY | 2023-12-21 03:35 | XMS_ITS | Encounter Summary ---
Author Organization [facility] Address [address] [place] [address] Care Team Providers Care Bus And Trolley Dispatcher Name Role Phone Desiree Park MD Primary Care Provider [phone] None, Provider Primary Care Provider UnavailOfelia Combs NP Primary Care Provider [phone] Desiree Park MD Unavailable [phone] Encounter Details Date Type Department Care Team (Late st Contact Info) Description 11/14/2020 Lab Requisition [facility] Pathology & Laboratory Medicine - [facility] [address] [place] [address] Outr Resulting Lab, Provider Social History Tobacco [...] REFLEX TO HCV RNA BY PCR Routine 11/14/2020 10:56 EDT documented in this encounter Results * HEPATITIS C AB W REFLEX TO HCV RNA BY PCR (11/14/2020 10:56 EDT) Hep C Antibody Negative Negative 11/17/2020 10:22 EDT [facility] Blood VENOUS BLOOD / Unknown 11/14/2020 10:56 EDT 11/14/2020 21:04 EDT Provider Outr Resulting Lab CHEMISTRY & BLOOD GAS ORDERABLES [facility] [address] [place] [address] documented in this encounter Visit Diagnoses Not on filedocumented in this encounter Care Teams Bus And Trolley Dispatcher Relationship Specialty Start Date End Date Desiree Park MD 4 [facility] [place] [phone] PCP - General 08/20/08 03/22/21 None, Provider PCP - General 03/23/21 03/30/21 Ofelia Pierce NP [address] [place], [place] [phone] PCP - General 03/31/21 Desiree Park MD [address] [place] [phone] 03/23/21 documented as of this encounter
--- OUTSIDE RECORDS SUMMARY | 2023-12-21 03:35 | XMS_ITS | Encounter Summary ---
Author Organization [facility] Address [address] [place] [address] Care Team Providers Care Retoucher Name Role Phone Deisree Park MD Primary Care Provider [phone] None, Provider Primary Care Provider UnavailOfelia Combs NP Primary Care Provider [phone] Desiree Park MD Unavailable [phone] Encounter Details Date Type Department Care Team (Late st Contact Info) Description 09/14/2019 Lab Requisition [facility] Pathology & Laboratory Medicine - [address] [address] Outr Resulting Lab, Provider Social History Tobacco [...] Procedure Name Priority Date/Time Associated Diagnosis Comments QUANTIFERON TB GOLD PLUS Routine 09/13/2019 14:02 EDT documented in this encounter Results * QUANTIFERON TB GOLD PLUS (09/13/2019 14:02 EDT) Pathologist [facility] Quantiferon Interpretation Negative Negative 09/17/2019 13:49 EDT [facility] Comment: No interferon-gamma response to M. tuberculosis antigens was detected. ??Infection with M. tuberculosis is unlikely. A single negative result does not exclude infection with M. tuberculosis. ??In patients at high risk for M. tuberculosis infection, a second test should be considered in accordance with the 2017 ATS/IDSA/CDC Clinical Practice Guidelines for Diagnosis of Tuberculosis in Adults and Children. [Parish DIAZ et. al. Clin. Infect. Dis. 2017:64 (2) ??: 111-115]. Results were obtained with the Qiagen QuantiFERON TB Gold Plus PAPI. TB1 Ag minus Nil 0.03 IU/ml 09/17/19 13:49 EDT [facility] TB2 Ag minus Nil 0.01 IU/mL 09/17/19 13:49 EDT [facility] Blood VENOUS BLOOD / Unknown 09/13/2019 14:02 EDT 09/14/2019 15:22 EDT Narrative [facility] - 09/17/2019 13:49 EDT Results were obtained with the Qiagen QuantiFERON-TB Gold Plus PAPI. Provider Outr Resulting Lab CHEMISTRY & BLOOD GAS ORDERABLES Performing Organization Address City/State/[place] Co de Phone Number [facility] [address] [place] [address] documented in this encounter Visit Diagnoses Not on filedocumented in this encounter Care Teams Retoucher Relationship Specialty Start Date End Date Desiree Park MD [address] [place] [phone] PCP - General 08/20/08 03/22/21 None, Provider PCP - General 03/23/21 03/30/21 Ofelia Pierce NP [address] [place], [place] [phone] PCP - General 03/31/21 Desiree Park MD [address] [place] [address] 03/23/21 documented as of this encounter
--- OUTSIDE RECORDS SUMMARY | 2023-12-21 03:35 | XMS_ITS ---
Author Organization Unknown Address [address] [place] [phone] Phone Care Team Providers Care Account Executive Agribusiness Name Role Phone NOEMÍ GARRETT CNM Attending Unavailable ZACK SIGALA Primary Unavailable Results AFP (OB) ALPHA FETOPROTEIN - Collect Date/Time: 01/07/2021 07:39 [facility] ID: [id number] [address] [place] [address], [id number] LOINC: 81109-7 Test Value Unit Reference Range Code Code System Flag Results Summary Normal risk 28020-4 LOINC Neural tube defect riskestimate 93437-7 LOINC AFP 41.4 ng/mL 76059-2 LOINC AFP MoM 1.12 MoM <2.50 01624-5 LOINC INTERPRETATION Screen negative for neural tube defects. 80158-4 LOINC RECOMMENDED FOLLOW UP None. 40886-1 LOINC Specimen collection date 01/07/21 08795-8 LOINC Maternal date of 92 23133-8 LOINC Calculated age at RODRÍGUEZ 30 years 90915-2 LOINC Maternal Weight 158 lbs 88546-3 [place] [address]-1 LOINC Patient race non-Black 82660-0 LOINC Current cigarettesmoking status non-Smoker 54949-2 LOINC RODRÍGUEZ by LMP 06/19/21 72130-8 LOINC GA on collection by dates 16,5 58918-8 LOINC GA used in risk estimate Dates estimate 46870-8 LOINC Number of Fetuses 1 52983-0 LOINC Number of Chorions Not applicable 91812-6 [place] [address]-6 LOINC [place]/ [place] [address]-4 [facility] Patient or father [place] [address]-6 [facility] Initial or repeat testing Initial testing 09372-9 [facility] Physician Phone Number [phone] [facility] GENERAL TEST INFORMATION See Below 40293-4 [facility] Social History Type Status Start Date End Date Code Code Syst em Smoking History Never smoker (Never Smoked) 045007637 SNOMED CT Sex Female Medications Medication Start Date End Date Route Frequency Dose Code Code System Medication Instructions Home Meds Pepcid 20MG Oral Tablet 07/14/2021 07/14/2021 ORAL TWICE A DAY 1 TABLET 102880 RxNorm TAKE 1 TABLET ORAL TWICE A DAY Claritin 10MG Oral Tablet 07/14/2021 12/26/2022 ORAL DAILY 1 TABLET 619612 RxNorm TAKE 1 TABLET ORAL DAILY for 1-2 weeks Pepcid 20MG Oral Tablet 07/14/2021 12/26/2022 ORAL TWICE A DAY 1 TABLET 253670 RxNorm TAKE 1 TABLET ORAL TWICE A DAY Ondansetron 4MG Oral Tablet, Disintegrating 12/26/2022 Unknown ORAL NEEDED EVERY 6 HOURS 1 TABLET 207188 RxNorm TAKE 1 TABLET ORAL NEEDED EVERY [...] Date Status Code Code System URTICARIA active 709010216 SNOMED-CT GASTRITIS active 3168605 SNOMED-CT Allergies and Adverse Reactions Allergy Substance Reaction Severity Start Date Concern Status Code Code System PENICILLINS (CLASS) Hives (SNOMED-CT: 336679360) Active 9438254 SNOMED-CT AMPICILLIN Hives (SNOMED-CT: 415522812) Active 733 RxNorm AMOXICILLIN Active 723 RxNorm Plan of Treatment Lab Draw 01/07/2021 LAB DRAW 15MIN 12/12/2023 LAB DRAW 15MIN 10/28/2023 PRE-OP COVID-19 TESTING 08/15/2021 LAB DRAW 15MIN 08/14/2021 LAB DRAW 15MIN 08/14/2021 US OB COMPLETE 04/23/2021 US ABDOMEN LIMITED 1 ORGAN 02/27/2021 US OB COMPLETE 01/29/2021 US OB COMPLETE 01/30/2021 Encounters Encounter Diagnosis Start Date Code Code Sys tem care: primigravida 01/07/2021 500808028 SNOMED-CT Personal Care Team Section Performer Name Performer Role Active Date Inactive Da te
--- OUTSIDE RECORDS SUMMARY | 2023-12-21 03:35 | XMS_ITS | Encounter Summary ---
Author Organization [facility] Address [address] [place] [address] Care Team Providers Care Silver Solution Mixer Name Role Phone Desiree Park MD Primary Care Provider [phone] Encounter Details Date Type Department Care Team (Late st Contact Info) Description 06/06/2018 Historical Results Only [facility] - [place] [address] [place] [id number] Unknown, Provider, Social History Tobacco Use Types Packs/Day Years [...] Diagnosis Comments QUANTIFERON TB GOLD PLUS Routine 06/06/2018 10:04 EST HEPATITIS B SURFACE ANTIBODY Routine 06/06/2018 10:04 EST documented in this encounter Results * HEPATITIS B SURFACE ANTIBODY (06/06/2018 10:04 EST) Hep B Surface Ab, Qualitative 399 06/06/2018 12:38 EST [facility] Comment: ? Interpretative Guidelines >=12.00 mIU/mL ??= Positive Clinical Interpretation of Immune Status: Anti-HBs detected at >10 mIU/mL. Patient is considered to be immune to infection with HBV. ??It has not been determined what the clinical significance is for values greater than or = 12 mIU/mL, other than the individual is considered to be immune to HBV infection. The results of this assay can be falsely lowered due to the consumption of Biotin. 06/06/2018 10:0 4 EST 06/06/2018 10:04 EST Narrative [facility] - 06/06/2018 12:38 EST Does PT Have a Latex Allergy? NO Provider Unknown MD CHEMISTRY & BLOOD GA S ORDERABLES [facility] * QUANTIFERON TB GOLD PLUS (06/06/2018 10:04 EST) [facility] Quantiferon Interpretation Negative NEGAT 06/09/2018 14:31 [facility] Comment: Reference Range: Negative No interferon-gamma response to M. tuberculosis antigens was detected. Infection with M. tuberculosis is unlikely. A single negative result does not exclude infection with M. tuberculosis. In patients at high risk for M. tuberculosis infection, a second test should be considered in accordance with the 2017 ATS/IDSA/CDC Clinical Practive Guidelines for Diagnosis of Tuberculosis in Adults and Children [Parish DIAZ et. al. Clin. Infect. Dis. 2017:64(2):111-115]. Results were obtained with the Qiagen QuantiFERON-TB Gold Plus PAPI. TB1 Ag minus Nil 0.00 () IU/mL 06/09/19 19 14:31 [facility] TB2 Ag minus Nil 0.01 () IU/mL 06/09/19 19 14:31 [facility] Comment: Test performed or referred by The [address] [address] 06/06/2018 10:0 4 EST 06/06/2018 10:04 EST Narrative [facility] - 06/09/2018 14:31 EST Does PT Have a Latex Allergy? NO Provider Unknown CHEMISTRY & BLOOD GA S ORDERABLES [facility] documented in this encounter Visit Diagnoses Not on filedocumented in this encounter Care Teams Silver Solution Mixer Relationship Specialty Start Date End Date Desiree Park MD [address] [place] [phone] PCP - General 08/20/08 03/22/21 documented as of this encounter
--- OUTSIDE RECORDS SUMMARY | 2023-12-21 03:35 | XMS_ITS ---
Author Organization Unknown Address [address] [place] [address] [phone] Phone Care Team Providers Care High Man Name Role Phone ERNESTO ZHAO CNM Attending Unavailable ZACK SIGALA Primary Unavailable Social History Type Status Start Date End Date Code Code Syst em Smoking History Never smoker (Never Smoked) 332911904 SNOMED CT Sex Female Medications Medication Start Date End Date Route Frequency Dose Code Code System Medication Instructions Home Meds Pepcid 20MG Oral Tablet 07/14/2021 07/14/2021 ORAL TWICE A DAY 1 TABLET 309125 RxNorm TAKE 1 TABLET ORAL TWICE A DAY Claritin 10MG Oral Tablet 07/14/2021 12/26/2022 ORAL DAILY 1 TABLET 574598 RxNorm TAKE 1 TABLET ORAL DAILY for 1-2 weeks Pepcid 20MG Oral Tablet 07/14/2021 12/26/2022 ORAL TWICE A DAY 1 TABLET 750094 RxNorm TAKE 1 TABLET ORAL TWICE A DAY Ondansetron 4MG Oral Tablet, Disintegrating 12/26/2022 Unknown ORAL NEEDED EVERY 6 HOURS 1 TABLET 041433 RxNorm TAKE 1 TABLET ORAL NEEDED EVERY [...] Date Status Code Code System URTICARIA active 738945851 SNOMED-CT GASTRITIS active 1174984 SNOMED-CT Allergies and Adverse Reactions Allergy Substance Reaction Severity Start Date Concern Status Code Code System PENICILLINS (CLASS) Hives (SNOMED-CT: 423726365) Active 4127777 SNOMED-CT AMPICILLIN Hives (SNOMED-CT: 327406267) Active 733 RxNorm AMOXICILLIN Active 723 RxNorm Plan of Treatment Lab Draw 01/07/2021 LAB DRAW 15MIN 12/12/2023 LAB DRAW 15MIN 10/28/2023 PRE-OP COVID-19 TESTING 08/15/2021 LAB DRAW 15MIN 08/14/2021 LAB DRAW 15MIN 08/14/2021 US OB COMPLETE 04/23/2021 US ABDOMEN LIMITED 1 ORGAN 02/27/2021 US OB COMPLETE 01/29/2021 US OB COMPLETE 01/30/2021 Encounters Encounter Diagnosis Start Date Code Code Sys tem Routine care 11/24/2020 500284714 SNOME D-CT Personal Care Team Section Performer Name Performer Role Active Date Inactive Da mariano
--- OUTSIDE RECORDS SUMMARY | 2023-12-21 03:35 | XMS_ITS | Encounter Summary ---
Author Organization [facility] Address [address] [place] [address] Care Team Providers Care Automotive Title Clerk Name Role Phone Desiree Park MD Primary Care Provider [phone] Encounter Details Date Type Department Care Team (Latest Contact Info) Description 06/28/2011 11:46 EST - 06/28/2011 23:59 EST Hospital Encounter [facility] [address] [place] [address] Mari Carrion, ANA [address] [place] [phone] Discharge Disposition: Home or Self Care Social [...] :44 EDT documented as of this encounter Medications at Time of Discharge Medication Sig Dispensed Refills Start Date End Date norgestimate-ethinyl estradiol (ORTHO TRI-CYCLEN LO) 0.18/0.215/0.25 mg-25 mcg tablet Take 1 Tab by mouth daily. 08/18/2021 documented as of this encounter Discharge Disposition Disposition Code Departure Means Destination Home or Self Longterm documented in this encounter Plan of Treatment Not on file documented as of this encounter Procedures Procedure Name Priority Date/Time Associated Diagnosis Comments HAND 3 OR MORE VIEWS 06/28/2011 12:05 EST documented in this encounter Results * HAND 3 OR MORE VIEWS (06/28/2011 12:05 EST) Anatomical Region Laterality Modality Other 06/28/2011 12:0 5 EST 06/28/2011 12:40 EST Narrative 06/28/2011 12:40 EST Left hand June 28, 2011 History: Fell on outstretched hand, pain, mainly in the thumb, rule out fracture Three views were obtained. Findings: The soft tissues and bony structures are normal. Specifically, no fracture is seen. The joint spaces are normal. Impression: Normal exam. Procedure Note 06/28/2011 Left hand June 28, 2011 History: Fell on outstretched hand, pain, mainly in the thumb, rule out fracture Three views were obtained. Findings: The soft tissues and bony structures are normal. Specifically, no fracture is seen. The joint spaces are normal. Impression: Normal exam. [facility] ORDERABLES documented in this encounter Visit Diagnoses Not on filedocumented in this encounter Care Teams Automotive Title Clerk Relationship Specialty Start Date End Date Desiree Park MD [address] [place] [address] PCP - General 08/20/08 03/22/21 documented as of this encounter
--- OUTSIDE RECORDS SUMMARY | 2023-12-21 03:35 | XMS_ITS ---
Author Organization Unknown Address [address] [place] [address] [phone] Phone Care Team Providers Care Etcher Machine Name Role Phone ERNESTO ZHAO CNM Attending Unavailable ZACK SIGALA Primary Unavailable Results CHLAMYDIA/GC AMPLIFIED PROBE - Collect Date/Time: 11/14/2020 10:56 [facility] ID: [id number] [address] [place] [address], [id number] LOINC: 90450-5 Test Value Unit Reference Range Code Code System Flag Chlamydia Result Negative Negative GC Result Negative Negative HEP C ANTIBODY WITH REFLEX P CR - Collect Date/Time: 11/14/2020 10:56 [facility] ID: [id number] [address] [place] [address], [id number] LOINC: 69385-1 Test Value Unit Reference Range Code Code System Flag Hep C Ab w Rfx PCR Negative Negative URINALYSIS ROUTINE - Collect Date/Time: 11/14/2020 10:56 [facility] ID: [id number] [address] [place] [address], 5661 LOINC: Test Value Unit Reference Range Code Code System Flag COLLECTION MODE: CLEAN CATCH Color STRAW yellow 5778-6 LOINC Appearance CLEAR clear 5767-9 LOINC Glucose urine NEGATIVE negative mg/dl 16617-1 LOINC Bilirubin NEGATIVE negative 5770-3 LOINC Ketones NEGATIVE negative mg/dl 2514-8 LOINC Spec gravity 1.010 1.003 - 1.030 5811-5 LOINC pH urine 7.0 5.0 - 7.0 2756-5 LOINC Protein NEGATIVE negative mg/dl 44095-1 LOINC Urobilinogen 0.2 <or= 1 EU/dl 13833-7 LOINC Nitrite NEGATIVE negative 5802-4 LOINC Blood TRACE-IN negative 5794-3 LOINC A Leukocytes TRACE negative 84696-0 LOINC A MICROSCOPIC* INDICATED WBCs 0-5 0-5 / hpf 39822-5 LOINC RBCs 0-5 0-5 / hpf 75504-0 LOINC Epith cells 0-5 0-5 / hpf 65958-9 LOINC Cell types squamous Crystals none none Bacteria none none Mucus none none 8247-9 LOINC Casts none none /lpf 24745-9 LOINC Other 13597-3 LOINC SYPHILIS SEROLOGY - Collect Date/Time: 11/14/2020 10:56 [facility] ID: [id number] [address] [place] [address], [id number] LOINC: 61050-3 Test Value Unit Reference Range Code Code System Flag Syphilis Serology Negative Negative RUBELLA IGG ANTIBODY - Colle ct Date/Time: 11/14/2020 10:56 [facility] ID: [id number] [address] [place] [address], [id number] LOINC: 30193-4 Test Value Unit Reference Range Code Code System Flag Rubella IgG Ab Positive See Note HEP B SURF ANTIGEN - Collect Date/Time: 11/14/2020 10:56 [facility] ID: [id number] [address] [place] [address], [id number] LOINC: 5196-1 Test Value Unit Reference Range Code Code System Flag Hep B Surface Ag Negative Negative TYPE AND ANTIBODY S CREEN - Collect Date/Time: 11/14/2020 10:56 [facility] ID: [id number] [address] [place] [address], [address] LOINC: 882-1 Test Value Unit Reference Range Code Code System Flag Blood Group O 883-9 LOINC Rh (D) POSITIVE 78217-2 LOINC Antibody Screen NEGATIVE 1005-8 LOINC HEMATOLOGY - [facility] t Date/Time: 11/14/2020 10:56 [facility] ID: [id number] [address] [place] [address], [address] LOINC: 79390-8 Test Value Unit Reference Range Code Code System Flag WBC 14.76 th/cmm L=5.00 H=10.00 6690-2 LOINC H NEUT % 81.6 % L=40.0 H=80.0 H LYMPH % 11.7 % L=10.0 H=50.0 MONO % 5.7 % L=2.0 H=12.0 56184-9 LOINC EOS % 0.1 % L=0.0 H=8.0 BASO % 0.5 % L=0.0 H=3.0 IG % 0.4 % L=0.0 H=1.1 2514-8 LOINC NRBC % 0.0 % L=0.0 H=0.0 40404-9 LOINC NEUT abs count 12.1 th/cmm L=1.6 H=8.4 751-8 LOINC H LYMPH abs count 1.7 th/cmm L=1.5 H=4.0 731-0 LOINC MONO abs count 0.8 th/cmm L=0.2 H=1.0 742-7 LOINC EOS abs count 0.0 th/cmm L=0.0 H=0.5 711-2 LOINC BASO abs count 0.1 th/cmm L=0.0 H=0.2 704-7 LOINC IG abs count 0.1 th/cmm L=0.0 H=0.1 49721-5 LOINC NRBC abs count 0.0 mil/cmm L=0.0 H=0.0 57032-8 LOINC RBC 4.64 mil/cmm L=3.90 H=5.40 789-8 LOINC HEMOGLOBIN 13.7 gm/dL L=12.0 H=16.0 718-7 LOINC HEMATOCRIT 41 % L=37 H=47 4544-3 LOINC MCV 89 fL L=82 H=92 787-2 LOINC MCH 29.5 pg L=27.0 H=31.0 785-6 LOINC MCHC 33.3 % L=32.0 H=36.0 786-4 LOINC RDW-SD 39.9 fL L=39.0 H=49.0 788-0 LOINC PLATELET COUNT 305 th/cmm L=150 H=450 777-3 LOINC HIV 1/2 ANTIGEN AND ANTIBODY SCREEN - Collect Date/Time: 11/14/2020 10:56 [facility] ID: [id number] [address] [place], [place], [phone] LOINC: 25202-6 Test Value Unit Reference Range Code Code System Flag HIV 1/2 Antigen andAntibody Negative Negative Social History Type Status Start Date End Date Code Code Syst em Smoking History Never smoker (Never Smoked) 810286248 SNOMED CT Sex Female Medications Medication Start Date End Date Route Frequency Dose Code Code System Medication Instructions Home Meds Pepcid 20MG Oral Tablet 07/14/2021 07/14/2021 ORAL TWICE A DAY 1 TABLET 883076 RxNorm TAKE 1 TABLET ORAL TWICE A DAY Claritin 10MG Oral Tablet 07/14/2021 12/26/2022 ORAL DAILY 1 TABLET 577436 RxNorm TAKE 1 TABLET ORAL DAILY for 1-2 weeks Pepcid 20MG Oral Tablet 07/14/2021 12/26/2022 ORAL TWICE A DAY 1 TABLET 556801 RxNorm TAKE 1 TABLET ORAL TWICE A DAY Ondansetron 4MG Oral Tablet, Disintegrating 12/26/2022 Unknown ORAL NEEDED EVERY 6 HOURS 1 TABLET 208060 RxNorm TAKE 1 TABLET ORAL NEEDED EVERY [...] Date Status Code Code System URTICARIA active 339742919 SNOMED-CT GASTRITIS active 3364486 SNOMED-CT Allergies and Adverse Reactions Allergy Substance Reaction Severity Start Date Concern Status Code Code System PENICILLINS (CLASS) Hives (SNOMED-CT: 733095536) Active 0159517 SNOMED-CT AMPICILLIN Hives (SNOMED-CT: 174887079) Active 733 RxNorm AMOXICILLIN Active 723 RxNorm [...] Sys tem Encounter for other specified screening 10/30 SNOMED-CT Personal Care Team Section Performer Name Performer Role Active Date Inactive Da te
--- OUTSIDE RECORDS SUMMARY | 2023-12-21 03:35 | XMS_ITS | Encounter Summary ---
Author Organization [facility] Address [address] [place] [address] Care Team Providers Care Model And Mold Maker Name Role Phone Desiree Park MD Primary Care Provider [phone] None, Provider Primary Care Provider UnavailOfelia Combs NP Primary Care Provider [phone] Desiree Park MD Unavailable [phone] Encounter Details Date Type Department Care Team (Late st Contact Info) Description 01/14/2021 Lab Requisition [facility] Pathology & Laboratory Medicine - [facility] [address] [place] [address] Outr Resulting Lab, Provider Social History Tobacco [...] Priority Date/Time Associated Diagnosis Comments [facility] Today 01/14/2021 9:26 EDT COVID-19 TESTING Routine 01/14/2021 9:26 EDT documented in this encounter Results * COVID-19 TEST [facility] PCR (01/14/2021 9:26 EDT) Swab ENTIRE NASOPHARYNX / Unknown 01/14/2021 9:26 EDT 01/14/2021 15:53 EDT Provider Outr Resulting Lab MICROBIOLOGY - GENERAL ORDERABLES Performing Organization Address City/[facility] Co de Phone Number [facility] [address] [place] [address] * COVID-19 TESTING (01/14/2021 9:26 EDT) COVID-19 rt-PCR Result Negative Negative 01/14/2021 19:29 EDT [facility] Comment: This test has [...] clinical observations, patient history, and epidemiological information. Performed on the [employer] Fusion instrument Performing Lab [facility] Lab 01/14/2021 19:29 EDT [facility] Swab 01/14/2021 9:26 EDT 01/14/2021 15:53 EDT Provider Outr Resulting Lab MICROBIOLOGY - GENERAL ORDERABLES [facility] [address] [place] [address] documented in this encounter Visit Diagnoses Not on filedocumented in this encounter Care Teams Model And Mold Maker Relationship Specialty Start Date End Date Desiree Park MD [address] [place] [phone] PCP - General 08/20/08 03/22/21 None, Provider PCP - General 03/23/21 03/30/21 Ofelia Pierce NP [address] [place] [id number] PCP - General 03/31/21 Desiree Park MD [address] [place] [address] 03/23/21 documented as of this encounter
--- OUTSIDE RECORDS SUMMARY | 2023-12-21 03:35 | XMS_ITS | Encounter Summary ---
Author Organization [facility] Address [address] [place] [address] Care Team Providers Care Engineering Supervisor Name Role Phone Desiree Park MD Primary Care Provider Reason for Visit * Reason Comments Annual Exam Patient has noticed on occasion in school, when looking at the front white board, she has fuzzy vision for a few seconds then her eyes focus to clear vision. Also she has noticed occasional difficulty reading road signs in the distance. Encounter Details Date Type Department Care Team (Late st Contact Info) Description 03/22/2011 15:00 EST Office Visit [facility] Ophthalmology [address] [address] Kulwant Duarte MD [address] [place] [phone] Social History Tobacco Use Types Packs/Day Years [...] :44 EDT documented as of this encounter Progress Notes * Kulwant Duarte MD - 03/22/2011 1621 EST Chief Complaint Patient presents with ??? Annual Exam Patient has noticed on occasion in school, when looking at the front white board, she has fuzzy vision for a few seconds then her eyes focus to clear vision. Also she has noticed occasional difficulty reading road signs in the distance. ROS Right Eye: Blurred Vision (Occasional fuzzy vision at distance.) Left Eye: Blurred Vision Visual Fluctuations: None Visual Aid: None Current Rx Age Constitutional: NL ENT/Mouth NL Cardiovascular: NL Respiratory: NL Gastrointestinal: NL Genitourinary: NL Musculoskeletal: NL Integumentary: NL Neurologic: NL Psychiatric: NL Endocrine: NL Hematologic: NL Immunologic: NL Imaging Manager: NL Exposures: None Other: Attestation: The above [...] tablet Take 1 Tab by mouth daily. EXAMINATION Mental Status Assessment: Oriented [...] was provided today. I am scribing for Kulwant Duarte MD While he is personally performing the service. 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 Medication Sig Dispensed Refills Start Date End Date norgestimate-ethinyl estradiol (ORTHO TRI-CYCLEN LO) 0.18/0.215/0.25 mg-25 mcg tablet Take 1 Tab by mouth daily. 08/18/2021 added in this encounter Eye Exam Visual [...] External Port wine stains of the upper an d lower lids Slit Lamp Exam Right eye Left eye Lids/Lashes 2+ Meibomian gland dysfunction 1 + Meibomian gland dysfunction Conjunctiva/Sclera Telangiectasia of co njunctiva correlating to port wine stain of eyelids, Trace Injection Trace Injection Cornea Clear Clear Anterior Chamber Deep and quiet Deep and quiet Iris Normal Normal Lens Clear Clear Vitreous Normal Normal Fundus Exam Right eye Left eye Disc Sloping Sloping C/D Ratio 0.3 0.4 Macula Normal Normal Vessels Normal Normal Periphery Normal Normal Manifest Refraction #1 (Auto) Sphere Cylinder [facility] Right eye -1.00 +0.25 070 20/20 Left eye +0.25 +0.50 100 20/20 Manifest Refraction #2 Sphere Cylinder [facility] Right eye -1.00 +0.25 070 20/20 Left eye -0.25 +0.50 100 20/20 Care Teams Engineering Supervisor Relationship Specialty Start Date End Date Desiree Park MD [address] [place] [phone] PCP - General 08/20/08 03/22/21 documented as of this encounter
--- OUTSIDE RECORDS SUMMARY | 2023-12-21 03:35 | XMS_ITS | Encounter Summary ---
Author Organization [facility] Address [address] [place] [address] Care Team Providers Care Software Applications Developer Name Role Phone Desiree Park MD Primary Care Provider [phone] Reason for Visit * (Routine/Next Available) - Receiving Office to Obtain Authorization Specialty Diagnoses / Procedures Referred By Jose ventura Referred To Contact Procedures US OUTSIDE IMAGES BODY Unknown, ProviderMD Referral ID Status Reason Start Date Expiration Date Visits Requested Visits Authorized [id number] Receiving Office to Obtain Authorization 03/10/2021 1 1 Encounter Details Date Type Department Care Team (Latest Contact Info) Description 02/27/2021 - 02/27/2021 23:59 EDT Hospital Encounter [facility] Secondary Reads [place] Discharge Disposition: Home or Self Care Social [...] Procedure Name Priority Date/Time Associated Diagnosis Comments US OUTSIDE IMAGES BODY Routine 03/10/2021 15:48 EST documented in this encounter Results * US OUTSIDE IMAGES BODY (03/10/2021 15:48 EST) Narrative 03/10/2021 15:48 EST This is a non-reportable exam. Provider Unknown MD RAYMOND OTHER IMAGING OR DERABLES documented in this encounter Visit Diagnoses Not on filedocumented in this encounter Care Teams Software Applications Developer Relationship Specialty Start Date End Date Desiree Park MD [address] [address] PCP - General 08/20/08 03/22/21 documented as of this encounter
--- OUTSIDE RECORDS SUMMARY | 2023-12-21 03:35 | XMS_ITS | Encounter Summary ---
Author Organization [facility] Address [address] [place] [address] Care Team Providers Care Peanut Butter Maker Name Role Phone Ofelia Pierce NP Primary Care Provider [phone] Desiree Park MD Unavailable [phone] Reason for Visit * Reason Comments Advice Only Consult * Consult (Routine) - Authorization Not Required Specialty Diagnoses / Procedures Referred By [facility] Referred To Contact Obstetrics Diagnoses Abdominal pain Gallbladder polyp Mark Teague MD [address] [place] [id number] [facility] Ep4 Ob/Mfm [address] [place] [address] Referral ID Status Reason Start Date Expiration Date Visits Requested Visits Authorized [id number] Authorization Not Required 1 1 Encounter Details Date Type Department Care Team (Late st Contact Info) Description 03/31/2021 8:30 EST Initial consult [facility] Obstetrics & Midwifery - [facility] [address] [place], [place] [id number] Low Granger MD [address] [facility], [address] [place] [address] Gallbladder polyp (Primary Dx); Right upper quadrant abdominal pain affecting in third trimester; Gallbladder disease affecting in third trimester Social History Tobacco Use Types Packs/Day Years [...] 76.4 kg (168 lb 6.4 oz) 03/31/[address] Height 165.1 cm (5' 5) 03/31/2021 0818 EST Body Mass Index 28.02 03/31/2021 08 EST documented in this encounter Progress Notes * Nika Holman MD - 03/31/2021829 EST Dear Mark Teague MD, Thank you for referring your patient, Lina Segura, to be seen in the [facility] clinic. As you know, she is a 30 y.o. at 28w4d. Lina is here for consultation regarding gallbladder polyp and RUQ pain. Lina reports an uncomplicated until the beginning of January. On 02/07, overnight she noticed RUQ pain just under her rib cage, which was worsened when rolling over and lying on her rightside. After speaking with her CNM, she tried hydration and a low fat diet for a few days without improvement, and ultimately presented to the ED for further evaluation 02/11. During this ED visit, she had a normal EKG and normal exam documented, although no imaging was performed. Serum labs were notable for normal LFTs and lipase, mild leukocytosis of 15. She was referred back to her PCP, and after a week for ongoing symptoms, she underwent a RUQ US on 02/27. This demonstrated a 3mm right renalcalculi with mild right hydronephrosis, as well as a gallbladder polyp, described as solitary, non-mobile. There were no mobile gallstones, gallbladder wall edema, or dilation of the common hepatic duct. Since that ultrasound, she has been dealing with RUQ pain that typically at a dull ache 3-4/10, butbecomes sharper and more acute after eating (although [...] tablet,chewable, Take 1 Tablet by mouth 4 times daily as needed., Disp: , Rfl: ??? vit no.124/iron/folic ( VITAMIN ORAL), Take 1 Tablet by mouth daily., Disp: , Rfl: Past surgical history: Lina has a past surgical history that includes Sandwich tooth extraction. Family history: Neither Lina nor her partner are aware of any family history of defect, chromosomal anomaly or syndromic disorder. Lina denies family history of renal or gallbladder problems. Her maternal grandfather has diabetes and heart disease s/p quadruple bypass. Her paternal grandmother has had an [place]. Several family members have hypertension. Her maternal grandmother and maternal great aunt had breast cancer later in life, per records. Social history: Lina lives with her . 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 She reports that she has never smoked. She does not have any smokeless tobaccohistory on file. She reports previous alcohol use. She reports that she does not use drugs. Allergies: Allergies Allergen Reactions ??? Amoxicillin Rash ??? Penicillins Shortness Of Breath Objective: Blood pressure 130/73, height 165.1 cm (65), weight 76.4 kg (168 lb 6.4 oz), last menstrual cphtrw0109/12/2020. Pregravid BMI 24.96 General: Comfortable young woman, [...] likely that her pain, which is to somedegree colicky and post-prandial and is reproducible upon palpation, is secondary to the gallbladder polyp. It should be noted, however, that some tenderness is also elicited with palpation of the lowest rib. This may indicate an alternative or concurrent etiology such as costochondritis. While uncommon, gallbladder polyps are likely to be benign. Definitive management of persistent symptoms is generally cholecystectomy, which additionally allows for biopsy and further characterization of polyp tissue, given the exceedingly rare but present risk of malignancy. Her ultrasound imagingdoes not expand upon the size or morphology of the polyp, therefore it is difficult to further comment on this. We first discussed conservative medical management in , consisting of heating pads as optimization of her tylenol regimen (daily maximum 4000 mg). In , NSAIDs are typically discouraged due to the risk of premature closure of the ductus arteriosus and subsequent sequelae; however, this is seen is with persistent and long- term use. Additionally, when ultrasound evidence of narrowing ductus arteriosus is identified, discontinuation of the trigger in question will typically resolve this back to normal. Therefore, we discussed optimizing use of tylenol, with the option to infrequently use a single dose of Motrin 400 [...] the increasingly gravid uterus may require an openapproach, and there is a slightly higher risk [...] we would recommend administration of a course of betamethasone in the preceding days for lung maturity, [...] referral to our GI surgeons here at [facility]; however, have alsoencouraged Lina to pursue this locally with your [...] Holman MD PhD MFM Fellow, PGY7 Pager #[phone] MFM Attending I have seen and examined Ms. Lina Segura. I have read and agree with Dr. Holman' notes and plan documented above. My main concerns are the potential difficulty getting her seen by GI surgery in time for them to consider a laparoscopic procedure (if removal of the gall bladder is indicated).I am fine with imaging studies, if needed, [...] Diagnosis Gallbladder polyp- Primary Cholesterolosis of gallbladder Right upper quadrant abdominal pain affecting in third trimester Gallbladder disease affecting in third trimester documented in this encounter Historical Medications * This list may reflect changes made after this encounter. Medication Sig Dispensed Refills Start Date End Date vit no.124/iron/folic ( VITAMIN ORAL) Take 1 Tablet by mouth daily. acetaminophen (TYLENOL) 500 mg tablet Take 500 mg by mouth every 6 hours as needed for Pain. 08/19/2021 calcium carbonate (TUMS) 200 mg calcium (500 mg) tablet,chewable Take 1 Tablet by mouth 4 times daily as needed. 08/19/2021 added in this encounter Care Teams Peanut Butter Maker Relationship Specialty Start Date End Date Ofelia Pierce NP [address] [place] [address] PCP - General 03/31/21 Desiree Park MD [address] [place] [address] 03/23/21 documented as of this encounter
--- OUTSIDE RECORDS SUMMARY | 2023-12-21 03:35 | XMS_ITS | Encounter Summary ---
Author Organization [facility] Address [address] [place] [address] Care Team Providers Care Real Estate Intern Name Role Phone Desiree Park MD Primary Care Provider [phone] None, Provider Primary Care Provider UnavailOfelia Combs NP Primary Care Provider Desiree Park MD Unavailable [phone] Encounter Details Date Type Department Care Team (Late st Contact Info) Description 11/14/2020 Lab Requisition [facility] Pathology & Laboratory Medicine - [facility] [address] [place] [address] Outr Resulting Lab, Provider Social History Tobacco [...] Diagnosis Comments HEPATITIS B SURFACE ANTIGEN Routine 11/14/2020 10:56 EDT documented in this encounter Results * HEPATITIS B SURFACE ANTIGEN (11/14/2020 10:56 EDT) Hep B Surface Ag Negative Negative 11/17/2020 9:16 EDT [facility] Blood VENOUS BLOOD / Unknown 11/14/2020 10:56 EDT 11/14/2020 21:04 EDT Provider Outr Resulting Lab CHEMISTRY & BLOOD GAS ORDERABLES [facility] [address] [place] [address] documented in this encounter Visit Diagnoses Not on filedocumented in this encounter Care Teams Real Estate Intern Relationship Specialty Start Date End Date Desiree Park MD [address] [place] [address] PCP - General 08/20/08 03/22/21 None, Provider PCP - General 03/23/21 03/30/21 Ofelia Pierce TACTICAL AIR CONTROL PARTY MANAGER [address] [place] [phone] PCP - General 03/31/21 Desiree Park MD [address] [place] [phone] 03/23/21 documented as of this encounter
--- OUTSIDE RECORDS SUMMARY | 2023-12-21 03:35 | XMS_ITS | Encounter Summary ---
Author Organization [facility] Address [address] [place] [address] Care Team Providers Care Clinical Account Liaison Name Role Phone Desiree Park MD Primary Care Provider [phone] None, Provider Primary Care Provider UnavailOfelia Comsb NP Primary Care Provider Desiree Park MD Unavailable [phone] Encounter Details Date Type Department Care Team (Late st Contact Info) Description 09/13/2019 Lab Requisition [facility] Pathology & Laboratory Medicine - [address] [address] Outr Resulting Lab, Provider Social History Tobacco [...] Date/Time Associated Diagnosis Comments HEPATITIS B SURFACE ANTIBODY Routine 09/13/2019 14:02 EDT documented in this encounter Results * HEPATITIS B SURFACE ANTIBODY (09/13/2019 14:02 EDT) Hep B Surface Ab, Quantitative 918.2 See Note mIU/mL 09/14/2019 10:34 EDT [facility] Comment: Reference Range for Hep B Surface Ab, Quant: Positive: >= 10.0 mIU/mL Negative: ??< 10.0 mIU/mL Patient is presumed to be immune to infection with Hepatitis B Virus. Hep B Surface Ab, Qualitative Positive See Note 09/14/2019 10:34 EDT [facility] Comment: Reference Range for Hep B Surface Ab, Qual: Unvaccinated: ??Negative Vaccinated: ??Positive Blood VENOUS BLOOD / Unknown 09/13/2019 14:02 EDT 09/13/2019 21:01 EDT Provider Outr Resulting Lab CHEMISTRY & BLOOD GAS ORDERABLES Performing Organization Address City/State/[facility] Co de Phone Number [facility] [address] [place] [address] documented in this encounter Visit Diagnoses Not on filedocumented in this encounter Care Teams Clinical Account Liaison Relationship Specialty Start Date End Date Desiree Park MD [address] [place] [phone] PCP - General 08/20/08 03/22/21 None, Provider PCP - General 03/23/21 03/30/21 Ofelia Pierce NP [address] [place] [address] PCP - General 03/31/21 Desiree Park MD [address] [place] [phone] 03/23/21 documented as of this encounter
--- OUTSIDE RECORDS SUMMARY | 2023-12-21 03:35 | XMS_ITS | Encounter Summary ---
Author Organization [facility] Address [address] [place] [address] Care Team Providers Care Saxophone Assembler Name Role Phone Desiree Park MD Primary Care Provider [phone] None, Provider Primary Care Provider UnavailOfelia Combs NP Primary Care Provider [phone] Desiree Park MD Unavailable [phone] Encounter Details Date Type Department Care Team (Late st Contact Info) Description 11/14/2020 Lab Requisition [facility] Pathology & Laboratory Medicine - [facility] [address] [place] [address] Outr Resulting Lab, Provider Social History Tobacco [...] Comments CHLAMYDIA/N. GONORRHOEAE AMPLIFIED NUCLEIC ACID Routine 11/14/2020 10:56 EDT documented in this encounter Results * CHLAMYDIA/N. GONORRHOEAE AMPLIFIED RNA (11/14/2020 10:56 EDT) Neisseria gonorrhoeae Result Negative Negative 11/17/2020 13:59 EDT [facility] Chlamydia trachomatis Result Negative Negative 11/17/2020 13:59 EDT [facility] Urine URINE / Unknown 11/14/2020 1 0:56 EDT 11/14/2020 22:19 EDT Narrative [facility] - 11/17/2020 13:59 EDT A first catch urine specimen is acceptable for detection of Gonorrhea and Chlamydia, but might detect up to 10% fewer infections when compared with vaginal and endocervical swab samples. Provider Outr Resulting Lab MICROBIOLOGY - GENERAL ORDERABLES [facility] [address] [place] [address] documented in this encounter Visit Diagnoses Not on filedocumented in this encounter Care Teams Saxophone Assembler Relationship Specialty Start Date End Date Desiree Park MD [address] [place] [phone] PCP - General 08/20/08 03/22/21 None, Provider PCP - General 03/23/21 03/30/21 Ofelia Pierce NP [address] [place] [address] PCP - General 03/31/21 Desiree Park MD [address] [place] [phone] 03/23/21 documented as of this encounter
--- OUTSIDE RECORDS SUMMARY | 2023-12-21 03:35 | XMS_ITS | Encounter Summary ---
Author Organization [facility] Address [address] [place] [address] Care Team Providers Care Maintenance Supervisor Mechanical Name Role Phone Desiree Park MD Primary Care Provider [phone] None, Provider Primary Care Provider UnavailOfelia Combs NP Primary Care Provider Desiree Park MD Unavailable [phone] Encounter Details Date Type Department Care Team (Late st Contact Info) Description 11/14/2020 Lab Requisition [facility] Pathology & Laboratory Medicine - [facility] [address] [place] [address] Outr Resulting Lab, Provider Social History Tobacco [...] Date/Time Associated Diagnosis Comments SYPHILIS SEROLOGY Routine 11/14/2020 10: 56 EDT documented in this encounter Results * SYPHILIS SEROLOGY (11/14/2020 10:56 EDT) Syphilis Serology Negative Negative 11/17/2020 11:20 EDT [facility] Blood VENOUS BLOOD / Unknown 11/14/2020 10:56 EDT 11/14/2020 21:04 EDT Provider Outr Resulting Lab IMMUNOLOGY A ND SEROLOGY ORDERABLES Performing Organization Address City/State/[facility] Co de Phone Number [facility] [address] [place] [address] documented in this encounter Visit Diagnoses Not on filedocumented in this encounter Care Teams Maintenance Supervisor Mechanical Relationship Specialty Start Date End Date Desiree Park MD [address] [place] [phone] PCP - General 08/20/08 03/22/21 None, Provider PCP - General 03/23/21 03/30/21 Ofelia Pierce NP [address] [place] [id number] PCP - General 03/31/21 Desiree Park MD [address] [place] [phone] 03/23/21 documented as of this encounter
--- OUTSIDE RECORDS SUMMARY | 2023-12-21 03:35 | XMS_ITS | Encounter Summary ---
Author Organization [facility] Address [address] [place] [address] Care Team Providers Care Supervisor Telephone Answering Service Name Role Phone Desiree Park MD Primary Care Provider [phone] None, Provider Primary Care Provider UnavailOfelia Combs NP Primary Care Provider Desiree Park MD Unavailable [phone] Encounter Details Date Type Department Care Team (Late st Contact Info) Description 11/14/2020 Lab Requisition [facility] Medicine - [facility] [address] [place] [address] Outr Resulting Lab, Provider Social History Tobacco [...] 1/2 ANTIGEN AND ANTIBODY, 4TH GENERATION Routine 11/14/2020 10:56 EDT documented in this encounter Results * HIV 1/2 ANTIGEN AND ANTIBODY, 4TH GENERATION (11/14/2020 10:56 EDT) [facility] HIV 1 and 2 Antibody/p24 Antigen, 4th Generation Negative Negative 11/15/2020 9:37 EDT [facility] Comment: If acute HIV-1 infection is suspected in a high risk ??patient, submit plasma specimen for HIV-1 RNA quantitation test. Fourth Generation assay performed on the Siemens Centaur. Blood VENOUS BLOOD / Unknown 11/14/2020 10:56 EDT 11/14/2020 21:04 EDT Provider Outr Resulting Lab IMMUNOLOGY A ND SEROLOGY ORDERABLES [facility] [address] [place] [address] documented in this encounter Visit Diagnoses Not on filedocumented in this encounter Care Teams Supervisor Telephone Answering Service Relationship Specialty Start Date End Date Desiree Park MD [address] [place] [id number] PCP - General 08/20/08 03/22/21 None, Provider PCP - General 03/23/21 03/30/21 Ofelia Pierce NP [address] [place] [address] PCP - General 03/31/21 Desiree Park MD [address] [phone] 03/23/21 documented as of this encounter
--- OUTSIDE RECORDS SUMMARY | 2023-12-21 03:35 | XMS_ITS | Encounter Summary ---
Author Organization [facility] Address [address] [place] [address] Care Team Providers Care Motor Vehicle Assembly Supervisor Name Role Phone Desiree Park MD Primary Care Provider [phone] Encounter Details Date Type Department Care Team (Late st Contact Info) Description 02/24/2017 Results Only [facility] [phone] Ofelia Dixon, AGRICULTURAL SPECIALIST [address] [place], [place] [id number] Social History Tobacco Use Types Packs/Day Years [...] Diagnosis Comments PAP TEST- RESULT ONLY Routine 02/24/2017 0:00 EDT documented in this encounter Results * PAP TEST- RESULT ONLY (02/24/2017 0:00 EDT) Pathology Report: CYTOPATHOLOGY REPORT Reports generated via electronic interface contain original data; however they are lacking the format of the original report. Caution should be taken when reading/interpreti ng unformatted reports. Name: ? CAITLIN JARAMILLO ? Accession #: ? [id number] : ? 1990 (Age: 26) ??F ?Collect Date: ? 02/24/2017 Location: ? [facility] ? Receive Date: ? 03/01/2017 Provider: ?OFELIA DIXON NP Copy to: ? Specimen/Source: ?Pap Test, Cervix, ThinPrep Imaging System with manual evaluation Last Menstrual Period: ? 01/25/17 Menstrual/Pregnanc y Status: ? None Hormonal/Contracep tive Status: ? Intrauterine device Previous Gynecologic Pathology: ? None Treatment History: ? None Other: ? Photolith Operator Clinical/Treatment Hx - None ? SPECIMEN ADEQUACY ? Satisfactory for Evaluation - transformation zone component present GENERAL CATEGORIZATION ? Negative for Intraepithelial Lesion or Malignancy ? Document reviewed and electronically signed by: ? JORGE Varner(ASCP) ? Report Date: ??03/14/2017 12:08 End of Report [facility] 02/24/2017 03/01/2017 Ofelia Dixon NP PATHOLOGY ORDERABLES [facility] [address] [place] [address] documented in this encounter Visit Diagnoses Not on filedocumented in this encounter Care Teams Motor Vehicle Assembly Supervisor Relationship Specialty Start Date End Date Desiree Park MD [address] [place] [phone] PCP - General 08/20/08 03/22/21 documented as of this encounter
--- OUTSIDE RECORDS SUMMARY | 2023-12-21 03:36 | XMS_ITS ---
Author Organization Unknown Address [address] [place] [phone] Phone Care Team Providers Care Waste Minimization Technician Name Role Phone ERNESTO ZHAO CNM Attending Unavailable ZACK SIGALA Primary Unavailable Social History Type Status Start Date End Date Code Code Syst em Smoking History Never smoker (Never Smoked) 941349232 SNOMED CT Sex Female Medications Medication Start Date End Date Route Frequency Dose Code Code System Medication Instructions Home Meds Pepcid 20MG Oral Tablet 07/14/2021 07/14/2021 ORAL TWICE A DAY 1 TABLET 045781 RxNorm TAKE 1 TABLET ORAL TWICE A DAY Claritin 10MG Oral Tablet 07/14/2021 12/26/2022 ORAL DAILY 1 TABLET 842511 RxNorm TAKE 1 TABLET ORAL DAILY for 1-2 weeks Pepcid 20MG Oral Tablet 07/14/2021 12/26/2022 ORAL TWICE A DAY 1 TABLET 101698 RxNorm TAKE 1 TABLET ORAL TWICE A DAY Ondansetron 4MG Oral Tablet, Disintegrating 12/26/2022 Unknown ORAL NEEDED EVERY 6 HOURS 1 TABLET 068291 RxNorm TAKE 1 TABLET ORAL NEEDED EVERY [...] Date Status Code Code System URTICARIA active [id number] SNOMED-CT GASTRITIS active 1737359 SNOMED-CT Allergies and Adverse Reactions Allergy Substance Reaction Severity Start Date Concern Status Code Code System PENICILLINS (CLASS) Hives (SNOMED-CT: 366727351) Active 8783695 SNOMED-CT AMPICILLIN Hives (SNOMED-CT: 126122426) Active 733 RxNorm AMOXICILLIN Active 723 RxNorm [...] supervision of other normal , second trimester 01/08/2021 SNOMED-CT Personal Care Team Section Performer Name Performer Role Active Date Inactive Da te
[2023-12-21 13:38] LABS: HCG Quant, Pregnancy 137 mIU/mL (1-3)
[2023-12-21 22:32] LABS: Progesterone 9.7 ng/mL (See Table)
== END 2023-12-21 03:16 | disposition home or self-care (01) ==
LOC: LBO 03:15
PROVIDERS: PCP Nurse Practitioner Family; Visit Provider Nurse Practitioner Family
DX: Z34.90 Encounter for supervision of normal pregnancy, unspecified, unspecified trimester (principal)
CPT/HCPCS: 36415; 84144; 84702